=== PATIENT | male | born 1935 | race Caucasian/White ===

== ENCOUNTER 2018-04-24 00:32 | Inpatient (IN) ==
[2018-04-24] MEDS ORDERED: SODIUM CHLORIDE 0.9% 500 ML IV SCH (01:00)
[2018-04-24 01:11] LABS: Basophils # (auto) 0.03 K/uL (0-0.2); Basophils % (auto) 0.3 %; Eosinophils # (auto) 0.08 K/uL (0-0.5); Eosinophils % (auto) 0.7 %; Hematocrit (blood only) 43.6 % (42-52); Hemoglobin 14.7 g/dL (14.0-18.0); Immature Granulocytes # (auto) 0.05 K/uL (0.00-0.02); Immature Granulocytes % (auto) 0.4 %; Lymphocytes % (auto) 7.8 %; Mean Corpuscular Hgb Conc 33.7 g/dL (32-36); Mean Corpuscular Volume 97.3 fL (80-100); Mean Platelet Volume 9.8 fL (7.4-10.4); Monocytes % (auto) 5.2 %; Neutrophils # (auto) 9.85 K/uL (1.4-6.5); Neutrophils % (auto) 85.6 %; Platelet Count 192 K/uL (130-400); RDW Coefficient of Variation 13.6 % (11.5-14.5); Red Blood Count 4.48 M/uL (4.7-6.1); White Blood Count 11.51 K/uL (4.8-10.8)
[2018-04-24 01:27] LABS: Alanine Aminotransferase 16 U/L (12-78); Albumin Level 3.6 gm/dl (3.4-5.0); Aspartate Aminotransferase 17 U/L (15-37); BUN Creatinine Ratio 23.2 (10-20); Blood Urea Nitrogen 41 mg/dl (7-18); Calcium 8.5 mg/dl (8.5-10.1); Carbon Dioxide 29 mmol/L (21-32); Chloride 104 mmol/L (98-107); Est GFR (African American) 40.8; Est GFR (Non-African American) 35.2; Glucose 108 mg/dl (70-99); Potassium 5.4 mmol/L (3.5-5.1); Sodium 136 mmol/L (136-145)
[2018-04-24 01:30] LABS: Albumin Globulin Ratio 0.7 (0.9-2); Alkaline Phosphatase 109 U/L (45-117); Bilirubin,Total 0.5 mg/dl (0.2-1); Globulin 5.1 gm/dl (2.5-4.0); Total Protein 8.7 gm/dl (6.4-8.2)
[2018-04-24] MEDS ORDERED: SODIUM CHLORIDE 0.9% 500 ML IV ONE (02:34)
[2018-04-24] MEDS ORDERED: IOVERSOL 100ml IV PRN (03:34)
[2018-04-24] MEDS ORDERED: ONDANSETRON INJ 2 MG/ML 2 ML VIAL IV STA (04:34)
[2018-04-24] MEDS ORDERED: PANTOprazole 80 MG in DEXTROSE 5% 100 ML IV ONE (04:46)
[2018-04-24] MEDS ORDERED: ALBUT/IPRATROP 3MG/0.5MG NEB 3 ML VIAL NEB STA (05:20)
[2018-04-24] MEDS ORDERED: ERTAPENEM SODIUM 1,000 MG in SODIUM CHLORIDE 0.9% 50 ML IV STA (05:20)
--- NOTE | 2018-04-24 05:21 | History & Physical Report ---
Date of Service April 24, 2018 Assessment & Plan (1) Acute hypoxemic respiratory failure: Secondary to probable aspiration pneumonia from UGIB Possible sepsis Known aspiration risk as per records UGIB (ddx include : Esophagitis, gastritis, Tavia-Vo tear) hx Whalen's esophagus Hemoglobin better than baseline Post laxative bloody diarrhea ro cdif dementia as per records hx COPD, past tobacco abuse hypothyroidism, euthyroid as of today's TSH BPH as per records chronic renal insufficiency, creatinine better than baseline chronic anemia secondary to CKD, hemoglobin better than baseline chronic back pain secondary to chronic lumbar compression fractures. Medical telemetry Supplemental O2 Baseline ABG Cultures, check lactic acid Ertapenem for possible aspiration pneumonia, nebs, Solu-Medrol 1 dose IV PPI Serial H&H, transfuse PRBC if hemoglobin less than 8 if patient family agreeable to blood transfusion, history PVD as per records Stool C. difficile GI consult pending discussion with family members RE GI bleed DVT prophylaxis. SCDs RE GI bleed Full code pending discussion of CODE STATUS with patient family. Attempted to contact patient's daughter/POA, Ms. Yoko Palmer over listed phone #[phone]. No answer. I was able to reach patient's listed secondary contact, Mr. Mumtaz Soni (brother, contact number [phone]). He understandably is uncomfortable making decisions for patient regarding endoscopic procedures, blood transfusion if necessary, and code status. He would like to defer decisions to patient's daughter, Ms. Palmer. Will ask morning provider to attempt to reach patient daughter again in a.m. Total critical time was 45 minutes. History of Present Illness Chief Complaint: Abdominal distention, coffee-ground emesis as per records Primary Care Provider: [facility] History obtained from patient and records. Unable to obtain history from patient secondary to dementia/profound hearing impairment. Medical history significant for Whalen's esophagus, dementia, COPD, past tobacco abuse, hypothyroidism, BPH as per records, chronic renal insufficiency (baseline creatinine 1.7-1.9), chronic anemia (baseline hemoglobin 10-11), chronic back pain secondary to chronic lumbar compression fractures. Patient has had no BM for 3 days, patient belly noted to be firm and distended. Patient had one episode of coffee-ground emesis followed by right lower quadrant pain as per records at the half-way. At the ER, patient noted to be hypoxemic, O2 sats 80s, with junky cough symptoms as per RN. Enema was done subsequently yielding bloody stool output. Medical History as above EGD May 2016 showed esophageal mucosal changes suggestive of long Whalen's esophagus. Large hiatal hernia. Normal examined duodenum. Surgical History : Cleft lip/nasal deformity repair Family History : Could not be obtained Personal/Social history : Past tobacco abuse no EtOH intake, half-way resident Allergies Allergy/AdvReac Type Severity Reaction Status Date / Time amoxicillin Allergy Unknown Unknown Verified 04/24/18 01:54 diazepam Allergy Unknown Unknown Verified 04/24/18 01:54 Home Medications Home Medications Medication Instructions Recorded Confirmed Type acetaminophen 650 mg PO Q6H PRN 04/24/18 04/24/18 History bisacodyl [Dulcolax (bisacodyl)] 10 mg MS DAILY PRN 04/24/18 04/24/18 History cyanocobalamin (vitamin B-12) 1,000 mcg PO DAILY 04/24/18 04/24/18 History diclofenac sodium [Voltaren] 4 g TOPICAL Q6H PRN 04/24/18 04/24/18 History docusate sodium [Colace] 100 mg PO BID 04/24/18 04/24/18 History ferrous sulfate 325 mg PO TID 04/24/18 04/24/18 History levothyroxine 75 mcg PO DAILY 04/24/18 04/24/18 History omeprazole 20 mg PO DAILY 04/24/18 04/24/18 History umeclidinium [Incruse Ellipta] 1 inh INHALATION DAILY 04/24/18 04/24/18 History Past Med/Surg History Medical History COPD (chronic obstructive pulmonary disease) (Chronic) Chronic kidney disease (Chronic) Dementia (Chronic) Hearing loss (Chronic) Hypothyroidism (Chronic) Family History Other No significant family history Social History Preferred Language: [place] Communication Ability: Impaired Senior Living Sales Counselor Required: No Beliefs That Will Affect Care: None Current Living Situation: Senior Care Feels Safe at Home: Yes Safety Concerns: Feels Safe At This Time Smoking Status: Former smoker Hx Alcohol Use: No Hx Substance Use: No Review of Systems Could not be reliably obtained Physical Exam Vital Signs (Past 24 Hours): Last Vital Signs Temp 36.7 C 04/24/18 00:39 Pulse 79 04/24/18 03:25 Resp 18 04/24/18 03:25 BP 127/68 04/24/18 03:25 Pulse Ox 100 04/24/18 03:25 Physical Exam: GENERAL: Comfortable, demented, deaf, no respiratory distress SKIN: Pallor , warm HEENT: Alopecia, pale palpebral conjunctivae, no ptosis, dry buccal mucosa NECK : Supple, no tenderness CHEST : Decreased breath sounds, occasional wheeze , no tenderness HEART : RRR, no obvious murmurs ABDOMEN: Some distention, epigastric tenderness EXTREMITIES : No LE swelling/tenderness, no other conspicuous deformities noted NEUROLOGIC : Demented, hard of hearing, no facial asymmetry, gait and stance not assessed Results & Data Laboratory Results Laboratory Results WBC 11.51 K/uL (4.8-10.8) H 04/24/18 00:20 RBC 4.48 M/uL (4.7-6.1) L 04/24/18 00:20 Hgb 14.7 g/dL (14.0-18.0) 04/24/18 00:20 Hct 43.6 % (42-52) 04/24/18 00:20 MCV 97.3 fL (80-100) 04/24/18 00:20 MCH 32.8 pg (25-34) 04/24/18 00:20 MCHC 33.7 g/dL (32-36) 04/24/18 00:20 RDW Std Deviation 48.0 fL (36.4-46.3) H 04/24/18 00:20 RDW Coeff of [place] 13.6 % (11.5-14.5) 04/24/18 00:20 Plt Count 192 K/uL (130-400) 04/24/18 00:20 MPV 9.8 fL (7.4-10.4) 04/24/18 00:20 Immature Gran % (Auto) 0.4 % 04/24/18 00:20 Neut % (Auto) 85.6 % 04/24/18 00:20 Lymph % (Auto) 7.8 % 04/24/18 00:20 Churchill % (Auto) 5.2 % 04/24/18 00:20 Eos % (Auto) 0.7 % 04/24/18 00:20 Baso % (Auto) 0.3 % 04/24/18 00:20 Immature Gran # (Auto) 0.05 K/uL (0.00-0.02) H 04/24/18 00:20 Neut # (Auto) 9.85 K/uL (1.4-6.5) H 04/24/18 00:20 Lymph # (Auto) 0.90 K/uL (1.2-3.4) L 04/24/18 00:20 Churchill # (Auto) 0.60 K/uL (0.11-0.59) H 04/24/18 00:20 Eos # (Auto) 0.08 K/uL (0-0.5) 04/24/18 00:20 Baso # (Auto) 0.03 K/uL (0-0.2) 04/24/18 00:20 Sodium 136 mmol/L (136-145) 04/24/18 00:20 Potassium 5.4 mmol/L (3.5-5.1) H 04/24/18 00:20 Chloride 104 mmol/L (98-107) 04/24/18 00:20 Carbon Dioxide 29 mmol/L (21-32) 04/24/18 00:20 Anion Gap 3.0 (3-11) 04/24/18 00:20 BUN 41 mg/dl (7-18) H 04/24/18 00:20 Creatinine 1.76 mg/dl (0.6-1.4) H 04/24/18 00:20 Est Cr Clr Drug Dosing Not Reportable 04/24/18 00:20 Est GFR ( Amer) 40.8 04/24/18 00:20 Est GFR (Non-Af Amer) 35.2 04/24/18 00:20 BUN/Creatinine Ratio 23.2 (10-20) H 04/24/18 00:20 Glucose 108 mg/dl (70-99) H 04/24/18 00:20 Calcium 8.5 mg/dl (8.5-10.1) 04/24/18 00:20 Total Bilirubin 0.5 mg/dl (0.2-1) 04/24/18 00:20 AST 17 U/L (15-37) 04/24/18 00:20 ALT 16 U/L (12-78) 04/24/18 00:20 Alkaline Phosphatase 109 U/L (45-117) 04/24/18 00:20 Total Protein 8.7 gm/dl (6.4-8.2) H 04/24/18 00:20 Albumin 3.6 gm/dl (3.4-5.0) 04/24/18 00:20 Globulin 5.1 gm/dl (2.5-4.0) H 04/24/18 00:20 Albumin/Globulin Ratio 0.7 (0.9-2) L 04/24/18 00:20 Diagnostic Findings Chest x-ray showed 1. Subsegmental bibasilar opacities suggest atelectasis with pneumonitis considered less likely. 2. Nonobstructive bowel gas pattern. 2. A few small bowel air-fluid levels are noted, likely physiologic or reflect of a mild enteritis. EKG as per my interpretation : Rate 90, NSR, LAD, LAFB, incomplete right bundle branch block, T wave flattening inferior leads, low voltage CT abdomen pelvis initial read: Normal appendix, no free air/fluid. Right inguinal hernia containing a loop of small bowel without evidence of resulting obstruction. Small sliding hiatal hernia. Distal esophagus of fluid suggesting GERD. Colonic diverticulosis without diverticulitis. Mild to moderate renal atrophy. Severe compression fracture T12-L3 likely chronic.
[2018-04-24 05:31] LABS: Hematocrit (blood only) 39.2 % (42-52); Hemoglobin 13.1 g/dL (14.0-18.0)
[2018-04-24 05:45] LABS: Partial Thromboplastin Time 26.8 Seconds (21.0-31.0)
[2018-04-24 06:00] LABS: Potassium 5.1 mmol/L (3.5-5.1)
[2018-04-24 06:01] LABS: HCO3 ABG 21 mmol/L (19-24); Oxygen Saturation ABG 95.9 % (90-95); PCO2 ABG 40 mmHg (35-46); PO2 ABG 81 mm/Hg (80-95); pH ABG 7.34 (7.35-7.45)
[2018-04-24 06:02] LABS: Allen Test POS (Pos)
[2018-04-24 06:19] LABS: Troponin I < 0.015 ng/ml (0-0.045)
[2018-04-24] MEDS ORDERED: TRAMADOL HCL 50 MG TABLET PO PRN (06:28)
[2018-04-24] MEDS ORDERED: ACETAMINOPHEN 325 MG TAB PO PRN ×2 (06:28)
[2018-04-24] MEDS ORDERED: HALOPERIDOL LACTATE 5 MG/ML 1 ML VIAL IM PRN (06:28)
[2018-04-24] MEDS ORDERED: NITROGLYCERIN SL 0.4 MG/TAB TAB SL PRN (06:28)
[2018-04-24] MEDS ORDERED: HYDROmorphone INJ 0.5 MG/0.5 ML SYR IV PRN (06:28)
[2018-04-24] MEDS ORDERED: PROCHLORPERAZINE 5 MG in SYRINGE 4 ML IV PRN (06:28)
--- NOTE | 2018-04-24 06:38 | XRay Report ---
XR abdomen 2V w PA chest HISTORY: 82 years-old Male eval for sbo acute generalized abdominal pain with concern for small alexandru l obstruction COMPARISON: CT abdomen and pelvis of same day TECHNIQUE: AP view of the chest with erect and supine views of the abdomen FINDINGS: Cardiomediastinal and hilar silhouettes are within normal limits. Calcification of the thoracic aorti c arch. Mild biapical pleural-parenchymal scarring. No pneumothorax, pleural effusion or overt pulmon adam edema. Mild interstitial coarsening with subsegmental bibasilar opacities. Degenerative changes o f the shoulders and spine. Remote fracture deformity about the proximal left humerus. No pneumatosis or pneumoperitoneum. Bowel gas pattern is nonobstructive. There are a few scattered sm all bowel air-fluid levels noted throughout the abdomen and pelvis. No urolith. Degenerative changes of the spine, pelvis and hips. Multiple indeterminate pelvic basin calcifications are suggestive of p hleboliths. IMPRESSION: 1. Subsegmental bibasilar opacities suggest atelectasis with pneumonitis considered less likely. 2. Nonobstructive bowel gas pattern. 2. A few small bowel air-fluid levels are noted, likely physiologic or reflect of a mild enteritis. The above report was generated using voice recognition software. It may contain grammatical, syntax o r spelling errors. Electronically signed by: Allan Borjas M.D. 04/24/2018 6:36 AM
--- NOTE | 2018-04-24 07:03 | Emergency Department Note ---
Entered by Vera Torres acting as a scribe for Rosalind Berg DO History of Present Illness General Chief complaint: Abdominal Pain Time Seen by Provider: 04/24/18 00:36 Source: other (ED nurse) History of Present Illness Onset (ago): day(s) 4 Location: abdomen Pain Consistency: + constant Associated symptoms: + other (abdominal distention, constipation, coffee ground emesis) Treatments prior to arrival: other (morphine and Zofran) The patient is a 82 year old M who presents to the Emergency Room with complaints of constant abdominal pain starting 4 days ago. The majority of the HPI was provided by the ED nurse. She states that the patient currently has abdominal distention, constipation, and coffee ground emesis. She adds that the patient is extremely hard of hearing. She notes that the patient was given morphine and Zofran by EMS prior to arrival. The patient states that he eats food and drinks Mountain Dew. Home Medications Home Medications Medication Instructions Recorded Confirmed Type acetaminophen 650 mg PO Q6H PRN 04/24/18 04/24/18 History bisacodyl [Dulcolax (bisacodyl)] 10 mg VT DAILY PRN 04/24/18 04/24/18 History cyanocobalamin (vitamin B-12) 1,000 mcg PO DAILY 04/24/18 04/24/18 History diclofenac sodium [Voltaren] 4 g TOPICAL Q6H PRN 04/24/18 04/24/18 History docusate sodium [Colace] 100 mg PO BID 04/24/18 04/24/18 History ferrous sulfate 325 mg PO TID 04/24/18 04/24/18 History levothyroxine 75 mcg PO DAILY 04/24/18 04/24/18 History omeprazole 20 mg PO DAILY 04/24/18 04/24/18 History umeclidinium [Incruse Ellipta] 1 inh INHALATION DAILY 04/24/18 04/24/18 History Allergies Allergy/AdvReac Type Severity Reaction Status Date / Time amoxicillin Allergy Unknown Unknown Verified 04/24/18 01:54 diazepam Allergy Unknown Unknown Verified 04/24/18 01:54 Past Med/Surg History Medical History COPD (chronic obstructive pulmonary disease) (Chronic) Chronic kidney disease (Chronic) Dementia (Chronic) Hearing loss (Chronic) Hypothyroidism (Chronic) Family History Other No significant family history Social History Feels Safe at Home: Yes Smoking Status: Unknown if ever smoked Review of Systems See HPI for pertinent positives & negatives. and A total of 10 systems reviewed and were otherwise negative Physical Exam Vital Signs Vital Signs - 24 hr 04/24/18 00:35 04/24/18 00:39 04/24/18 00:41 Temperature 36.7 C Temperature Source Oral Sepsis Recent Fever Within 48 Hours No Sepsis New/Unexplained Change in Mental Status No Sepsis Action Taken by Nursing No Action Required Pulse Rate 88 101 H 89 Pulse Rate [Finger] Pulse Rate from SpO2 Sensor 89 89 Respiratory Rate 25 H 16 24 Respiratory Effort / Characteristics Non-Labored Respiratory Depth Normal Blood Pressure 139/88 139/88 Blood Pressure [Left Arm] Blood Pressure Mean 105 105 Blood Pressure Mean [Left Arm] Blood Pressure Position Lying Pulse Oximetry 95 85 L 97 Oxygen Delivery Method Room Air Oxygen Flow Rate 04/24/18 00:46 04/24/18 01:00 04/24/18 01:11 Temperature Temperature Source Sepsis Recent Fever Within 48 Hours Sepsis New/Unexplained Change in Mental Status Sepsis Action Taken by Nursing Pulse Rate 85 Pulse Rate [Finger] Pulse Rate from SpO2 Sensor 86 Respiratory Rate 14 Respiratory Effort / Characteristics Respiratory Depth Blood Pressure Blood Pressure [Left Arm] Blood Pressure Mean Blood Pressure Mean [Left Arm] Blood Pressure Position Pulse Oximetry 85 L 99 99 Oxygen Delivery Method Oxymask Oxymask Oxygen Flow Rate 0 6 04/24/18 01:30 04/24/18 02:00 04/24/18 02:30 Temperature Temperature Source Sepsis Recent Fever Within 48 Hours Sepsis New/Unexplained Change in Mental Status Sepsis Action Taken by Nursing Pulse Rate 84 79 78 Pulse Rate [Finger] Pulse Rate from SpO2 Sensor 83 79 78 Respiratory Rate 22 15 15 Respiratory Effort / Characteristics Respiratory Depth Blood Pressure Blood Pressure [Left Arm] Blood Pressure Mean Blood Pressure Mean [Left Arm] Blood Pressure Position Pulse Oximetry 98 100 100 Oxygen Delivery Method Oxygen Flow Rate 04/24/18 03:00 04/24/18 03:25 04/24/18 05:34 Temperature Temperature Source Sepsis Recent Fever Within 48 Hours Sepsis New/Unexplained Change in Mental Status Sepsis Action Taken by Nursing Pulse Rate 89 Pulse Rate [Finger] 79 85 Pulse Rate from SpO2 Sensor Respiratory Rate 25 H 18 18 Respiratory Effort / Characteristics Respiratory Depth Blood Pressure Blood Pressure [Left Arm] 127/68 140/66 Blood Pressure Mean Blood Pressure Mean [Left Arm] 87 90 Blood Pressure Position Pulse Oximetry 100 99 Oxygen Delivery Method Oxymask Oxygen Flow Rate 7 HEENT: Head - normocephalic and atraumatic Pupils are equal, round, and reactive to light. Extraocular eye muscles are intact, and sclera are anicteric. Nose - moist nasal mucosa without discharge. Mouth - extremely dr y. Oropharynx is nonerythematous and there is no tonsillar exudate or edema noted. Neck: Supple; no JVD, nuchal rigidity, cervical lymphadenopathy. Heart: Regular rate and rhythm. There is a normal S1 and S2 with no murmurs, clicks, or gallops appreciated. Lungs: Diminished breath sounds at both lung bases Abdomen: Distended and tender to palpation, with hypoactive bowel sounds. There are no palpable pulsatile masses or hepatosplenomegaly. There is no guarding, rigidity, or rebound noted. Extremities: No evidence of cyanosis, clubbing, or edema. There are easily palpable peripheral pulses. Skin: warm and dry with good turgor and no rashes. Course 0052: Past medical records reviewed. The patient was evaluated in room B7, and a complete history and physical examination were performed. Laboratory studies were drawn as above. 0106: Sodium Chloride (Nss) 500 mls @ 999 mls/hr IV. The patient had an obstruction series performed. This showed moderate colonic fecal retention with some atelectasis at the lung bases 0253: The patient had an enema performed which had blood coming out with minimal stool. The patient is going to have a CAT scan because the persistent abdominal pain. 0307: Sodium Chloride (Nss) 500 mls @ 999 mls/hr IV 0441: The patient began to complain of increased nausea. Ondansetron HCl (Zofran) 4 mg IV 0443: I reviewed the patient's case with Dr. Cristino Lee [facility]. He will evaluate the patient for further management. 0445: The patient's oxygen saturation was 83% on room air. I now placed the patient on oxygen. 0524: Pantoprazole Sodium 80 mg/ (Dextrose) 120 mls @ 400 mls/hr IV Consultations Consultation #1: I reviewed the patient's case with Dr. Cristino Lee [facility]. He will evaluate the patient for further management. Time: 04:43 Administered Medications Discontinued Medications Albuterol (Duoneb) 3 ml NEB NOW STA Stop: 04/24/18 05:21 Last Admin: 04/24/18 05:40 Dose: 3 ml Documented by: [id number] Sodium Chloride (Nss) 500 mls @ 999 mls/hr IV .Q31M HENRIK Stop: 04/24/18 01:30 Last Infusion: 04/24/18 01:59 Dose: 0 mls/hr Documented by: [id number] Admin: 04/24/18 01:06 Dose: 999 mls/hr Documented by: [id number] Sodium Chloride (Nss) 500 mls @ 999 mls/hr IV .Q31M ONE Stop: 04/24/18 03:04 Last Infusion: 04/24/18 03:51 Dose: 0 mls/hr Documented by: [id number] Admin: 04/24/18 03:07 Dose: 999 mls/hr Documented by: [id number] Pantoprazole Sodium 80 mg/ (Dextrose) 120 mls @ 400 mls/hr IV NOW ONE Stop: 04/24/18 05:03 Last Infusion: 04/24/18 05:44 Dose: 0 mls/hr Documented by: [id number] Admin: 04/24/18 05:24 Dose: 400 mls/hr Documented by: [id number] Ertapenem 1,000 mg/ Sodium (Chloride) 60 mls @ 100 mls/hr IV NOW STA Stop: 04/24/18 05:55 Last Admin: 04/24/18 05:40 Dose: 100 mls/hr Documented by: [id number] Ioversol (Optiray 320 100ml) 93 ml IV ONCE PRN PRN Reason: Interaction Checking Stop: 04/28/18 03:33 Last Admin: 04/24/18 03:35 Dose: 93 ml Documented by: [id number] Methylprednisolone (Solumedrol) 20 mg IV NOW STA Stop: 04/24/18 05:21 Last Admin: 04/24/18 05:40 Dose: 20 mg Documented by: [id number] Ondansetron HCl (Zofran) 4 mg IV NOW STA Stop: 04/24/18 04:35 Last Admin: 04/24/18 04:41 Dose: 4 mg Documented by: [id number] Medical Decision Making Differential Diagnosis Differential Diagnosis includes: constipation, small bowel obstruction, fecal impaction, and dehydration Medical Records Attestation: I reviewed the patient's medical records. Home Medications Current Medication List: was personally reviewed by me Laboratory Data Attestation: I reviewed the patient's lab results. Result diagrams: 04/24/18 05:19 04/24/18 05:30 Lab Results 04/24/18 04/24/18 04/24/18 Range/Units 00:20 00:20 05:19 WBC 11.51 H (4.8-10.8) K/uL RBC 4.48 L (4.7-6.1) M/uL Hgb 14.7 13.1 L (14.0-18.0) g/dL Hct 43.6 39.2 L (42-52) % MCV 97.3 (80-100) fL MCH 32.8 (25-34) pg MCHC 33.7 (32-36) g/dL RDW Std Deviation 48.0 H (36.4-46.3) fL RDW Coeff of Valdez 13.6 (11.5-14.5) % Plt Count 192 (130-400) K/uL MPV 9.8 (7.4-10.4) fL Immature Gran % (Auto) 0.4 % Neut % (Auto) 85.6 % Lymph % (Auto) 7.8 % [place] % (Auto) 5.2 % Eos % (Auto) 0.7 % Baso % (Auto) 0.3 % Immature Gran # (Auto) 0.05 H (0.00-0.02) K/uL Neut # (Auto) 9.85 H (1.4-6.5) K/uL Lymph # (Auto) 0.90 L (1.2-3.4) K/uL [place] # (Auto) 0.60 H (0.11-0.59) K/uL Eos # (Auto) 0.08 (0-0.5) K/uL Baso # (Auto) 0.03 (0-0.2) K/uL APTT (21.0-31.0) Seconds PTT Ratio ABG pH (7.35-7.45) ABG pCO2 (35-46) mmHg ABG pO2 (80-95) mm/Hg ABG HCO3 (19-24) mmol/L ABG O2 Saturation (90-95) % ABG Base Excess (-9-1.8) mEq/L Brian Test (Pos) Barometric Pressure mm/Hg Oxygen Given Sodium 136 (136-145) mmol/L Potassium 5.4 H (3.5-5.1) mmol/L Chloride 104 (98-107) mmol/L Carbon Dioxide 29 (21-32) mmol/L Anion Gap 3.0 (3-11) BUN 41 H (7-18) mg/dl Creatinine 1.76 H (0.6-1.4) mg/dl Est Cr Clr Drug Dosing Not Reportable Est GFR ( Amer) 40.8 Est GFR (Non-Af Amer) 35.2 BUN/Creatinine Ratio 23.2 H (10-20) Glucose 108 H (70-99) mg/dl Lactate (0.4-2.0) mmol/L Calcium 8.5 (8.5-10.1) mg/dl Magnesium (1.8-2.4) mg/dl Total Bilirubin 0.5 (0.2-1) mg/dl AST 17 (15-37) U/L ALT 16 (12-78) U/L Alkaline Phosphatase 109 (45-117) U/L Troponin I (0-0.045) ng/ml Total Protein 8.7 H (6.4-8.2) gm/dl Albumin 3.6 (3.4-5.0) gm/dl Globulin 5.1 H (2.5-4.0) gm/dl Albumin/Globulin Ratio 0.7 L (0.9-2) Procalcitonin (0-0.5) ng/ml TSH (0.300-4.500) uIu/ml 04/24/18 04/24/18 04/24/18 Range/Units 05:19 05:19 05:19 WBC (4.8-10.8) K/uL RBC (4.7-6.1) M/uL Hgb (14.0-18.0) g/dL Hct (42-52) % MCV (80-100) fL MCH (25-34) pg MCHC (32-36) g/dL RDW Std Deviation (36.4-46.3) fL RDW Coeff of Valdez (11.5-14.5) % Plt Count (130-400) K/uL MPV (7.4-10.4) fL Immature Gran % (Auto) % Neut % (Auto) % Lymph % (Auto) % [place] % (Auto) % Eos % (Auto) % Baso % (Auto) % Immature Gran # (Auto) (0.00-0.02) K/uL Neut # (Auto) (1.4-6.5) K/uL Lymph # (Auto) (1.2-3.4) K/uL [place] # (Auto) (0.11-0.59) K/uL Eos # (Auto) (0-0.5) K/uL Baso # (Auto) (0-0.2) K/uL APTT 26.8 (21.0-31.0) Seconds PTT Ratio 1.0 ABG pH (7.35-7.45) ABG pCO2 (35-46) mmHg ABG pO2 (80-95) mm/Hg ABG HCO3 (19-24) mmol/L ABG O2 Saturation (90-95) % ABG Base Excess (-9-1.8) mEq/L Brian Test (Pos) Barometric Pressure mm/Hg Oxygen Given Sodium (136-145) mmol/L Potassium (3.5-5.1) mmol/L Chloride (98-107) mmol/L Carbon Dioxide (21-32) mmol/L Anion Gap (3-11) BUN (7-18) mg/dl Creatinine (0.6-1.4) mg/dl Est Cr Clr Drug Dosing Est GFR ( Amer) Est GFR (Non-Af Amer) BUN/Creatinine Ratio (10-20) Glucose (70-99) mg/dl Lactate 1.5 (0.4-2.0) mmol/L Calcium (8.5-10.1) mg/dl Magnesium (1.8-2.4) mg/dl Total Bilirubin (0.2-1) mg/dl AST (15-37) U/L ALT (12-78) U/L Alkaline Phosphatase (45-117) U/L Troponin I (0-0.045) ng/ml Total Protein (6.4-8.2) gm/dl Albumin (3.4-5.0) gm/dl Globulin (2.5-4.0) gm/dl Albumin/Globulin Ratio (0.9-2) Procalcitonin 0.07 (0-0.5) ng/ml TSH (0.300-4.500) uIu/ml 04/24/18 04/24/18 Range/Units 05:30 05:30 WBC (4.8-10.8) K/uL RBC (4.7-6.1) M/uL Hgb (14.0-18.0) g/dL Hct (42-52) % MCV (80-100) fL MCH (25-34) pg MCHC (32-36) g/dL RDW Std Deviation (36.4-46.3) fL RDW Coeff of Valdez (11.5-14.5) % Plt Count (130-400) K/uL MPV (7.4-10.4) fL Immature Gran % (Auto) % Neut % (Auto) % Lymph % (Auto) % [place] % (Auto) % Eos % (Auto) % Baso % (Auto) % Immature Gran # (Auto) (0.00-0.02) K/uL Neut # (Auto) (1.4-6.5) K/uL Lymph # (Auto) (1.2-3.4) K/uL [place] # (Auto) (0.11-0.59) K/uL Eos # (Auto) (0-0.5) K/uL Baso # (Auto) (0-0.2) K/uL APTT (21.0-31.0) Seconds PTT Ratio ABG pH 7.34 L (7.35-7.45) ABG pCO2 40 (35-46) mmHg ABG pO2 81 (80-95) mm/Hg ABG HCO3 21 (19-24) mmol/L ABG O2 Saturation 95.9 H (90-95) % ABG Base Excess -4.3 (-9-1.8) mEq/L Brian Test POS (Pos) Barometric Pressure 734.5 mm/Hg Oxygen Given 5 L Sodium (136-145) mmol/L Potassium 5.1 (3.5-5.1) mmol/L Chloride (98-107) mmol/L Carbon Dioxide (21-32) mmol/L Anion Gap (3-11) BUN (7-18) mg/dl Creatinine (0.6-1.4) mg/dl Est Cr Clr Drug Dosing Est GFR ( Amer) Est GFR (Non-Af Amer) BUN/Creatinine Ratio (10-20) Glucose (70-99) mg/dl Lactate (0.4-2.0) mmol/L Calcium (8.5-10.1) mg/dl Magnesium 2.0 (1.8-2.4) mg/dl Total Bilirubin (0.2-1) mg/dl AST (15-37) U/L ALT (12-78) U/L Alkaline Phosphatase (45-117) U/L Troponin I < 0.015 (0-0.045) ng/ml Total Protein (6.4-8.2) gm/dl Albumin (3.4-5.0) gm/dl Globulin (2.5-4.0) gm/dl Albumin/Globulin Ratio (0.9-2) Procalcitonin (0-0.5) ng/ml TSH 3.810 (0.300-4.500) uIu/ml Imaging Data Attestation: I personally reviewed and interpreted this imaging study as follows: My Impression: XR Abdomen 2V w PA chest: No free air, mild colonic fecal retention, no evidence of bowel obstruction Radiologist's Impression: Radiology results as stated below per my review and the radiologist's interpretation: CT Abdomen & Pelvis W/WO Contrast: Normal appendix. No free air or free fluid. Right inguinal hernia contains a loop of small bowel without evidence of resulting obstruction. Small sliding haital hernia. There is fluid in the distal esophagus, suggesting gastroesophageal reflux. Colonic diverticulitis without evidence of acute diverticulitis. Mild to moderate renal atrophy. 1.3 cm renal cyst upper pole right kidney. Elevation right hemidiaphragm. Mild bibasilar atelectasis or scarring. Atherosclerotic calcifications of aorta and its branches. Severe compression fracture of T12 and mild compression fracture of L3 vertebral body, likely chronic. Blood Pressure Blood Pressure Findings: Normal blood pressure Blood Pressure Disposition: did not require urgent referral MDM Narrative The patient is a 82 year old M who presents to the ED with complaints of constant abdominal pain starting 4 days ago. Differential diagnosis includes No free air, significant colonic fecal retention, no evidence of bowel obstruction. The patient resides at [facility]. He began to complain of increasing periumbilical abdominal pain. He has not been able to have a bowel movement over the past couple of days. Tonight the patient had an episode of coffee- ground emesis at [facility]. The patient had no further vomiting here in the emergency department. However, during the enema, the patient was noted to have significant lower GI bleeding. He also had an episode of hypoxia with an O2 saturation of 83%. He is placed on supplemental oxygen. I went back and looked at the patient's chest x-ray from his obstruction series which showed some evidence of atelectasis in the bases but no other acute findings. I discussed the case with the [facility] Hospitalist and they will evaluate for further management. Impression & Plan GI bleeding, Hypoxia Discharge Plan Visit Data *Final* Discharge Date/Time: 04/24/18 05:58 Chief Complaint: Abdominal Pain ED Provider: Rosalind Berg Discharge Problem: GI bleeding, Hypoxia Patient Disposition: Admitted As Inpatient Discharge Instructions Interventions: ED Discharge Assessment Last Done: 04/24/18 05:58 Discharge Problem: GI bleeding Qualifiers: GI bleed type/associated pathology: unspecified gastrointestinal hemorrhage type Qualified Code(s): K92.2 - Gastrointestinal hemorrhage, unspecified The scribe's documentation has been prepared under my direction and personally reviewed by me in its entirety. I confirm that the note above accurately reflects all work, treatment, procedures, and medical decision making performed by me.
[2018-04-24] MEDS ORDERED: PANTOPRAZOLE BOLUS/DRIP 1 EA IV STA (07:40)
[2018-04-24] MEDS: IPRATROPIUM BROMIDE NEB SOLN 0.02% 2.5 ML VIAL INH SCH ×3 (08:11→19:42)
[2018-04-24] MEDS: LEVALBUTEROL 1.25MG/0.5ML NEB INH SCH ×3 (08:12→19:42)
[2018-04-24] MEDS: SODIUM CHLORIDE 0.9% 1000ML 1,000 ML IV SCH (08:19)
[2018-04-24] MEDS: LEVOTHYROXINE SODIUM 75 MCG TABLET PO SCH (08:20)
[2018-04-24] MEDS: PANTOprazole 40 MG in DEXTROSE 5% 100 ML IV SCH ×4 (08:20→23:09)
[2018-04-24] MEDS: LIDOCAINE 5% 1 PATCH TD SCH (08:21)
[2018-04-24] MEDS ORDERED: ERTAPENEM CONSULT ACTIVE PRN (08:30)
[2018-04-24] MEDS ORDERED: CONSULT PHARMACY SCH (09:00)
--- NOTE | 2018-04-24 09:24 | Hospitalist Progress Note ---
Date of Service April 24, 2018 Assessment & Plan (1) GI bleeding: monitor Hg Protonix drip NPO GI consult (2) Hypoxia: from possible Aspiration pneumonia Ertapenem ordered Nebs ordered monitor waen off Oxygen (3) CKD (chronic kidney disease) stage 3, GFR 30-59 ml/min: stable monitor Dementia as per records History COPD, past tobacco abuse not in exacerbation hypothyroidism, euthyroid as of today's TSH BPH as per records chronic back pain secondary to chronic lumbar compression fractures. tried to call patient's daughter: no answer, left voicemail requesting for callback DVT prophylaxis. SCDs RE GI bleed Full code pending discussion of CODE STATUS with patient family. Subjective ff up for hematemesis, hematochezia seen resting in bed, comfortable states he has some epigastric discomfort, and mild nausea no note of hematemesis, melena while admitted denies chest pain, dyspnea, palpitations, dizziness no other symptoms Physical Exam Vital Signs (Past 24 Hours): Last Vital Signs Temp 37.1 C 04/24/18 07:16 Pulse 85 04/24/18 07:16 Resp 18 04/24/18 07:16 BP 148/75 H 04/24/18 07:16 Pulse Ox 99 04/24/18 07:16 Physical Exam: General- oriented x 2, not in distress, speaks in sentences with no effort or accessory muscle use Eyes- anicteric Neck- no JVD Lungs- clear breath sounds bilaterally, no rales/wheezes Heart- normal rate, regular rhythm; no murmurs Abdomen- normal bowel sounds, nondistended, soft, mild epigastric tenderness Extremities- no pretibial edema, no calf tenderness Neuro- alert, oriented x 3; no gross focal neurologic deficits Skin- warm & dry Results & Data Laboratory Results Laboratory Results - last 24 hr 04/24/18 04/24/18 04/24/18 00:20 00:20 05:19 WBC 11.51 H RBC 4.48 L Hgb 14.7 13.1 L Hct 43.6 39.2 L MCV 97.3 MCH 32.8 MCHC 33.7 RDW Std Deviation 48.0 H RDW Coeff of Valdez 13.6 Plt Count 192 MPV 9.8 Immature Gran % (Auto) 0.4 Neut % (Auto) 85.6 Lymph % (Auto) 7.8 [place] % (Auto) 5.2 Eos % (Auto) 0.7 Baso % (Auto) 0.3 Immature Gran # (Auto) 0.05 H Neut # (Auto) 9.85 H Lymph # (Auto) 0.90 L [place] # (Auto) 0.60 H Eos # (Auto) 0.08 Baso # (Auto) 0.03 APTT PTT Ratio ABG pH ABG pCO2 ABG pO2 ABG HCO3 ABG O2 Saturation ABG Base Excess Brian Test Barometric Pressure Oxygen Given Sodium 136 Potassium 5.4 H Chloride 104 Carbon Dioxide 29 Anion Gap 3.0 BUN 41 H Creatinine 1.76 H Est Cr Clr Drug Dosing Not Reportable Est GFR ( Amer) 40.8 Est GFR (Non-Af Amer) 35.2 BUN/Creatinine Ratio 23.2 H Glucose 108 H Lactate Calcium 8.5 Magnesium Total Bilirubin 0.5 AST 17 ALT 16 Alkaline Phosphatase 109 Troponin I Total Protein 8.7 H Albumin 3.6 Globulin 5.1 H Albumin/Globulin Ratio 0.7 L Procalcitonin TSH Blood Type Antibody Screen 04/24/18 04/24/18 04/24/18 05:19 05:19 05:19 WBC RBC Hgb Hct MCV MCH MCHC RDW Std Deviation RDW Coeff of Valdez Plt Count MPV Immature Gran % (Auto) Neut % (Auto) Lymph % (Auto) [place] % (Auto) Eos % (Auto) Baso % (Auto) Immature Gran # (Auto) Neut # (Auto) Lymph # (Auto) [place] # (Auto) Eos # (Auto) Baso # (Auto) APTT 26.8 PTT Ratio 1.0 ABG pH ABG pCO2 ABG pO2 ABG HCO3 ABG O2 Saturation ABG Base Excess Brian Test Barometric Pressure Oxygen Given Sodium Potassium Chloride Carbon Dioxide Anion Gap BUN Creatinine Est Cr Clr Drug Dosing Est GFR ( Amer) Est GFR (Non-Af Amer) BUN/Creatinine Ratio Glucose Lactate 1.5 Calcium Magnesium Total Bilirubin AST ALT Alkaline Phosphatase Troponin I Total Protein Albumin Globulin Albumin/Globulin Ratio Procalcitonin 0.07 TSH Blood Type Antibody Screen 04/24/18 04/24/18 04/24/18 05:30 05:30 05:30 WBC RBC Hgb Hct MCV MCH MCHC RDW Std Deviation RDW Coeff of Valdez Plt Count MPV Immature Gran % (Auto) Neut % (Auto) Lymph % (Auto) [place] % (Auto) Eos % (Auto) Baso % (Auto) Immature Gran # (Auto) Neut # (Auto) Lymph # (Auto) [place] # (Auto) Eos # (Auto) Baso # (Auto) APTT PTT Ratio ABG pH 7.34 L ABG pCO2 40 ABG pO2 81 ABG HCO3 21 ABG O2 Saturation 95.9 H ABG Base Excess -4.3 Brian Test POS Barometric Pressure 734.5 Oxygen Given 5 L Sodium Potassium 5.1 Chloride Carbon Dioxide Anion Gap BUN Creatinine Est Cr Clr Drug Dosing Est GFR ( Amer) Est GFR (Non-Af Amer) BUN/Creatinine Ratio Glucose Lactate Calcium Magnesium 2.0 Total Bilirubin AST ALT Alkaline Phosphatase Troponin I < 0.015 Total Protein Albumin Globulin Albumin/Globulin Ratio Procalcitonin TSH 3.810 Blood Type O Negative Antibody Screen NEGATIVE 04/24/18 04/24/18 12:03 17:56 WBC RBC Hgb 13.0 L 12.5 L Hct 39.4 L 38.9 L MCV MCH MCHC RDW Std Deviation RDW Coeff of Valdez Plt Count MPV Immature Gran % (Auto) Neut % (Auto) Lymph % (Auto) [place] % (Auto) Eos % (Auto) Baso % (Auto) Immature Gran # (Auto) Neut # (Auto) Lymph # (Auto) [place] # (Auto) Eos # (Auto) Baso # (Auto) APTT PTT Ratio ABG pH ABG pCO2 ABG pO2 ABG HCO3 ABG O2 Saturation ABG Base Excess Brian Test Barometric Pressure Oxygen Given Sodium Potassium Chloride Carbon Dioxide Anion Gap BUN Creatinine Est Cr Clr Drug Dosing Est GFR ( Amer) Est GFR (Non-Af Amer) BUN/Creatinine Ratio Glucose Lactate Calcium Magnesium Total Bilirubin AST ALT Alkaline Phosphatase Troponin I Total Protein Albumin Globulin Albumin/Globulin Ratio Procalcitonin TSH Blood Type Antibody Screen (1) GI bleeding GI bleed type/associated pathology: unspecified gastrointestinal hemorrhage type Qualified Code(s): K92.2 - Gastrointestinal hemorrhage, unspecified
--- NOTE | 2018-04-24 09:25 | CT Scan Report ---
ABDOMEN AND PELVIS CT WITH IV CONTRAST CT DOSE: 428.59 mGy.cm HISTORY: Acute generalized abdominal pain with GI bleed eval for GI bleeding TECHNIQUE: Multiaxial CT images of the abdomen and pelvis were performed following the use of intrave nous contrast. A dose lowering technique was utilized adhering to the principles of ALARA. COMPARISON STUDY: Acute abdominal series radiographs of same day. FINDINGS: Study is motion degraded. Right hemidiaphragmatic elevation. Subsegmental bibasilar opacities are not ed with mild bibasilar bronchial wall thickening. No pneumatosis or pneumoperitoneum identified. Imag ed inferior cardiac chambers appear unremarkable. Gallbladder, liver, spleen and adrenal glands appear unremarkable. Moderate generalized pancreatic at rophy. Mild to moderate bilateral renal atrophy with diffuse mild cortical thinning. Intermediate den sity lesion of the superior pole right kidney measures 1.2 cm. Kidneys are otherwise unremarkable. No renal calculi or obstructive uropathy. The ureters and urinary bladder are within normal limits. Mil d prostamegaly. Moderate fat filled left inguinal hernia. A portion of the left urinary bladder lumen extends into the proximal portion of the hernia sac. Large right inguinal hernia contains mesenteric fat and nonobstructed loop of ileum. Extensive mixed plaque formation of the abdominal aorta and bra nch vessels without aneurysm. No adenopathy. Moderate hiatal hernia with fluid distended distal esophagus. No small bowel obstruction. Moderate le ntiform stool about the colon, notably within the sigmoid and rectum. Colonic diverticulosis. CT evid ence of acute diverticulitis. No ascites or mesenteric inflammation. Appendix appears unremarkable. M oderate asymmetric atrophy about the left psoas, Iliacus and iliopsoas musculature. Chronic denervati on injury of the differential consideration. Demineralized appearance of the bones. Degenerative self ges of the spine, pelvis and hips. No acute fracture identified. 30% anterior endplate compression de formity of the T12 vertebral body with 4 mm retropulsion. No associated paravertebral edema identifie d. Additionally, approximately 20% superior endplate compression deformity of L3 without retropulsion . No edema. IMPRESSION: 1. No bowel obstruction or focal bowel wall thickening. 2. Extensive sigmoid diverticulosis without CT evidence of acute diverticulitis. 3. Constipation. 4. Moderate fat filled left inguinal hernia with portion of the left ureter bladder extending into th e proximal hernia ostium. Large right inguinal hernia contains mesenteric fat, portion of the anterio r right urinary bladder and a nonobstructed loop of ileum. 5. Moderate sized hiatal hernia with fluid-filled distal esophagus. 6. Age-indeterminate 30% anterior endplate compression deformity of T12 with 4 mm retropulsion. Age-i ndeterminate superior endplate compression deformity of approximately 20% involves the L3 vertebral b [place]. No associated edema to suggest acute injury. Correlate with patient history and point tenderness . 7. Additional findings as above. Electronically signed by: Allan Borjas M.D. 04/24/2018 9:24 AM
[2018-04-24] MEDS ORDERED: POLYETHYLENE (MIRALAX) 17 GM PACK PO PRN (11:27)
[2018-04-24] MEDS ORDERED: XOPENEX/ATROVENT 1.25mg/0.5MG NEB COMBO NEB SCH (12:00)
[2018-04-24 12:25] LABS: Hematocrit (blood only) 39.4 % (42-52)
--- NOTE | 2018-04-24 12:37 | Consultation Report ---
DATE OF CONSULTATION: 04/24/2018 GASTROENTEROLOGY CONSULT ATTENDING PHYSICIAN: Dr. Lassiter. CONSULTING PHYSICIAN: Dr. Barnett. REASON FOR CONSULTATION: Possible upper GI bleed. 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 The patient was not felt to be a candidate for hiatal hernia repair at that time due to his chronic medical comorbidities. He also has dementia and currently resides at a senior care where he was transferred to the [facility]'s Department of Emergency Medicine early this morning with complaints of abdominal pain, distention, constipation and reported coffee-ground emesis. Upon arrival, he was noted to have an H and H of 14.7 and 43.6. His white blood cell count was 11.51. His BUN and creatinine were [address] scan of the abdomen and pelvis showed no bowel obstruction or focal bowel wall thickening, extensive sigmoid diverticulosis, constipation, a moderate fat-filled left inguinal hernia with a left ureter extending into the proximal hernia ostium and a large right inguinal hernia containing mesenteric fat, a moderate-sized hiatal hernia with fluid-filled distal esophagus and compression deformities of T12 and L3. Chest x-ray showed bibasilar opacities suggesting atelectasis with pneumonitis considered less likely. [facility] respiratory failure and questionable aspiration pneumonia and was started on IV antibiotics as well as a Protonix drip. The history on this patient was obtained by the chart as well as discussion with the patient's nurse and with the patient's daughter, Ms. Yoko Palmer as the patient has difficulty hearing and has dementia. Limited interaction with the patient today revealed that the patient currently does complain of some mild midepigastric abdominal pain, nonradiating and nursing reports no further episodes of overt GI blood loss. A repeat H and H from this morning did show an H and H of 13.1 and 39.2. His BUN and creatinine have not been repeated as of this time. PAST MEDICAL HISTORY: Significant for COPD, dementia, hearing loss, chronic kidney disease, hypothyroidism, hiatal hernia, Whalen's esophagus. PAST SURGICAL HISTORY: Unobtainable. ALLERGIES: HIS ALLERGIES ARE TO AMOXICILLIN AND DIAZEPAM. MEDICATIONS AT PRESENT: Include Tylenol 650 mg p.o. q. 4 p.r.n. pain or fever, Compazine 5 mg IV q. 6, ertapenem 1 gram IV q. 24 hours, Haldol 2 mg IM q. 2 hours p.r.n. agitation, hydromorphone 0.25 mg IV q. 4 hours p.r.n. pain, ipratropium 0.5 mg via nebulizer q. 6 hours p.r.n. shortness of breath, levalbuterol 1.25 mg q. 6 hours via nebulizer p.r.n. shortness of breath, levothyroxine 75 mcg p.o. daily, nitroglycerin 0.4 mg sublingual as directed p.r.n. chest pain, Protonix 8 mg per hour drip, tramadol 25 mg q. 4 hours p.r.n. pain. SOCIAL HISTORY: He resides at a senior care. Power of tax attorney is his daughter, Yoko, who I discussed his case with. No tobacco, alcohol or illicit drug use. FAMILY HISTORY: Negative for GI malignancy or inflammatory bowel disease. REVIEW OF SYSTEMS: Unobtainable secondary to dementia and hearing loss. PHYSICAL EXAMINATION: VITAL SIGNS: Temp 37.1, pulse 85, respirations 18, blood pressure 148/75, pulse ox 99% via nasal cannula at 6 liters per minute. GENERAL: He is awake, demented, pleasant, in no acute distress. CHEST: Decreased breath sounds, bilateral bases. CARDIOVASCULAR SYSTEM: Regular rate and rhythm. ABDOMEN: Soft, tender in the epigastric area. Nondistended. Positive bowel sounds. LABORATORY STUDIES AND RADIOGRAPHIC STUDIES: Reviewed in the HPI. IMPRESSION: An 82-year-old male with reported coffee-ground emesis at senior care who was transferred to [facility] with a history of a large hiatal hernia and long-segment Whalen's esophagus. PLAN: At the present time, I would recommend a conservative care. I did discuss this with the patient's daughter, Yoko who was in agreement. They would not want to have the patient undergo any invasive testing. Conservative measures will therefore be employed and he will be continued on a Protonix drip at 8 mg per hour. I will add Carafate 1 gram p.o. q.i.d. for 10 days. If the patient has difficulty with bowel movements throughout this hospitalization, I would recommend MiraLax therapy and I will write for this on an as-needed basis today. I will follow the patient's clinical course and Minaler will resume the patient's care tomorrow. Once again, thanks for allowing me to participate in the care of this patient. If you have any further questions, please do not hesitate in contacting me.
[2018-04-24] MEDS: SUCRALFATE 1 GM/10 ML UDC PO SCH ×3 (14:46→20:52)
[2018-04-24 18:11] LABS: Hematocrit (blood only) 38.9 % (42-52); Hemoglobin 12.5 g/dL (14.0-18.0)
[2018-04-24] MEDS ORDERED: PANTOprazole 40 MG in SYRINGE 0 ML IV SCH (21:00)
[2018-04-25] MEDS: LEVALBUTEROL 1.25MG/0.5ML NEB INH SCH ×4 (02:05→20:07)
[2018-04-25] MEDS: IPRATROPIUM BROMIDE NEB SOLN 0.02% 2.5 ML VIAL INH SCH ×4 (02:06→20:07)
[2018-04-25] MEDS: SODIUM CHLORIDE 0.9% 1000ML 1,000 ML IV SCH (02:22)
[2018-04-25] MEDS: PANTOprazole 40 MG in DEXTROSE 5% 100 ML IV SCH ×3 (04:06→13:58)
[2018-04-25] MEDS ORDERED: ERTAPENEM SODIUM 1,000 MG in SODIUM CHLORIDE 0.9% 50 ML IV SCH (06:00)
[2018-04-25] MEDS: LEVOTHYROXINE SODIUM 75 MCG TABLET PO SCH (06:09)
[2018-04-25 07:23] LABS: Basophils # (auto) 0.01 K/uL (0-0.2); Basophils % (auto) 0.1 %; Eosinophils # (auto) 0.06 K/uL (0-0.5); Eosinophils % (auto) 0.9 %; Hematocrit (blood only) 36.6 % (42-52); Hemoglobin 11.5 g/dL (14.0-18.0); Immature Granulocytes # (auto) 0.03 K/uL (0.00-0.02); Immature Granulocytes % (auto) 0.4 %; Lymphocytes # (auto) 1.09 K/uL (1.2-3.4); Lymphocytes % (auto) 15.6 %; Mean Corpuscular Hgb Conc 31.4 g/dL (32-36); Mean Corpuscular Volume 101.1 fL (80-100); Mean Platelet Volume 9.9 fL (7.4-10.4); Monocytes # (auto) 0.83 K/uL (0.11-0.59); Monocytes % (auto) 11.9 %; Neutrophils # (auto) 4.96 K/uL (1.4-6.5); Neutrophils % (auto) 71.1 %; Platelet Count 140 K/uL (130-400); RDW Standard Deviation 51.7 fL (36.4-46.3); Red Blood Count 3.62 M/uL (4.7-6.1); White Blood Count 6.98 K/uL (4.8-10.8)
[2018-04-25 08:00] LABS: BUN Creatinine Ratio 18.9 (10-20); Calcium 7.3 mg/dl (8.5-10.1); Creatinine Clr Calc Pharmacy 28.6 ml/min; Est GFR (African American) 40.3; Est GFR (Non-African American) 34.8; Potassium 4.5 mmol/L (3.5-5.1)
[2018-04-25] MEDS: SUCRALFATE 1 GM/10 ML UDC PO SCH ×4 (08:14→20:43)
[2018-04-25] MEDS: LIDOCAINE 5% 1 PATCH TD SCH (08:14)
--- NOTE | 2018-04-25 10:42 | Gastroenterology Progress Note ---
Date of Service April 25, 2018 Assessment & Plan (1) Coffee ground emesis: Advance diet. Can change PPI drip to IV BID. Will follow peripherally. Please call us if gross GI bleeding or dramatic drop in Hb. Supervising Physician Co-Signing Physician Notes On 04/25/18, I performed a history and physical examination of this patient and reviewed the electronic medical record. Specifically, on physical examination abdomen was soft and non tender. There was no sign of continued gastrointestinal bleeding. I have discussed the case with SCOTT Nina. The above note reflects my findings, conclusions, and recommendations. Pavan Stiles MD Subjective Mr. Taj Garcia is an 82 yr old male with a hx of CKD-3, who was admitted on 04/24. His presenting c/o were abdominal pain, distention, constipation and coffee grounds emesis. Dr. Barnett who completed the consult yesterday touched base with the family who indicated that they preferred to avoid procedures if possible. Hb on [id number]->11.5 today; BUN on [id number], ->34 today. No gross bleeding since arrival. The pt is awake, alert, and asks to eat. Physical Exam Vital Signs (Past 24 Hours): Last Vital Signs Temp 36.3 C L 04/25/18 07:08 Pulse 69 04/25/18 07:08 Resp 20 04/25/18 07:08 BP 127/67 04/25/18 07:08 Pulse Ox 96 04/25/18 07:08 Constitutional: well developed, average body habitus and cooperative Eyes: PERRL, conjunctivae normal, anicteric sclerae Respiratory: normal respiratory effort, lungs clear to auscultation normal respiratory effort and able to speak in complete sentences; no respiratory distress, no labored breathing, does not use accessory muscles and no cough Cardiovascular: RRR, no murmur, no edema Gastrointestinal (Abdomen): normal bowel sounds, soft, nontender, no hepatosplenomegaly Inspection/Auscultation: abdomen normal to inspection and normal bowel sounds; abdomen not distended and no abdominal edema Percussion/Palpation: abdomen soft; no guarding and abdomen not rigid Skin: no rashes, warm and dry normal turgor and + pallor Neurologic: PERRL, EOMI, accommodation nl, no face palsy, no dysarthria awake; not confused Psychiatric: A+Ox3, euthymic affect Orientation: alert, oriented x 3 and cooperative Results & Data Laboratory Results WBC 6, Hb 11.5, Hct 36.6, Na 138, K 4.5, BUN 34, Cr 1.78. Diagnostic Findings CT abd/pelvis : 1. No bowel obstruction or focal bowel wall thickening. 2. Extensive sigmoid diverticulosis without CT evidence of acute diverticulitis. 3. Constipation. 4. Moderate fat filled left inguinal hernia with portion of the left ureter bladder extending into the proximal hernia ostium. Large right inguinal hernia contains mesenteric fat, portion of the anterior right urinary bladder and a nonobstructed loop of ileum. 5. Moderate sized hiatal hernia with fluid-filled distal esophagus. 6. Age-indeterminate 30% anterior endplate compression deformity of T12 with 4 mm retropulsion. Age-indeterminate superior endplate compression deformity of approximately 20% involves the L3 vertebral body. No associated edema to suggest acute injury. Correlate with patient history and point tenderness. 7. Additional findings as above.
--- NOTE | 2018-04-25 19:38 | Hospitalist Progress Note ---
Date of Service April 25, 2018 Assessment & Plan (1) GI bleeding: hg 11, trended down but this is his baseline no recurrence of hematemesis, hematochezia GI consulted recommend conservative management at this time Protonix drip changed to IV BID diet advanced continue to monitor (2) Hypoxia: from possible Aspiration pneumonia Ertapenem ordered , change to Augmetin tomorrow repeat CXR tomorrow Nebs ordered monitor wean off Oxygen (3) CKD (chronic kidney disease) stage 3, GFR 30-59 ml/min: stable monitor Dementia as per records History COPD, past tobacco abuse not in exacerbation hypothyroidism, euthyroid as of today's TSH BPH as per records chronic back pain secondary to chronic lumbar compression fractures. DVT prophylaxis. SCDs RE GI bleed Full code pending discussion of CODE STATUS with patient family. Subjective ff up for hematemesis, hematochezia seen resting in bed, comfortable states abdominal pain is better no recurrence of melena/hematochezia tolerating diet well denies dyspnea, has occasional cough, non productive no other symptoms Physical Exam Vital Signs (Past 24 Hours): Last Vital Signs Temp 36.4 C L 04/25/18 19:35 Pulse 75 04/25/18 19:35 Resp 20 04/25/18 19:35 BP 133/55 L 04/25/18 19:35 Pulse Ox 96 04/25/18 19:35 Physical Exam: General- oriented x 2, not in distress, speaks in sentences w ith no effort or accessory muscle use Eyes- anicteric Neck- no JVD Lungs- clear breath sounds bilaterally no wheezing, rhonchi, rales Heart- normal rate, regular rhythm; no murmurs Abdomen- normal bowel sounds, nondistended, soft, nontender Extremities- no pretibial edema, no calf tenderness Neuro- alert, oriented x 2; hard of hearing, occasionally confused, no other gross focal deficits Skin- warm & dry Results & Data Laboratory Results Laboratory Results - last 24 hr 04/25/18 04/25/18 06:51 06:51 WBC 6.98 RBC 3.62 L Hgb 11.5 L Hct 36.6 L MCV 101.1 H MCH 31.8 MCHC 31.4 L RDW Std Deviation 51.7 H RDW Coeff of Valdez 14.0 Plt Count 140 MPV 9.9 Immature Gran % (Auto) 0.4 Neut % (Auto) 71.1 Lymph % (Auto) 15.6 [place] % (Auto) 11.9 Eos % (Auto) 0.9 Baso % (Auto) 0.1 Immature Gran # (Auto) 0.03 H Neut # (Auto) 4.96 Lymph # (Auto) 1.09 L [place] # (Auto) 0.83 H Eos # (Auto) 0.06 Baso # (Auto) 0.01 Sodium 138 Potassium 4.5 Chloride 107 Carbon Dioxide 24 Anion Gap 7.0 BUN 34 H Creatinine 1.78 H Est Cr Clr Drug Dosing 28.6 Est GFR ( Amer) 40.3 Est GFR (Non-Af Amer) 34.8 BUN/Creatinine Ratio 18.9 Glucose 86 Calcium 7.3 L (1) GI bleeding GI bleed type/associated pathology: unspecified gastrointestinal hemorrhage type Qualified Code(s): K92.2 - Gastrointestinal hemorrhage, unspecified
[2018-04-25] MEDS: PANTOprazole 40 MG TAB PO SCH (20:43)
[2018-04-26] MEDS: IPRATROPIUM BROMIDE NEB SOLN 0.02% 2.5 ML VIAL INH SCH ×4 (02:11→19:38)
[2018-04-26] MEDS: LEVALBUTEROL 1.25MG/0.5ML NEB INH SCH ×4 (02:11→19:38)
[2018-04-26] MEDS: LEVOTHYROXINE SODIUM 75 MCG TABLET PO SCH (05:50)
[2018-04-26 07:33] LABS: Creatinine Clr Calc Pharmacy 26.4 ml/min; Est GFR (African American) 36.8; Est GFR (Non-African American) 31.7
[2018-04-26] MEDS: LIDOCAINE 5% 1 PATCH TD SCH (08:13)
[2018-04-26] MEDS: CLINDAMYCIN HCL 150 MG CAP PO SCH ×3 (08:14→20:18)
[2018-04-26] MEDS: SUCRALFATE 1 GM/10 ML UDC PO SCH ×4 (08:14→20:18)
[2018-04-26] MEDS: PANTOprazole 40 MG TAB PO SCH ×2 (08:14→20:18)
[2018-04-26 08:37] LABS: Appearance Urine Clear (Clear); Bilirubin Urine Negative (Negative); Blood Urine Negative (Negative); Color Urine Yellow; Glucose Urine UA Negative (Negative); Ketones Urine Negative (Negative); Leukocyte Esterase Urine Negative (Negative); Nitrite Urine Negative (Negative); Protein Urine Negative (Negative); Specific Gravity Urine 1.019 (1.000-1.030); Urobilinogen Urine Negative (Negative)
[2018-04-26 09:28] LABS: Basophils # (auto) 0.02 K/uL (0-0.2); Basophils % (auto) 0.3 %; Eosinophils # (auto) 0.16 K/uL (0-0.5); Eosinophils % (auto) 2.3 %; Hematocrit (blood only) 35.5 % (42-52); Hemoglobin 11.4 g/dL (14.0-18.0); Immature Granulocytes # (auto) 0.02 K/uL (0.00-0.02); Immature Granulocytes % (auto) 0.3 %; Lymphocytes # (auto) 1.19 K/uL (1.2-3.4); Lymphocytes % (auto) 17.4 %; Mean Corpuscular Hgb Conc 32.1 g/dL (32-36); Mean Corpuscular Volume 99.2 fL (80-100); Mean Platelet Volume 9.8 fL (7.4-10.4); Monocytes # (auto) 0.78 K/uL (0.11-0.59); Monocytes % (auto) 11.4 %; Neutrophils # (auto) 4.67 K/uL (1.4-6.5); Neutrophils % (auto) 68.3 %; Platelet Count 152 K/uL (130-400); RDW Coefficient of Variation 13.9 % (11.5-14.5); RDW Standard Deviation 49.8 fL (36.4-46.3); Red Blood Count 3.58 M/uL (4.7-6.1); White Blood Count 6.84 K/uL (4.8-10.8)
--- NOTE | 2018-04-26 10:53 | XRay Report ---
XR chest 1V portable HISTORY: ff up , possible aspiration pneumonia COMPARISON: Chest 04/24/2018. FINDINGS: Patchy bibasilar densities persist. Stable scarlike density within the right lung apex. No pneumothorax. No pleural effusions. The heart remains mildly enlarged. Old, healed left humeral neck fracture. IMPRESSION: No change in the bibasilar airspace opacities. This may represent atelectasis or pneumonia. Electronically signed by: James Alvarado M.D. 04/26/2018 10:51 AM
[2018-04-27] MEDS: LEVALBUTEROL 1.25MG/0.5ML NEB INH SCH ×3 (02:04→13:28)
[2018-04-27] MEDS: IPRATROPIUM BROMIDE NEB SOLN 0.02% 2.5 ML VIAL INH SCH ×3 (02:04→13:29)
[2018-04-27] MEDS: LEVOTHYROXINE SODIUM 75 MCG TABLET PO SCH (05:58)
[2018-04-27 07:33] LABS: Creatinine Clr Calc Pharmacy 26.6 ml/min; Est GFR (African American) 37.7; Est GFR (Non-African American) 32.5
[2018-04-27 08:21] LABS: Basophils # (auto) 0.02 K/uL (0-0.2); Basophils % (auto) 0.3 %; Eosinophils # (auto) 0.15 K/uL (0-0.5); Eosinophils % (auto) 2.1 %; Hematocrit (blood only) 37.4 % (42-52); Hemoglobin 12.2 g/dL (14.0-18.0); Immature Granulocytes # (auto) 0.03 K/uL (0.00-0.02); Immature Granulocytes % (auto) 0.4 %; Lymphocytes # (auto) 1.32 K/uL (1.2-3.4); Lymphocytes % (auto) 18.7 %; Mean Corpuscular Hgb Conc 32.6 g/dL (32-36); Mean Corpuscular Volume 98.4 fL (80-100); Mean Platelet Volume 9.5 fL (7.4-10.4); Monocytes # (auto) 0.69 K/uL (0.11-0.59); Monocytes % (auto) 9.8 %; Neutrophils # (auto) 4.85 K/uL (1.4-6.5); Neutrophils % (auto) 68.7 %; Platelet Count 159 K/uL (130-400); RDW Coefficient of Variation 13.9 % (11.5-14.5); RDW Standard Deviation 49.5 fL (36.4-46.3); White Blood Count 7.06 K/uL (4.8-10.8)
[2018-04-27] MEDS: SUCRALFATE 1 GM/10 ML UDC PO SCH ×2 (09:57→14:17)
[2018-04-27] MEDS: LIDOCAINE 5% 1 PATCH TD SCH (09:57)
[2018-04-27] MEDS: PANTOprazole 40 MG TAB PO SCH (09:58)
[2018-04-27] MEDS: CLINDAMYCIN HCL 150 MG CAP PO SCH ×2 (09:58→14:17)
--- NOTE | 2018-04-27 14:55 | Hospitalist Progress Note ---
Date of Service April 27, 2018 Assessment & Plan (1) GI bleeding: hg 11, trended down but this is his baseline no recurrence of hematemesis, hematochezia GI consulted recommend conservative management at this time Protonix drip changed to IV BID, Sucralfate added Hg remained stable at around 11-12 diet advanced, tolerated well discharge on Protonix 40mg po BID x 1 month, Sucralfate x 2 weeks--> re-evaluate duration and dosing as an outpatient monitor Hg as outpatient (2) Hypoxia: from possible Aspiration pneumonia initially placed on Ertapenem, Nebs repeat CXR: Impression: No change in the bibasilar airspace opacities. This may represent atelectasis or pneumonia. patient now on 1-2 L of O2 via nasal cannula denies cough or sputum, shortness of breath continue 4 more doses of Clindamcyin to complete 5 day course of antibiotic therapy continue to monitor respiratory status (3) CKD (chronic kidney disease) stage 3, GFR 30-59 ml/min: stable crea 1.7-18 repeat PRP in 3-5 days to ensure stable renal function Dementia as per records History COPD, past tobacco abuse not in exacerbation hypothyroidism TSH 3.8 BPH as per records chronic back pain secondary to chronic lumbar compression fractures. denies urinary symptoms or back pain DVT prophylaxis. SCDs RE GI bleed Disposition discharge to [facility] today ff up with [facility] with Dr. Corrales on 05/02/18 at 10:45am. Subjective ff up for hematemesis seen resting in bed, comfortable states he feels fine today except for leg pain mostly right thigh, left calf no chest pain, dyspnea, cough, palpitations, dizziness denies abdominal pain, no nausea, no recurrence of hematemesis or hematochezia no other symptoms Physical Exam Vital Signs (Past 24 Hours): Last Vital Signs Temp 36.6 C 04/27/18 11:53 Pulse 86 04/27/18 13:30 Resp 16 04/27/18 13:30 BP 123/75 04/27/18 11:53 Pulse Ox 98 04/27/18 13:30 Physical Exam: General- oriented x 2, not in distress, speaks in sentences with no effort or accessory muscle use Eyes- anicteric Neck- no JVD Lungs- clear BS BL no rales/wheezing Heart- normal rate, regular rhythm; no murmurs Abdomen- normal bowel sounds, nondistended, soft, nontender Extremities- trace BL LE edema, no calf tenderness Neuro- alert, oriented x 2; no gross focal neurologic deficits Skin- warm & dry Results & Data Laboratory Results Laboratory Results - last 24 hr 04/27/18 04/27/18 06:38 06:47 WBC 7.06 RBC 3.80 L Hgb 12.2 L Hct 37.4 L MCV 98.4 MCH 32.1 MCHC 32.6 RDW Std Deviation 49.5 H RDW Coeff of Valdez 13.9 Plt Count 159 MPV 9.5 Immature Gran % (Auto) 0.4 Neut % (Auto) 68.7 Lymph % (Auto) 18.7 [place] % (Auto) 9.8 Eos % (Auto) 2.1 Baso % (Auto) 0.3 Immature Gran # (Auto) 0.03 H Neut # (Auto) 4.85 Lymph # (Auto) 1.32 [place] # (Auto) 0.69 H Eos # (Auto) 0.15 Baso # (Auto) 0.02 Creatinine 1.88 H Est Cr Clr Drug Dosing 26.6 Est GFR ( Amer) 37.7 Est GFR (Non-Af Amer) 32.5 (1) GI bleeding GI bleed type/associated pathology: unspecified gastrointestinal hemorrhage type Qualified Code(s): K92.2 - Gastrointestinal hemorrhage, unspecified
--- NOTE | 2018-04-27 15:31 | Discharge Summary ---
Date of Service April 27, 2018 Admission HPI Per Admitting Provider History obtained from patient and records. Unable to obtain history from patient secondary to dementia/profound hearing impairment. Medical history significant for Whalen's esophagus, dementia, COPD, past tobacco abuse, hypothyroidism, BPH as per records, chronic renal insufficiency (baseline creatinine 1.7-1.9), chronic anemia (baseline hemoglobin 10-11), chronic back pain secondary to chronic lumbar compression fractures. Patient has had no BM for 3 days, patient belly noted to be firm and distended. Patient had one episode of coffee-ground emesis followed by right lower quadrant [facility]. At the ER, patient noted to be hypoxemic, O2 sats 80s, with junky cough symptoms as per RN. Enema was done subsequently yielding bloody stool output. Medical History as above EGD May 2016 showed esophageal mucosal changes suggestive of long Whalen's esophagus. Large hiatal hernia. Normal examined duodenum. Surgical History : Cleft lip/nasal deformity repair Family History : Could not be obtained Personal/Social history : Past tobacco abuse no EtOH intake, [facility] resident Admission Exam Per Admitting Provider Vital Signs (Past 24 Hours): Last Vital Signs Temp 36.7 C 04/24/18 00:39 Pulse 79 04/24/18 03:25 Resp 18 04/24/18 03:25 BP 127/68 04/24/18 03:25 Pulse Ox 100 04/24/18 03:25 Physical Exam: GENERAL: Comfortable, demented, deaf, no respiratory distress SKIN: Pallor , warm HEENT: Alopecia, pale palpebral conjunctivae, no ptosis, dry buccal mucosa NECK : Supple, no tenderness CHEST : Decreased breath sounds, occasional wheeze , no tenderness HEART : RRR, no obvious murmurs ABDOMEN: Some distention, epigastric tenderness EXTREMITIES : No LE swelling/tenderness, no other conspicuous deformities noted NEUROLOGIC : Demented, hard of hearing, no facial asymmetry, gait and stance not assessed Principal Diagnosis EPISODE OF HEMATEMESIS, POSSIBLE ASPIRATION PNEUMONIA Discharge Exam Vital Signs (Past 24 Hours): Last Vital Signs Temp 36.6 C 04/27/18 11:53 Pulse 86 04/27/18 13:30 Resp 16 04/27/18 13:30 BP 123/75 04/27/18 11:53 Pulse Ox 98 04/27/18 13:30 Physical Exam: General- oriented x 2, not in distress, speaks in sentences with no effort or accessory muscle use Eyes- anicteric Neck- no JVD Lungs- clear BS BL no rales/wheezing Heart- normal rate, regular rhythm; no murmurs Abdomen- normal bowel sounds, nondistended, soft, nontender Extremities- trace BL LE edema, no calf tenderness Neuro- alert, oriented x 2; no gross focal neurologic deficits Skin- warm & dry Discharge Data Allergies Allergy/AdvReac Type Severity Reaction Status Date / Time amoxicillin Allergy Unknown Unknown Verified 04/24/18 01:54 diazepam Allergy Unknown Unknown Verified 04/24/18 01:54 Consultations 04/24/18 05:29 ED Decision to Admit Stat 04/24/18 09:23 Consult Gastroenterology Routine Ordered Studies 04/24/18 02:55 CT abd pelvis IV con only [facility] [place], [place] [phone] CT Scan Report Patient: BAM FUAdmit Date: 04/24/18 MR#: [id number]: [address] Acct ID:[id number]: [facility] Zip[facility] [place] [address] Age: 82Location: 2W Sex: M Room/Bed: [facility] Att Phy: Lobo Lassiter, MDDiagnosis: RESP FAILURE Regina Phy: Tommie Camargo Date: 04/24/18 Fam Phy: Interpreting Phy: Vaughn Borjas Admit Phy: Ariel Lee M.D. Ordering Phy: Rosalind Berg D.O. cc: ~ ABDOMEN AND PELVIS CT WITH IV CONTRAST CT DOSE: 428.59 mGy.cm HISTORY: Acute generalized abdominal pain with GI bleed eval for GI bleeding TECHNIQUE: Multiaxial CT images of the abdomen and pelvis were performed following the use of intravenous contrast. A dose lowering technique was utilized adhering to the principles of ALARA. COMPARISON STUDY: Acute abdominal series radiographs of same day. FINDINGS: Study is motion degraded. Right hemidiaphragmatic elevation. Subsegmental bibasilar opacities are noted with mild bibasilar bronchial wall thickening. No pneumatosis or pneumoperitoneum identified. Imaged inferior cardiac chambers appear unremarkable. Gallbladder, liver, spleen and adrenal glands appear unremarkable. Moderate generalized pancreatic atrophy. Mild to moderate bilateral renal atrophy with diffuse mild cortical thinning. Intermediate density lesion of the superior pole right kidney measures 1.2 cm. Kidneys are otherwise unremarkable. No renal calculi or obstructive uropathy. The ureters and urinary bladder are within normal limits. Mild prostamegaly. Moderate fat filled left inguinal hernia. A portion of the left urinary bladder lumen extends into the proximal portion of the hernia sac. Large right inguinal hernia contains mesenteric fat and nonobstructed loop of ileum. Extensive mixed plaque formation of the abdominal aorta and branch vessels without aneurysm. No adenopathy. Moderate hiatal hernia with fluid distended distal esophagus. No small bowel obstruction. Moderate lentiform stool about the colon, notably within the sigmoid and rectum. Colonic diverticulosis. CT evidence of acute diverticulitis. No ascites or mesenteric inflammation. Appendix appears unremarkable. Moderate asymmetric atrophy about the left psoas, Iliacus and iliopsoas musculature. Chronic denervation injury of the differential consideration. Demineralized appearance of the bones. Degenerative changes of the spine, pelvis and hips. No acute fracture identified. 30% anterior endplate compression deformity of the T12 vertebral body with 4 mm retropulsion. No associated paravertebral edema identified. Additionally, approximately 20% superior endplate compression defor mity of L3 without retropulsion. No edema. IMPRESSION: 1. No bowel obstruction or focal bowel wall thickening. 2. Extensive sigmoid diverticulosis without CT evidence of acute diverticulitis. 3. Constipation. 4. Moderate fat filled left inguinal hernia with portion of the left ureter bladder extending into the proximal hernia ostium. Large right inguinal hernia contains mesenteric fat, portion of the anterior right urinary bladder and a nonobstructed loop of ileum. 5. Moderate sized hiatal hernia with fluid-filled distal esophagus. 6. Age-indeterminate 30% anterior endplate compression deformity of T12 with 4 mm retropulsion. Age-indeterminate superior endplate compression deformity of approximately 20% involves the L3 vertebral body. No associated edema to suggest acute injury. Correlate with patient history and point tenderness. 7. Additional findings as above. 04/27/18 14:49 US venous doppler LE BI Stat BILATERAL LOWER EXTREMITY VENOUS DOPPLER HISTORY: Acute pain and swelling of the bilateral lower extremities leg pain r/o dvt COMPARISON STUDY: None. FINDINGS: There is normal compressibility, flow, and augmentation within the bilateral lower extremity deep venous systems. IMPRESSION: No sonographic evidence of deep venous thrombosis within the right or left lower extremity. Hospital Course (1) GI bleeding: hg 11, trended down but this is his baseline no recurrence of hematemesis, hematochezia GI consulted recommend conservative management at this time Protonix drip changed to IV BID, Sucralfate added Hg remained stable at around 11-12 diet advanced, tolerated well discharge on Protonix 40mg po BID x 1 month, Sucralfate x 2 weeks--> re-evaluate duration and dosing as an outpatient monitor Hg as outpatient (2) Hypoxia: from possible Aspiration pneumonia initially placed on Ertapenem, Nebs repeat CXR: Impression: No change in the bibasilar airspace opacities. This may represent atelectasis or pneumonia. patient now on 1-2 L of O2 via nasal cannula denies cough or sputum, shortness of breath continue 4 more doses of Clindamcyin to complete 5 day course of antibiotic therapy continue to monitor respiratory status (3) CKD (chronic kidney disease) stage 3, GFR 30-59 ml/min: stable crea 1.7-18 repeat PRP in 3-5 days to ensure stable renal function Abnormal CT abdomen/Pelvis Findings Impression: 1. No bowel obstruction or focal bowel wall thickening. 2. Extensive sigmoid diverticulosis without CT evidence of acute diverticulitis. 3. Constipation. 4. Moderate fat filled left inguinal hernia with portion of the left ureter bladder extending into the proximal hernia ostium. Large right inguinal hernia contains mesenteric fat, portion of the anterior right urinary bladder and a nonobstructed loop of ileum. 5. Moderate sized hiatal hernia with fluid-filled distal esophagus. 6. Age-indeterminate 30% anterior endplate compression deformity of T12 with 4 mm retropulsion. Age-indeterminate superior endplate compression deformity of approximately 20% involves the L3 vertebral body. No associated edema to suggest acute injury. Correlate with patient history and point tenderness. 7. Additional findings as above. -- full report on Procedure Section above -- further management and ff up as outpatient Bilateral Lower Extremity pain -- reports mild-mod pain on the right anterior thigh muscles and left calf worse with movement Doppler US: negative for DVT -- PRN analgesics PT /OT monitor Dementia -- as per records History COPD, past tobacco abuse -- not in exacerbation hypothyroidism TSH 3.8 BPH as per records chronic back pain secondary to chronic lumbar compression fractures. denies urinary symptoms or back pain Disposition discharge to [facility] today ff up with [facility] with Dr. Corrales on 05/02/18 at 10:45am. Total Time Total Time Spent Total Time Spent (In Minutes): 40 minutes Discharge Plan Discharge Items Patient Disposition: Trans Resident Long-Term Care Reason For Visit: RESP FAILURE Discharge Diagnosis: EPISODE OF HEMATEMESIS; POSSIBLE ASPIRATION PNEUMONIA Discharge Goals: Diagnostic testing and Therapeutic intervention Activity: Resume your previous activity Activity Comment: CONTINUE PT/OT DAILY; ALWAYS WITH ROLLING WALKER; FALL PRECAUTIONS PLEASE Non-emergency contact: Primary Care Provider Call non-emergency contact if: you have any medication questions, your symptoms worsen, your pain is not controlled, your pain is worsening, your pain is unusual for you, your pain is concerning for you and you have a fever Follow-up/Referrals: [facility] [Primary Care Provider] - Diet: See below Diet Texture: Mechanical soft (ground) Addtl Provider Instructions: FOLLOW UP WITH PRIMARY CARE PHYSICIAN DR. CORRALES AT [facility] ON 05/02/18 AT 10:45AM. RE-CHECK BASIC METABOLIC PROFILE IN 3-5 DAYS TO CHECK RENAL FUNCTION. NO NSAIDS, ANTIPLATELETS/ANTICOAGULANTS. RETURN TO ER IMMEDIATELY IF WITH RECURRENCE OF HEMATEMESIS/HEMATOCHEZIA. SPEECH THERAPY RECOMMENDATIONS: 1. MINCED AND MOIST DIET (MECHANICAL SOFT), AND THIN LIQUIDS; SLIPPERY. AVOID FOODS THAT ARE DRY, THICK, PASTY, AND DOUGHY. ADD CONDIMENTS TO FOOD TO ASSIST IN KEEPING THEM MOIST. 2. ASPIRATION AND REFLUX PRECAUTIONS NOTED BELOW. ASPIRATION PRECAUTIONS ALTERNATE SOLIDS AND LIQUIDS FULLY ALERT AND UPRIGHT SINGLE BITES/SMALL SIPS/SLOW RATE REFLUX PRECAUTIONS ALTERNATE SOLIDS AND LIQUIDS HEAD OF BED 30 DEGREES ALL THE TIME SLIPPERY DIET UPRIGHT WITH MEALS +30MINS PLEASE REFER TO ACCOMPANYING HOSPITAL DISCHARGE SUMMARY FOR FURTHER DETAILS. Prescriptions: New pantoprazole 40 mg Tablet,Delayed Release (Dr/Ec) 40 mg PO BID 30 Days Qty: 60 RF: 0 sucralfate 100 mg/mL Suspension 10 ml PO QID 14 Days Qty: 560 RF: 0 clindamycin HCl 300 mg capsule 600 mg PO TID Qty: 8 RF: 0 Continued Incruse Ellipta 62.5 mcg/actuation Blister With Device 1 inh INHALATION DAILY RF: 0 levothyroxine 75 mcg Tablet 75 mcg PO DAILY RF: 0 cyanocobalamin (vitamin B-12) 1,000 mcg Tablet 1,000 mcg PO DAILY RF: 0 docusate sodium [Colace] 100 mg Capsule 100 mg PO BID RF: 0 ferrous sulfate 325 mg (65 mg iron) Tablet 325 mg PO TID RF: 0 acetaminophen 325 mg Tablet 650 mg PO Q6H PRN (Reason: pain/fever) RF: 0 bisacodyl [Dulcolax (bisacodyl)] 10 mg Suppository 10 mg [place] DAILY PRN (Reason: Constipation) RF: 0 Discontinued omeprazole 20 mg Tablet,Delayed Release (Dr/Ec) 20 mg PO DAILY RF: 0 diclofenac sodium [Voltaren] 1 % Gel 4 g TOPICAL Q6H PRN (Reason: Pain) RF: 0 Stand-Alone Forms: [facility] Discharge Orders: Discharge Order (Routine); Ordered 04/27/18 Ordered By: Lobo Lassiter Admission Data Admit Date/Time: 04/24/18 05:33 Attending Provider: Lobo Lassiter Admit Provider: Ariel Lee Primary Care Provider: [facility] Other Providers: Ariel Lee ; Roderick Law ; Page Rea ; Adela Giles ; Minh Lyn ; Gerardo Hill ; Baldemar Cameron ; Liz Dumont ; Pavan Stiles ; Willard Henry ; Ofe Moon ; Catrina Wadsworth ; Deisy Cervantes ; Ruth Shields ; Elfego Rodriguez Service: Telemetry Medical
--- NOTE | 2018-04-27 16:05 | Ultrasound Report ---
BILATERAL LOWER EXTREMITY VENOUS DOPPLER HISTORY: Acute pain and swelling of the bilateral lower extremities leg pain r/o dvt COMPARISON STUDY: None. FINDINGS: There is normal compressibility, flow, and augmentation within the bilateral lower extremit y deep venous systems. IMPRESSION: No sonographic evidence of deep venous thrombosis within the right or left lower extremity. Electronically signed by: Allan Borjas M.D. 04/27/2018 4:03 PM
== END 2018-04-27 17:29 | DRG 377 ==
LOC: ED 00:32 → 2W 05:33

== ENCOUNTER 2018-08-13 16:12 | Inpatient (IN) ==
[2018-08-13] MEDS ORDERED: ONDANSETRON INJ 2 MG/ML 2 ML VIAL IV STA (16:17)
[2018-08-13] MEDS ORDERED: SODIUM CHLORIDE 0.9% 500 ML IV SCH (16:30)
--- NOTE | 2018-08-13 16:31 | Emergency Department Note ---
Entered by Tushar Lovelace acting as a scribe for Savage Abdalla MD History of Present Illness General Chief complaint: Abdominal Pain Stated complaint: abd pain Time Seen by Provider: 08/13/18 16:12 Source: patient and RN notes reviewed History of Present Illness Provider complaint: Abdominal pain Onset (ago): month(s) 3 Location: abdomen Radiation: non-radiation Pain Consistency: + intermittent and + other (Worsening) Relieved By: + none Exacerbated By: + none Associated symptoms: + nausea/vomiting The patient is an 82 year old male who presents to the Emergency Room with complaints of intermittent lower abdominal pain that started about 3 months ago, but worsened today. Per the nursing staff, the patient was sent from [facility] after having 3 episodes of emesis however, the living facility did not provide a description of the emesis. His paper work from [facility] mentioned concern about a possible GI bleed. The patient also has a reducible inguinal hernia. The patient's code status is unknown. HPI is limited secondary to patient's mental state. Home Medications Home Medications Medication Instructions Recorded Confirmed Type Incruse Ellipta 1 inh INHALATION DAILY 04/24/18 08/13/18 History acetaminophen 650 mg PO Q6H PRN 04/24/18 08/13/18 History bisacodyl [Dulcolax (bisacodyl)] 10 mg UT UD PRN 04/24/18 08/13/18 History cyanocobalamin (vitamin B-12) 1,000 mcg PO DAILY 04/24/18 08/13/18 History docusate sodium [Colace] 100 mg PO BID 04/24/18 08/13/18 History ferrous sulfate 325 mg PO DAILY 04/24/18 08/13/18 History levothyroxine 75 mcg PO DAILY 04/24/18 08/13/18 History Tap Water Enema 1,000 ml UT UD 08/13/18 08/13/18 History albuterol sulfate 1.25 mg INHALATION Q4 PRN 08/13/18 08/13/18 History calcium carbonate [Tums] 400 mg PO Q6 PRN 08/13/18 08/13/18 History pantoprazole 40 mg PO BID 08/13/18 08/13/18 History polyethylene glycol 3350 17 g PO HS 08/13/18 08/13/18 History Allergies Allergy/AdvReac Type Severity Reaction Status Date / Time amoxicillin Allergy Unknown Unknown Verified 08/13/18 17:13 diazepam Allergy Unknown Unknown Verified 08/13/18 17:13 Past Med/Surg History Medical History COPD (chronic obstructive pulmonary disease) (Chronic) Chronic kidney disease (Chronic) Dementia (Chronic) Hearing loss (Chronic) Hypothyroidism (Chronic) Family History Other No significant family history Social History Preferred Language: Moldovan Communication Ability: Impaired Beliefs That Will Affect Care: None Current Living Situation: Longterm Feels Safe at Home: Yes Smoking Status: Unknown if ever smoked Hx Alcohol Use: No Hx Substance Use: No Review of Systems See HPI for pertinent positives & negatives. Other (Limited secondary to patient's mental state) Physical Exam Vital Signs Vital Signs - 24 hr 08/13/18 16:16 08/13/18 16:19 08/13/18 16:20 Temperature 36.8 C Temperature Source Oral Sepsis Action Taken by Nursing No Action Required Pulse Rate 96 H 96 H 96 H Pulse Rate from SpO2 Sensor 96 H 97 H 96 H Pulse Rhythm Regular Pulse Strength Normal Respiratory Rate 31 H Respiratory Effort / Characteristics Non-Labored Respiratory Depth Normal Respiratory Pattern Regular Blood Pressure 125/62 125/62 Blood Pressure Mean 83 83 Blood Pressure Position Lying Pulse Oximetry 96 95 97 Oxygen Delivery Method Room Air Oxygen Flow Rate 2 2 2 08/13/18 16:30 08/13/18 16:35 08/13/18 16:36 Temperature Temperature Source Sepsis Action Taken by Nursing Pulse Rate 91 H 89 Pulse Rate from SpO2 Sensor 92 H Pulse Rhythm Pulse Strength Respiratory Rate Respiratory Effort / Characteristics Respiratory Depth Respiratory Pattern Blood Pressure Blood Pressure Mean Blood Pressure Position Pulse Oximetry 97 98 89 L Oxygen Delivery Method Nasal Cannula Nasal Cannula Oxygen Flow Rate 2 2 0 08/13/18 16:40 08/13/18 16:50 08/13/18 17:00 Temperature Temperature Source Sepsis Action Taken by Nursing Pulse Rate 87 86 88 Pulse Rate from SpO2 Sensor 89 86 88 Pulse Rhythm Pulse Strength Respiratory Rate 16 18 Respiratory Effort / Characteristics Respiratory Depth Respiratory Pattern Blood Pressure Blood Pressure Mean Blood Pressure Position Pulse Oximetry 97 96 95 Oxygen Delivery Method Oxygen Flow Rate 2 08/13/18 17:17 08/13/18 17:18 08/13/18 17:20 Temperature Temperature Source Sepsis Action Taken by Nursing Pulse Rate 92 H 88 90 Pulse Rate from SpO2 Sensor 89 91 H Pulse Rhythm Pulse Strength Respiratory Rate 27 H 20 19 Respiratory Effort / Characteristics Respiratory Depth Respiratory Pattern Blood Pressure 129/79 Blood Pressure Mean 95 Blood Pressure Position Pulse Oximetry 92 93 Oxygen Delivery Method Oxygen Flow Rate 08/13/18 17:30 08/13/18 17:32 08/13/18 17:40 Temperature Temperature Source Sepsis Action Taken by Nursing Pulse Rate 87 87 86 Pulse Rate from SpO2 Sensor 86 87 87 Pulse Rhythm Pulse Strength Respiratory Rate 16 16 15 Respiratory Effort / Characteristics Respiratory Depth Respiratory Pattern Blood Pressure 123/73 118/77 Blood Pressure Mean 89 90 Blood Pressure Position Pulse Oximetry 93 93 93 Oxygen Delivery Method Oxygen Flow Rate 08/13/18 17:50 08/13/18 17:51 08/13/18 17:52 Temperature Temperature Source Sepsis Action Taken by Nursing Pulse Rate 88 89 89 Pulse Rate from SpO2 Sensor 89 89 88 Pulse Rhythm Pulse Strength Respiratory Rate 17 16 15 Respiratory Effort / Characteristics Respiratory Depth Respiratory Pattern Blood Pressure 121/77 Blood Pressure Mean 91 Blood Pressure Position Pulse Oximetry 91 92 92 Oxygen Delivery Method Oxygen Flow Rate 08/13/18 18:00 08/13/18 18:10 08/13/18 18:11 Temperature Temperature Source Sepsis Action Taken by Nursing Pulse Rate 88 88 95 H Pulse Rate from SpO2 Sensor 89 88 95 H Pulse Rhythm Pulse Strength Respiratory Rate 17 24 Respiratory Effort / Characteristics Respiratory Depth Respiratory Pattern Blood Pressure 124/77 119/64 Blood Pressure Mean 92 82 Blood Pressure Position Pulse Oximetry 93 91 93 Oxygen Delivery Method Oxygen Flow Rate 08/13/18 18:12 08/13/18 18:20 08/13/18 18:21 Temperature Temperature Source Sepsis Action Taken by Nursing Pulse Rate 94 H 89 89 Pulse Rate from SpO2 Sensor 95 H 90 89 Pulse Rhythm Pulse Strength Respiratory Rate 23 18 21 Respiratory Effort / Characteristics Respiratory Depth Respiratory Pattern Blood Pressure 118/80 Blood Pressure Mean 92 Blood Pressure Position Pulse Oximetry 91 92 92 Oxygen Delivery Method Oxygen Flow Rate 08/13/18 18:30 08/13/18 18:31 08/13/18 18:32 Temperature Temperature Source Sepsis Action Taken by Nursing Pulse Rate 90 87 91 H Pulse Rate from SpO2 Sensor 89 87 Pulse Rhythm Pulse Strength Respiratory Rate 20 16 19 Respiratory Effort / Characteristics Respiratory Depth Respiratory Pattern Blood Pressure 120/78 Blood Pressure Mean 92 Blood Pressure Position Pulse Oximetry 92 92 89 L Oxygen Delivery Method Oxygen Flow Rate 08/13/18 18:40 08/13/18 18:41 08/13/18 18:42 Temperature Temperature Source Sepsis Action Taken by Nursing Pulse Rate 89 89 89 Pulse Rate from SpO2 Sensor 89 90 Pulse Rhythm Pulse Strength Respiratory Rate 17 19 16 Respiratory Effort / Characteristics Respiratory Depth Respiratory Pattern Blood Pressure 108/78 Blood Pressure Mean 88 Blood Pressure Position Pulse Oximetry 92 91 91 Oxygen Delivery Method Oxygen Flow Rate 08/13/18 18:50 08/13/18 19:00 08/13/18 19:01 Temperature Temperature Source Sepsis Action Taken by Nursing Pulse Rate 88 107 H 112 H Pulse Rate from SpO2 Sensor Pulse Rhythm Pulse Strength Respiratory Rate 17 24 34 H Respiratory Effort / Characteristics Respiratory Depth Respiratory Pattern Blood Pressure 119/73 112/70 Blood Pressure Mean 88 84 Blood Pressure Position Pulse Oximetry 91 Oxygen Delivery Method Oxygen Flow Rate 08/13/18 19:03 08/13/18 19:10 08/13/18 19:11 Temperature Temperature Source Sepsis Action Taken by Nursing Pulse Rate 102 H 92 H 92 H Pulse Rate from SpO2 Sensor Pulse Rhythm Pulse Strength Respiratory Rate 30 H 21 20 Respiratory Effort / Characteristics Respiratory Depth Respiratory Pattern Blood Pressure 115/76 116/94 Blood Pressure Mean 89 101 Blood Pressure Position Pulse Oximetry Oxygen Delivery Method Oxygen Flow Rate 08/13/18 19:20 08/13/18 19:21 08/13/18 19:30 Temperature Temperature Source Sepsis Action Taken by Nursing Pulse Rate 95 H 94 H 91 H Pulse Rate from SpO2 Sensor 95 H 93 H 92 H Pulse Rhythm Pulse Strength Respiratory Rate 20 19 17 Respiratory Effort / Characteristics Respiratory Depth Respiratory Pattern Blood Pressure 123/80 Blood Pressure Mean 94 Blood Pressure Position Pulse Oximetry 87 L 88 L 92 Oxygen Delivery Method Oxygen Flow Rate 08/13/18 19:31 08/13/18 19:40 08/13/18 19:41 Temperature Temperature Source Sepsis Action Taken by Nursing Pulse Rate 90 91 H 91 H Pulse Rate from SpO2 Sensor 90 90 90 Pulse Rhythm Pulse Strength Respiratory Rate 18 17 19 Respiratory Effort / Characteristics Respiratory Depth Respiratory Pattern Blood Pressure 125/82 132/78 Blood Pressure Mean 96 96 Blood Pressure Position Pulse Oximetry 95 93 92 Oxygen Delivery Method Oxygen Flow Rate 08/13/18 19:50 Temperature Temperature Source Sepsis Action Taken by Nursing Pulse Rate 91 H Pulse Rate from SpO2 Sensor 91 H Pulse Rhythm Pulse Strength Respiratory Rate 18 Respiratory Effort / Characteristics Respiratory Depth Respiratory Pattern Blood Pressure Blood Pressure Mean Blood Pressure Position Pulse Oximetry 93 Oxygen Delivery Method Oxygen Flow Rate GENERAL: Patient is in moderate distress from pain. HEENT: No acute trauma, normocephalic atraumatic, mucous membranes moist, no nasal congestion, no scleral icterus. NECK: No stridor, no adenopathy, no meningismus, trachea is midline. LUNGS: Clear to auscultation bilaterally, no wheeze, no rhonchi, breath sounds equal. HEART: Without murmurs gallops or rubs, regular rate and rhythm. ABDOMEN: Soft, tender primarily to the middle abdomen, bowel sounds positive, right inguinal hernia which is easily reproducible, no peritonitis. EXTREMITIES: No cyanosis or edema, full range of motion of all the joints without pain or difficulty, no signs for acute trauma. NEUROLOGIC: Oriented x 3, no acute motor or sensory deficits, no focal weakness. SKIN: Pale. No rash, no jaundice, no diaphoresis. Course 1614: The patient was evaluated in room C06, and a complete history and physical examination were performed. 1715: I reevaluated the patient and updated him on lab results. He continued to state that he was having abdominal symptoms despite his elevated troponin. 1720: I spoke to Dr. Hugh Willis [facility] Cardiology about the patient's case and he recommended medical management only for now. 1813: I reevaluated the patient and he is feeling and looking better however he still is complaining of some pain. 1820: I spoke to Ene[facility] Patterson, under Dr. Juaquin Bonner, about the patient's case. They will be accepting the patient for further evaluation. Consultations Consultation #1: I spoke to Dr. Hugh Willis [facility] Cardiology about the patient's case and he recommended medical management only for now. Time: 17:20 Consultation #2: I spoke to Eneida Patterson, under Dr. Juaquin Bonner, about the patient's case. They will be accepting the patient for further evaluation. Time: 18:20 Administered Medications Morphine Sulfate (Morphine Sulfate) 2 mg IV Q15M PRN PRN Reason: Pain Stop: 08/27/18 16:16 Last Admin: 08/13/18 17:22 Dose: 2 mg Documented by: [id number] Admin: 08/13/18 16:32 Dose: 2 mg Documented by: [id number] Discontinued Medications Aspirin (Aspirin) 324 mg PO NOW STA Stop: 08/13/18 18:06 Last Admin: 08/13/18 18:10 Dose: 324 mg Documented by: [id number] Sodium Chloride (Nss) 500 mls @ 999 mls/hr IV .Q31M HENRIK Stop: 08/13/18 17:00 Last Infusion: 08/13/18 17:05 Dose: 0 mls/hr Documented by: [id number] Admin: 08/13/18 16:34 Dose: 999 mls/hr Documented by: [id number] Ceftriaxone Sodium (Rocephin) 1,000 mg in 50 mls @ 100 mls/hr IV NOW STA Stop: 08/13/18 18:35 Last Infusion: 08/13/18 18:43 Dose: 0 mls/hr Documented by: [id number] Admin: 08/13/18 18:10 Dose: 100 mls/hr Documented by: [id number] Ondansetron HCl (Zofran) 4 mg IV NOW STA Stop: 08/13/18 16:18 Last Admin: 08/13/18 16:32 Dose: 4 mg Documented by: [id number] Ondansetron HCl (Zofran) Confirm Administered Dose 4 mg .ROUTE .STK-MED ONE Stop: 08/13/18 18:58 Last Admin: 08/13/18 19:00 Dose: 4 mg Documented by: [id number] Medical Decision Making Differential Diagnosis Differential Diagnosis includes: Myocardial infarction, GI bleed, gastritis, pneumonia, bowel obstruction, bowel rupture, pancreatitis, biliary colic, and bowel ischemia, amongst others. Medical Records Attestation: I reviewed the patient's medical records. Home Medications Current Medication List: was personally reviewed by me Laboratory Data Attestation: I reviewed the patient's lab results. Result diagrams: 08/13/18 16:18 08/13/18 16:18 Lab Results 08/13/18 08/13/18 08/13/18 Range/Units 16:18 16:18 16:18 WBC 13.08 H (4.8-10.8) K/uL RBC 3.91 L (4.7-6.1) M/uL Hgb 13.0 L (14.0-18.0) g/dL Hct 39.0 L (42-52) % MCV 99.7 (80-100) fL MCH 33.2 (25-34) pg MCHC 33.3 (32-36) g/dL RDW Std Deviation 51.7 H (36.4-46.3) fL RDW Coeff of [place] 14.3 (11.5-14.5) % Plt Count 184 (130-400) K/uL MPV 9.5 (7.4-10.4) fL Immature Gran % (Auto) 0.4 % Neut % (Auto) 82.6 % Lymph % (Auto) 9.4 % [place] % (Auto) 7.4 % Eos % (Auto) 0.0 % Baso % (Auto) 0.2 % Immature Gran # (Auto) 0.05 H (0.00-0.02) K/uL Neut # (Auto) 10.81 H (1.4-6.5) K/uL Lymph # (Auto) 1.23 (1.2-3.4) K/uL [place] # (Auto) 0.97 H (0.11-0.59) K/uL Eos # (Auto) 0.00 (0-0.5) K/uL Baso # (Auto) 0.02 (0-0.2) K/uL PT 10.3 (9.0-12.0) Seconds INR 1.0 (0.9-1.1) APTT 25.4 (21.0-31.0) Seconds PTT Ratio 0.9 Sodium (136-145) mmol/L Potassium (3.5-5.1) mmol/L Chloride (98-107) mmol/L Carbon Dioxide (21-32) mmol/L Anion Gap (3-11) BUN (7-18) mg/dl Creatinine (0.6-1.4) mg/dl Est Cr Clr Drug Dosing ml/min Est GFR ( Amer) Est GFR (Non-Af Amer) BUN/Creatinine Ratio (10-20) Glucose (70-99) mg/dl Lactate 2.3 H* (0.4-2.0) mmol/L Calcium (8.5-10.1) mg/dl Magnesium (1.8-2.4) mg/dl Total Bilirubin (0.2-1) mg/dl AST (15-37) U/L ALT (12-78) U/L Alkaline Phosphatase (45-117) U/L Troponin I (0-0.045) ng/ml Total Protein (6.4-8.2) gm/dl Albumin (3.4-5.0) gm/dl Globulin (2.5-4.0) gm/dl Albumin/Globulin Ratio (0.9-2) Lipase (73-393) U/L 08/13/18 Range/Units 16:18 WBC (4.8-10.8) K/uL RBC (4.7-6.1) M/uL Hgb (14.0-18.0) g/dL Hct (42-52) % MCV (80-100) fL MCH (25-34) pg MCHC (32-36) g/dL RDW Std Deviation (36.4-46.3) fL RDW Coeff of [place] (11.5-14.5) % Plt Count (130-400) K/uL MPV (7.4-10.4) fL Immature Gran % (Auto) % Neut % (Auto) % Lymph % (Auto) % [place] % (Auto) % Eos % (Auto) % Baso % (Auto) % Immature Gran # (Auto) (0.00-0.02) K/uL Neut # (Auto) (1.4-6.5) K/uL Lymph # (Auto) (1.2-3.4) K/uL [place] # (Auto) (0.11-0.59) K/uL Eos # (Auto) (0-0.5) K/uL Baso # (Auto) (0-0.2) K/uL PT (9.0-12.0) Seconds INR (0.9-1.1) APTT (21.0-31.0) Seconds PTT Ratio Sodium 140 (136-145) mmol/L Potassium 5.7 H (3.5-5.1) mmol/L Chloride 108 H (98-107) mmol/L Carbon Dioxide 26 (21-32) mmol/L Anion Gap 6.0 (3-11) BUN 30 H (7-18) mg/dl Creatinine 2.04 H (0.6-1.4) mg/dl Est Cr Clr Drug Dosing 23.8 ml/min Est GFR ( Amer) 34.2 Est GFR (Non-Af Amer) 29.5 BUN/Creatinine Ratio 14.6 (10-20) Glucose 129 H (70-99) mg/dl Lactate (0.4-2.0) mmol/L Calcium 9.5 (8.5-10.1) mg/dl Magnesium 2.2 (1.8-2.4) mg/dl Total Bilirubin 0.3 (0.2-1) mg/dl AST 437 H (15-37) U/L ALT 72 (12-78) U/L Alkaline Phosphatase 108 (45-117) U/L Troponin I 84.800 H* (0-0.045) ng/ml Total Protein 8.4 H (6.4-8.2) gm/dl Albumin 3.5 (3.4-5.0) gm/dl Globulin 4.9 H (2.5-4.0) gm/dl Albumin/Globulin Ratio 0.7 L (0.9-2) Lipase 78 (73-393) U/L Imaging Data Radiologist's Impression: Radiology results as stated below per my review and the radiologist's interpretation: XR chest 1V portable CLINICAL HISTORY: Shortness of breath. Epigastric pain. COMPARISON STUDY: Chest radiograph April 26, 2018. FINDINGS: There is pulmonary vascular congestion with possible mild pulmonary edema. Lung volumes are diminished. A hiatal hernia is noted. Bibasilar opacities favor atelectasis. There is suspected right apical scarring. There is an old healed fracture of the proximal left humeral shaft. IMPRESSION: 1. Pulmonary vascular congestion with possible mild pulmonary edema. 2. Bibasilar opacities which favor atelectasis. 3. Hiatal hernia. Electronically signed by: Austen Lake M.D. 08/13/2018 5:[address] OF THE ABDOMEN AND PELVIS WITHOUT CONTRAST CLINICAL HISTORY: Abdominal pain, nausea and vomiting. COMPARISON STUDY: CT of the abdomen and pelvis May 17, 2018. TECHNIQUE: Axial images of the abdomen and pelvis were obtained without IV contrast. Images were reviewed in the axial, sagittal, and coronal planes. Automated exposure control was utilized for the study. A dose lowering technique was utilized adhering to the principles of ALARA. FINDINGS: A small to moderate-sized hiatal hernia is noted. Lower lungs are suboptimally assessed given respiratory motion. There is suspected interlobular septal thickening. Atelectasis is noted. Unenhanced images of the liver, spleen, adrenal glands and pancreas are unremarkable. There is no biliary or pancreatic ductal dilatation. There is no peripancreatic or pericholecystic infiltration. There is marked bilateral renal atrophy without hydronephrosis. A moderate amount of stool within the colon and rectum is noted. A right inguinal hernia contains a loop of small bowel without bowel obstruction. There is a fat- containing left internal hernia. There is extensive sigmoid diverticulosis. There is minimal infiltration adjacent to the mid sigmoid colon. There is no free air or abscess. Old lower thoracic and lumbar spine compression fractures are noted. There is no lymphadenopathy. IMPRESSION: 1. Sigmoid diverticulosis. Minimal pericolonic infiltration. Mild acute diver ticulitis cannot be excluded. 2. Moderate amount of stool within the colon and rectum. No bowel obstruction. 3. Small bowel containing right inguinal hernia without bowel obstruction. Fat-containing left inguinal hernia. Electronically signed by: Austen Lake M.D. 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 No worrisome anemia. No coagulopathy. Renal panel testing shows some dehydration/acute kidney injury with a creatinine of 2.04. Lactic acid level was slightly elevated at 2.3. AST was elevated at 437, the bilirubin was normal. Lipase was normal. Chest x-ray showed some generalized congestion, no pneumonia. Some atelectasis was seen. EKG showed a new right bundle branch block with a new Q waves in the anterior and lateral leads. There was some elevation to the ST segments in the same leads. Troponin returned elevated at 84. With the EKG and troponin findings, I did consult interventional cardiology. As Q waves are present, medical management was advised. Abdominal and pelvis CT suggests some possible mild acute diverticulitis, no bowel obstruction. The patient received 500 cc of IV saline, he was given IV Zofran, IV morphine, he received oral aspirin and IV ceftriaxone. The patient has some dementia and is a poor historian. I am not certain when his symptoms truly began. His EKG suggests that the [place] is subacute. Patient continues to complain of abdominal pain although, I am concerned that some of his discomfort may actually be from his chest. The patient is not a candidate for nitroglycerin as his blood pressure is likely too low to tolerate the medication. I spoke to case management, I talked to the patient. He has no family member currently at the bedside. The on-call hospitalist has been consulted. Impression & Plan Acute myocardial infarction, Diverticulitis, Vomiting, Elevated troponin Critical Care Time Critical Care Time: Yes Total Critical Care Time: 35 I have personally spent greater than 35 minutes of critical care time in the direct management of this patient. This includes bedside care, interpretation of diagnostic studies, and testing, discussion with consultants, patient, and family members, and other required patient management activities. This 35 min utes is in excess of all separately billable procedures. Discharge Plan Visit Data Chief Complaint: Abdominal Pain Stated Complaint: abd pain ED Provider: Savage Abdalla Discharge Problem: Acute myocardial infarction, Diverticulitis, Vomiting, Elevated troponin Patient Disposition: Being Evaluated by Hospitalist Forms Stand Alone Forms: My [facility] [employer] Prescriptions Prescriptions: No Action Incruse Ellipta 62.5 mcg/actuation Blister With Device 1 inh INHALATION DAILY RF: 0 levothyroxine 75 mcg Tablet 75 mcg PO DAILY RF: 0 cyanocobalamin (vitamin B-12) 1,000 mcg Tablet 1,000 mcg PO DAILY RF: 0 docusate sodium [Colace] 100 mg Capsule 100 mg PO BID RF: 0 ferrous sulfate 325 mg (65 mg iron) Tablet 325 mg PO DAILY RF: 0 acetaminophen 325 mg Tablet 650 mg PO Q6H PRN (Reason: pain/fever) RF: 0 bisacodyl [Dulcolax (bisacodyl)] 10 mg Suppository 10 mg UT UD PRN (Reason: Constipation) RF: 0 polyethylene glycol 3350 17 gram Powder In Packet 17 g PO HS RF: 0 pantoprazole 40 mg Tablet,Delayed Release (Dr/Ec) 40 mg PO BID RF: 0 albuterol sulfate 2.5 mg /3 mL (0.083 %) Solution For Nebulization 1.25 mg INHALATION Q4 PRN (Reason: Wheezing) RF: 0 calcium carbonate [Tums] 200 mg calcium (500 mg) Tablet,Chewable 400 mg PO Q6 PRN (Reason: Indigestion) RF: 0 Tap Water Enema 1,000 ml UT UD RF: 0 Referrals Referrals: [facility] [Primary Care Provider] - Discharge Problem: Acute myocardial infarction Qualifiers: Myocardial infarction type: non-ST elevation myocardial infarction Qualified Code(s): I21.4 - Non-ST elevation (NSTEMI) myocardial infarction Vomiting Qualifiers: Vomiting type: unspecified Vomiting Intractability: non-intractable Nausea presence: with nausea Qualified Code(s): R11.2 - Nausea with vomiting, unspecified The scribe's documentation has been prepared under my direction and personally reviewed by me in its entirety. I confirm that the note above accurately reflects all work, treatment, procedures, and medical decision making performed by me.
[2018-08-13] MEDS: MoRPHine SULFATE 4 MG/ML 1 ML CARP\\VIAL IV PRN ×2 (16:32→17:22)
[2018-08-13 16:37] LABS: Basophils # (auto) 0.02 K/uL (0-0.2); Basophils % (auto) 0.2 %; Immature Granulocytes # (auto) 0.05 K/uL (0.00-0.02); Immature Granulocytes % (auto) 0.4 %; Lymphocytes # (auto) 1.23 K/uL (1.2-3.4); Lymphocytes % (auto) 9.4 %; Mean Corpuscular Hgb Conc 33.3 g/dL (32-36); Mean Corpuscular Volume 99.7 fL (80-100); Mean Platelet Volume 9.5 fL (7.4-10.4); Monocytes # (auto) 0.97 K/uL (0.11-0.59); Monocytes % (auto) 7.4 %; Neutrophils # (auto) 10.81 K/uL (1.4-6.5); Neutrophils % (auto) 82.6 %; Platelet Count 184 K/uL (130-400); RDW Coefficient of Variation 14.3 % (11.5-14.5); RDW Standard Deviation 51.7 fL (36.4-46.3); Red Blood Count 3.91 M/uL (4.7-6.1); White Blood Count 13.08 K/uL (4.8-10.8)
[2018-08-13 16:47] LABS: Partial Thromboplastin Ratio 0.9; Partial Thromboplastin Time 25.4 Seconds (21.0-31.0); Prothrombin Time 10.3 Seconds (9.0-12.0)
[2018-08-13 16:53] LABS: Albumin Level 3.5 gm/dl (3.4-5.0); BUN Creatinine Ratio 14.6 (10-20); Calcium 9.5 mg/dl (8.5-10.1); Creatinine Clr Calc Pharmacy 23.8 ml/min; Est GFR (African American) 34.2; Est GFR (Non-African American) 29.5; Magnesium 2.2 mg/dl (1.8-2.4); Potassium 5.7 mmol/L (3.5-5.1)
[2018-08-13 17:15] LABS: Albumin Globulin Ratio 0.7 (0.9-2); Bilirubin,Total 0.3 mg/dl (0.2-1); Globulin 4.9 gm/dl (2.5-4.0); Total Protein 8.4 gm/dl (6.4-8.2); Troponin I 84.8 ng/ml (0-0.045)
--- NOTE | 2018-08-13 17:33 | XRay Report ---
XR chest 1V portable CLINICAL HISTORY: Shortness of breath. Epigastric pain. COMPARISON STUDY: Chest radiograph April 26, 2018. FINDINGS: There is pulmonary vascular congestion with possible mild pulmonary edema. Lung volumes are diminished. A hiatal hernia is noted. Bibasilar opacities favor atelectasis. There is suspected righ t apical scarring. There is an old healed fracture of the proximal left humeral shaft. IMPRESSION: 1. Pulmonary vascular congestion with possible mild pulmonary edema. 2. Bibasilar opacities which favor atelectasis. 3. Hiatal hernia. Electronically signed by: Austen Lake M.D. 08/13/2018 5:32 PM
--- NOTE | 2018-08-13 18:00 | CT Scan Report ---
CT OF THE ABDOMEN AND PELVIS WITHOUT CONTRAST CLINICAL HISTORY: Abdominal pain, nausea and vomiting. COMPARISON STUDY: CT of the abdomen and pelvis May 17, 2018. TECHNIQUE: Axial images of the abdomen and pelvis were obtained without IV contrast. Images were revi ewed in the axial, sagittal, and coronal planes. Automated exposure control was utilized for the ewa dy. A dose lowering technique was utilized adhering to the principles of ALARA. FINDINGS: A small to moderate-sized hiatal hernia is noted. Lower lungs are suboptimally assessed giv en respiratory motion. There is suspected interlobular septal thickening. Atelectasis is noted. Unenh anced images of the liver, spleen, adrenal glands and pancreas are unremarkable. There is no biliary or pancreatic ductal dilatation. There is no peripancreatic or pericholecystic infiltration. There is marked bilateral renal atrophy without hydronephrosis. A moderate amount of stool within the colon a nd rectum is noted. A right inguinal hernia contains a loop of small bowel without bowel obstruction. There is a fat-containing left internal hernia. There is extensive sigmoid diverticulosis. There is minimal infiltration adjacent to the mid sigmoid colon. There is no free air or abscess. Old lower th oracic and lumbar spine compression fractures are noted. There is no lymphadenopathy. IMPRESSION: 1. Sigmoid diverticulosis. Minimal pericolonic infiltration. Mild acute diverticulitis cannot be excl uded. 2. Moderate amount of stool within the colon and rectum. No bowel obstruction. 3. Small bowel containing right inguinal hernia without bowel obstruction. Fat-containing left inguin al hernia. Electronically signed by: Austen Lake M.D. 08/13/2018 5:58 PM
[2018-08-13] MEDS ORDERED: ASPIRIN CHEW 324 MG PO STA (18:05)
[2018-08-13] MEDS ORDERED: cefTRIAXone SODIUM 1,000 MG/50 ML BAG IV STA (18:06)
[2018-08-13] MEDS ORDERED: ONDANSETRON INJ 2 MG/ML 2 ML VIAL ONE (18:57)
[2018-08-13] MEDS ORDERED: PANTOprazole 80 MG in DEXTROSE 5% 100 ML IV ONE (19:45)
--- NOTE | 2018-08-13 20:09 | History & Physical Report ---
Date of Service August 13, 2018 Assessment & Plan (1) STEMI (ST elevation myocardial infarction): This is an 82-year-old male with a PMH of Whalen's esophagus, dementia CKD 3, COPD, hypothyroidism and other medical problems listed below who presents from [facility] with abdominal pain and vomiting starting earlier today and was found to have an STEMI. -Initial EKG changes of RBBB and anteroseptal infarct with Q waves (new since previous EKG in 05/10) -Troponin of 84. Continue trending -Dr. Reese recommends medical management -Due to episode of coffee ground emesis in the ED, IV heparin is contraindicated -Monitor on telemetry. Discussed with Dr. Soni -Will add IV Lopressor 2.5 mg every 6 hours to control heart rate -Morphine, Zofran PRN (2) Coffee ground emesis: Had one witnessed episode this morning and then again in the ED -Keep n.p.o. for now. Discussed with GI. 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, hiatal hernia -Had similar coffee-ground emesis in April 2018 but hemoglobin remained stable, conservatively managed -Will repeat H&H later this evening and in the morning (3) Diverticulitis: Presenting with abdominal pain, evidence of sigmoid diverticulosis and possible mild diverticulitis and CT abdomen pelvis -Keeping n.p.o. for now due to hematemesis -Continue empiric coverage with IV Rocephin (4) COPD (chronic obstructive pulmonary disease): Home inhalers and nebs PRN (5) Hypothyroidism: Levothyroxine (6) Dementia: DVT Ppx: SCDs Code status: FULL per discussion with patient's daughter/POA Ms. Yoko Palmer ([phone]) PCP: [facility] Dispo: Admitted to telemetry. Discharge planning ordered. Patient seen in collaboration with Dr. Reza. Please see addendum. History of Present Illness Chief Complaint: Nausea, abdominal pain Primary Care Provider: [facility] This is an 82-year-old male with a PMH of Whalen's esophagus, dementia CKD 3, COPD, hypothyroidism and other medical problems listed below who presents from [facility] with abdominal pain and vomiting starting earlier today. History is difficult to obtain due to patient's dementia and is hard of hearing but states that it is abdominal pain has been going on intermittently for 3 months but became worse today. Per staff at [facility], patient was witnessed to vomit once and it was dark in color. Was sent to ED for further evaluation. Patient has history of coffee-ground emesis during April 2018 admission as well but hemoglobin remained stable and GI recommended conservative management. Upon arrival today, patient was noted to have significant EKG changes with a new anterolateral infarct and RBBB (as compared to April 2018 EKG) with a troponin of 84. ED physician discussed with Dr. Reese, who recommends medical management at this time due to evidence of Q waves on EKG. Hemoglobin is stable at 13. Creatinine is 2.04, which is slightly elevated from baseline of 1.71.9. Lactate is 2.3. Chest x-ray with evidence of mild pulmonary edema. CT abdomen pelvis with sigmoid diverticulosis and possible mild acute diverticulitis. Was given full dose aspirin, morphine and normal saline in the ED as well as a dose of Rocephin for possible diverticulitis. Patient describes having mid abdominal pain as well as nausea. Denies chest pain. Unable to obtain remainder of ROS due to cognitive state and difficulty hearing. During exam, patient had another episode of coffee-ground emesis. Discussed with cardiology service, who confirmed that IV heparin is contraindicated at this time. Also discussed with GI service, who recommend Protonix bolus and drip. Called patient's daughter/POA Ms. Yoko Palmer ([phone]) who confirmed patient as a full code. Allergies Allergy/AdvReac Type Severity Reaction Status Date / Time amoxicillin Allergy Unknown Unknown Verified 08/13/18 17:13 diazepam Allergy Unknown Unknown Verified 08/13/18 17:13 Home Medications Home Medications Medication Instructions Recorded Confirmed Type Incruse Ellipta 1 inh INHALATION DAILY 04/24/18 08/13/18 History acetaminophen 650 mg PO Q6H PRN 04/24/18 08/13/18 History bisacodyl [Dulcolax (bisacodyl)] 10 mg UT UD PRN 04/24/18 08/13/18 History cyanocobalamin (vitamin B-12) 1,000 mcg PO DAILY 04/24/18 08/13/18 History docusate sodium [Colace] 100 mg PO BID 04/24/18 08/13/18 History ferrous sulfate 325 mg PO DAILY 04/24/18 08/13/18 History levothyroxine 75 mcg PO DAILY 04/24/18 08/13/18 History Tap Water Enema 1,000 ml UT UD 08/13/18 08/13/18 History albuterol sulfate 1.25 mg INHALATION Q4 PRN 08/13/18 08/13/18 History calcium carbonate [Tums] 400 mg PO Q6 PRN 08/13/18 08/13/18 History pantoprazole 40 mg PO BID 08/13/18 08/13/18 History polyethylene glycol 3350 17 g PO HS 08/13/18 08/13/18 History Past Med/Surg History Medical History COPD (chronic obstructive pulmonary disease) (Chronic) Chronic kidney disease (Chronic) Dementia (Chronic) Hearing loss (Chronic) Hypothyroidism (Chronic) Surgical History Surgical history unknown (Chronic) Family History Other Family history unknown Social History Preferred Language: Korean Communication Ability: Impaired Communication Ability Comment: [facility] Patternmaker Bench Required: No Beliefs That Will Affect Care: None Current Living Situation: [facility] Other Information That Helps Us Care for You: No Feels Safe at Home: Yes Safety Concerns: Feels Safe At This Time Smoking Status: Former smoker Tobacco Type: cigarettes Do You Dip or Chew Tobacco: No Second Hand Exposure: No Tobacco Cessation Education Requested by Patient: No Hx Alcohol Use: No Hx Substance Use: No Review of Systems Review of Systems: Unobtainable due to cognitive status Physical Exam Physical Exam: General Appearance: WD/WN, elderly male in acute distress from pain Head: normocephalic, atraumatic Eyes: normal inspection, PERRL, EOMI ENT: Hard of hearing, pharynx normal (dry mucous membrane) Neck: supple, no JVD, no adenopathy Respiratory/Chest: lungs clear to auscultation. No wheezes, rales or rhonci. No respiratory distress or accessory muscle use Cardiovascular: regular rate, rhythm, no murmur, normal peripheral pulses Abdomen/GI: normal bowel sounds, soft, non-tender to palpation Extremities/Musculoskelatal: normal inspection, no calf tenderness, normal capillary refill, no pedal edema Neurologic/Psych: alert, normal mood/affect, oriented x person Skin: normal color, warm/dry Results & Data Vital Signs (Past 12 Hours) Vital Signs Temp Pulse Resp BP Pulse Ox 08/13/18 19:50 91 H 18 93 08/13/18 19:41 91 H 19 132/78 92 08/13/18 19:40 91 H 17 93 08/13/18 19:31 90 18 125/82 95 08/13/18 19:30 91 H 17 92 08/13/18 19:21 94 H 19 123/80 88 L 08/13/18 19:20 95 H 20 87 L 08/13/18 19:11 92 H 20 116/94 08/13/18 19:10 92 H 21 08/13/18 19:03 102 H 30 H 115/76 08/13/18 19:01 112 H 34 H 112/70 08/13/18 19:00 107 H 24 08/13/18 18:50 88 17 119/73 91 08/13/18 18:42 89 16 91 08/13/18 18:41 89 19 108/78 91 08/13/18 18:40 89 17 92 08/13/18 18:32 91 H 19 89 L 08/13/18 18:31 87 16 120/78 92 08/13/18 18:30 90 20 92 08/13/18 18:21 89 21 118/80 92 08/13/18 18:20 89 18 92 08/13/18 18:12 94 H 23 91 08/13/18 18:11 95 H 24 119/64 93 08/13/18 18:10 88 91 08/13/18 18:00 88 17 124/77 93 08/13/18 17:52 89 15 92 08/13/18 17:51 89 16 121/77 92 08/13/18 17:50 88 17 91 08/13/18 17:40 86 15 118/77 93 08/13/18 17:32 87 16 93 08/13/18 17:30 87 16 123/73 93 08/13/18 17:20 90 19 93 08/13/18 17:18 88 20 129/79 92 08/13/18 17:17 92 H 27 H 08/13/18 17:00 88 18 95 08/13/18 16:50 86 16 96 08/13/18 16:40 87 97 08/13/18 16:36 89 L 08/13/18 16:35 89 98 08/13/18 16:30 91 H 97 08/13/18 16:20 36.8 C 96 H 31 H 125/62 97 08/13/18 16:19 96 H 95 08/13/18 16:16 96 H 125/62 96 Laboratory Results Short CBC 08/13/18 08/13/18 08/13/18 Range/Units 16:18 16:18 16:18 WBC 13.08 H (4.8-10.8) K/uL RBC 3.91 L (4.7-6.1) M/uL Hgb 13.0 L (14.0-18.0) g/dL Hct 39.0 L (42-52) % MCV 99.7 (80-100) fL MCH 33.2 (25-34) pg MCHC 33.3 (32-36) g/dL RDW Std Deviation 51.7 H (36.4-46.3) fL RDW Coeff of Valdez 14.3 (11.5-14.5) % Plt Count 184 (130-400) K/uL MPV 9.5 (7.4-10.4) fL Immature Gran % (Auto) 0.4 % Neut % (Auto) 82.6 % Lymph % (Auto) 9.4 % Izard % (Auto) 7.4 % Eos % (Auto) 0.0 % Baso % (Auto) 0.2 % Immature Gran # (Auto) 0.05 H (0.00-0.02) K/uL Neut # (Auto) 10.81 H (1.4-6.5) K/uL Lymph # (Auto) 1.23 (1.2-3.4) K/uL Izard # (Auto) 0.97 H (0.11-0.59) K/uL Eos # (Auto) 0.00 (0-0.5) K/uL Baso # (Auto) 0.02 (0-0.2) K/uL PT 10.3 (9.0-12.0) Seconds INR 1.0 (0.9-1.1) APTT 25.4 (21.0-31.0) Seconds PTT Ratio 0.9 Sodium (136-145) mmol/L Potassium (3.5-5.1) mmol/L Chloride (98-107) mmol/L Carbon Dioxide (21-32) mmol/L Anion Gap (3-11) BUN (7-18) mg/dl Creatinine (0.6-1.4) mg/dl Est Cr Clr Drug Dosing ml/min Est GFR ( Amer) Est GFR (Non-Af Amer) BUN/Creatinine Ratio (10-20) Glucose (70-99) mg/dl Lactate 2.3 H* (0.4-2.0) mmol/L Calcium (8.5-10.1) mg/dl Magnesium (1.8-2.4) mg/dl Total Bilirubin (0.2-1) mg/dl AST (15-37) U/L ALT (12-78) U/L Alkaline Phosphatase (45-117) U/L Troponin I (0-0.045) ng/ml Total Protein (6.4-8.2) gm/dl Albumin (3.4-5.0) gm/dl Globulin (2.5-4.0) gm/dl Albumin/Globulin Ratio (0.9-2) Lipase (73-393) U/L 08/13/18 Range/Units 16:18 WBC (4.8-10.8) K/uL RBC (4.7-6.1) M/uL Hgb (14.0-18.0) g/dL Hct (42-52) % MCV (80-100) fL MCH (25-34) pg MCHC (32-36) g/dL RDW Std Deviation (36.4-46.3) fL RDW Coeff of Valdez (11.5-14.5) % Plt Count (130-400) K/uL MPV (7.4-10.4) fL Immature Gran % (Auto) % Neut % (Auto) % Lymph % (Auto) % Izard % (Auto) % Eos % (Auto) % Baso % (Auto) % Immature Gran # (Auto) (0.00-0.02) K/uL Neut # (Auto) (1.4-6.5) K/uL Lymph # (Auto) (1.2-3.4) K/uL Izard # (Auto) (0.11-0.59) K/uL Eos # (Auto) (0-0.5) K/uL Baso # (Auto) (0-0.2) K/uL PT (9.0-12.0) Seconds INR (0.9-1.1) APTT (21.0-31.0) Seconds PTT Ratio Sodium 140 (136-145) mmol/L Potassium 5.7 H (3.5-5.1) mmol/L Chloride 108 H (98-107) mmol/L Carbon Dioxide 26 (21-32) mmol/L Anion Gap 6.0 (3-11) BUN 30 H (7-18) mg/dl Creatinine 2.04 H (0.6-1.4) mg/dl Est Cr Clr Drug Dosing 23.8 ml/min Est GFR ( Amer) 34.2 Est GFR (Non-Af Amer) 29.5 BUN/Creatinine Ratio 14.6 (10-20) Glucose 129 H (70-99) mg/dl Lactate (0.4-2.0) mmol/L Calcium 9.5 (8.5-10.1) mg/dl Magnesium 2.2 (1.8-2.4) mg/dl Total Bilirubin 0.3 (0.2-1) mg/dl AST 437 H (15-37) U/L ALT 72 (12-78) U/L Alkaline Phosphatase 108 (45-117) U/L Troponin I 84.800 H* (0-0.045) ng/ml Total Protein 8.4 H (6.4-8.2) gm/dl Albumin 3.5 (3.4-5.0) gm/dl Globulin 4.9 H (2.5-4.0) gm/dl Albumin/Globulin Ratio 0.7 L (0.9-2) Lipase 78 (73-393) U/L Diagnostic Findings CXR: IMPRESSION: 1. Pulmonary vascular congestion with possible mild pulmonary edema. 2. Bibasilar opacities which favor atelectasis. 3. Hiatal hernia. CT abd/pelvis: IMPRESSION: 1. Sigmoid diverticulosis. Minimal pericolonic infiltration. Mild acute diverticulitis cannot be excluded. 2. Moderate amount of stool within the colon and rectum. No bowel obstruction. 3. Small bowel containing right inguinal hernia without bowel obstruction. Fat-containing left inguinal hernia. ECG Additional Comments: New RBBB and anterolateral infarct Supervising Physician Co-Signing Physician Notes Pt was seen and examined. Agreed with Eneida PEARCE exam, assessment and plan. 82-year-old male with a PMH of Whalen's esophagus, dementia CKD 3, COPD, hypothyroidism presents from [facility] with dark vomiting associated with abdominal pain. Pt said that he is having pain in his mid epigastric abdominal pain. Pt had one episodes of coffee ground emesis in the ER. CT abd on admission showed sigmoid diverticulosis. Minimal pericolonic infiltration. Mild acute diverticulitis cannot be excluded. Moderate amount of stool within the colon and rectum. No bowel obstruction. Troponin on admission was [address] changes with q wave. Elevated lactic acid 2.3. Case discussed with cardiology recommended conservative management. Will start on lopressor to control the HR. If BP increased, will start on topical nitrate. Unable to start on heparin drip and aspirin due to active active GI bleed (coffee ground emesis). Case discussed with GI recommended to start on PPI drip. If pt decompensates, will transfer to the ICU (chain hooker notified). Daughter was informed over the phone about pt condition. Code status discussed with daughter who wants pt to be full code for now. Will monitor closely. Please refer to Eneida PEARCE documentation for other problems. MD Juaquin
[2018-08-13] MEDS: PANTOprazole 40 MG in DEXTROSE 5% 100 ML IV SCH ×2 (20:10→23:56)
[2018-08-13] MEDS ORDERED: MoRPHine SULFATE 2 MG/ML CARP IV PRN (20:53)
[2018-08-13] MEDS ORDERED: ALBUTEROL 0.083% NEBU SOLN 3 ML VIAL INH PRN (20:53)
[2018-08-13] MEDS ORDERED: ONDANSETRON INJ 2 MG/ML 2 ML VIAL IV PRN (20:53)
[2018-08-13] MEDS ORDERED: NITROGLYCERIN SL 0.4 MG/TAB TAB SL PRN (20:53)
[2018-08-13] MEDS ORDERED: SODIUM CHLORIDE 0.9% 1000ML 1,000 ML IV SCH (21:00)
[2018-08-13] MEDS ORDERED: METOPROLOL TARTRATE 1 MG/ML VIAL IV STA ×2 (21:50→21:51)
[2018-08-13 22:09] LABS: Hematocrit (blood only) 38.5 % (42-52); Hemoglobin 12.9 g/dL (14.0-18.0)
[2018-08-13] MEDS ORDERED: XOPENEX/ATROVENT 1.25mg/0.5MG NEB COMBO NEB STA (22:16)
--- NOTE | 2018-08-13 22:24 | Hospitalist Progress Note ---
Date of Service August 13, 2018 Subjective Patient noted to have increasing O2 requirement. Dry cough symptoms as per RN unable to expectorate. AP Hypoxemic respiratory failure secondary to CHF Possible aspiration pneumonitis, hx emesis episode Supplemental O2 Stop NSS Lasix-albumin Nebs, Solu-Medrol 1 dose for possible bronchospasm causing hypoxemia Change Ceftriaxone for possible diverticulitis to Ertapenem (will cover both aspiration pneumonitis, diverticulitis) Results & Data Vital Signs (Past 12 Hours) Vital Signs Temp Pulse Pulse Resp BP BP Pulse Ox 08/13/18 22:09 96 08/13/18 22:05 95 H 125/77 08/13/18 21:26 36.7 C 104 H 24 154/87 H 85 L 08/13/18 21:18 102 H 08/13/18 20:33 92 H 21 128/78 92 08/13/18 20:21 90 17 124/76 92 08/13/18 20:20 88 19 91 08/13/18 20:11 91 H 19 125/80 91 08/13/18 20:10 92 H 18 91 08/13/18 20:01 93 H 17 127/82 92 08/13/18 20:00 91 H 17 93 08/13/18 19:51 90 17 128/82 92 08/13/18 19:50 91 H 18 93 08/13/18 19:41 91 H 19 132/78 92 08/13/18 19:40 91 H 17 93 08/13/18 19:31 90 18 125/82 95 08/13/18 19:30 91 H 17 92 08/13/18 19:21 94 H 19 123/80 88 L 08/13/18 19:20 95 H 20 87 L 08/13/18 19:11 92 H 20 116/94 08/13/18 19:10 92 H 21 08/13/18 19:03 102 H 30 H 115/76 08/13/18 19:01 112 H 34 H 112/70 08/13/18 19:00 107 H 24 08/13/18 18:50 88 17 119/73 91 08/13/18 18:42 89 16 91 08/13/18 18:41 89 19 108/78 91 08/13/18 18:40 89 17 92 08/13/18 18:32 91 H 19 89 L 08/13/18 18:31 87 16 120/78 92 08/13/18 18:30 90 20 92 08/13/18 18:21 89 21 118/80 92 08/13/18 18:20 89 18 92 08/13/18 18:12 94 H 23 91 08/13/18 18:11 95 H 24 119/64 93 08/13/18 18:10 88 91 08/13/18 18:00 88 17 124/77 93 08/13/18 17:52 89 15 92 08/13/18 17:51 89 16 121/77 92 08/13/18 17:50 88 17 91 08/13/18 17:40 86 15 118/77 93 08/13/18 17:32 87 16 93 08/13/18 17:30 87 16 123/73 93 08/13/18 17:20 90 19 93 08/13/18 17:18 88 20 129/79 92 08/13/18 17:17 92 H 27 H 08/13/18 17:00 88 18 95 08/13/18 16:50 86 16 96 08/13/18 16:40 87 97 08/13/18 16:36 89 L 08/13/18 16:35 89 98 08/13/18 16:30 91 H 97 08/13/18 16:20 36.8 C 96 H 31 H 125/62 97 08/13/18 16:19 96 H 95 08/13/18 16:16 96 H 125/62 96
[2018-08-13] MEDS ORDERED: metroNIDAZOLE 500 MG/100 ML BAG IV SCH (22:30)
[2018-08-13] MEDS ORDERED: IPRATROPIUM BROMIDE NEB SOLN 0.02% 2.5 ML VIAL INH STA (22:32)
[2018-08-13] MEDS ORDERED: LEVALBUTEROL 1.25MG/0.5ML NEB INH STA (22:32)
[2018-08-13] MEDS ORDERED: ERTAPENEM SODIUM 1,000 MG in SODIUM CHLORIDE 0.9% 50 ML IV STA (22:46)
[2018-08-13] MEDS ORDERED: ERTAPENEM CONSULT ACTIVE PRN (22:48)
[2018-08-13] MEDS: NITROGLYCERIN 2% OINTMENT 30GM TUBE EXT SCH (22:51)
[2018-08-13] MEDS ORDERED: ALBUMIN 25% 50 ML with FUROSEMIDE 40 MG IV ONE (23:00)
[2018-08-13 23:05] LABS: Base Excess ABG -3.2 mEq/L (-9-1.8); HCO3 ABG 21 mmol/L (19-24); Oxygen Saturation ABG 93.8 % (90-95); PCO2 ABG 33 mmHg (35-46); PO2 ABG 68 mm/Hg (80-95); pH ABG 7.41 (7.35-7.45)
[2018-08-13 23:07] LABS: Allen Test Pos (Pos)
[2018-08-13] MEDS: METOPROLOL TARTRATE 1 MG/ML VIAL IV SCH (23:30)
[2018-08-14] MEDS: IPRATROPIUM BROMIDE NEB SOLN 0.02% 2.5 ML VIAL INH SCH ×4 (01:50→19:13)
[2018-08-14] MEDS: LEVALBUTEROL 1.25MG/0.5ML NEB INH SCH ×4 (01:51→19:13)
[2018-08-14] MEDS ORDERED: XOPENEX/ATROVENT 1.25mg/0.5MG NEB COMBO NEB SCH (02:00)
[2018-08-14 02:30] LABS: Appearance Urine Clear (Clear); Bacteria Urine Automated Negative (Negative); Bilirubin Urine Negative (Negative); Blood Urine Trace (Negative); Color Urine Yellow; Glucose Urine UA Negative (Negative); Ketones Urine Negative (Negative); Leukocyte Esterase Urine Negative (Negative); Nitrite Urine Negative (Negative); Protein Urine 1+ (Negative); RBC Urine Automated 0-4 /hpf (0-4); Specific Gravity Urine 1.016 (1.000-1.030); Urobilinogen Urine Negative (Negative); WBC Urine Automated 0 /hpf (0-5); pH Urine 5.5 (4.5-7.5)
[2018-08-14] MEDS: NITROGLYCERIN 2% OINTMENT 30GM TUBE EXT SCH ×4 (03:43→21:51)
[2018-08-14] MEDS: PANTOprazole 40 MG in DEXTROSE 5% 100 ML IV SCH ×4 (04:11→20:31)
[2018-08-14 04:27] LABS: Basophils # (auto) 0.01 K/uL (0-0.2); Basophils % (auto) 0.1 %; Hematocrit (blood only) 37.9 % (42-52); Hemoglobin 12.5 g/dL (14.0-18.0); Immature Granulocytes # (auto) 0.05 K/uL (0.00-0.02); Immature Granulocytes % (auto) 0.3 %; Lymphocytes # (auto) 0.81 K/uL (1.2-3.4); Lymphocytes % (auto) 5.1 %; Mean Corpuscular Volume 101.3 fL (80-100); Mean Platelet Volume 9.3 fL (7.4-10.4); Monocytes # (auto) 0.93 K/uL (0.11-0.59); Monocytes % (auto) 5.9 %; Neutrophils # (auto) 14.05 K/uL (1.4-6.5); Neutrophils % (auto) 88.6 %; Platelet Count 171 K/uL (130-400); RDW Coefficient of Variation 14.5 % (11.5-14.5); RDW Standard Deviation 53.3 fL (36.4-46.3); Red Blood Count 3.74 M/uL (4.7-6.1); White Blood Count 15.85 K/uL (4.8-10.8)
[2018-08-14 04:45] LABS: Albumin Level 3.6 gm/dl (3.4-5.0); BUN Creatinine Ratio 14.4 (10-20); Calcium 8.3 mg/dl (8.5-10.1); Creatinine Clr Calc Pharmacy 21.9 ml/min; Est GFR (African American) 27.8
[2018-08-14 05:20] LABS: Albumin Globulin Ratio 0.8 (0.9-2); Bilirubin,Total 0.4 mg/dl (0.2-1); Globulin 4.3 gm/dl (2.5-4.0); Total Protein 7.9 gm/dl (6.4-8.2)
[2018-08-14] MEDS: METOPROLOL TARTRATE 1 MG/ML VIAL IV SCH ×2 (05:35→12:07)
[2018-08-14] MEDS: LEVOTHYROXINE SODIUM 75 MCG TABLET PO SCH (05:37)
[2018-08-14 08:40] LABS: BUN Creatinine Ratio 14.2 (10-20); Calcium 8.9 mg/dl (8.5-10.1); Creatinine Clr Calc Pharmacy 20.7 ml/min; Est GFR (African American) 26.2; Est GFR (Non-African American) 22.6; Potassium 5.6 mmol/L (3.5-5.1)
[2018-08-14] MEDS ORDERED: cefTRIAXone SODIUM 1,000 MG in DEXTROSE 5% 50 ML IV SCH (09:00)
--- NOTE | 2018-08-14 09:27 | History & Physical Report ---
Date of Service August 14, 2018 History of Present Illness Chief Complaint: Hematemesis Primary Care Provider: [facility] 82 yo male with a history of copd, hypothyroidism, lives in a medical SNF, ckdz - baseline cr 1.8-2.0, admitted with chest pain and abdominal pain yesterday. He was found to have an STEMI- reportedly seen by cardiology, no heparin administered given reports of hematemesis. As an outpatient was not known to be on blood thinner, unclear if he was taking recent NSAID's as he is a limited historian. He was admitted through the ER, further workup for above showed that he had an stemi. He has remained hemodynamically stable with no further hematemesis that I am aware of since being started on an IV PPI (bolus and drip). He did have an EGD thru [facility] in [place] with findings of baltazar's and a large hiatal hernia. He is currently getting an echo done at this time. Allergies Allergy/AdvReac Type Severity Reaction Status Date / Time amoxicillin Allergy Unknown Unknown Verified 08/13/18 17:13 diazepam Allergy Unknown Unknown Verified 08/13/18 17:13 Home Medications Home Medications Medication Instructions Recorded Confirmed Type Incruse Ellipta 1 inh INHALATION DAILY 04/24/18 08/13/18 History acetaminophen 650 mg PO Q6H PRN 04/24/18 08/13/18 History bisacodyl [Dulcolax (bisacodyl)] 10 mg MA UD PRN 04/24/18 08/13/18 History cyanocobalamin (vitamin B-12) 1,000 mcg PO DAILY 04/24/18 08/13/18 History docusate sodium [Colace] 100 mg PO BID 04/24/18 08/13/18 History ferrous sulfate 325 mg PO DAILY 04/24/18 08/13/18 History levothyroxine 75 mcg PO DAILY 04/24/18 08/13/18 History Tap Water Enema 1,000 ml MA UD 08/13/18 08/13/18 History albuterol sulfate 1.25 mg INHALATION Q4 PRN 08/13/18 08/13/18 History calcium carbonate [Tums] 400 mg PO Q6 PRN 08/13/18 08/13/18 History pantoprazole 40 mg PO BID 08/13/18 08/13/18 History polyethylene glycol 3350 17 g PO HS 08/13/18 08/13/18 History Past Med/Surg History Medical History COPD (chronic obstructive pulmonary disease) (Chronic) Chronic kidney disease (Chronic) Dementia (Chronic) Hearing loss (Chronic) Hypothyroidism (Chronic) Surgical History Surgical history unknown (Chronic) Family History Other Family history unknown Social History Preferred Language: Omani Communication Ability: Impaired Communication Ability Comment: [facility] Client Support Professional Required: No Beliefs That Will Affect Care: None Current Living Situation: [facility] Other Information That Helps Us Care for You: No Feels Safe at Home: Yes Safety Concerns: Feels Safe At This Time Smoking Status: Former smoker Tobacco Type: cigarettes Do You Dip or Chew Tobacco: No Second Hand Exposure: No Tobacco Cessation Education Requested by Patient: No Hx Alcohol Use: No Hx Substance Use: No Review of Systems All systems reviewed & are unremarkable except as noted in HPI & below Physical Exam Physical Exam: Lying in bed with supplemental oxygen on in no acute distress Constitutional: + ill appearing Respiratory: Diminished breath sounds Cardiovascular: RRR, no murmur, no edema Gastrointestinal (Abdomen): normal bowel sounds, soft, nontender, no hepatosplenomegaly Results & Data Vital Signs (Past 12 Hours) Vital Signs Temp Pulse Pulse Resp BP BP Pulse Ox 08/14/18 07:51 36.7 C 63 22 105/65 95 08/14/18 07:02 79 18 95 08/14/18 05:35 90 112/73 08/14/18 03:20 36.5 C 90 21 117/72 94 08/14/18 02:15 98 08/14/18 01:51 78 20 98 08/14/18 00:02 98 08/13/18 23:30 79 102/70 08/13/18 23:28 36.2 C L 79 17 102/70 93 08/13/18 23:01 19 109/69 97 08/13/18 22:49 75 16 94 08/13/18 22:40 75 08/13/18 22:09 96 08/13/18 22:05 95 H 125/77 08/13/18 21:26 36.7 C 104 H 24 154/87 H 83 L Pulse Ox 08/14/18 07:51 08/14/18 07:02 08/14/18 05:35 08/14/18 03:20 08/14/18 02:15 08/14/18 01:51 08/14/18 00:02 96 08/13/18 23:30 08/13/18 23:28 08/13/18 23:01 08/13/18 22:49 08/13/18 22:40 08/13/18 22:09 08/13/18 22:05 08/13/18 21:26 Labs reviewed- hgb stable, bun mildly elevated but not significantly changed from his baseline Troponin is rising AST/ALT slightly higher than yesterday Supervising Physician Co-Signing Physician Notes 82 yo male with a history of copd, hypothyroidism, admitted yesterday for nausea/vomiting, found to have an stemi and also reporting hematemesis. 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 Unclear if he has been on nsaid's recently. At the current time, given his cardiac status, I think he is high risk for sedation and for a diagnostic egd for hematemesis. The hematemesis appears to have resolved with IV PPI bolus and drip and his hemoglobin has remained relatively stable, and over 10. I think a conservative mgmt of his hematemesis with IV fluids, IV PPI is the right approach given his current situation. Prn blood transfusions for now.
--- NOTE | 2018-08-14 10:22 | Hospitalist Progress Note ---
Date of Service August 14, 2018 Assessment & Plan (1) NSTEMI (non-ST elevated myocardial infarction): This is an 82-year-old male with a PMH of Whalen's esophagus, dementia CKD 3, COPD, hypothyroidism and other medical problems listed below who presents from [facility] with abdominal pain and vomiting starting earlier today and was found to have an STEMI. -Troponin of 84 --> 146 -Initial EKG changes of RBBB and anteroseptal infarct with Q waves (new since previous EKG in 05/10)-> q wave inferior leads, t wave depression anterolateral leads -Echo: EF of 20 to 25% -Due to episode of coffee ground emesis in the ED, IV heparin is contraindicated also received ASA 324 mg in the ER -Started on metoprolol tartrate 12.5 mg p.o. twice daily Also on Nitropaste Plan to start aspirin 81 mg p.o. daily when hemoglobin is stable [facility] [employer] consulted (2) Acute respiratory failure with hypoxia: Secondary to acute systolic CHF Repeat chest x-ray: IMPRESSION: 1. Persistent congestive failure/fluid overload 2. Suspected small left pleural effusion 3. Increasing basilar airspace opacities Additional Lasix IV ordered, monitor creatinine Monitor I's and O's (3) Acute renal failure: On CKD stage III Likely secondary to systolic congestive heart failure Renal hypoperfusion Monitor closely while on Lasix Hyperkalemia 5.6, Kayexalate ordered Monitor (4) Coffee ground emesis: Possible upper GI bleed per admitting notes: Had one witnessed episode this morning and then again in the ED -Keep n.p.o. for now. Discussed with GI. 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, hiatal hernia -Had similar coffee-ground emesis in April 2018 but hemoglobin remained stable, conservatively managed - Hg 13 to 12.5 No signs of recurrence of vomiting Discussed with Dr. Shields, EGD not recommended at this time Continue with IV Protonix Continue to monitor hemoglobin (5) Diverticulitis: Presenting with abdominal pain, evidence of sigmoid diverticulosis and possible mild diverticulitis and CT abdomen pelvis -Keeping n.p.o. for now due to hematemesis -Continue empiric coverage with IV ertapenem (6) COPD (chronic obstructive pulmonary disease): Mild exacerbation secondary to acute systolic CHF Home inhalers and nebs PRN (7) Hypothyroidism: Levothyroxine (8) Dementia: DVT Ppx: SCDs only in light of possible upper GI bleed Code status: FULL per discussion with patient's daughter/POA Ms. Yoko Palmer ([phone]) PCP: Mary Jo Dispo: Admitted to telemetry. Discharge planning ordered. Subjective ff up for NSTEMI, possible Upper GI bleed seen resting in bed, sleeping but easily rousable appears weak but able to carry conversation with no distress denies chest pain, dyspnea, cough, abdominal pain, nausea no report of vomiting overnight did have respiratory distress, given Lasix, Solumedrol, Nebs, Ertapenem started no other symptoms Patient noted to have increasing O2 requirement. Dry cough symptoms as per RN unable to expectorate. AP Hypoxemic respiratory failure secondary to CHF Possible aspiration pneumonitis, hx emesis episode Supplemental O2 Stop NSS Lasix-albumin Nebs, Solu-Medrol 1 dose for possible bronchospasm causing hypoxemia Change Ceftriaxone for possible diverticulitis to Ertapenem (will cover both aspiration pneumonitis, diverticulitis) Review of Systems Review of Systems: All systems reviewed & are unremarkable except as noted in HPI & below Physical Exam Physical Exam: General- oriented x 1, not in distress, speaks in sentences with no effort or accessory muscle use Head- atraumatic Eyes- PERRL, EOMI, anicteric ENT- oropharynx clear dry oral mucosa Neck- supple, no JVD, no adenopathy, no thyromegaly; carotids +2/2, no bruits appreciated Lungs- clear to auscultation bilaterally, no rales/wheezes Heart- normal rate, regular rhythm; no murmur, no gallop, no rub appreciated Abdomen- normal bowel sounds, nondistended, soft, nontender, no masses or hepatosplenomegaly Extremities- no pretibial edema, no calf tenderness; peripheral pulses intact Neuro- alert, oriented x 1; CN 2-12 grossly intact except being hearing impaired; motor 5/5 bilaterally;sensation 100% on all extremities; no other gross focal neurologic deficits Skin- warm & dry Results & Data Vital Signs (Past 12 Hours) Vital Signs Temp Pulse Pulse Resp BP BP Pulse Ox 08/14/18 07:51 36.7 C 63 22 105/65 95 08/14/18 07:02 79 18 95 08/14/18 05:35 90 112/73 08/14/18 03:20 36.5 C 90 21 117/72 94 08/14/18 02:15 98 08/14/18 01:51 78 20 98 08/14/18 00:02 98 08/13/18 23:30 79 102/70 08/13/18 23:28 36.2 C L 79 17 102/70 93 08/13/18 23:01 19 109/69 97 08/13/18 22:49 75 16 94 08/13/18 22:40 75 Pulse Ox 08/14/18 07:51 08/14/18 07:02 08/14/18 05:35 08/14/18 03:20 08/14/18 02:15 08/14/18 01:51 08/14/18 00:02 96 08/13/18 23:30 08/13/18 23:28 08/13/18 23:01 08/13/18 22:49 08/13/18 22:40
[2018-08-14] MEDS ORDERED: SODIUM POLYSTYRENE SULFONATE 15G/60ML SUSP PO ONE (10:45)
--- NOTE | 2018-08-14 11:45 | XRay Report ---
XR chest 1V portable CLINICAL HISTORY: Abnormal chest x-ray FOLLOW-UP STUDY COMPARISON STUDY: No previous studies for comparison. FINDINGS: The heart is enlarged. There is radiographic evidence of ingested failure/fluid overload. T here is stable mild hilar prominence. There is a small left pleural effusion. There are increasing ba silar airspace opacities.[ IMPRESSION: 1. Persistent congestive failure/fluid overload 2. Suspected small left pleural effusion 3. Increasing basilar airspace opacities Electronically signed by: Camilo Palafox M.D. 08/14/2018 11:44 AM
--- NOTE | 2018-08-14 12:31 | Cardiology Consultation ---
Date of Consultation August 14, 2018 Assessment & Plan (1) STEMI (ST elevation myocardial infarction): Late presentation with significantly elevated troponin and septal infarcts present. Underlying medical conditions and recent hematemesis preclude anticoagulation and acute coronary intervention Echocardiogram demonstrates substantial LV dysfunction EF 20 to 25% with large anterior apical infarct with thinning We will treat conservatively though prognosis limited substantial infarct is pr esent with severe LV dysfunction Would not consider acute coronary intervention or defibrillator implantation remains at risk for further heart failure, renal decline and arrhythmias Patient begun on IV metoprolol will switch to oral 12.5 mg p.o. twice daily Add low-dose nitrates to regimen with possible consideration of adding hydralazine if blood pressure allows given substantial LV dysfunction We will add aspirin 81 mg/day cautiously given history of hematemesis (2) Coffee ground emesis: Hemoglobins without change no abdominal pain today we will begin oral meds (3) CKD (chronic kidney disease) stage 3, GFR 30-59 ml/min: With decline will need to follow closely as patient will warrant diuretic dosing (4) Dementia: Patient unable to add additional information to presentation. Nausea and emesis may reflect myocardial ischemia in the setting although abdominal pain was predominant complaint and presentation (5) COPD (chronic obstructive pulmonary disease): History of Present Illness Reason for Consultation: Acute myocardial infarction, late presentation Hematemesis Requesting Physician: Dr Lassiter Attending Physician: Lobo Lassiter MD History of Present Illness Patient is a complex 82-year-old male a history of Whalen's esophagus with upper GI bleed in April 2018, dementia CKD 3, COPD, hypothyroidism Patient presents now having transferred from extended care facility after 2 episodes of hematemesis. Patient unable to offer additional information given underlying dementia. Complaints on presentation with abdominal discomfort. Initial troponin however substantially elevated with new EKG findings of anteroseptal infarct. Is been managed conservatively as appropriate given likely very late presentation. And atypical symptoms not consistent with acute ischemia. Hematemesis precludes use of anticoagulation Patient this morning unable to offer any additional information though currently appears comfortable denies specific chest pain or abdominal pain. Allergies Allergy/AdvReac Type Severity Reaction Status Date / Time amoxicillin Allergy Unknown Unknown Verified 08/13/18 17:13 diazepam Allergy Unknown Unknown Verified 08/13/18 17:13 Home Medications Home Medications Medication Instructions Recorded Confirmed Type Incruse Ellipta 1 inh INHALATION DAILY 04/24/18 08/13/18 History acetaminophen 650 mg PO Q6H PRN 04/24/18 08/13/18 History bisacodyl [Dulcolax (bisacodyl)] 10 mg ND UD PRN 04/24/18 08/13/18 History cyanocobalamin (vitamin B-12) 1,000 mcg PO DAILY 04/24/18 08/13/18 History docusate sodium [Colace] 100 mg PO BID 04/24/18 08/13/18 History ferrous sulfate 325 mg PO DAILY 04/24/18 08/13/18 History levothyroxine 75 mcg PO DAILY 04/24/18 08/13/18 History Tap Water Enema 1,000 ml ND UD 08/13/18 08/13/18 History albuterol sulfate 1.25 mg INHALATION Q4 PRN 08/13/18 08/13/18 History calcium carbonate [Tums] 400 mg PO Q6 PRN 08/13/18 08/13/18 History pantoprazole 40 mg PO BID 08/13/18 08/13/18 History polyethylene glycol 3350 17 g PO HS 08/13/18 08/13/18 History Patient History Medical History COPD (chronic obstructive pulmonary disease) (Chronic) Chronic kidney disease (Chronic) Dementia (Chronic) Hearing loss (Chronic) Hypothyroidism (Chronic) Surgical History Surgical history unknown (Chronic) Family History Other Family history unknown Social History Preferred Language: [place]i Communication Ability: Impaired Communication Ability Comment: [facility] Track Leader Required: No Beliefs That Will Affect Care: None Current Living Situation: Alf Other Information That Helps Us Care for You: No Feels Safe at Home: Yes Safety Concerns: Feels Safe At This Time Smoking Status: Former smoker Tobacco Type: cigarettes Do You Dip or Chew Tobacco: No Second Hand Exposure: No Tobacco Cessation Education Requested by Patient: No Hx Alcohol Use: No Hx Substance Use: No Review of Systems Review of Systems: Unobtainable due to mental health condition Physical Exam Constitutional: WD/WN, vitals as above Eyes: PERRL, conjunctivae normal, anicteric sclerae ENMT: external ear and nose normal, oropharynx normal Neck: trachea midline, no thyromegaly Respiratory: Auscultation: + diminished lung sounds and + rales (Mild bibasilar) Cardiovascular: Rate/Rhythm: regular rate and regular rhythm Heart Sounds: normal S1, normal S2 and + murmur (Grade 1/6 systolic no diastolic); no gallop Vessels: no JVD Extremities: + edema (Trace) Gastrointestinal (Abdomen): Inspection/Auscultation: + abdomen distended (Mild) Percussion/Palpation: abdomen soft; abdomen nontender and no guarding Skin: no rashes, warm and dry Results & Data Vital Signs (Past 12 Hours) Vital Signs Temp Pulse Pulse Resp BP BP Pulse Ox 08/14/18 12:07 85 129/77 08/14/18 12:01 36.6 C 84 24 109/72 98 08/14/18 07:51 36.7 C 63 22 105/65 95 08/14/18 07:02 79 18 95 08/14/18 05:35 90 112/73 08/14/18 03:20 36.5 C 90 21 117/72 94 08/14/18 02:15 98 08/14/18 01:51 78 20 98 Laboratory Results Laboratory Results - last 24 hr 08/13/18 08/13/18 08/13/18 16:18 16:18 16:18 WBC 13.08 H RBC 3.91 L Hgb 13.0 L Hct 39.0 L MCV 99.7 MCH 33.2 MCHC 33.3 RDW Std Deviation 51.7 H RDW Coeff of Valdez 14.3 Plt Count 184 MPV 9.5 Immature Gran % (Auto) 0.4 Neut % (Auto) 82.6 Lymph % (Auto) 9.4 Wake % (Auto) 7.4 Eos % (Auto) 0.0 Baso % (Auto) 0.2 Immature Gran # (Auto) 0.05 H Neut # (Auto) 10.81 H Lymph # (Auto) 1.23 Wake # (Auto) 0.97 H Eos # (Auto) 0.00 Baso # (Auto) 0.02 PT 10.3 INR 1.0 APTT 25.4 PTT Ratio 0.9 ABG pH ABG pCO2 ABG pO2 ABG HCO3 ABG O2 Saturation ABG Base Excess Brian Test Barometric Pressure Oxygen Given Sodium Potassium Chloride Carbon Dioxide Anion Gap BUN Creatinine Est Cr Clr Drug Dosing Est GFR ( Amer) Est GFR (Non-Af Amer) BUN/Creatinine Ratio Glucose Lactate 2.3 H* Calcium Magnesium Total Bilirubin AST ALT Alkaline Phosphatase Troponin I Total Protein Albumin Globulin Albumin/Globulin Ratio Lipase Urine Color Urine Appearance Urine pH Ur Specific Snowflake Urine Protein Urine Glucose (UA) Urine Ketones Urine Blood Urine Nitrite Urine Bilirubin Urine Urobilinogen Ur Leukocyte Esterase Urine WBC (Auto) Urine RBC (Auto) U Hyaline Cast (Auto) U Epithel Cells (Auto) Urine Bacteria (Auto) Nasal Screen MRSA (PCR) 08/13/18 08/13/18 08/13/18 16:18 21:20 21:59 WBC RBC Hgb Hct MCV MCH MCHC RDW Std Deviation RDW Coeff of [place] Plt Count MPV Immature Gran % (Auto) Neut % (Auto) Lymph % (Auto) Wake % (Auto) Eos % (Auto) Baso % (Auto) Immature Gran # (Auto) Neut # (Auto) Lymph # (Auto) Wake # (Auto) Eos # (Auto) Baso # (Auto) PT INR APTT PTT Ratio ABG pH ABG pCO2 ABG pO2 ABG HCO3 ABG O2 Saturation ABG Base Excess Brian Test Barometric Pressure Oxygen Given Sodium 140 Potassium 5.7 H Chloride 108 H Carbon Dioxide 26 Anion Gap 6.0 BUN 30 H Creatinine 2.04 H Est Cr Clr Drug Dosing 23.8 Est GFR ( Amer) 34.2 Est GFR (Non-Af Amer) 29.5 BUN/Creatinine Ratio 14.6 Glucose 129 H Lactate Calcium 9.5 Magnesium 2.2 Total Bilirubin 0.3 AST 437 H ALT 72 Alkaline Phosphatase 108 Troponin I 84.800 H* 117.000 H* Total Protein 8.4 H Albumin 3.5 Globulin 4.9 H Albumin/Globulin Ratio 0.7 L Lipase 78 Urine Color Urine Appearance Urine pH Ur Specific Snowflake Urine Protein Urine Glucose (UA) Urine Ketones Urine Blood Urine Nitrite Urine Bilirubin Urine Urobilinogen Ur Leukocyte Esterase Urine WBC (Auto) Urine RBC (Auto) U Hyaline Cast (Auto) U Epithel Cells (Auto) Urine Bacteria (Auto) Nasal Screen MRSA (PCR) Negative 08/13/18 08/13/18 08/13/18 21:59 21:59 22:43 WBC RBC Hgb 12.9 L Hct 38.5 L MCV MCH MCHC RDW Std Deviation RDW Coeff of Valdez Plt Count MPV Immature Gran % (Auto) Neut % (Auto) Lymph % (Auto) Wake % (Auto) Eos % (Auto) Baso % (Auto) Immature Gran # (Auto) Neut # (Auto) Lymph # (Auto) Wake # (Auto) Eos # (Auto) Baso # (Auto) PT INR APTT PTT Ratio ABG pH 7.41 ABG pCO2 33 L ABG pO2 68 L ABG HCO3 21 ABG O2 Saturation 93.8 ABG Base Excess -3.2 Brian Test Pos Barometric Pressure 733.7 Oxygen Given 8L 02 Sodium Potassium Chloride Carbon Dioxide Anion Gap BUN Creatinine Est Cr Clr Drug Dosing Est GFR ( Amer) Est GFR (Non-Af Amer) BUN/Creatinine Ratio Glucose Lactate 2.2 H* Calcium Magnesium Total Bilirubin AST ALT Alkaline Phosphatase Troponin I Total Protein Albumin Globulin Albumin/Globulin Ratio Lipase Urine Color Urine Appearance Urine pH Ur Specific [place]flake Urine Protein Urine Glucose (UA) Urine Ketones Urine Blood Urine Nitrite Urine Bilirubin Urine Urobilinogen Ur Leukocyte Esterase Urine WBC (Auto) Urine RBC (Auto) U Hyaline Cast (Auto) U Epithel Cells (Auto) Urine Bacteria (Auto) Nasal Screen MRSA (PCR) 08/14/18 08/14/18 08/14/18 02:05 04:15 04:15 WBC 15.85 H RBC 3.74 L Hgb 12.5 L Hct 37.9 L MCV 101.3 H MCH 33.4 MCHC 33.0 RDW Std Deviation 53.3 H RDW Coeff of Valdez 14.5 Plt Count 171 MPV 9.3 Immature Gran % (Auto) 0.3 Neut % (Auto) 88.6 Lymph % (Auto) 5.1 Wake % (Auto) 5.9 Eos % (Auto) 0.0 Baso % (Auto) 0.1 Immature Gran # (Auto) 0.05 H Neut # (Auto) 14.05 H Lymph # (Auto) 0.81 L Wake # (Auto) 0.93 H Eos # (Auto) 0.00 Baso # (Auto) 0.01 PT INR APTT PTT Ratio ABG pH ABG pCO2 ABG pO2 ABG HCO3 ABG O2 Saturation ABG Base Excess Brian Test Barometric Pressure Oxygen Given Sodium 135 L Potassium 6.0 H Chloride 105 Carbon Dioxide 26 Anion Gap 4.0 BUN 35 H Creatinine 2.42 H D Est Cr Clr Drug Dosing 21.9 Est GFR ( Amer) 27.8 Est GFR (Non-Af Amer) 24.0 BUN/Creatinine Ratio 14.4 Glucose 161 H Lactate Calcium 8.3 L Magnesium Total Bilirubin 0.4 AST 506 H ALT 92 H Alkaline Phosphatase 92 Troponin I 146.000 H* Total Protein 7.9 Albumin 3.6 Globulin 4.3 H Albumin/Globulin Ratio 0.8 L Lipase Urine Color Yellow Urine Appearance Clear Urine pH 5.5 Ur Specific Snowflake 1.016 Urine Protein 1+ H Urine Glucose (UA) Negative Urine Ketones Negative Urine Blood Trace H Urine Nitrite Negative Urine Bilirubin Negative Urine Urobilinogen Negative Ur Leukocyte Esterase Negative Urine WBC (Auto) 0 Urine RBC (Auto) 0-4 U Hyaline Cast (Auto) 1-5 U Epithel Cells (Auto) 5-10 H Urine Bacteria (Auto) Negative Nasal Screen MRSA (PCR) 08/14/18 08/14/18 04:15 07:45 WBC RBC Hgb Hct MCV MCH MCHC RDW Std Deviation RDW Coeff of Valdez Plt Count MPV Immature Gran % (Auto) Neut % (Auto) Lymph % (Auto) Wake % (Auto) Eos % (Auto) Baso % (Auto) Immature Gran # (Auto) Neut # (Auto) Lymph # (Auto) Wake # (Auto) Eos # (Auto) Baso # (Auto) PT INR APTT PTT Ratio ABG pH ABG pCO2 ABG pO2 ABG HCO3 ABG O2 Saturation ABG Base Excess Brian Test Barometric Pressure Oxygen Given Sodium 137 Potassium 5.6 H Chloride 104 Carbon Dioxide 26 Anion Gap 8.0 BUN 36 H Creatinine 2.54 H Est Cr Clr Drug Dosing 20.7 Est GFR ( Amer) 26.2 Est GFR (Non-Af Amer) 22.6 BUN/Creatinine Ratio 14.2 Glucose 150 H Lactate 3.0 H* Calcium 8.9 Magnesium Total Bilirubin AST ALT Alkaline Phosphatase Troponin I Total Protein Albumin Globulin Albumin/Globulin Ratio Lipase Urine Color Urine Appearance Urine pH Ur Specific [place] Urine Protein Urine Glucose (UA) Urine Ketones Urine Blood Urine Nitrite Urine Bilirubin Urine Urobilinogen Ur Leukocyte Esterase Urine WBC (Auto) Urine RBC (Auto) U Hyaline Cast (Auto) U Epithel Cells (Auto) Urine Bacteria (Auto) Nasal Screen MRSA (PCR) ECG Additional Comments: Sinus rhythm Left axis deviation Low voltage QRS Anterior infarct (cited on or before 13-AUG-2018) ST & T wave abnormality, consider lateral ischemia Abnormal ECG When compared with ECG of 13-AUG-2018 16:17, (unconfirmed) Questionable change in initial forces of Septal leads Confirmed by Pavan Horner ([id number]) on 08/14/2018 11:21:37 AM
[2018-08-14] MEDS ORDERED: FUROSEMIDE 20 MG in SYRINGE 0 ML IV ONE (13:00)
[2018-08-14] MEDS: METOPROLOL TARTRATE 25 MG TAB PO SCH ×2 (14:27→19:26)
[2018-08-14 16:26] LABS: BUN Creatinine Ratio 14.4 (10-20); Calcium 8.8 mg/dl (8.5-10.1); Creatinine Clr Calc Pharmacy 19.4 ml/min; Est GFR (African American) 24.1; Est GFR (Non-African American) 20.8; Potassium 5.4 mmol/L (3.5-5.1)
[2018-08-14] MEDS: ERTAPENEM SODIUM 500 MG in SODIUM CHLORIDE 0.9% 50 ML IV SCH (20:31)
[2018-08-15] MEDS: IPRATROPIUM BROMIDE NEB SOLN 0.02% 2.5 ML VIAL INH SCH ×4 (01:40→19:41)
[2018-08-15] MEDS: LEVALBUTEROL 1.25MG/0.5ML NEB INH SCH ×4 (01:40→19:41)
[2018-08-15] MEDS: PANTOprazole 40 MG in DEXTROSE 5% 100 ML IV SCH ×5 (02:52→23:37)
[2018-08-15] MEDS: NITROGLYCERIN 2% OINTMENT 30GM TUBE EXT SCH ×4 (04:54→22:06)
[2018-08-15] MEDS: LEVOTHYROXINE SODIUM 75 MCG TABLET PO SCH (05:39)
[2018-08-15 06:27] LABS: Creatinine Clr Calc Pharmacy 19.6 ml/min; Est GFR (African American) 24.4; Est GFR (Non-African American) 21.1
[2018-08-15] MEDS: METOPROLOL TARTRATE 25 MG TAB PO SCH ×2 (08:48→20:30)
--- NOTE | 2018-08-15 09:27 | Gastroenterology Progress Note ---
Date of Service August 15, 2018 Assessment & Plan (1) NSTEMI (non-ST elevated myocardial infarction): (2) Diverticulitis: (3) Hematemesis: Pt is a 82 y/o male currently admitted for NSTEMI, followed for reported hematesis. Hx of Whalen's esophagus and hiatal hernia seen in EGD 2 yrs ago. No more signs of GI bleeding including hematemesis or melena. H/H stable. - Monitor H/H and transfuse prn - Continue to defer EGD - May continue PPI gtt x 72hrs total then convert to IV BID form - Cardiology following for NSTEMI - Will watch peripherally Supervising Physician Co-Signing Physician Notes I have performed a history and physical examination of this patient and reviewed the electronic medical record. Specifically, on physical examination there is mild epigastric tenderness. I have discussed the case with SCOTT Leiva. The above note reflects my findings, conclusions, and recommendations. Pavan Stiles MD Subjective Pt c/o some pain on upper abd area. He has baseline dementia, limited historian. RN reports no more hematemesis or melena. H/H stable. Review of Systems Review of Systems: See above, otherwise limited given his baseline dementia Physical Exam Constitutional: WD/WN, vitals as above well groomed, cooperative and comfortable Eyes: PERRL, conjunctivae normal, anicteric sclerae ENMT: external ear and nose normal, oropharynx normal Respiratory: no respiratory distress and does not use accessory muscles Auscultation: + diminished lung sounds Cardiovascular: Rate/Rhythm: regular rate and regular rhythm Heart Sounds: + murmur Gastrointestinal (Abdomen): normal bowel sounds, soft, nontender, no hepatosplenomegaly Skin: no rashes, warm and dry no jaundice Psychiatric: Stuporous but awoke with sternal rub. Hard of hearing Lymphatic: no lymphedema Results & Data Vital Signs (Past 12 Hours) Vital Signs Temp Pulse Pulse Resp BP Pulse Ox Pulse Ox 08/15/18 08:51 86 124/62 08/15/18 08:00 87 95 08/15/18 07:45 37 C 89 18 99/64 L 92 08/15/18 07:08 20 95 08/15/18 03:25 36.4 C L 84 17 94/59 L 93 06/24/19 02:52 96 08/15/18 01:43 86 14 96 08/14/18 23:52 94 08/14/18 23:23 36.8 C 86 19 103/63 100 08/14/18 22:20 85
[2018-08-15 10:43] LABS: Basophils # (auto) 0.02 K/uL (0-0.2); Basophils % (auto) 0.1 %; Hematocrit (blood only) 35.6 % (42-52); Hemoglobin 11.6 g/dL (14.0-18.0); Immature Granulocytes # (auto) 0.06 K/uL (0.00-0.02); Immature Granulocytes % (auto) 0.4 %; Lymphocytes # (auto) 1.32 K/uL (1.2-3.4); Lymphocytes % (auto) 7.8 %; Mean Corpuscular Hgb Conc 32.6 g/dL (32-36); Mean Corpuscular Volume 101.7 fL (80-100); Mean Platelet Volume 10.4 fL (7.4-10.4); Monocytes # (auto) 1.74 K/uL (0.11-0.59); Monocytes % (auto) 10.3 %; Neutrophils # (auto) 13.74 K/uL (1.4-6.5); Neutrophils % (auto) 81.4 %; Platelet Count 160 K/uL (130-400); RDW Coefficient of Variation 14.5 % (11.5-14.5); RDW Standard Deviation 53.6 fL (36.4-46.3); White Blood Count 16.88 K/uL (4.8-10.8)
[2018-08-15 10:49] LABS: BUN Creatinine Ratio 16.7 (10-20); Calcium 8.3 mg/dl (8.5-10.1); Creatinine Clr Calc Pharmacy 19.3 ml/min; Est GFR (Non-African American) 20.7; Potassium 4.4 mmol/L (3.5-5.1)
--- NOTE | 2018-08-15 11:41 | Cardiology Progress Note ---
Date of Service August 15, 2018 Assessment & Plan (1) STEMI (ST elevation myocardial infarction): Late presentation with significantly elevated troponin and septal infarcts present. Underlying medical conditions and recent hematemesis preclude anticoagulation and acute coronary intervention Echocardiogram demonstrates substantial LV dysfunction EF 20 to 25% with large anterior apical infarct with thinning We will treat conservatively though prognosis limited substantial infarct is present with severe LV dysfunction Would not consider acute coronary intervention or defibrillator implantation remains at risk for further heart failure, renal decline and arrhythmias Patient begun on IV metoprolol will switch to oral 12.5 mg p.o. twice daily Add low-dose nitrates to regimen with possible consideration of adding hydralazine if blood pressure allows given substantial LV dysfunction We will add aspirin 81 mg/day cautiously given history of hematemesis (2) Coffee ground emesis: Hemoglobins without change no abdominal pain today we will begin oral meds If tolerates oral intake would initiate aspirin therapy (3) CKD (chronic kidney disease) stage 3, GFR 30-59 ml/min: With decline will need to follow closely as patient will warrant diuretic dosing (4) Dementia: Patient unable to add additional information to presentation. Nausea and emesis may reflect myocardial ischemia in the setting although abdominal pain was predominant complaint and presentation (5) COPD (chronic obstructive pulmonary disease): Subjective Examined, chart medications telemetry reviewed. Patient voices no current complaints. Other than "hungry" No further vomiting or emesis no signs of bleeding with hemoglobin stable. EKG is consistent with evolving anterior apical infarct Physical Exam Constitutional: WD/WN, vitals as above Eyes: PERRL, conjunctivae normal, anicteric sclerae ENMT: external ear and nose normal, oropharynx normal Neck: trachea midline, no thyromegaly Respiratory: Auscultation: + diminished lung sounds and + rales (Mild bibasilar) Cardiovascular: Rate/Rhythm: regular rate and regular rhythm Heart Sounds: normal S1, normal S2 and + murmur (Grade 1/6 systolic no diastolic); no gallop Vessels: no JVD Extremities: + edema (Trace) Gastrointestinal (Abdomen): Inspection/Auscultation: + abdomen distended (Mild) Percussion/Palpation: abdomen soft; abdomen nontender and no guarding Skin: no rashes, warm and dry Results & Data Vital Signs (Past 12 Hours) Vital Signs Temp Pulse Pulse Resp BP Pulse Ox Pulse Ox 08/15/18 10:52 103/64 08/15/18 08:51 86 124/62 08/15/18 08:00 87 95 08/15/18 07:45 37 C 89 18 99/64 L 92 08/15/18 07:08 20 95 08/15/18 03:25 36.4 C L 84 17 94/59 L 93 08/15/18 02:52 96 08/15/18 01:43 86 14 96 08/14/18 23:52 94 Laboratory Results Laboratory Results WBC 16.88 K/uL (4.8-10.8) H 08/15/18 06:45 RBC 3.50 M/uL (4.7-6.1) L 08/15/18 06:45 Hgb 11.6 g/dL (14.0-18.0) L 08/15/18 06:45 Hct 35.6 % (42-52) L 08/15/18 06:45 MCV 101.7 fL (80-100) H 08/15/18 06:45 MCH 33.1 pg (25-34) 08/15/18 06:45 MCHC 32.6 g/dL (32-36) 08/15/18 06:45 RDW Std Deviation 53.6 fL (36.4-46.3) H 08/15/18 06:45 RDW Coeff of [place] 14.5 % (11.5-14.5) 08/15/18 06:45 Plt Count 160 K/uL (130-400) 08/15/18 06:45 MPV 10.4 fL (7.4-10.4) 08/15/18 06:45 Immature Gran % (Auto) 0.4 % 08/15/18 06:45 Neut % (Auto) 81.4 % 08/15/18 06:45 Lymph % (Auto) 7.8 % 08/15/18 06:45 [place] % (Auto) 10.3 % 08/15/18 06:45 Eos % (Auto) 0.0 % 08/15/18 06:45 Baso % (Auto) 0.1 % 08/15/18 06:45 Immature Gran # (Auto) 0.06 K/uL (0.00-0.02) H 08/15/18 06:45 Neut # (Auto) 13.74 K/uL (1.4-6.5) H 08/15/18 06:45 Lymph # (Auto) 1.32 K/uL (1.2-3.4) 08/15/18 06:45 [place] # (Auto) 1.74 K/uL (0.11-0.59) H 08/15/18 06:45 Eos # (Auto) 0.00 K/uL (0-0.5) 08/15/18 06:45 Baso # (Auto) 0.02 K/uL (0-0.2) 08/15/18 06:45 PT 10.3 Seconds (9.0-12.0) 08/13/18 16:18 INR 1.0 (0.9-1.1) 08/13/18 16:18 APTT 25.4 Seconds (21.0-31.0) 08/13/18 16:18 PTT Ratio 0.9 08/13/18 16:18 ABG pH 7.41 (7.35-7.45) 08/13/18 22:43 ABG pCO2 33 mmHg (35-46) L 08/13/18 22:43 ABG pO2 68 mm/Hg (80-95) L 08/13/18 22:43 ABG HCO3 21 mmol/L (19-24) 08/13/18 22:43 ABG O2 Saturation 93.8 % (90-95) 08/13/18 22:43 ABG Base Excess -3.2 mEq/L (-9-1.8) 08/13/18 22:43 Brian Test Pos (Pos) 08/13/18 22:43 Barometric Pressure 733.7 mm/Hg 08/13/18 22:43 Oxygen Given 8L 02 08/13/18 22:43 Sodium 138 mmol/L (136-145) 08/15/18 06:45 Potassium 4.4 mmol/L (3.5-5.1) D 08/15/18 06:45 Chloride 104 mmol/L (98-107) 08/15/18 06:45 Carbon Dioxide 27 mmol/L (21-32) 08/15/18 06:45 Anion Gap 7.0 (3-11) 08/15/18 06:45 BUN 46 mg/dl (7-18) H 08/15/18 06:45 Creatinine 2.73 mg/dl (0.6-1.4) H 08/15/18 06:45 Est Cr Clr Drug Dosing 19.3 ml/min 08/15/18 06:45 Est GFR ( Amer) 24.0 08/15/18 06:45 Est GFR (Non-Af Amer) 20.7 08/15/18 06:45 BUN/Creatinine Ratio 16.7 (10-20) 08/15/18 06:45 Glucose 114 mg/dl (70-99) H 08/15/18 06:45 Lactate 3.0 mmol/L (0.4-2.0) H* 08/14/18 04:15 Calcium 8.3 mg/dl (8.5-10.1) L 08/15/18 06:45 Magnesium 2.2 mg/dl (1.8-2.4) 08/13/18 16:18 Total Bilirubin 0.4 mg/dl (0.2-1) 08/14/18 04:15 AST 506 U/L (15-37) H 08/14/18 04:15 ALT 92 U/L (12-78) H 08/14/18 04:15 Alkaline Phosphatase 92 U/L (45-117) 08/14/18 04:15 Troponin I 146.000 ng/ml (0-0.045) H* 08/14/18 04:15 Total Protein 7.9 gm/dl (6.4-8.2) 08/14/18 04:15 Albumin 3.6 gm/dl (3.4-5.0) 08/14/18 04:15 Globulin 4.3 gm/dl (2.5-4.0) H 08/14/18 04:15 Albumin/Globulin Ratio 0.8 (0.9-2) L 08/14/18 04:15 Lipase 78 U/L (73-393) 08/13/18 16:18 Urine Color Yellow 08/14/18 02:05 Urine Appearance Clear (Clear) 08/14/18 02:05 Urine pH 5.5 (4.5-7.5) 08/14/18 02:05 Ur Specific [place] 1.016 (1.000-1.030) 08/14/18 02:05 Urine Protein 1+ (Negative) H 08/14/18 02:05 Urine Glucose (UA) Negative (Negative) 08/14/18 02:05 Urine Ketones Negative (Negative) 08/14/18 02:05 Urine Blood Trace (Negative) H 08/14/18 02:05 Urine Nitrite Negative (Negative) 08/14/18 02:05 Urine Bilirubin Negative (Negative) 08/14/18 02:05 Urine Urobilinogen Negative (Negative) 08/14/18 02:05 Ur Leukocyte Esterase Negative (Negative) 08/14/18 02:05 Urine WBC (Auto) 0 /hpf (0-5) 08/14/18 02:05 Urine RBC (Auto) 0-4 /hpf (0-4) 08/14/18 02:05 U Hyaline Cast (Auto) 1-5 /lpf (0-5) 08/14/18 02:05 U Epithel Cells (Auto) 5-10 /lpf (0-5) H 08/14/18 02:05 Urine Bacteria (Auto) Negative (Negative) 08/14/18 02:05 Nasal Screen MRSA (PCR) Negative (Negative) 08/13/18 21:20 Laboratory Results - last 24 hr 08/14/18 08/15/18 08/15/18 15:56 05:41 06:45 WBC 16.88 H RBC 3.50 L Hgb 11.6 L Hct 35.6 L MCV 101.7 H MCH 33.1 MCHC 32.6 RDW Std Deviation 53.6 H RDW Coeff of [place] 14.5 Plt Count 160 MPV 10.4 Immature Gran % (Auto) 0.4 Neut % (Auto) 81.4 Lymph % (Auto) 7.8 [place] % (Auto) 10.3 Eos % (Auto) 0.0 Baso % (Auto) 0.1 Immature Gran # (Auto) 0.06 H Neut # (Auto) 13.74 H Lymph # (Auto) 1.32 [place] # (Auto) 1.74 H Eos # (Auto) 0.00 Baso # (Auto) 0.02 Sodium 137 Potassium 5.4 H Chloride 105 Carbon Dioxide 26 Anion Gap 7.0 BUN 39 H Creatinine 2.72 H 2.69 H Est Cr Clr Drug Dosing 19.4 19.6 Est GFR ( Amer) 24.1 24.4 Est GFR (Non-Af Amer) 20.8 21.1 BUN/Creatinine Ratio 14.4 Glucose 134 H Calcium 8.8 08/15/18 06:45 WBC RBC Hgb Hct MCV MCH MCHC RDW Std Deviation RDW Coeff of [place] Plt Count MPV Immature Gran % (Auto) Neut % (Auto) Lymph % (Auto) [place] % (Auto) Eos % (Auto) Baso % (Auto) Immature Gran # (Auto) Neut # (Auto) Lymph # (Auto) [facility] # (Auto) Eos # (Auto) Baso # (Auto) Sodium 138 Potassium 4.4 D Chloride 104 Carbon Dioxide 27 Anion Gap 7.0 BUN 46 H Creatinine 2.73 H Est Cr Clr Drug Dosing 19.3 Est GFR ( Amer) 24.0 Est GFR (Non-Af Amer) 20.7 BUN/Creatinine Ratio 16.7 Glucose 114 H Calcium 8.3 L ECG Additional Comments: 15-AUG-2018 06:39:55 [facility]-PCU ROUTINE RETRIEVAL Normal sinus rhythm Left anterior fascicular block Anterolateral infarct (cited on or before 13-AUG-2018) ACUTE [place] / STEMI Abnormal ECG When compared with ECG of 14-AUG-2018 06:52, Criteria for Inferior infarct are no longer Present Questionable change in initial forces of Lateral leads Confirmed by Pavan Horner [id number]) on 08/15/2018 10:48:31 AM
--- NOTE | 2018-08-15 13:29 | Hospitalist Progress Note ---
Date of Service August 15, 2018 Assessment & Plan (1) NSTEMI (non-ST elevated myocardial infarction): This is an 82-year-old male with a PMH of Whalen's esophagus, dementia CKD 3, COPD, hypothyroidism and other medical problems listed below who presents from [facility] with abdominal pain and vomiting starting earlier today and was found to have an STEMI. -Troponin of 84 --> 146 -Initial EKG changes of RBBB and anteroseptal infarct with Q waves (new since previous EKG in 05/10)-> q wave inferior leads, t wave depression anterolateral leads -Echo: EF of 20 to 25% -Due to episode of coffee ground emesis in the ED, IV heparin contraindicated also received ASA 324 mg in the ER -Started on metoprolol tartrate 12.5 mg p.o. twice daily Also on Nitropaste BP on the low side, monitor Plan to start aspirin 81 mg p.o. daily if without recurrence of GI bleed, hemoglobin remains stable appreciate Cardiology and GI service recommendations (2) Acute respiratory failure with hypoxia: Secondary to acute systolic CHF Repeat chest x-ray: IMPRESSION: 1. Persistent congestive failure/fluid overload 2. Suspected small left pleural effusion 3. Increasing basilar airspace opacities Lasix IV ordered now down to 2 L via oxymask Monitor I's and O's Possible component of aspiration pneumonia? continue Ertapenem (3) Acute renal failure: On CKD stage III Likely secondary to systolic congestive heart failure Renal hypoperfusion crea increasing, now at 2.7 Monitor closely while on Lasix Hyperkalemia 5.6, Kayexalate ordered Monitor (4) Coffee ground emesis: Possible upper GI bleed per admitting notes: Had one witnessed episode this morning and then again in the ED -Keep n.p.o. for now. Discussed with GI. 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 - clear liquids today - Continue coverage with IV ertapenem (6) COPD (chronic obstructive pulmonary disease): Mild exacerbation secondary to acute systolic CHF Home inhalers and nebs PRN (7) Hypothyroidism: Levothyroxine (8) Dementia: DVT Ppx: SCDs only in light of possible upper GI bleed Code status: FULL per discussion with patient's daughter/POA Ms. Yoko Palmer ([phone]) PCP: [facility] Dispo: Admitted to telemetry. Discharge planning ordered. Subjective ff up for ST elevation [place] seen resting in bed, comfortable appears less weak states he fees fine overall denies chest pain, dyspnea, palpitations, dizziness denies abdominal pain, nausea, (+) flatus denies other symptoms requesting for a diet Review of Systems Review of Systems: All systems reviewed & are unremarkable except as noted in HPI & below Physical Exam Physical Exam: General- oriented x 2, not in distress, speaks in sentences with no effort or accessory muscle use Eyes- anicteric Neck- no JVD Lungs- clear breath sounds bilaterally no crackles no wheezing Heart- normal rate, regular rhythm; no murmurs Abdomen- normal bowel sounds, nondistended, soft, nontender Extremities- no pretibial edema, no calf tenderness Neuro- alert, oriented x 2; no gross focal neurologic deficits Skin- warm & dry Results & Data Vital Signs (Past 12 Hours) Vital Signs Temp Pulse Pulse Resp BP Pulse Ox 08/15/18 11:54 37.2 C 75 20 101/60 99 08/15/18 10:52 103/64 08/15/18 08:51 86 124/62 08/15/18 08:00 87 95 08/15/18 07:45 37 C 89 18 99/64 L 92 08/15/18 07:08 20 95 08/15/18 03:25 36.4 C L 84 17 94/59 L 93 08/15/18 02:52 96 08/15/18 01:43 86 14 96 Laboratory Results Laboratory Results - last 24 hr 08/14/18 08/15/18 08/15/18 15:56 05:41 06:45 WBC 16.88 H RBC 3.50 L Hgb 11.6 L Hct 35.6 L MCV 101.7 H MCH 33.1 MCHC 32.6 RDW Std Deviation 53.6 H RDW Coeff of [place] 14.5 Plt Count 160 MPV 10.4 Immature Gran % (Auto) 0.4 Neut % (Auto) 81.4 Lymph % (Auto) 7.8 [place] % (Auto) 10.3 Eos % (Auto) 0.0 Baso % (Auto) 0.1 Immature Gran # (Auto) 0.06 H Neut # (Auto) 13.74 H Lymph # (Auto) 1.32 [place] # (Auto) 1.74 H Eos # (Auto) 0.00 Baso # (Auto) 0.02 Sodium 137 Potassium 5.4 H Chloride 105 Carbon Dioxide 26 Anion Gap 7.0 BUN 39 H Creatinine 2.72 H 2.69 H Est Cr Clr Drug Dosing 19.4 19.6 Est GFR ( Amer) 24.1 24.4 Est GFR (Non-Af Amer) 20.8 21.1 BUN/Creatinine Ratio 14.4 Glucose 134 H Calcium 8.8 08/15/18 06:45 WBC RBC Hgb Hct MCV MCH MCHC RDW Std Deviation RDW Coeff of [place] Plt Count MPV Immature Gran % (Auto) Neut % (Auto) Lymph % (Auto) [place] % (Auto) Eos % (Auto) Baso % (Auto) Immature Gran # (Auto) Neut # (Auto) Lymph # (Auto) [place] # (Auto) Eos # (Auto) Baso # (Auto) Sodium 138 Potassium 4.4 D Chloride 104 Carbon Dioxide 27 Anion Gap 7.0 BUN 46 H Creatinine 2.73 H Est Cr Clr Drug Dosing 19.3 Est GFR ( Amer) 24.0 Est GFR (Non-Af Amer) 20.7 BUN/Creatinine Ratio 16.7 Glucose 114 H Calcium 8.3 L
[2018-08-15] MEDS: ERTAPENEM SODIUM 500 MG in SODIUM CHLORIDE 0.9% 50 ML IV SCH (20:26)
[2018-08-16] MEDS: IPRATROPIUM BROMIDE NEB SOLN 0.02% 2.5 ML VIAL INH SCH ×4 (01:52→19:29)
[2018-08-16] MEDS: LEVALBUTEROL 1.25MG/0.5ML NEB INH SCH ×4 (01:53→19:30)
[2018-08-16] MEDS: NITROGLYCERIN 2% OINTMENT 30GM TUBE EXT SCH ×2 (04:42→11:00)
[2018-08-16] MEDS: PANTOprazole 40 MG in DEXTROSE 5% 100 ML IV SCH ×4 (04:54→20:11)
[2018-08-16] MEDS: LEVOTHYROXINE SODIUM 75 MCG TABLET PO SCH (05:33)
[2018-08-16 06:10] LABS: Creatinine Clr Calc Pharmacy 21.2 ml/min; Est GFR (Non-African American) 23.3
[2018-08-16] MEDS: METOPROLOL TARTRATE 25 MG TAB PO SCH (08:54)
[2018-08-16 10:04] LABS: Basophils # (auto) 0.01 K/uL (0-0.2); Basophils % (auto) 0.1 %; Eosinophils # (auto) 0.02 K/uL (0-0.5); Eosinophils % (auto) 0.2 %; Hematocrit (blood only) 33.5 % (42-52); Hemoglobin 10.9 g/dL (14.0-18.0); Immature Granulocytes # (auto) 0.03 K/uL (0.00-0.02); Immature Granulocytes % (auto) 0.3 %; Lymphocytes # (auto) 1.27 K/uL (1.2-3.4); Lymphocytes % (auto) 11.3 %; Mean Corpuscular Hgb Conc 32.5 g/dL (32-36); Mean Corpuscular Volume 100.3 fL (80-100); Mean Platelet Volume 10.6 fL (7.4-10.4); Monocytes # (auto) 1.24 K/uL (0.11-0.59); Monocytes % (auto) 11.1 %; Neutrophils # (auto) 8.62 K/uL (1.4-6.5); Platelet Count 145 K/uL (130-400); RDW Coefficient of Variation 14.4 % (11.5-14.5); RDW Standard Deviation 52.6 fL (36.4-46.3); Red Blood Count 3.34 M/uL (4.7-6.1); White Blood Count 11.19 K/uL (4.8-10.8)
--- NOTE | 2018-08-16 11:17 | Hospitalist Progress Note ---
Date of Service August 16, 2018 Assessment & Plan (1) NSTEMI (non-ST elevated myocardial infarction): This is an 82-year-old male with a PMH of Whalen's esophagus, dementia CKD 3, COPD, hypothyroidism and other medical problems listed below who presents from [facility] with abdominal pain and vomiting starting earlier today and was found to have an STEMI. -Troponin of 84 --> 146 -Initial EKG changes of RBBB and anteroseptal infarct with Q waves (new since previous EKG in 05/10)-> q wave inferior leads, t wave depression anterolateral leads -Echo: EF of 20 to 25% -Due to episode of coffee ground emesis in the ED, IV heparin contraindicated also received ASA 324 mg in the ER -Started on metoprolol tartrate 12.5 mg p.o. twice daily Also on Nitropaste BP still on the low side, monitor Plan to start aspirin 81 mg p.o. daily if without recurrence of GI bleed, hemoglobin remains stable appreciate Cardiology and GI service recommendations (2) Acute respiratory failure with hypoxia: Secondary to acute systolic CHF Repeat chest x-ray: IMPRESSION: 1. Persistent congestive failure/fluid overload 2. Suspected small left pleural effusion 3. Increasing basilar airspace opacities Lasix IV ordered now down to 2-3 L via oxymask Monitor I's and O's Possible component of aspiration pneumonia? continue Ertapenem (3) Acute renal failure: On CKD stage III Likely secondary to systolic congestive heart failure Renal hypoperfusion crea increasing, not slightly improved from 2.72.4 Monitor closely Hyperkalemia 5.6, Kayexalate ordered, resolved Monitor (4) Coffee ground emesis: Possible upper GI bleed per admitting notes: Had one witnessed episode this morning and then again in the ED -Keep n.p.o. for now. Discussed with GI. 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, hiatal hernia -Had similar coffee-ground emesis in April 2018 but hemoglobin remained stable, conservatively managed -No recurrence of hematemesis since admission - Hg 13 to 12.5 to 11.6, today 10.9 Continue with IV Protonix drip Day04/24, then transition to Protonix 40mg IV BID Continue to monitor hemoglobin (5) Diverticulitis: Presenting with abdominal pain, evidence of sigmoid diverticulosis and possible mild diverticulitis and CT abdomen pelvis - abdominal pain resolved afebrile WBC increased, from steroids?, Improved today down to 11.19 -Start from clear liquids to full liquids today - Continue coverage with IV ertapenem (6) COPD (chronic obstructive pulmonary disease): Mild exacerbation secondary to acute systolic CHF Home inhalers and nebs PRN (7) Hypothyroidism: Levothyroxine (8) Dementia: DVT Ppx: SCDs only in light of possible upper GI bleed Code status: FULL per discussion with patient's daughter/POA Ms. Yoko Palmer ([phone]) PCP: [facility] Dispo: Admitted to telemetry. Discharge planning ordered. Subjective Follow-up for ST elevation [place] Seen resting in bed, comfortable Somewhat weak, but alert, answers questions appropriately Denies chest pain, shortness of breath, palpitations, dizziness, abdominal pain Tolerating full liquids well No other symptoms Review of Systems Review of Systems: All systems reviewed & are unremarkable except as noted in HPI & below Physical Exam Physical Exam: General- oriented x 2, not in distress, speaks in sentences with no effort or accessory muscle use Eyes- anicteric Neck- no JVD Lungs-mildly decreased presence bilaterally, no crackles or wheezing Heart- normal rate, regular rhythm; no murmurs Abdomen- normal bowel sounds, nondistended, soft, nontender Extremities- no pretibial edema, no calf tenderness Neuro- alert, oriented x 2; severe hearing impairment otherwise no gross focal neurologic deficits Skin- warm & dry Results & Data Vital Signs (Past 12 Hours) Vital Signs Temp Pulse Pulse Resp BP BP Pulse Ox 08/16/18 08:53 96/62 L 08/16/18 08:48 94 H 85/53 L 08/16/18 07:12 36.8 C 86 16 104/66 96 08/16/18 07:00 77 18 96 08/16/18 03:48 36.6 C 86 19 93/58 L 96 08/16/18 01:53 80 18 95 08/16/18 00:00 36.4 C L 81 20 99/63 L 97 Laboratory Results Laboratory Results - last 24 hr 08/16/18 08/16/18 05:21 05:21 WBC 11.19 H RBC 3.34 L Hgb 10.9 L Hct 33.5 L MCV 100.3 H MCH 32.6 MCHC 32.5 RDW Std Deviation 52.6 H RDW Coeff of [place] 14.4 Plt Count 145 MPV 10.6 H Immature Gran % (Auto) 0.3 Neut % (Auto) 77.0 Lymph % (Auto) 11.3 [place] % (Auto) 11.1 Eos % (Auto) 0.2 Baso % (Auto) 0.1 Immature Gran # (Auto) 0.03 H Neut # (Auto) 8.62 H Lymph # (Auto) 1.27 [place] # (Auto) 1.24 H Eos # (Auto) 0.02 Baso # (Auto) 0.01 Creatinine 2.48 H Est Cr Clr Drug Dosing 21.2 Est GFR ( Amer) 27.0 Est GFR (Non-Af Amer) 23.3
--- NOTE | 2018-08-16 15:35 | Cardiology Progress Note ---
Date of Service August 16, 2018 Assessment & Plan (1) STEMI (ST elevation myocardial infarction): Late presentation with significantly elevated troponin and septal infarcts present. Underlying medical conditions and recent hematemesis preclude anticoagulation and acute coronary intervention Echocardiogram demonstrates substantial LV dysfunction EF 20 to 25% with large anterior apical infarct with thinning We will treat conservatively though prognosis limited substantial infarct is present with severe LV dysfunction Would not consider acute coronary intervention or defibrillator implantation remains at risk for further heart failure, renal decline and arrhythmias Today will discontinue metoprolol tartrate begin metoprolol succinate 12.5 mill grams twice daily plans of upward titration as tolerated Topical nitrates will be switched to oral (2) Coffee ground emesis: Hemoglobins without change no abdominal pain (3) CKD (chronic kidney disease) stage 3, GFR 30-59 ml/min: Stable (4) Dementia: Patient unable to add additional information to presentation. Nausea and emesis may reflect myocardial ischemia in the setting although abdominal pain was predominant complaint and presentation (5) COPD (chronic obstructive pulmonary disease): Possible component of aspiration this admission. Subjective Examined, chart medications telemetry reviewed. Patient voices no current complaints. Does have rhonchorous cough. No further documented episodes of emesis. No chest pain admitted Physical Exam Constitutional: WD/WN, vitals as above Eyes: PERRL, conjunctivae normal, anicteric sclerae ENMT: external ear and nose normal, oropharynx normal Neck: trachea midline, no thyromegaly Respiratory: Auscultation: + diminished lung sounds and + rales (Mild bibasilar) Cardiovascular: Rate/Rhythm: regular rate and regular rhythm Heart Sounds: normal S1, normal S2 and + murmur (Grade 1/6 systolic no diastolic); no gallop Vessels: no JVD Extremities: + edema (Trace) Gastrointestinal (Abdomen): Inspection/Auscultation: + abdomen distended (Mild) Percussion/Palpation: abdomen soft; abdomen nontender and no guarding Skin: no rashes, warm and dry Results & Data Vital Signs (Past 12 Hours) Vital Signs Temp Pulse Pulse Resp BP BP Pulse Ox 08/16/18 15:01 36.5 C 98 H 19 103/63 92 08/16/18 13:29 91 H 18 96 08/16/18 11:17 36.7 C 88 18 109/68 95 08/16/18 08:53 96/62 L 08/16/18 08:48 94 H 85/53 L 08/16/18 07:12 36.8 C 86 16 104/66 96 08/16/18 07:00 77 18 96 08/16/18 03:48 36.6 C 86 19 93/58 L 96 Laboratory Results Laboratory Results - last 24 hr 08/16/18 08/16/18 05:21 05:21 WBC 11.19 H RBC 3.34 L Hgb 10.9 L Hct 33.5 L MCV 100.3 H MCH 32.6 MCHC 32.5 RDW Std Deviation 52.6 H RDW Coeff of [place] 14.4 Plt Count 145 MPV 10.6 H Immature Gran % (Auto) 0.3 Neut % (Auto) 77.0 Lymph % (Auto) 11.3 [place] % (Auto) 11.1 Eos % (Auto) 0.2 Baso % (Auto) 0.1 Immature Gran # (Auto) 0.03 H Neut # (Auto) 8.62 H Lymph # (Auto) 1.27 [place] # (Auto) 1.24 H Eos # (Auto) 0.02 Baso # (Auto) 0.01 Creatinine 2.48 H Est Cr Clr Drug Dosing 21.2 Est GFR ( Amer) 27.0 Est GFR (Non-Af Amer) 23.3
[2018-08-16] MEDS: ERTAPENEM SODIUM 500 MG in SODIUM CHLORIDE 0.9% 50 ML IV SCH (20:12)
[2018-08-16] MEDS: METOPROLOL SUCC 25MG EXT REL TAB PO SCH (20:13)
[2018-08-17] MEDS: LEVALBUTEROL 1.25MG/0.5ML NEB INH SCH ×3 (01:55→13:54)
[2018-08-17] MEDS: IPRATROPIUM BROMIDE NEB SOLN 0.02% 2.5 ML VIAL INH SCH ×3 (01:55→13:54)
[2018-08-17] MEDS: PANTOprazole 40 MG in DEXTROSE 5% 100 ML IV SCH ×2 (01:59→06:42)
[2018-08-17] MEDS: LEVOTHYROXINE SODIUM 75 MCG TABLET PO SCH (05:32)
[2018-08-17] MEDS: ISOSORBIDE DINITRATE 10 MG TAB PO SCH ×2 (08:02→12:17)
[2018-08-17] MEDS: METOPROLOL SUCC 25MG EXT REL TAB PO SCH ×2 (08:03→21:29)
[2018-08-17 10:45] LABS: Basophils # (auto) 0.02 K/uL (0-0.2); Basophils % (auto) 0.3 %; Eosinophils # (auto) 0.08 K/uL (0-0.5); Hematocrit (blood only) 30.8 % (42-52); Hemoglobin 10.1 g/dL (14.0-18.0); Immature Granulocytes # (auto) 0.02 K/uL (0.00-0.02); Immature Granulocytes % (auto) 0.3 %; Lymphocytes # (auto) 0.94 K/uL (1.2-3.4); Lymphocytes % (auto) 11.8 %; Mean Platelet Volume 9.7 fL (7.4-10.4); Monocytes # (auto) 0.87 K/uL (0.11-0.59); Monocytes % (auto) 10.9 %; Neutrophils # (auto) 6.04 K/uL (1.4-6.5); Neutrophils % (auto) 75.7 %; Platelet Count 141 K/uL (130-400); RDW Coefficient of Variation 14.3 % (11.5-14.5); RDW Standard Deviation 51.6 fL (36.4-46.3); Red Blood Count 3.11 M/uL (4.7-6.1); White Blood Count 7.97 K/uL (4.8-10.8)
[2018-08-17 11:05] LABS: Mean Corpuscular Hgb Conc 32.8 g/dL (32-36)
[2018-08-17 11:10] LABS: Alanine Aminotransferase 49 U/L (12-78); Albumin Globulin Ratio 0.6 (0.9-2); Albumin Level 2.5 gm/dl (3.4-5.0); Alkaline Phosphatase 82 U/L (45-117); Aspartate Aminotransferase 76 U/L (15-37); BUN Creatinine Ratio 20.6 (10-20); Bilirubin,Total 0.6 mg/dl (0.2-1); Blood Urea Nitrogen 50 mg/dl (7-18); Calcium 8.3 mg/dl (8.5-10.1); Carbon Dioxide 27 mmol/L (21-32); Chloride 102 mmol/L (98-107); Creatinine Clr Calc Pharmacy 21.8 ml/min; Est GFR (African American) 27.5; Est GFR (Non-African American) 23.7; Globulin 4.1 gm/dl (2.5-4.0); Glucose 116 mg/dl (70-99); Magnesium 2.3 mg/dl (1.8-2.4); NT Pro B Type Natriuretic Pept > 35000 pg/ml (0-1800); Potassium 3.5 mmol/L (3.5-5.1); Sodium 138 mmol/L (136-145); Total Protein 6.6 gm/dl (6.4-8.2)
[2018-08-17] MEDS ORDERED: POTASSIUM CHLORIDE 20 MEQ TABCR PO STA (11:20)
[2018-08-17] MEDS ORDERED: FUROSEMIDE 40 MG/4 ML VIAL IV STA (11:20)
[2018-08-17] MEDS ORDERED: FUROSEMIDE 40 MG in SYRINGE 0 ML IV ONE (11:30)
--- NOTE | 2018-08-17 11:39 | XRay Report ---
XR chest 2V routine CLINICAL HISTORY: follow up lung infiltrates pneumonia COMPARISON STUDY: 08/14/2018 FINDINGS: Mildly improved components of congestive failure. Unchanged atelectatic and/or effusion-typ e changes left lung base. Right lung base is clear. IMPRESSION: 1. Mildly improved components congestive failure. 2. Unchanging left pleural effusion. The above report was generated using voice recognition software. It may contain grammatical, syntax or spelling errors. Electronically signed by: Cruz Calhoun M.D. 08/17/2018 11:38 AM
[2018-08-17] MEDS: PANTOprazole 40 MG TAB PO SCH (11:45)
--- NOTE | 2018-08-17 14:04 | Cardiology Progress Note ---
Date of Service August 17, 2018 Assessment & Plan (1) STEMI (ST elevation myocardial infarction): Late presentation with significantly elevated troponin and septal infarcts present. Underlying medical conditions and recent hematemesis preclude anticoagulation and acute coronary intervention Echocardiogram demonstrates substantial LV dysfunction EF 20 to 25% with large anterior apical infarct with thinning We will treat conservatively though prognosis limited substantial infarct is present with severe LV dysfunction Would not consider acute coronary intervention or defibrillator implantation remains at risk for further heart failure, renal decline and arrhythmias Plan continue current cardiac medications Toprol-XL with room to increase if necessary and low-dose isosorbide. Patient will likely warrant low-dose diuretic, 1 to 2 days/week depending on volume status. Chest x-ray from today improved BNP not helpful in current setting Overall patient has a very significant ischemic cardiomyopathy and remains at risk for further deterioration (2) Coffee ground emesis: Hemoglobins without change no abdominal pain (3) CKD (chronic kidney disease) stage 3, GFR 30-59 ml/min: Stable (4) Dementia: Patient unable to add additional information to presentation. Nausea and emesis may reflect myocardial ischemia in the setting although abdominal pain was predominant complaint and presentation (5) COPD (chronic obstructive pulmonary disease): Possible component of aspiration this admission. Subjective Seen and examined chart reviewed. Patient is unable to verbalize any acute cardiac complaints. Poor historian Physical Exam Constitutional: WD/WN, vitals as above Eyes: PERRL, conjunctivae normal, anicteric sclerae ENMT: external ear and nose normal, oropharynx normal Neck: trachea midline, no thyromegaly Respiratory: Auscultation: + diminished lung sounds and + rales (Mild bibasilar) Cardiovascular: Rate/Rhythm: regular rate and regular rhythm Heart Sounds: normal S1, normal S2 and + murmur (Grade 1/6 systolic no diastolic); no gallop Vessels: no JVD Extremities: + edema (Trace) Gastrointestinal (Abdomen): Inspection/Auscultation: + abdomen distended (Mild) Percussion/Palpation: abdomen soft; abdomen nontender and no guarding Skin: no rashes, warm and dry Results & Data Vital Signs (Past 12 Hours) Vital Signs Temp Pulse Resp BP BP Pulse Ox 08/17/18 13:54 99 H 22 91 08/17/18 11:43 36.4 C L 92 H 20 100/64 94 08/17/18 07:05 36.6 C 81 18 96/59 L 94 08/17/18 07:00 84 18 94 08/17/18 03:26 36.5 C 96 H 19 97/61 L 92 Laboratory Results Laboratory Results - last 24 hr 08/17/18 08/17/18 08/17/18 10:33 10:33 10:33 WBC 7.97 RBC 3.11 L Hgb 10.1 L Hct 30.8 L MCV 99.0 MCH 32.5 MCHC 32.8 RDW Std Deviation 51.6 H RDW Coeff of [place]dez 14.3 Plt Count 141 MPV 9.7 Immature Gran % (Auto) 0.3 Neut % (Auto) 75.7 Lymph % (Auto) 11.8 [place] % (Auto) 10.9 Eos % (Auto) 1.0 Baso % (Auto) 0.3 Immature Gran # (Auto) 0.02 Neut # (Auto) 6.04 Lymph # (Auto) 0.94 L [place] # (Auto) 0.87 H Eos # (Auto) 0.08 Baso # (Auto) 0.02 Sodium 138 Potassium 3.5 Chloride 102 Carbon Dioxide 27 Anion Gap 9.0 BUN 50 H Creatinine 2.44 H Est Cr Clr Drug Dosing 21.8 Est GFR ( Amer) 27.5 Est GFR (Non-Af Amer) 23.7 BUN/Creatinine Ratio 20.6 H Glucose 116 H Lactate 2.6 H* Calcium 8.3 L Magnesium 2.3 Total Bilirubin 0.6 AST 76 H ALT 49 Alkaline Phosphatase 82 Troponin I 27.900 H* NT-Pro-B Natriuret Pep > 74183 H Total Protein 6.6 Albumin 2.5 L Globulin 4.1 H Albumin/Globulin Ratio 0.6 L
[2018-08-17] MEDS ORDERED: FUROSEMIDE 20 MG in SYRINGE 0 ML IV ONE (18:10)
--- NOTE | 2018-08-17 18:13 | Hospitalist Progress Note ---
Date of Service August 17, 2018 Assessment & Plan (1) NSTEMI (non-ST elevated myocardial infarction): This is an 82-year-old male with a PMH of Whalen's esophagus, dementia CKD 3, COPD, hypothyroidism and other medical problems listed below who presents from [facility] with abdominal pain and vomiting and found to have found to have STEMI. as per cardiology service Late presentation with significantly elevated troponin and septal infarcts present. Underlying medical conditions and recent hematemesis preclude anticoagulation and acute coronary intervention Echocardiogram demonstrates substantial LV dysfunction EF 20 to 25% with large anterior apical infarct with thinning treat conservatively though prognosis limited substantial infarct is present with severe LV dysfunction Would not consider acute coronary intervention or defibrillator implantation remains at risk for further heart failure, renal decline and arrhythmias Elevated lactic acid -likely from STEMI -monitor lactic acid off scheduled nebulizer treatments (2) Acute respiratory failure with hypoxia: Secondary to acute systolic CHF -patient has been getting intermittent Lasix XR chest 2V routine CLINICAL HISTORY: follow up lung infiltrates pneumonia COMPARISON STUDY: 08/14/2018 FINDINGS: Mildly improved components of congestive failure. Unchanged atelectatic and/or effusion-type changes left lung base. Right lung base is clear. IMPRESSION: 1. Mildly improved components congestive failure. 2. Unchanging left pleural effusion. -Lasix 40 mg IV given on 08/17/18, will give additional Lasix 20 mg IV on 08/17/18 and monitor supplemental oxygen requirements - current on 3 liters/min (3) Acute renal failure: On CKD stage III -renal function function stabilizing to 2.4, continue to monitor (4) Coffee ground emesis: Possible upper GI bleed per admitting notes: Had one witnessed episode this morning and then again in the ED -No recurrence of hematemesis since admission -IV pantoprazole stopped on 08/17/18 and transition to oral pantoprazole and monitor Hgb (5) Diverticulitis: -Presented with abdominal pain -evidence of sigmoid diverticulosis and possible mild diverticulitis and CT abdomen pelvis (1. Sigmoid diverticulosis. Minimal pericolonic infiltration. Mild acute diverticulitis cannot be excluded. 2. Moderate amount of stool within the colon and rectum. No bowel obstruction. 3. Small bowel containing right inguinal hernia without bowel obstruction. Fat- containing left inguinal hernia.) -abdominal pain resolved -Ertapenem which was started on 08/13/18 to be stopped on 08/17/18 as white blood cell counts have normalized (6) COPD (chronic obstructive pulmonary disease): Mild exacerbation secondary to acute systolic CHF Home inhalers as prn and nebulizer treatments as prn no acute on lung exam currently (7) Hypothyroidism: Levothyroxine (8) Dementia: DVT Ppx: SCDs Code status: FULL per discussion with patient's daughter/POA Ms. Yoko Palmer ([phone]) by previous hospitalist Subjective Patient not in distress. He is hard of hearing. He reports he does not have hear ing aids. despite diuretics 40 mg IV x 1, patient remains on nasal cannula oxygen. no vomiting. no gross bleeding Physical Exam Constitutional: comfortable Eyes: PERRL, conjunctivae normal, anicteric sclerae EOM intact bilaterally ENMT: external ear and nose normal, oropharynx normal Ears: + hearing impairment Respiratory: normal respiratory effort Cardiovascular: Rate/Rhythm: regular rate and regular rhythm Gastrointestinal (Abdomen): normal bowel sounds, soft, nontender, no hepatosplenomegaly Musculoskeletal: Head/Neck/Chest: normocephalic and head atraumatic Neurologic: PERRL, EOMI, accommodation nl, no face palsy, no dysarthria CN's II-XI intact bilaterally Psychiatric: Orientation: alert Results & Data Vital Signs (Past 12 Hours) Vital Signs Temp Pulse Resp BP BP Pulse Ox 08/17/18 16:13 37.1 C 91 H 18 93/51 L 92 08/17/18 13:54 99 H 22 91 08/17/18 11:43 36.4 C L 92 H 20 100/64 94 08/17/18 07:05 36.6 C 81 18 96/59 L 94 08/17/18 07:00 84 18 94
[2018-08-17] MEDS ORDERED: ADENOSINE IV SOLN 3 MG/ML 2 ML VIAL IV ONE (21:46)
[2018-08-17] MEDS ORDERED: AMIODARONE / D5W 150 MG/100 ML BAG IV STA (21:55)
[2018-08-17] MEDS ORDERED: AMIODARONE IV BOLUS / DRIP IV STA (21:55)
[2018-08-17] MEDS ORDERED: AMIODARONE 150MG / 100ML D5W IV ONE (21:57)
[2018-08-17] MEDS ORDERED: AMIODARONE 360MG / 200ML D5W IV ONE (21:58)
[2018-08-17] MEDS ORDERED: AMIODARONE / D5W 360 MG/200 ML BAG IV SCH (22:00)
[2018-08-17] MEDS ORDERED: SODIUM CHLORIDE 0.9% 500 ML IV SCH (22:00)
[2018-08-17] MEDS ORDERED: SODIUM CHLORIDE 0.9% 500 ML IV STA (22:08)
[2018-08-17] MEDS ORDERED: POTASSIUM CHLORIDE 10 MEQ TABCR PO STA (22:08)
[2018-08-17] MEDS ORDERED: POTASSIUM CHLORIDE / WTR 10 MEQ/100 ML PLCT IV SCH (22:28)
[2018-08-17 22:52] LABS: Calcium 8.7 mg/dl (8.5-10.1); Creatinine Clr Calc Pharmacy 21.2 ml/min; Est GFR (African American) 26.7; Magnesium 2.4 mg/dl (1.8-2.4); Potassium 4.1 mmol/L (3.5-5.1)
[2018-08-18] MEDS ORDERED: AMIODARONE / D5W 360 MG/200 ML BAG IV SCH (03:55)
[2018-08-18] MEDS: LEVOTHYROXINE SODIUM 75 MCG TABLET PO SCH (04:35)
[2018-08-18] MEDS: ISOSORBIDE DINITRATE 10 MG TAB PO SCH ×2 (05:42→12:51)
[2018-08-18] MEDS: PANTOprazole 40 MG TAB PO SCH (07:20)
[2018-08-18] MEDS: METOPROLOL SUCC 25MG EXT REL TAB PO SCH ×2 (07:20→20:35)
--- NOTE | 2018-08-18 08:16 | Hospitalist Progress Note ---
Date of Service August 18, 2018 Assessment & Plan (1) NSTEMI (non-ST elevated myocardial infarction): This is an 82-year-old male with a PMH of Whalen's esophagus, dementia CKD 3, COPD, hypothyroidism and other medical problems listed below who presents from [facility] with abdominal pain and vomiting and found to have found to have STEMI. as per cardiology service note 08/17/18 "Late presentation with significantly elevated troponin and septal infarcts present. Underlying medical conditions and recent hematemesis preclude anticoagulation and acute coronary intervention Echocardiogram demonstrates substantial LV dysfunction EF 20 to 25% with large anterior apical infarct with thinning treat conservatively though prognosis limited substantial infarct is present with severe LV dysfunction Would not consider acute coronary intervention or defibrillator implantation remains at risk for further heart failure, renal decline and arrhythmias" -08/17/18 night time: patient was managed by nocturnalist for concerns of arrythmia as bursts of atrial fibrillation for which patient was started on amiodarone IV. -08/18/18 Patient appears to be in sinus rhythm on re-assessment by day time hospitalist. Will defer to cardiology service on length and duration of amiodarone. continue metoprolol BID Elevated lactic acid -likely from STEMI -monitor lactic acid off scheduled nebulizer treatments, lactic acid downtrended as of 08/18/18 (2) Acute respiratory failure with hypoxia: Secondary to acute systolic CHF -patient has been getting intermittent Lasix XR chest 2V routine CLINICAL HISTORY: follow up lung infiltrates pneumonia COMPARISON STUDY: 08/14/2018 FINDINGS: Mildly improved components of congestive failure. Unchanged atelectatic and/or effusion-type changes left lung base. Right lung base is clear. IMPRESSION: 1. Mildly improved components congestive failure. 2. Unchanging left pleural effusion. -Lasix 40 mg IV given on 08/17/18, will give additional Lasix 20 mg IV on 08/17/18 and monitor supplemental oxygen requirements -08/18/18: will hold off additional Lasix until re-assessment by cardiology service today (3) Acute renal failure: On CKD stage III -renal function function stabilizing to 2.4 to 2.5, continue to monitor (4) Coffee ground emesis: Possible upper GI bleed per admitting notes: Had one witnessed episode this morning and then again in the ED -No recurrence of hematemesis since admission -IV pantoprazole stopped on 08/17/18 and transition to oral pantoprazole and monitor Hgb (5) Diverticulitis: -Presented with abdominal pain -evidence of sigmoid diverticulosis and possible mild diverticulitis and CT abdomen pelvis (1. Sigmoid diverticulosis. Minimal pericolonic infiltration. Mild acute diverticulitis cannot be excluded. 2. Moderate amount of stool within the colon and rectum. No bowel obstruction. 3. Small bowel containing right inguinal hernia without bowel obstruction. Fat- containing left inguinal hernia.) -abdominal pain resolved -Ertapenem which was started on 08/13/18 to be stopped on 08/17/18 as white blood cell counts have normalized (6) COPD (chronic obstructive pulmonary disease): Mild exacerbation secondary to acute systolic CHF Home inhalers as prn and nebulizer treatments as prn (7) Hypothyroidism: Levothyroxine check TSH (8) Dementia: DVT Ppx: SCDs Code status: FULL per discussion with patient's daughter/POA Ms. Yoko Palmer ([phone]) by previous hospitalist Subjective Over the night time, patient was managed by nocturnalist for concerns of arrythmia as bursts of atrial fibrillation for which patient was started on amiodarone IV. Patient appears to be in sinus rhythm. Patient denies of any acute symptoms over night. He does not report of chest pain or palpitations. remains on nasal cannula oxygen. No vomiting. Physical Exam Constitutional: comfortable Eyes: PERRL, conjunctivae normal, anicteric sclerae EOM intact bilaterally ENMT: external ear and nose normal, oropharynx normal Ears: + hearing impairment Respiratory: normal respiratory effort Cardiovascular: Rate/Rhythm: regular rate and regular rhythm Gastrointestinal (Abdomen): normal bowel sounds, soft, nontender, no hepatosplenomegaly Musculoskeletal: Head/Neck/Chest: normocephalic and head atraumatic Neurologic: PERRL, EOMI, accommodation nl, no face palsy, no dysarthria CN's II-XI intact bilaterally Psychiatric: Orientation: alert Results & Data Vital Signs (Past 12 Hours) Vital Signs Temp Pulse Pulse Resp BP BP Pulse Ox 08/18/18 06:54 36.4 C L 77 18 98/60 L 95 08/18/18 04:06 36.7 C 81 18 89/56 L 96 08/18/18 00:00 99 H 08/17/18 23:24 36.8 C 86 25 H 86/46 L 96
[2018-08-18 08:49] LABS: Basophils # (auto) 0.01 K/uL (0-0.2); Basophils % (auto) 0.1 %; Eosinophils # (auto) 0.14 K/uL (0-0.5); Eosinophils % (auto) 1.7 %; Hematocrit (blood only) 31.7 % (42-52); Hemoglobin 10.4 g/dL (14.0-18.0); Immature Granulocytes # (auto) 0.03 K/uL (0.00-0.02); Immature Granulocytes % (auto) 0.4 %; Lymphocytes % (auto) 14.3 %; Mean Corpuscular Volume 98.8 fL (80-100); Mean Platelet Volume 10.7 fL (7.4-10.4); Monocytes % (auto) 11.9 %; Neutrophils # (auto) 6.02 K/uL (1.4-6.5); Neutrophils % (auto) 71.6 %; Platelet Count 166 K/uL (130-400); RDW Coefficient of Variation 14.2 % (11.5-14.5); Red Blood Count 3.21 M/uL (4.7-6.1)
[2018-08-18 08:51] LABS: BUN Creatinine Ratio 20.5 (10-20); Calcium 8.5 mg/dl (8.5-10.1); Creatinine Clr Calc Pharmacy 21.1 ml/min; Est GFR (African American) 26.8; Est GFR (Non-African American) 23.2; Magnesium 2.4 mg/dl (1.8-2.4)
[2018-08-18 08:55] LABS: Mean Corpuscular Hgb Conc 32.8 g/dL (32-36)
--- NOTE | 2018-08-18 13:48 | Cardiology Progress Note ---
Date of Service August 18, 2018 Assessment & Plan (1) STEMI (ST elevation myocardial infarction): Late presentation with significantly elevated troponin and septal infarcts present. Underlying medical conditions and recent hematemesis preclude anticoagulation and acute coronary intervention Echocardiogram demonstrates substantial LV dysfunction EF 20 to 25% with large anterior apical infarct with thinning We will treat conservatively though prognosis limited substantial infarct is present with severe LV dysfunction Would not consider acute coronary intervention or defibrillator implantation remains at risk for further heart failure, renal decline and arrhythmias Plan continue current cardiac medications Toprol-XL with room to increase if necessary and low-dose isosorbide. Patient will likely warrant low-dose diuretic, 1 to 2 days/week depending on volume status. Chest x-ray from today improved BNP not helpful in current setting Overall patient has a very significant ischemic cardiomyopathy and remains at risk for further deterioration As noted patient lapsed into wide-complex tachyarrhythmia last evening. No further on IV amiodarone. We will plan on discontinuing IV amiodarone beginning oral amiodarone continuing other medications. In review patient had not received his metoprolol yesterday due to med being held for hypotension parameters (2) Coffee ground emesis: Hemoglobins without change no abdominal pain (3) CKD (chronic kidney disease) stage 3, GFR 30-59 ml/min: Stable (4) Dementia: Patient unable to add additional information to presentation. Nausea and emesis may reflect myocardial ischemia in the setting although abdominal pain was predominant complaint and presentation (5) COPD (chronic obstructive pulmonary disease): Possible component of aspiration this admission. Subjective Seen and examined chart reviewed. Patient is unable to verbalize any acute cardiac complaints. Poor historian Last night had extended episode of wide-complex tachycardia. Rhythm appears to be atrial fibrillation with aberrancy Given cardiac substrate however ventricular arrhythmias not excluded. No hemodynamic compromise. Patient was begun on IV amiodarone Physical Exam Constitutional: WD/WN, vitals as above Eyes: PERRL, conjunctivae normal, anicteric sclerae ENMT: external ear and nose normal, oropharynx normal Neck: trachea midline, no thyromegaly Respiratory: Auscultation: + diminished lung sounds and + rales (Mild bibasilar) Cardiovascular: Rate/Rhythm: regular rate and regular rhythm Heart Sounds: normal S1, normal S2 and + murmur (Grade 1/6 systolic no diastolic); no gallop Vessels: no JVD Extremities: + edema (Trace) Gastrointestinal (Abdomen): Inspection/Auscultation: + abdomen distended (Mild) Percussion/Palpation: abdomen soft; abdomen nontender and no guarding Skin: no rashes, warm and dry Results & Data Vital Signs (Past 12 Hours) Vital Signs Temp Pulse Resp BP Pulse Ox 08/18/18 12:00 36.4 C L 85 16 100/64 90 08/18/18 06:54 36.4 C L 77 18 98/60 L 95 08/18/18 04:06 36.7 C 81 18 89/56 L 96 Laboratory Results Laboratory Results - last 24 hr 08/17/18 08/18/18 08/18/18 22:06 06:44 06:44 WBC RBC Hgb Hct MCV MCH MCHC RDW Std Deviation RDW Coeff of [place] Plt Count MPV Immature Gran % (Auto) Neut % (Auto) Lymph % (Auto) [place] % (Auto) Eos % (Auto) Baso % (Auto) Immature Gran # (Auto) Neut # (Auto) Lymph # (Auto) [place] # (Auto) Eos # (Auto) Baso # (Auto) Sodium 138 139 Potassium 4.1 D 4.0 Chloride 103 102 Carbon Dioxide 28 28 Anion Gap 7.0 9.0 BUN 53 H 51 H Creatinine 2.50 H 2.49 H Est Cr Clr Drug Dosing 21.2 21.1 Est GFR ( Amer) 26.7 26.8 Est GFR (Non-Af Amer) 23.0 23.2 BUN/Creatinine Ratio 21.0 H 20.5 H Glucose 112 H 109 H Lactate 1.8 Calcium 8.7 8.5 Magnesium 2.4 2.4 TSH 4.280 08/18/18 06:44 WBC 8.40 RBC 3.21 L Hgb 10.4 L Hct 31.7 L MCV 98.8 MCH 32.4 MCHC 32.8 RDW Std Deviation 51.0 H RDW Coeff of [place] 14.2 Plt Count 166 MPV 10.7 H Immature Gran % (Auto) 0.4 Neut % (Auto) 71.6 Lymph % (Auto) 14.3 [place] % (Auto) 11.9 Eos % (Auto) 1.7 Baso % (Auto) 0.1 Immature Gran # (Auto) 0.03 H Neut # (Auto) 6.02 Lymph # (Auto) 1.20 [place] # (Auto) 1.00 H Eos # (Auto) 0.14 Baso # (Auto) 0.01 Sodium Potassium Chloride Carbon Dioxide Anion Gap BUN Creatinine Est Cr Clr Drug Dosing Est GFR ( Amer) Est GFR (Non-Af Amer) BUN/Creatinine Ratio Glucose Lactate Calcium Magnesium TSH
[2018-08-18] MEDS: AMIODARONE 200 MG TAB PO SCH ×2 (15:23→20:35)
[2018-08-19] MEDS: LEVOTHYROXINE SODIUM 75 MCG TABLET PO SCH (05:49)
[2018-08-19 06:20] LABS: Basophils # (auto) 0.01 K/uL (0-0.2); Basophils % (auto) 0.1 %; Eosinophils # (auto) 0.17 K/uL (0-0.5); Eosinophils % (auto) 1.9 %; Hematocrit (blood only) 32.4 % (42-52); Hemoglobin 10.8 g/dL (14.0-18.0); Immature Granulocytes # (auto) 0.02 K/uL (0.00-0.02); Immature Granulocytes % (auto) 0.2 %; Lymphocytes # (auto) 1.71 K/uL (1.2-3.4); Lymphocytes % (auto) 19.3 %; Mean Corpuscular Hgb Conc 33.3 g/dL (32-36); Mean Corpuscular Volume 98.2 fL (80-100); Mean Platelet Volume 10.2 fL (7.4-10.4); Monocytes # (auto) 0.97 K/uL (0.11-0.59); Monocytes % (auto) 10.9 %; Neutrophils # (auto) 5.99 K/uL (1.4-6.5); Neutrophils % (auto) 67.6 %; Platelet Count 143 K/uL (130-400); RDW Coefficient of Variation 14.2 % (11.5-14.5); RDW Standard Deviation 50.6 fL (36.4-46.3); White Blood Count 8.87 K/uL (4.8-10.8)
[2018-08-19 06:56] LABS: Albumin Globulin Ratio 0.6 (0.9-2); Albumin Level 2.5 gm/dl (3.4-5.0); BUN Creatinine Ratio 23.7 (10-20); Bilirubin,Total 0.6 mg/dl (0.2-1); Calcium 8.2 mg/dl (8.5-10.1); Creatinine Clr Calc Pharmacy 21.9 ml/min; Est GFR (African American) 28.6; Est GFR (Non-African American) 24.7; Globulin 4.2 gm/dl (2.5-4.0); Magnesium 2.6 mg/dl (1.8-2.4); Potassium 4.4 mmol/L (3.5-5.1); Total Protein 6.7 gm/dl (6.4-8.2)
[2018-08-19] MEDS ORDERED: TAMSULOSIN HCL 0.4 MG CAP PO ONE (07:30)
[2018-08-19] MEDS: METOPROLOL SUCC 25MG EXT REL TAB PO SCH ×2 (09:23→20:42)
[2018-08-19] MEDS: PANTOprazole 40 MG TAB PO SCH (09:24)
[2018-08-19] MEDS: AMIODARONE 200 MG TAB PO SCH ×3 (09:24→20:42)
[2018-08-19] MEDS: ISOSORBIDE DINITRATE 10 MG TAB PO SCH ×2 (09:24→12:31)
--- NOTE | 2018-08-19 14:16 | Cardiology Progress Note ---
Date of Service August 19, 2018 Assessment & Plan (1) STEMI (ST elevation myocardial infarction): Late presentation with significantly elevated troponin and septal infarcts present. Underlying medical conditions and recent hematemesis preclude anticoagulation and acute coronary intervention Echocardiogram demonstrates substantial LV dysfunction EF 20 to 25% with large anterior apical infarct with thinning We will treat conservatively though prognosis limited substantial infarct is present with severe LV dysfunction Would not consider acute coronary intervention or defibrillator implantation remains at risk for further heart failure, renal decline and arrhythmias Plan continue current cardiac medications Toprol-XL with room to increase if necessary and low-dose isosorbide. Patient will likely warrant low-dose diuretic, 1 to 2 days/week depending on volume status. Chest x-ray from today improved BNP not helpful in current setting Overall patient has a very significant ischemic cardiomyopathy and remains at risk for further deterioration Now on appropriate medical therapies would anticipate amiodarone 200 mg twice per day on discharge, metoprolol succinate 12.5 g twice per day Will likely require twice weekly diuretic low-dose furosemide and as needed dosing as necessary Overall prognosis remains however limited with low high likelihood of recurrence of symptoms or deterioration (2) Coffee ground emesis: Hemoglobins without change no abdominal pain (3) CKD (chronic kidney disease) stage 3, GFR 30-59 ml/min: Stable (4) Dementia: Patient unable to add additional information to presentation. Nausea and emesis may reflect myocardial ischemia in the setting although abdominal pain was predominant complaint and presentation (5) COPD (chronic obstructive pulmonary disease): Possible component of aspiration this admission. Subjective Seen and examined chart reviewed. Patient is unable to verbalize any acute cardiac complaints. Poor historian but denies any complaints this morning. Ate well without difficulty no dyspnea No arrhythmias overnight L Physical Exam Constitutional: WD/WN, vitals as above Eyes: PERRL, conjunctivae normal, anicteric sclerae ENMT: external ear and nose normal, oropharynx normal Neck: trachea midline, no thyromegaly Respiratory: no respiratory distress Auscultation: lungs clear to auscultation bilaterally and + diminished lung sounds Cardiovascular: Rate/Rhythm: regular rate and regular rhythm Heart Sounds: normal S1, normal S2 and + murmur (Grade 1/6 systolic no diastolic); no gallop Vessels: no JVD Extremities: + edema (Trace) Gastrointestinal (Abdomen): Inspection/Auscultation: + abdomen distended (Mild) Percussion/Palpation: abdomen soft; abdomen nontender and no guarding Skin: no rashes, warm and dry Results & Data Vital Signs (Past 12 Hours) Vital Signs Temp Pulse Pulse Resp BP BP Pulse Ox 08/19/18 11:50 36.7 C 76 18 99/62 L 94 08/19/18 09:48 83 18 98 08/19/18 08:00 68 08/19/18 07:06 36.7 C 76 19 99/63 L 97 08/19/18 03:35 36.9 C 74 18 91/59 L 96 Laboratory Results Laboratory Results - last 24 hr 08/19/18 08/19/18 05:57 05:57 WBC 8.87 RBC 3.30 L Hgb 10.8 L Hct 32.4 L MCV 98.2 MCH 32.7 MCHC 33.3 RDW Std Deviation 50.6 H RDW Coeff of [place] 14.2 Plt Count 143 MPV 10.2 Immature Gran % (Auto) 0.2 Neut % (Auto) 67.6 Lymph % (Auto) 19.3 [place] % (Auto) 10.9 Eos % (Auto) 1.9 Baso % (Auto) 0.1 Immature Gran # (Auto) 0.02 Neut # (Auto) 5.99 Lymph # (Auto) 1.71 [place] # (Auto) 0.97 H Eos # (Auto) 0.17 Baso # (Auto) 0.01 Sodium 135 L Potassium 4.4 Chloride 104 Carbon Dioxide 28 Anion Gap 3.0 BUN 56 H Creatinine 2.36 H Est Cr Clr Drug Dosing 21.9 Est GFR ( Amer) 28.6 Est GFR (Non-Af Amer) 24.7 BUN/Creatinine Ratio 23.7 H Glucose 109 H Calcium 8.2 L Magnesium 2.6 H Total Bilirubin 0.6 AST 55 H ALT 36 Alkaline Phosphatase 88 Total Protein 6.7 Albumin 2.5 L Globulin 4.2 H Albumin/Globulin Ratio 0.6 L
--- NOTE | 2018-08-19 17:24 | Hospitalist Progress Note ---
Date of Service August 19, 2018 Assessment & Plan (1) NSTEMI (non-ST elevated myocardial infarction): This is an 82-year-old male with a PMH of Whalen's esophagus, dementia CKD 3, COPD, hypothyroidism and other medical problems listed below who presents from [facility] with abdominal pain and vomiting and found to have found to have STEMI. -Troponins on admission was 84 on 08/13/18 and peaked as 146 on 08/14/18 -as per cardiology service note 08/14/18 decisions were made to treat conservat ively "Late presentation with significantly elevated troponin and septal infarcts present. Underlying medical conditions and recent hematemesis preclude anticoagulation and acute coronary intervention Echocardiogram demonstrates substantial LV dysfunction EF 20 to 25% with large anterior apical infarct with thinning treat conservatively though prognosis limited substantial infarct is present wit h severe LV dysfunction Would not consider acute coronary intervention or defibrillator implantation remains at risk for further heart failure, renal decline and arrhythmias" -patient was placed on Beta cheyenne and nitrites -08/17/18 night time: patient was managed by nocturnalist for concerns of arrythmia as bursts of atrial fibrillation for which patient was started on amiodarone IV. -08/18/18 transitioned to oral amiodarone as patient's heart rate in sinus. continue metoprolol 12.5 mg BIDBID. continue isosorbide 10 mg BID Elevated lactic acid -likely from STEMI -monitor lactic acid off scheduled nebulizer treatments, lactic acid downtrended as of 08/18/18 (2) Acute respiratory failure with hypoxia: Secondary to acute systolic CHF and STEMI -patient has been getting intermittent Lasix XR chest 2V routine CLINICAL HISTORY: follow up lung infiltrates pneumonia COMPARISON STUDY: 08/14/2018 FINDINGS: Mildly improved components of congestive failure. Unchanged atelectatic and/or effusion-type changes left lung base. Right lung base is clear. IMPRESSION: 1. Mildly improved components congestive failure. 2. Unchanging left pleural effusion. -Lasix 40 mg IV given on 08/17/18 and additional Lasix 20 mg IV on 08/17/18 -place on low dose oral Lasix 20 mg daily and monitor oxygen status possible urinary retention -patient did not pass trial of void on 08/17/18 -tamsulosin started -another trial of void on 08/19/18 (3) Acute renal failure: On CKD stage III -renal function function stabilizing to 2.4 to 2.5, continue to monitor (4) Coffee ground emesis: Possible upper GI bleed per admitting notes: Had one witnessed episode this morning and then again in the ED -No recurrence of hematemesis since admission -IV pantoprazole stopped on 08/17/18 and transition to oral pantoprazole and Hgb stabilize in the 10 range (5) Diverticulitis: -Presented with abdominal pain -evidence of sigmoid diverticulosis and possible mild diverticulitis and CT abdomen pelvis (1. Sigmoid diverticulosis. Minimal pericolonic infiltration. Mild acute diverticulitis cannot be excluded. 2. Moderate amount of stool within the colon and rectum. No bowel obstruction. 3. Small bowel containing right inguinal hernia without bowel obstruction. Fat- containing left inguinal hernia.) -abdominal pain resolved -Ertapenem which was started on 08/13/18 and stopped on 08/17/18 as white blood cell counts have normalized (6) COPD (chronic obstructive pulmonary disease): Mild exacerbation secondary to acute systolic CHF Home inhalers as prn and nebulizer treatments as prn (7) Hypothyroidism: Levothyroxine TSH 4.28 (8) Dementia: DVT Ppx: SCDs Code status: FULL CODE patient's daughter Yoko [phone] As per case management: the patient is under protective services at [facility] and he is not allowed to leave with daughter at this time. communication and outreach manager will follow up with [facility] and protective services Subjective Patient breathing on nasal cannula oxygen. is comfortable. no distress. no acute pain. being monitored closely for trial of void with monroy removed this AM. Has not voided yet. Nurse to recheck at 8 PM. Discussed goals of care with patient's daughter Yoko [phone]. She affirms patient is full code. Physical Exam Constitutional: comfortable Eyes: PERRL, conjunctivae normal, anicteric sclerae EOM intact bilaterally ENMT: external ear and nose normal, oropharynx normal Ears: + hearing impairment Respiratory: normal respiratory effort Cardiovascular: Rate/Rhythm: regular rate and regular rhythm Gastrointestinal (Abdomen): normal bowel sounds, soft, nontender, no hepatosplenomegaly Musculoskeletal: Head/Neck/Chest: normocephalic and head atraumatic Neurologic: PERRL, EOMI, accommodation nl, no face palsy, no dysarthria CN's II-XI intact bilaterally Psychiatric: Orientation: alert Results & Data Vital Signs (Past 12 Hours) Vital Signs Temp Pulse Pulse Resp BP BP Pulse Ox 08/19/18 16:00 76 08/19/18 15:11 36.9 C 80 20 93/55 L 95 08/19/18 11:50 36.7 C 76 18 99/62 L 94 08/19/18 09:48 83 18 98 08/19/18 08:00 68 08/19/18 07:06 36.7 C 76 19 99/63 L 97
[2018-08-19] MEDS: FUROSEMIDE 20 MG TAB PO SCH (19:26)
[2018-08-20] MEDS: LEVOTHYROXINE SODIUM 75 MCG TABLET PO SCH (05:45)
[2018-08-20] MEDS: METOPROLOL SUCC 25MG EXT REL TAB PO SCH ×3 (08:06→21:28)
[2018-08-20] MEDS: AMIODARONE 200 MG TAB PO SCH ×3 (08:06→21:27)
[2018-08-20] MEDS: ISOSORBIDE DINITRATE 10 MG TAB PO SCH ×2 (08:07→14:42)
[2018-08-20] MEDS: FUROSEMIDE 20 MG TAB PO SCH (08:07)
[2018-08-20] MEDS: TAMSULOSIN HCL 0.4 MG CAP PO SCH (08:07)
[2018-08-20] MEDS: PANTOprazole 40 MG TAB PO SCH (08:07)
--- NOTE | 2018-08-20 09:39 | Hospitalist Progress Note ---
Date of Service August 20, 2018 Assessment & Plan (1) NSTEMI (non-ST elevated myocardial infarction): This is an 82-year-old male with a PMH of Whalen's esophagus, dementia CKD 3, COPD, hypothyroidism and other medical problems listed below who presents from [facility] with abdominal pain and vomiting and found to have found to have late presentation of STEMI (ST elevated myocardial infraction) -Troponins on admission was 84 on 08/13/18 and peaked as 146 on 08/14/18 -as per cardiology service note 08/14/18 decisions were made to treat conservatively "Late presentation with significantly elevated troponin and septal infarcts present. Underlying medical conditions and recent hematemesis preclude anticoagulation and acute coronary intervention Echocardiogram demonstrates substantial LV dysfunction EF 20 to 25% with large anterior apical infarct with thinning treat conservatively though prognosis limited substantial infarct is present with severe LV dysfunction Would not consider acute coronary intervention or defibrillator implantation remains at risk for further heart failure, renal decline and arrhythmias" -patient was placed on Beta cheyenne and nitrites -08/17/18 night time: patient was managed by nocturnalist for concerns of arrythmia as bursts of atrial fibrillation for which patient was started on amiodarone IV. -08/18/18 transitioned to oral amiodarone as patient's heart rate in sinus. continue metoprolol 12.5 mg BID. continue isosorbide 10 mg BID -08/20/18; patient had 12 beat run of Ventricular tachycardia at 1:49 AM, currently in normal sinus rhythm Elevated lactic acid -likely from STEMI -monitored lactic acid off scheduled nebulizer treatments, lactic acid downtrended as of 08/18/18 (2) Acute respiratory failure with hypoxia: Secondary to acute systolic CHF and STEMI -patient has been getting intermittent Lasix XR chest 2V routine CLINICAL HISTORY: follow up lung infiltrates pneumonia COMPARISON STUDY: 08/14/2018 FINDINGS: Mildly improved components of congestive failure. Unchanged atelectatic and/or effusion-type changes left lung base. Right lung base is clear. IMPRESSION: 1. Mildly improved components congestive failure. 2. Unchanging left pleural effusion. -Lasix 40 mg IV given on 08/17/18 and additional Lasix 20 mg IV on 08/17/18 -place on low dose oral Lasix 20 mg daily and monitor oxygen status possible urinary retention -patient did not pass trial of void on 08/17/18 -tamsulosin started -another trial of void on 08/19/18; currently urinating without monroy (3) Acute renal failure: On CKD stage III -renal function function stabilizing to 2.4 to 2.5, continue to monitor (4) Coffee ground emesis: Possible upper GI bleed per admitting notes: Had one witnessed episode this morning and then again in the ED -No recurrence of hematemesis since admission -IV pantoprazole stopped on 08/17/18 and transition to oral pantoprazole and Hgb stabilize in the 10 range (5) Diverticulitis: -Presented with abdominal pain -evidence of sigmoid diverticulosis and possible mild diverticulitis and CT abdomen pelvis (1. Sigmoid diverticulosis. Minimal pericolonic infiltration. Mild acute diverticulitis cannot be excluded. 2. Moderate amount of stool within the colon and rectum. No bowel obstruction. 3. Small bowel containing right inguinal hernia without bowel obstruction. Fat- containing left inguinal hernia.) -abdominal pain resolved -Ertapenem which was started on 08/13/18 and stopped on 08/17/18 as white blood cell counts have normalized (6) COPD (chronic obstructive pulmonary disease): Mild exacerbation secondary to acute systolic CHF Home inhalers as prn and nebulizer treatments as prn (7) Hypothyroidism: Levothyroxine TSH 4.28 (8) Dementia: DVT Ppx: SCDs Code status: FULL CODE patient's daughter Yoko [phone] As per case management: the patient is under protective services at [facility] and he is not allowed to leave with daughter at this time. manager lighting will follow up with [facility] and protective services. Further social work and legal assessments likely involving adult protective services planned for Wednesday08/22/18 Subjective patient had 12 beat run of Ventricular tachycardia at 1:49 AM, currently in normal sinus rhythm. patient currently urinating without monroy. on nasal cannula oxygen between 0.5 to 1 liter/min. patient denies pain. appears comfortable. baseline auditory impairments Physical Exam Constitutional: comfortable Eyes: PERRL, conjunctivae normal, anicteric sclerae EOM intact bilaterally ENMT: external ear and nose normal, oropharynx normal Ears: + hearing impairment Respiratory: normal respiratory effort Cardiovascular: Rate/Rhythm: regular rate and regular rhythm Gastrointestinal (Abdomen): normal bowel sounds, soft, nontender, no hepatosplenomegaly Musculoskeletal: Head/Neck/Chest: normocephalic and head atraumatic Neurologic: PERRL, EOMI, accommodation nl, no face palsy, no dysarthria CN's II-XI intact bilaterally Psychiatric: Orientation: alert Results & Data Vital Signs (Past 12 Hours) Vital Signs Temp Pulse Pulse Resp BP Pulse Ox 08/20/18 07:45 36.6 C 73 22 94/58 L 95 08/20/18 03:26 37 C 82 24 92/53 L 90 08/20/18 00:17 82 08/19/18 23:21 36.7 C 75 22 96/59 L 96
[2018-08-21] MEDS: LEVOTHYROXINE SODIUM 75 MCG TABLET PO SCH (06:44)
[2018-08-21] MEDS: TAMSULOSIN HCL 0.4 MG CAP PO SCH (08:16)
[2018-08-21] MEDS: AMIODARONE 200 MG TAB PO SCH ×3 (08:16→20:49)
[2018-08-21] MEDS: ISOSORBIDE DINITRATE 10 MG TAB PO SCH ×2 (08:16→13:47)
[2018-08-21] MEDS: METOPROLOL SUCC 25MG EXT REL TAB PO SCH ×2 (08:17→20:49)
[2018-08-21] MEDS: FUROSEMIDE 20 MG TAB PO SCH (08:17)
[2018-08-21] MEDS: PANTOprazole 40 MG TAB PO SCH (08:17)
--- NOTE | 2018-08-21 08:38 | Hospitalist Progress Note ---
Date of Service August 21, 2018 Assessment & Plan (1) NSTEMI (non-ST elevated myocardial infarction): This is an 82-year-old male with a PMH of Whalen's esophagus, dementia CKD 3, COPD, hypothyroidism and other medical problems listed below who presents from [facility] with abdominal pain and vomiting and found to have found to have late presentation of STEMI (ST elevated myocardial infraction) -Troponins on admission was 84 on 08/13/18 and peaked as 146 on 08/14/18 -as per cardiology service note 08/14/18 decisions were made to treat conservatively "Late presentation with significantly elevated troponin and septal infarcts present. Underlying medical conditions and recent hematemesis preclude anticoagulation and acute coronary intervention Echocardiogram demonstrates substantial LV dysfunction EF 20 to 25% with large anterior apical infarct with thinning treat conservatively though prognosis limited substantial infarct is present with severe LV dysfunction Would not consider acute coronary intervention or defibrillator implantation remains at risk for further heart failure, renal decline and arrhythmias" -patient was placed on Beta cheyenne and nitrites -08/17/18 night time: patient was managed by nocturnalist for concerns of arrythmia as bursts of atrial fibrillation for which patient was started on amiodarone IV. -08/18/18 transitioned to oral amiodarone as patient's heart rate in sinus. continue metoprolol 12.5 mg BID. continue isosorbide 10 mg BID -08/20/18; patient had 12 beat run of Ventricular tachycardia at 1:49 AM, currently in normal sinus rhythm -08/21/18: normal sinus Elevated lactic acid -likely from STEMI -lactic acid downtrended as of 08/18/18 (2) Acute respiratory failure with hypoxia: Secondary to acute systolic CHF and STEMI -patient has been getting intermittent Lasix XR chest 2V routine CLINICAL HISTORY: follow up lung infiltrates pneumonia COMPARISON STUDY: 08/14/2018 FINDINGS: Mildly improved components of congestive failure. Unchanged atelectatic and/or effusion-type changes left lung base. Right lung base is clear. IMPRESSION: 1. Mildly improved components congestive failure. 2. Unchanging left pleural effusion. -Lasix 40 mg IV given on 08/17/18 and additional Lasix 20 mg IV on 08/17/18 -place on low dose oral Lasix 20 mg daily and monitor oxygen status, continue low dose Lasix possible urinary retention -patient did not pass trial of void on 08/17/18 -tamsulosin started -another trial of void on 08/19/18; currently urinating without monroy (3) Acute renal failure: On CKD stage III -renal function function stabilizing to 2.4 to 2.5, continue to monitor (4) Coffee ground emesis: Possible upper GI bleed per admitting notes: Had one witnessed episode this morning and then again in the ED -No recurrence of hematemesis since admission -IV pantoprazole stopped on 08/17/18 and transition to oral pantoprazole and Hgb stabilize in the 10 range (5) Diverticulitis: -Presented with abdominal pain -evidence of sigmoid diverticulosis and possible mild diverticulitis and CT abdomen pelvis (1. Sigmoid diverticulosis. Minimal pericolonic infiltration. Mild acute diverticulitis cannot be excluded. 2. Moderate amount of stool within the colon and rectum. No bowel obstruction. 3. Small bowel containing right inguinal hernia without bowel obstruction. Fat- containing left inguinal hernia.) -abdominal pain resolved -Ertapenem which was started on 08/13/18 and stopped on 08/17/18 as white blood cell counts have normalized (6) COPD (chronic obstructive pulmonary disease): Mild exacerbation secondary to acute systolic CHF Home inhalers as prn and nebulizer treatments as prn (7) Hypothyroidism: Levothyroxine TSH 4.28 (8) Dementia: DVT Ppx: SCDs Code status: FULL CODE patient's daughter Yoko [phone] As per case management: the patient is under protective services at [facility] and he is not allowed to leave with daughter at this time. manager route will follow up with [facility] and protective services. Further social work and legal assessments likely involving adult protective services planned for Wednesday08/22/18 Subjective No acute events overnight on telemetry. Patient on nasal cannula oxygen. patient reports he feels well. denies pain. has baseline auditory impairment Physical Exam Constitutional: comfortable Eyes: PERRL, conjunctivae normal, anicteric sclerae EOM intact bilaterally ENMT: external ear and nose normal, oropharynx normal Ears: + hearing impairment Respiratory: normal respiratory effort Cardiovascular: Rate/Rhythm: regular rate and regular rhythm Gastrointestinal (Abdomen): normal bowel sounds, soft, nontender, no hepatosplenomegaly Musculoskeletal: Head/Neck/Chest: normocephalic and head atraumatic Neurologic: PERRL, EOMI, accommodation nl, no face palsy, no dysarthria CN's II-XI intact bilaterally Psychiatric: Orientation: alert Results & Data Vital Signs (Past 12 Hours) Vital Signs Temp Pulse Pulse Resp BP BP Pulse Ox 08/21/18 07:20 36.5 C 73 22 98/58 L 95 08/21/18 04:02 36.5 C 76 22 94/55 L 93 08/21/18 00:51 73 08/20/18 23:50 36.9 C 74 18 94/57 L 94
[2018-08-22 02:53] VITALS: O2SAT 95
[2018-08-22] MEDS: LEVOTHYROXINE SODIUM 75 MCG TABLET PO SCH (05:15)
[2018-08-22 06:35] LABS: Basophils # (auto) 0.02 K/uL (0-0.2); Basophils % (auto) 0.2 %; Eosinophils # (auto) 0.13 K/uL (0-0.5); Eosinophils % (auto) 1.4 %; Hematocrit (blood only) 31.6 % (42-52); Hemoglobin 10.4 g/dL (14.0-18.0); Immature Granulocytes # (auto) 0.04 K/uL (0.00-0.02); Immature Granulocytes % (auto) 0.4 %; Lymphocytes # (auto) 1.54 K/uL (1.2-3.4); Lymphocytes % (auto) 16.8 %; Mean Corpuscular Hgb Conc 32.9 g/dL (32-36); Mean Corpuscular Volume 98.8 fL (80-100); Mean Platelet Volume 10.8 fL (7.4-10.4); Monocytes # (auto) 0.66 K/uL (0.11-0.59); Monocytes % (auto) 7.2 %; Neutrophils # (auto) 6.75 K/uL (1.4-6.5); Platelet Count 163 K/uL (130-400); RDW Coefficient of Variation 13.9 % (11.5-14.5); RDW Standard Deviation 50.4 fL (36.4-46.3); White Blood Count 9.14 K/uL (4.8-10.8)
[2018-08-22 07:10] LABS: Albumin Level 2.6 gm/dl (3.4-5.0); BUN Creatinine Ratio 19.6 (10-20); Calcium 8.1 mg/dl (8.5-10.1); Creatinine Clr Calc Pharmacy 18.3 ml/min; Est GFR (African American) 22.3; Est GFR (Non-African American) 19.3; Potassium 4.7 mmol/L (3.5-5.1)
[2018-08-22 07:13] LABS: Albumin Globulin Ratio 0.6 (0.9-2); Bilirubin,Total 0.7 mg/dl (0.2-1); Globulin 4.2 gm/dl (2.5-4.0); Total Protein 6.8 gm/dl (6.4-8.2)
[2018-08-22] MEDS: AMIODARONE 200 MG TAB PO SCH ×2 (07:29→14:44)
[2018-08-22] MEDS: ISOSORBIDE DINITRATE 10 MG TAB PO SCH (07:29)
[2018-08-22] MEDS: TAMSULOSIN HCL 0.4 MG CAP PO SCH (07:29)
[2018-08-22] MEDS: PANTOprazole 40 MG TAB PO SCH (07:30)
[2018-08-22] MEDS: METOPROLOL SUCC 25MG EXT REL TAB PO SCH (07:30)
[2018-08-22] MEDS: FUROSEMIDE 20 MG TAB PO SCH (07:30)
[2018-08-22] MEDS ORDERED: SODIUM CHLORIDE 0.9% 1000ML 250 ML IV ONE (10:34)
[2018-08-22 12:02] VITALS: TEMP 97.9
--- NOTE | 2018-08-22 13:30 | XRay Report ---
XR chest 1V portable HISTORY: 82 years-old Male follow up lung infiltrates follow-up study in a patient with shortness of breath and lung opacities COMPARISON: Chest radiograph 08/17/2018, 08/14/2018 and 08/13/2018 TECHNIQUE: Portable AP view of the chest FINDINGS: Cardiac silhouette is enlarged, unchanged. Pulmonary vascular congestion with persistent interstitial coarsening. Calcification of the thoracic cortical arch. No pneumothorax. Trace pleural effusions wi th bibasilar opacities. Degenerative changes of the shoulders and spine. Healed remote fracture forming about the proximal left humerus. IMPRESSION: 1. Cardiomegaly with persistent pulmonary vascular congestion and interstitial coarsening suggestive of mild pulmonary edema. 2. Trace pleural effusions with slightly progressed bibasilar opacities suggestive of atelectasis or pneumonitis. The above report was generated using voice recognition software. It may contain grammatical, syntax o r spelling errors. Electronically signed by: Allan Borjas M.D. 08/22/2018 1:29 PM
--- NOTE | 2018-08-22 13:49 | Hospitalist Progress Note ---
Date of Service August 22, 2018 Assessment & Plan (1) NSTEMI (non-ST elevated myocardial infarction): This is an 82-year-old male with a PMH of Whalen's esophagus, dementia CKD 3, COPD, hypothyroidism and other medical problems listed below who presents from [facility] with abdominal pain and vomiting and found to have found to have late presentation of STEMI (ST elevated myocardial infraction) -Troponins on admission was 84 on 08/13/18 and peaked as 146 on 08/14/18 -as per cardiology service note 08/14/18 decisions were made to treat conservatively "Late presentation with significantly elevated troponin and septal infarcts present. Underlying medical conditions and recent hematemesis preclude anticoagulation and acute coronary intervention Echocardiogram demonstrates substantial LV dysfunction EF 20 to 25% with large anterior apical infarct with thinning treat conservatively though prognosis limited substantial infarct is present with severe LV dysfunction Would not consider acute coronary intervention or defibrillator implantation remains at risk for further heart failure, renal decline and arrhythmias" -patient was placed on Beta cheyenne and nitrites -08/17/18 night time: patient was managed by nocturnalist for concerns of arrythmia as bursts of atrial fibrillation for which patient was started on amiodarone IV. -08/18/18 transitioned to oral amiodarone as patient's heart rate in sinus. continue metoprolol 12.5 mg BID. continue isosorbide 10 mg BID -08/20/18; patient had 12 beat run of Ventricular tachycardia at 1:49 AM, currently in normal sinus rhythm -08/21/18 and 08/22/18: normal sinus Elevated lactic acid -likely from STEMI -lactic acid downtrended as of 08/18/18 Discharge to [facility] 08/22/18 (Patient will need to be on nasal cannula 3 liters/minute -Patient had Lasix which was started in the hospital to be held because of renal function and because oxygen requirements has not significantly improved while on Lasix. Chest X ray on 08/22/18 with Cardiomegaly with persistent pulmonary vascular congestion and interstitial coarsening suggestive of mild pulmonary edema and Trace pleural effusions which is not too different from previous Chest X ray 08/17/18 Patient will need follow up Chest X Ray as outpatient and renal function checked in 1 week -Patient is not hypervolemic. Patient's hypoxia is less likely from fluid retention and more likely as a consequence of late presentation ST elevated myocardial infarction for which patient is being medically managed with discharge medication of amiodarone 200 mg three times a day, Metoprolol succinate 12.5 mg twice a day and isosorbide dinitrate twice a day. These medications and combination of heart attack has patient's blood pressure around 90/50 which is the new normal and patient is asymptomatic (no lightheadedness and no loss of consciousness). Would not institute a fluid or salt restriction to avoid excessive hypotension -If blood pressure remains stable as above 90/50 and renal function creatinine is less than 2.9 then patient may resume Lasix 20 mg oral dosing as per a primary care doctor in 1 week and titrate as needed because cardiac ejection fraction is 20 to 25% -Patient will continue discharge medication of tamsulosin to prevent urinary tract retention -[facility] appointment line [phone] has been called to arrange outpatient follow up for patient to see Dr. Brandt Soni or his colleagues at cardiology clinic) (2) Acute respiratory failure with hypoxia: Secondary to acute systolic CHF and STEMI -patient has been getting intermittent Lasix XR chest 2V routine CLINICAL HISTORY: follow up lung infiltrates pneumonia COMPARISON STUDY: 08/14/2018 FINDINGS: Mildly improved components of congestive failure. Unchanged atelectatic and/or effusion-type changes left lung base. Right lung base is clear. IMPRESSION: 1. Mildly improved components congestive failure. 2. Unchanging left pleural effusion. -Lasix 40 mg IV given on 08/17/18 and additional Lasix 20 mg IV on 08/17/18 -on 08/19/18 was placed on low dose oral Lasix 20 mg daily and stopped on 08/22/18 due to renal function possible urinary retention -patient did not pass trial of void on 08/17/18 -tamsulosin started -another trial of void on 08/19/18; currently urinating without monroy -Patient will continue discharge medication of tamsulosin to prevent urinary tract retention (3) Acute renal failure: On CKD stage III -renal function function recently stabilizing to 2.4 to 2.5 and then while on lasix 20 mg PO daily since 08/19/18, the creatinine is 2.9. Patient received IV fluids 250 cc on 08/22/18 -If blood pressure remains stable as above 90/50 and renal function creatinine is less than 2.9 then patient may resume Lasix 20 mg oral dosing as per a primary care doctor in 1 week and titrate as needed because cardiac ejection fraction is 20 to 25% (4) Coffee ground emesis: Possible upper GI bleed per admitting notes: Had one witnessed episode this morning and then again in the ED -No recurrence of hematemesis since admission -IV pantoprazole stopped on 08/17/18 and transition to oral pantoprazole and Hgb stabilize in the 10 range -continue oral pantoprazole (5) Diverticulitis: -Presented with abdominal pain -evidence of sigmoid diverticulosis and possible mild diverticulitis and CT abdomen pelvis (1. Sigmoid diverticulosis. Minimal pericolonic infiltration. Mild acute diverticulitis cannot be excluded. 2. Moderate amount of stool within the colon and rectum. No bowel obstruction. 3. Small bowel containing right inguinal hernia without bowel obstruction. Fat- containing left inguinal hernia.) -abdominal pain resolved -Ertapenem which was started on 08/13/18 and stopped on 08/17/18 as white blood cell counts have normalized (6) COPD (chronic obstructive pulmonary disease): Mild exacerbation secondary to acute systolic CHF Home inhalers as prn and nebulizer treatments as prn (7) Hypothyroidism: Levothyroxine TSH 4.28 (8) Dementia: DVT Ppx: SCDs while inpatient Code status: FULL CODE patient's daughter Yoko [phone] As per case management: the patient is under adult protective services at [facility] and on discharge to return to [facility] Discharge to [facility] Discharge Diagnosis -ST elevated myocardial infarction; Acute respiratory failure with hypoxia Secondary to acute systolic congestive heart failure and STEMI (Ejection Fraction 20 to 25%);Coffee ground emesis (resolved); Diverticulitis (treated), acute kidney injury on chronic kidney disease Subjective Patient has low to low normotensive blood pressures as he has been having in recently days. Is asymptomatic. no dizziness or lightheadedness or loss of consciousness. Patient reports he feels good and denies chest pain. He has been asking if he can go home. patient continues to be on nasal cannula 3 liters/min. Lasix stopped and IV fluids given for renal function. Chest X ray without acute changes. Physical Exam Constitutional: comfortable Eyes: PERRL, conjunctivae normal, anicteric sclerae EOM intact bilaterally ENMT: external ear and nose normal, oropharynx normal Ears: + hearing impai rment Respiratory: normal respiratory effort Cardiovascular: Rate/Rhythm: regular rate and regular rhythm Gastrointestinal (Abdomen): normal bowel sounds, soft, nontender, no hepatosplenomegaly Musculoskeletal: Head/Neck/Chest: normocephalic and head atraumatic Neurologic: PERRL, EOMI, accommodation nl, no face palsy, no dysarthria CN's II-XI intact bilaterally Psychiatric: Orientation: alert Results & Data Vital Signs (Past 12 Hours) Vital Signs Temp Pulse Resp BP Pulse Ox 08/22/18 13:18 92/54 L 08/22/18 12:01 36.6 C 68 20 87/50 L 95 08/22/18 07:38 36.7 C 73 22 90/50 L 95 08/22/18 02:51 36.5 C 68 16 103/65 95
--- NOTE | 2018-08-22 14:00 | Discharge Summary ---
Date of Service August 22, 2018 Admission HPI Per Admitting Provider 82 yo male with a history of copd, hypothyroidism, lives in a medical SNF, ckdz - baseline cr 1.8-2.0, admitted with chest pain and abdominal pain yesterday. He was found to have an STEMI- reportedly seen by cardiology, no heparin administered given reports of hematemesis. As an outpatient was not known to be on blood thinner, unclear if he was taking recent NSAID's as he is a limited historian. He was admitted through the ER, further workup for above showed that he had an stemi. He has remained hemodynamically stable with no further hematemesis that I am aware of since being started on an IV PPI (bolus and drip). He did have an EGD thru [facility] in [place] with findings of baltazar's and a large hiatal hernia. He is currently getting an echo done at this time. Admission Exam Per Admitting Provider General Appearance: WD/WN, elderly male in acute distress from pain Head: normocephalic, atraumatic Eyes: normal inspection, PERRL, EOMI ENT: Hard of hearing, pharynx normal (dry mucous membrane) Neck: supple, no JVD, no adenopathy Respiratory/Chest: lungs clear to auscultation. No wheezes, rales or rhonci. No respiratory distress or accessory muscle use Cardiovascular: regular rate, rhythm, no murmur, normal peripheral pulses Abdomen/GI: normal bowel sounds, soft, non-tender to palpation Extremities/Musculoskelatal: normal inspection, no calf tenderness, normal capillary refill, no pedal edema Neurologic/Psych: alert, normal mood/affect, oriented x person Skin: normal color, warm/dry Principal Diagnosis -ST elevated myocardial infarction; Acute respiratory failure with hypoxia Secondary to acute systolic congestive heart failure and STEMI (Ejection Fraction 20 to 25%);Coffee ground emesis (resolved); Diverticulitis (treated), acute kidney injury on chronic kidney disease Discharge Exam Constitutional comfortable Eyes PERRL, conjunctivae normal, anicteric sclerae EOM intact bilaterally ENMT external ear and nose normal, oropharynx normal Ears: + hearing impairment Respiratory normal respiratory effort Cardiovascular Rate/Rhythm: regular rate and regular rhythm Gastrointestinal (Abdomen) normal bowel sounds, soft, nontender, no hepatosplenomegaly Musculoskeletal Head/Neck/Chest: normocephalic and head atraumatic Neurologic PERRL, EOMI, accommodation nl, no face palsy, no dysarthria CN's II-XI intact bilaterally Psychiatric Orientation: alert Discharge Data Allergies Allergy/AdvReac Type Severity Reaction Status Date / Time amoxicillin Allergy Unknown Unknown Verified 08/13/18 17:13 diazepam Allergy Unknown Unknown Verified 08/13/18 17:13 Consultations 08/13/18 18:19 ED Decision to Admit Stat 08/13/18 20:53 Consult Cardiology Routine Consult Case Management - Discharge Planning Routine Consult Gastroenterology Routine Ordered Studies 08/13/18 16:57 CT abd pelvis wo con Stat Hospital Course (1) NSTEMI (non-ST elevated myocardial infarction): This is an 82-year-old male with a PMH of Baltazar's esophagus, dementia CKD 3, COPD, hypothyroidism and other medical problems listed below who presents from [facility] with abdominal pain and vomiting and found to have found to have late presentation of STEMI (ST elevated myocardial infraction) -Troponins on admission was 84 on 08/13/18 and peaked as 146 on 08/14/18 -as per cardiology service note 08/14/18 decisions were made to treat conservatively "Late presentation with significantly elevated troponin and septal infarcts present. Underlying medical conditions and recent hematemesis preclude anticoagulation and acute coronary intervention Echocardiogram demonstrates substantial LV dysfunction EF 20 to 25% with large anterior apical infarct with thinning treat conservatively though prognosis limited substantial infarct is present with severe LV dysfunction Would not consider acute coronary intervention or defibrillator implantation remains at risk for further heart failure, renal decline and arrhythmias" -patient was placed on Beta cheyenne and nitrites -08/17/18 night time: patient was managed by nocturnalist for concerns of arrythmia as bursts of atrial fibrillation for which patient was started on amiodarone IV. -08/18/18 transitioned to oral amiodarone as patient's heart rate in sinus. continue metoprolol 12.5 mg BID. continue isosorbide 10 mg BID -08/20/18; patient had 12 beat run of Ventricular tachycardia at 1:49 AM, currently in normal sinus rhythm -08/21/18 and 08/22/18: normal sinus Elevated lactic acid -likely from STEMI -lactic acid downtrended as of 08/18/18 Discharge to [facility] 08/22/18 (Patient will need to be on nasal cannula 3 liters/minute -Patient had Lasix which was started in the hospital to be held because of renal function and because oxygen requirements has not significantly improved while on Lasix. Chest X ray on 08/22/18 with Cardiomegaly with persistent pulmonary vascular congestion and interstitial coarsening suggestive of mild pulmonary edema and Trace pleural effusions which is not too different from previous Chest X ray 08/17/18 Patient will need follow up Chest X Ray as outpatient and renal function checked in 1 week -Patient is not hypervolemic. Patient's hypoxia is less likely from fluid retention and more likely as a consequence of late presentation ST elevated myocardial infarction for which patient is being medically managed with discharge medication of amiodarone 200 mg three times a day, Metoprolol succinate 12.5 mg twice a day and isosorbide dinitrate twice a day. These medications and combination of heart attack has patient's blood pressure around 90/50 which is the new normal and patient is asymptomatic (no lightheadedness and no loss of consciousness). Would not institute a fluid or salt restriction to avoid excessive hypotension -If blood pressure remains stable as above 90/50 and renal function creatinine is less than 2.9 then patient may resume Lasix 20 mg oral dosing as per a primary care doctor in 1 week and titrate as needed because cardiac ejection fraction is 20 to 25% -Patient will continue discharge medication of tamsulosin to prevent urinary tract retention -[facility] appointment line [phone] has been called to arrange outpatient follow up for patient to see Dr. Brandt Soni or his colleagues at cardiology clinic) (2) Acute respiratory failure with hypoxia: Secondary to acute systolic CHF and STEMI -patient has been getting intermittent Lasix XR chest 2V routine CLINICAL HISTORY: follow up lung infiltrates pneumonia COMPARISON STUDY: 08/14/2018 FINDINGS: Mildly improved components of congestive failure. Unchanged atelectatic and/or effusion-type changes left lung base. Right lung base is clear. IMPRESSION: 1. Mildly improved components congestive failure. 2. Unchanging left pleural effusion. -Lasix 40 mg IV given on 08/17/18 and additional Lasix 20 mg IV on 08/17/18 -on 08/19/18 was placed on low dose oral Lasix 20 mg daily and stopped on 08/22/18 due to renal function possible urinary retention -patient did not pass trial of void on 08/17/18 -tamsulosin started -another trial of void on 08/19/18; currently urinating without monroy -Patient will continue discharge medication of tamsulosin to prevent urinary tract retention (3) Acute renal failure: On CKD stage III -renal function function recently stabilizing to 2.4 to 2.5 and then while on lasix 20 mg PO daily since 08/19/18, the creatinine is 2.9. Patient received IV fluids 250 cc on 08/22/18 -If blood pressure remains stable as above 90/50 and renal function creatinine is less than 2.9 then patient may resume Lasix 20 mg oral dosing as per a primary care doctor in 1 week and titrate as needed because cardiac ejection fraction is 20 to 25% (4) Coffee ground emesis: Possible upper GI bleed per admitting notes: Had one witnessed episode this morning and then again in the ED -No recurrence of hematemesis since admission -IV pantoprazole stopped on 08/17/18 and transition to oral pantoprazole and Hgb stabilize in the 10 range -continue oral pantoprazole (5) Diverticulitis: -Presented with abdominal pain -evidence of sigmoid diverticulosis and possible mild diverticulitis and CT abdomen pelvis (1. Sigmoid diverticulosis. Minimal pericolonic infiltration. Mild acute diverticulitis cannot be excluded. 2. Moderate amount of stool within the colon and rectum. No bowel obstruction. 3. Small bowel containing right inguinal hernia without bowel obstruction. Fat- containing left inguinal hernia.) -abdominal pain resolved -Ertapenem which was started on 08/13/18 and stopped on 08/17/18 as white blood cell counts have normalized (6) COPD (chronic obstructive pulmonary disease): Mild exacerbation secondary to acute systolic CHF Home inhalers as prn and nebulizer treatments as prn (7) Hypothyroidism: Levothyroxine TSH 4.28 (8) Dementia: DVT Ppx: SCDs while inpatient Code status: FULL CODE patient's daughter Yoko [phone] As per case management: the patient is under adult protective services at [facility] and on discharge to return to [facility] Discharge to [facility] Discharge Diagnosis -ST elevated myocardial infarction; Acute respiratory failure with hypoxia Secondary to acute systolic congestive heart failure and STEMI (Ejection Fraction 20 to 25%);Coffee ground emesis (resolved); Diverticulitis (treated), acute kidney injury on chronic kidney disease Total Time Total Time Spent Total Time Spent (In Minutes): 40 minutes Total Time Includes: Examination of the Patient, Discharge Planning, Medication Reconciliation and Communication With Other Providers Discharge Plan Discharge Items Patient Disposition: Transfer [facility] Reason For Visit: STEMI,NAUSEA,HEMETEMESIS Discharge Diagnosis: ST elevated myocardial infarction; Acute respiratory failure with hypoxia Secondary to acute systolic congestive heart failure and STEMI (Ejection Fraction 20 to 25%);Coffee ground emesis (resolved); Di verticulitis (treated), acute kidney injury on chronic kidney disease Condition: Fair Discharge Goals: Improve disease control Activity: Per 'Additional Instructions' section Non-emergency contact: Primary Care Provider and Rig Welder Call non-emergency contact if: you have any medication questions Follow-up/Referrals: [facility] [Primary Care Provider] - Diet: Heart Healthy Diet Comment: minced, moist heart healthy diet Addtl Provider Instructions: Discharge to [facility] Patient will need to be on nasal cannula 3 liters/minute Patient had Lasix which was started in the hospital to be held because of renal function and because oxygen requirements has not significantly improved while on Lasix. Chest X ray on 08/22/18 with Cardiomegaly with persistent pulmonary vascular congestion and interstitial coarsening suggestive of mild pulmonary edema and Trace pleural effusions which is not too different from previous Chest X ray 08/17/18 Patient will need follow up Chest X Ray as outpatient and renal function checked in 1 week Patient is not hypervolemic. Patient's hypoxia is less likely from fluid retention and more likely as a consequence of late presentation ST elevated my ocardial infarction for which patient is being medically managed with discharge medication of amiodarone 200 mg three times a day, Metoprolol succinate 12.5 mg twice a day and isosorbide dinitrate twice a day. These medications and combination of heart attack has patient's blood pressure around 90/50 which is the new normal and patient is asymptomatic (no lightheadedness and no loss of consciousness). Would not institute a fluid or salt restriction to avoid excessive hypotension If blood pressure remains stable as above 90/50 and renal function creatinine is less than 2.9 then patient may resume Lasix 20 mg oral dosing as per a primary care doctor in 1 week and titrate as needed because cardiac ejection fraction is 20 to 25% Patient will continue discharge medication of tamsulosin to prevent urinary tract retention [facility] appointment line [phone] has been called to arrange outpatient follow up for patient to see Dr. Brandt Soni or his colleagues at cardiology clinic Prescriptions: New isosorbide dinitrate 10 mg Tablet 10 mg PO BID@0700,1200 30 Days Qty: 30 RF: 0 amiodarone 200 mg Tablet 200 mg PO TID 30 Days Qty: 90 RF: 0 tamsulosin 0.4 mg Capsule 0.4 mg PO QAM 30 Days Qty: 30 RF: 0 metoprolol succinate 25 mg Tablet Extended Release 24 Hr 12.5 mg PO BID 30 Days Qty: 30 RF: 0 Continued Incruse Ellipta 62.5 mcg/actuation Blister With Device 1 inh INHALATION DAILY RF: 0 levothyroxine 75 mcg Tablet 75 mcg PO DAILY RF: 0 cyanocobalamin (vitamin B-12) 1,000 mcg Tablet 1,000 mcg PO DAILY RF: 0 docusate sodium [Colace] 100 mg Capsule 100 mg PO BID RF: 0 ferrous sulfate 325 mg (65 mg iron) Tablet 325 mg PO DAILY RF: 0 acetaminophen 325 mg Tablet 650 mg PO Q6H PRN (Reason: pain/fever) RF: 0 bisacodyl [Dulcolax (bisacodyl)] 10 mg Suppository 10 mg WI UD PRN (Reason: Constipation) RF: 0 polyethylene glycol 3350 17 gram Powder In Packet 17 g PO HS RF: 0 pantoprazole 40 mg Tablet,Delayed Release (Dr/Ec) 40 mg PO BID RF: 0 albuterol sulfate 2.5 mg /3 mL (0.083 %) Solution For Nebulization 1.25 mg INHALATION Q4 PRN (Reason: Wheezing) RF: 0 calcium carbonate [Tums] 200 mg calcium (500 mg) Tablet,Chewable 400 mg PO Q6 PRN (Reason: Indigestion) RF: 0 Tap Water Enema 1,000 ml WI UD RF: 0 Stand-Alone Forms: [facility] Discharge Orders: Discharge Order (Routine); Ordered 08/22/18 Ordered By: Oswaldo Mcintosh Skilled Items Patient informed of condition?: Yes DNR: No Discharge Level of Care: Skilled Communicable Disease: No Discharge Prognosis: Stable Admission Data Admit Date/Time: 08/13/18 20:04 Attending Provider: Oswaldo Mcintosh Admit Provider: Violet Rzea Primary Care Provider: [facility] Other Providers: Violet Reza ; Brandt Soni ; Ruth Shields Service: Telemetry
[2018-08-22 15:22] VITALS: BP 94/55; PULSE 68
== END 2018-08-22 15:40 | DRG 280 ==
LOC: ED 16:12 → SUATTDRO 20:04 → 2S 20:04

== ENCOUNTER 2018-08-24 11:04 | Inpatient (IN) ==
[2018-08-24] MEDS ORDERED: fentaNYL citrate 100 MCG/2 ML VIAL IV STA (11:25)
[2018-08-24] MEDS ORDERED: ONDANSETRON INJ 2 MG/ML 2 ML VIAL IV STA (11:25)
[2018-08-24] MEDS ORDERED: ASPIRIN CHEW 324 MG PO STA (11:25)
[2018-08-24] MEDS ORDERED: ALBUT/IPRATROP 3MG/0.5MG NEB 3 ML VIAL NEB STA (11:27)
[2018-08-24 11:33] LABS: Basophils # (auto) 0.02 K/uL (0-0.2); Basophils % (auto) 0.2 %; Eosinophils # (auto) 0.03 K/uL (0-0.5); Eosinophils % (auto) 0.2 %; Hematocrit (blood only) 30.4 % (42-52); Immature Granulocytes # (auto) 0.04 K/uL (0.00-0.02); Immature Granulocytes % (auto) 0.3 %; Lymphocytes # (auto) 0.94 K/uL (1.2-3.4); Lymphocytes % (auto) 7.6 %; Mean Corpuscular Hgb Conc 32.9 g/dL (32-36); Mean Corpuscular Volume 99.7 fL (80-100); Mean Platelet Volume 10.5 fL (7.4-10.4); Monocytes # (auto) 0.84 K/uL (0.11-0.59); Monocytes % (auto) 6.8 %; Neutrophils # (auto) 10.47 K/uL (1.4-6.5); Neutrophils % (auto) 84.9 %; Platelet Count 153 K/uL (130-400); RDW Coefficient of Variation 14.1 % (11.5-14.5); RDW Standard Deviation 50.2 fL (36.4-46.3); Red Blood Count 3.05 M/uL (4.7-6.1); White Blood Count 12.34 K/uL (4.8-10.8)
--- NOTE | 2018-08-24 11:47 | XRay Report ---
XR chest 1V portable HISTORY: 82 years-old Male Chest Pain acute atypical chest pain COMPARISON: Chest radiograph 08/22/2018 TECHNIQUE: Portable AP view of the chest FINDINGS: Cardiac megaly with pulmonary vascular congestion and slightly progressed interstitial opacities, not ably within the left lung. Small bilateral pleural effusions with persistent bibasilar opacities, lef t greater than right. Calcification of the thoracic aorta. No pneumothorax. Healed remote fracture th e proximal left humerus. Degenerative changes of the shoulders and spine. IMPRESSION: 1. Cardiomegaly with slightly progressed pulmonary edema. 2. Small left greater than right pleural effusions with persistent bibasilar opacities suggestive of atelectasis or pneumonitis. The above report was generated using voice recognition software. It may contain grammatical, syntax o r spelling errors. Electronically signed by: Allan Borjas M.D. 08/24/2018 11:45 AM
[2018-08-24 11:50] LABS: Albumin Level 2.6 gm/dl (3.4-5.0); BUN Creatinine Ratio 19.7 (10-20); Calcium 8.4 mg/dl (8.5-10.1); Est GFR (African American) 20.4; Est GFR (Non-African American) 17.6; Potassium 4.9 mmol/L (3.5-5.1)
[2018-08-24 11:57] LABS: Albumin Globulin Ratio 0.6 (0.9-2); Bilirubin,Total 0.5 mg/dl (0.2-1); Globulin 4.3 gm/dl (2.5-4.0); Total Protein 6.9 gm/dl (6.4-8.2); Troponin I 2.19 ng/ml (0-0.045)
[2018-08-24] MEDS ORDERED: ASPIRIN 300 MG SUPP PR ONE (12:01)
--- NOTE | 2018-08-24 12:04 | XRay Report ---
[facility] CLINICAL HISTORY: abd pain, cardiac ischemia COMPARISON STUDY: Abdominal series April 24, 2018. CT of the abdomen and pelvis August 13, 2018. FINDINGS: Pelvic calcifications reflect phleboliths. Bowel gas pattern is normal. IMPRESSION: No evidence for a bowel obstruction. Electronically signed by: Austen Lake M.D. 08/24/2018 12:03 PM
[2018-08-24] MEDS ORDERED: FUROSEMIDE 40 MG/4 ML VIAL IV STA (12:26)
[2018-08-24 12:45] LABS: INR 1.1 (0.9-1.1); Partial Thromboplastin Time 25.9 Seconds (21.0-31.0); Prothrombin Time 11.5 Seconds (9.0-12.0)
--- NOTE | 2018-08-24 13:13 | History & Physical Report ---
Date of Service August 24, 2018 Assessment & Plan (1) Acute respiratory failure with hypoxia: Acute Respiratory Failure Likely multifactorial:Worsening Ischemic CHF (Systolic) , Possible Pneumonia, In setting of COPD at baseline CXR:Cardiomegaly with slightly progressed pulmonary edema. Small left greater than right pleural effusions with persistent bibasilar opacities suggestive of atelectasis or pneumonitis. Continue BiPAP for respiratory support Empirically Start on broad spectrum Antibiotics Continue Nebs No h/o aspiration Appreciate Lead Pastor Help Received IV lasix 40mg in ED repeat CXR in AM and diuretics as needed Monitor volume status STEMI: Evolving Anterolateral Infarct Not a candidate for intervention/anticoagulation due to GI bleed Received Aspirin in ED No aspirin for now due to GI bleed Metoprolol held due to relative Hypotension Not on statins prior Continue Imdur Cardiology Consulted Trend Cardiac Enzymes Palliative care consulted to address goals of Care Atrial Fibrillation: Started on amiodarone during prior admission Metoprolol was held due to relative hypotension Currently in sinus Not a candidate for canticoagulation Ongoing GI Bleed: Likely diverticular bleed H/O Whalen's esophagus, Large Hiatal hernia H/O 3-4 bright bloody BMs --CT ABD on 08/13/18: Sigmoid diverticulosis. Minimal pericolonic infiltration. Mild acute diverticulitis cannot be excluded. Moderate amount of stool within the colon and rectum. No bowel obstruction. Small bowel containing right inguinal hernia without bowel obstruction. Fat-containing left inguinal hernia. KUB: No evidence for a bowel obstruction. --Avoid Aspirin, Anticoagulation, NSAIDs Type and Cross, monitor H&H Started on IV protonix BID Transfuse PRBCs PRN Not a candidate for GI procedures currently due to respiratory status Consider GI eval NPO for now Mild Leukocytosis: Possible Pneumonitis on CXR Blood Cx obtained Continue IV Abx as above Diarrhea: Likely due to GI bleed Hold stool softner Consider to check for C.diff if recours Acute Kidney Injury on CKD III: Likely prerenal due to poor oral intake Baseline Cr ~ 2 Cr: 3.13 Avoid nephrotoxic agents as able Hypothyroidism: Continue Levothyroxine Dementia: At baseline DVT Px: SCDs Re: GI bleed Code Status Full Code as per my discussion with Patient's daughter Disposition: Admit in ICU History of Present Illness Chief Complaint: Abdominal Pain Primary Care Provider: [facility] Patient is an 82 yr male with H/O CAD, COPD, hypothyroidism, dementia, Whalen's esophagus, peripheral vascular disease and other problems who was recently discharged from [facility] after being managed for NSTEMI, hematemesis, CHF presents from [facility] with worsening generalized weakness, shortness of breath, unwitnessed fall, poor appetite and abdominal pain. Patient's history is limited secondary to dementia, hard of hearing. As per the staff at [facility], patient has poor appetite since hospital discharge, has refused breakfast this morning secondary to abdominal pain. Was noted to be hypoxic with Sats in 80s this morning which prompted patient to be sent to ED for further evaluation. No history of aspiration. Chest x-ray suggestive slightly progressed to pulmonary edema, bilateral pleural effusions and bibasilar opacities, possible pneumonitis. Patient was noted to have fell this morning from his wheelchair while going to the bathroom which was unwitnessed. No known history of head trauma, loss of consciousness as per the staff. Patient also has been having 3-4 loose bowel movements with bright red blood since last hospital discharge. Is currently not on aspirin, NSAIDs at [facility]. Patient received neb treatments en route to the hospital and also in ED and was placed on BiPAP for respiratory support. Patient complains of epigastric pain which started this morning. Last CT scan done On 08/13/18 showed findings suggestive of sigmoid diverticulosis with possible mild acute diverticulitis and small right inguinal hernia without obstruction. KUB done today showed no signs of bowel obstruction. EKG suggestive of evaluating anterior infarct pattern, left anterior fascicular block. ED physician discussed with neuroradiologist on-call who suggested that patient not a candidate for intervention. Patient was not a candidate for anticoagulation given history of ongoing GI bleed. Patient received aspirin, IV Lasix while in ED. Discussed about the patient's condition in detail who prefers to continue medical management with Full Code Status. Allergies Allergy/AdvReac Type Severity Reaction Status Date / Time amoxicillin Allergy Unknown Unknown Verified 08/24/18 11:44 diazepam Allergy Unknown Unknown Verified 08/24/18 11:44 Home Medications Home Medications Medication Instructions Recorded Confirmed Type Incruse Ellipta 1 inh INHALATION QAM 04/24/18 08/24/18 History acetaminophen 650 mg PO Q6H PRN 04/24/18 08/24/18 History bisacodyl [Dulcolax (bisacodyl)] 10 mg VA UD PRN 04/24/18 08/24/18 History cyanocobalamin (vitamin B-12) 1,000 mcg PO QAM 04/24/18 08/24/18 History docusate sodium [Colace] 100 mg PO BID 04/24/18 08/24/18 History ferrous sulfate 325 mg PO QAM 04/24/18 08/24/18 History levothyroxine 75 mcg PO QAM 04/24/18 08/24/18 History albuterol sulfate 2.5 mg INHALATION Q4 PRN 08/13/18 08/24/18 History calcium carbonate [Tums] 1,000 mg PO Q6 PRN 08/13/18 08/24/18 History pantoprazole 40 mg PO BID 08/13/18 08/24/18 History polyethylene glycol 3350 17 g PO HS 08/13/18 08/24/18 History amiodarone 200 mg PO TID 30 Days #90 tab 08/22/18 08/24/18 Rx isosorbide dinitrate 10 mg PO BID@0700,1200 30 Days #30 08/22/18 08/24/18 Rx tab metoprolol succinate 12.5 mg PO BID 30 Days #30 tab 08/22/18 08/24/18 Rx tamsulosin 0.4 mg PO QAM 30 Days #30 cap 08/22/18 08/24/18 Rx sodium phosphates [Fleet Enema] 118 ml VA DAILY PRN 08/24/18 08/24/18 History Past Med/Surg History Medical History COPD (chronic obstructive pulmonary disease) (Chronic) Chronic kidney disease (Chronic) Dementia (Chronic) Hearing loss (Chronic) Hypothyroidism (Chronic) Surgical History Surgical history unknown (Chronic) Family History Other Family history unknown Social History Preferred Language: Mongolian Communication Ability: Impaired Beliefs That Will Affect Care: None Current Living Situation: [facility] Other Information That Helps Us Care for You: No Feels Safe at Home: Yes Safety Concerns: Feels Safe At This Time Smoking Status: Unknown if ever smoked Hx Alcohol Use: No Hx Substance Use: No Review of Systems Review of Systems: Unobtainable due to cognitive status Physical Exam Physical Exam: Physical Exam: Vitals signs as noted above General Appearance:Moderately built, Mild respiratory distress, on BiPAP Head: normocephalic, Atraumatic Eyes: normal inspection, EOMI Neck: supple, Trachea midline Respiratory/Chest: Decreased breath sounds, Scattered wheezes Cardiovascular: S1, S2, No murmur Abdomen/GI:Soft, epigastric tender, Bowel sounds present Extremities/Musculoskelatal:normal inspection, Trace B/L pedal edema Neurologic/Psych:grossly no focal neurological deficits Skin: normal color, warm,+Multiple Tattoos Results & Data Vital Signs (Past 12 Hours) Vital Signs Temp Pulse Resp BP Pulse Ox 08/24/18 12:37 72 19 98 08/24/18 11:35 20 84 L 08/24/18 11:22 36.2 C L 81 31 H 111/68 94 08/24/18 11:05 94 Laboratory Results Short CBC 08/24/18 Range/Units 11:23 WBC 12.34 H (4.8-10.8) K/uL Hgb 10.0 L (14.0-18.0) g/dL Hct 30.4 L (42-52) % Plt Count 153 (130-400) K/uL BMP 08/24/18 11:23 Sodium 135 L Potassium 4.9 Chloride 101 Carbon Dioxide 26 BUN 62 H Creatinine 3.13 H Glucose 121 H Calcium 8.4 L Cardiac Enzymes 08/24/18 Range/Units 11:23 Troponin I 2.190 H* (0-0.045) ng/ml Liver Function 08/24/18 Range/Units 11:23 Total Bilirubin 0.5 (0.2-1) mg/dl AST 15 (15-37) U/L ALT 21 (12-78) U/L Alkaline Phosphatase 89 (45-117) U/L Albumin 2.6 L (3.4-5.0) gm/dl Diagnostic Findings CXR: 1. Cardiomegaly with slightly progressed pulmonary edema. 2. Small left greater than right pleural effusions with persistent bibasilar opacities suggestive of atelectasis or pneumonitis. KUB: No evidence for a bowel obstruction. ECG Additional Comments: EKG: Sinus, PACs, LAFB, Anterolateral ST elevation
--- NOTE | 2018-08-24 14:41 | Emergency Department Note ---
Entered by Shobha Giles acting as a scribe for History of Present Illness General Chief complaint: Hypotension Time Seen by Provider: 08/24/18 11:23 Source: patient and EMS Mode of arrival: EMS Limitations: no limitations History of Present Illness Onset (ago): hour(s) 2 Radiation: non-radiation Pain Consistency: + constant Relieved By: + none Exacerbated By: + none Associated symptoms: + nausea/vomiting and + other (+abdominal pain) Treatments prior to arrival: none The patient is an 82 year old male who presents to the ED with complaints of hypotension. He was brought to the ED via EMS from the [facility], [place] where he resides. He currently complains of nausea and abdominal pain. Nursing is unsure if he has vomited. Upon review of his previous visits, the patient was seen here in the ED at the end of July with a STEMI and could not be anticoagulated due to hematemesis. He had a CT scan on August 13 that showed a bowel containing right inguinal hernia without obstruction moderate stool and diverticulosis. Home Medications Home Medications Medication Instructions Recorded Confirmed Type Incruse Ellipta 1 inh INHALATION QAM 04/24/18 08/24/18 History acetaminophen 650 mg PO Q6H PRN 04/24/18 08/24/18 History bisacodyl [Dulcolax (bisacodyl)] 10 mg MS UD PRN 04/24/18 08/24/18 History cyanocobalamin (vitamin B-12) 1,000 mcg PO QAM 04/24/18 08/24/18 History docusate sodium [Colace] 100 mg PO BID 04/24/18 08/24/18 History ferrous sulfate 325 mg PO QAM 04/24/18 08/24/18 History levothyroxine 75 mcg PO QAM 04/24/18 08/24/18 History albuterol sulfate 2.5 mg INHALATION Q4 PRN 08/13/18 08/24/18 History calcium carbonate [Tums] 1,000 mg PO Q6 PRN 08/13/18 08/24/18 History pantoprazole 40 mg PO BID 08/13/18 08/24/18 History polyethylene glycol 3350 17 g PO HS 08/13/18 08/24/18 History amiodarone 200 mg PO TID 30 Days #90 tab 08/22/18 08/24/18 Rx isosorbide dinitrate 10 mg PO BID@0700,1200 30 Days #30 08/22/18 08/24/18 Rx tab metoprolol succinate 12.5 mg PO BID 30 Days #30 tab 08/22/18 08/24/18 Rx tamsulosin 0.4 mg PO QAM 30 Days #30 cap 08/22/18 08/24/18 Rx sodium phosphates [Fleet Enema] 118 ml MS DAILY PRN 08/24/18 08/24/18 History Allergies Allergy/AdvReac Type Severity Reaction Status Date / Time amoxicillin Allergy Unknown Unknown Verified 08/24/18 11:44 diazepam Allergy Unknown Unknown Verified 08/24/18 11:44 Past Med/Surg History Medical History COPD (chronic obstructive pulmonary disease) (Chronic) Chronic kidney disease (Chronic) Dementia (Chronic) Hearing loss (Chronic) Hypothyroidism (Chronic) Surgical History Surgical history unknown (Chronic) Family History Other Family history unknown Social History Preferred Language: Austrian Communication Ability: Effective Beliefs That Will Affect Care: None Current Living Situation: [facility] Other Information That Helps Us Care for You: No Feels Safe at Home: Yes Safety Concerns: Feels Safe At This Time Smoking Status: Unknown if ever smoked Hx Alcohol Use: No Hx Substance Use: No Review of Systems See HPI for pertinent positives & negatives. Other (Limited due to pt clinical condition) Physical Exam Vital Signs Vital Signs - 24 hr 08/24/18 11:05 08/24/18 11:10 08/24/18 11:16 Temperature Temperature Source Sepsis Recent Fever Within 48 Hours Sepsis New/Unexplained Change in Mental Status Sepsis Action Taken by Nursing Pulse Rate 81 79 Pulse Rate [Right Finger] Pulse Rate from SpO2 Sensor 76 76 Pulse Rhythm Respiratory Rate 25 H 25 H Respiratory Effort / Characteristics Respiratory Depth Respiratory Pattern Blood Pressure 111/68 Blood Pressure [Right Arm] Blood Pressure Mean 82 Blood Pressure Mean [Right Arm] Blood Pressure Position Pulse Oximetry 94 94 98 Oxygen Delivery Method Non-rebreather Non-rebreather Non-rebreather Oxygen Flow Rate 15 15 15 Fraction of Inspired Oxygen 08/24/18 11:17 08/24/18 11:22 08/24/18 11:30 Temperature 36.2 C L Temperature Source Oral Sepsis Recent Fever Within 48 Hours No Sepsis New/Unexplained Change in Mental Status No Sepsis Action Taken by Nursing No Action Required Pulse Rate 81 81 88 Pulse Rate [Right Finger] Pulse Rate from SpO2 Sensor 81 Pulse Rhythm Irregular Respiratory Rate 31 H 31 H 23 Respiratory Effort / Characteristics Non-Labored Spontaneous Respiratory Depth Shallow Respiratory Pattern Regular Blood Pressure 103/63 111/68 103/63 Blood Pressure [Right Arm] Blood Pressure Mean 76 82 76 Blood Pressure Mean [Right Arm] Blood Pressure Position Lying Pulse Oximetry 95 94 Oxygen Delivery Method Non-rebreather Non-rebreather Oxygen Flow Rate 15 15 Fraction of Inspired Oxygen 08/24/18 11:31 08/24/18 11:35 08/24/18 12:00 Temperature Temperature Source Sepsis Recent Fever Within 48 Hours Sepsis New/Unexplained Change in Mental Status Sepsis Action Taken by Nursing Pulse Rate 82 75 Pulse Rate [Right Finger] Pulse Rate from SpO2 Sensor 80 75 Pulse Rhythm Respiratory Rate 32 H 20 19 Respiratory Effort / Characteristics Non-Labored Spontaneous Respiratory Depth Respiratory Pattern Blood Pressure Blood Pressure [Right Arm] Blood Pressure Mean Blood Pressure Mean [Right Arm] Blood Pressure Position Pulse Oximetry 85 L 84 L 89 L Oxygen Delivery Method Nebulizer Non-rebreather Oxymask Oxygen Flow Rate 15 10 Fraction of Inspired Oxygen 08/24/18 12:30 08/24/18 12:37 08/24/18 12:45 Temperature Temperature Source Sepsis Recent Fever Within 48 Hours Sepsis New/Unexplained Change in Mental Status Sepsis Action Taken by Nursing Pulse Rate 81 72 77 Pulse Rate [Right Finger] Pulse Rate from SpO2 Sensor 83 71 Pulse Rhythm Respiratory Rate 16 19 17 Respiratory Effort / Characteristics Spontaneous Respiratory Depth Normal Respiratory Pattern Regular Blood Pressure 108/52 L 104/61 Blood Pressure [Right Arm] Blood Pressure Mean 70 75 Blood Pressure Mean [Right Arm] Blood Pressure Position Pulse Oximetry 89 L 98 94 Oxygen Delivery Method Oxymask BiPAP Oxygen Flow Rate Fraction of Inspired Oxygen 70 08/24/18 13:00 08/24/18 13:15 08/24/18 14:05 Temperature Temperature Source Sepsis Recent Fever Within 48 Hours Sepsis New/Unexplained Change in Mental Status Sepsis Action Taken by Nursing Pulse Rate 77 74 Pulse Rate [Right Finger] 73 Pulse Rate from SpO2 Sensor 71 70 Pulse Rhythm Respiratory Rate 17 17 12 Respiratory Effort / Characteristics Non-Labored Spontaneous Respiratory Depth Normal Respiratory Pattern Blood Pressure 109/62 106/66 Blood Pressure [Right Arm] 103/58 L Blood Pressure Mean 77 79 Blood Pressure Mean [Right Arm] 73 Blood Pressure Position Pulse Oximetry 96 98 94 Oxygen Delivery Method BiPAP BiPAP BiPAP Oxygen Flow Rate Fraction of Inspired Oxygen Vital signs reviewed. General: Chronically ill-appearing 82 year old male, in some respiratory disco mfort. HEENT: No scleral icterus, PERRLA, neck supple. Atraumatic. Cardiovascular: Regular rate and rhythm, no extra sounds. Pulmonary: Course breath sounds bilaterally, increased work of breathing. Abdomen: Soft, nontender, nondistended, positive bowel sounds. Rectal: Trace heme positive stool. normal mucosa. Musculoskeletal: Atraumatic, positive LE edema. Neurologic: Patient awake but slow to respond. on NRB. Skin: Warm, dry, no rash Course 1124: The patient was evaluated in room C6 and a complete history and physical were performed. 1120: I discussed the patients case with Erika Martinez [facility]iology. He states the patient is not an intervention candidate. 1244: [facility] The patient will be further evaluated. 1250: I reevaluated the patient. He is resting comfortably. I discussed his results and my recommendation he remain in the hospital for further evaluation and management. He is agreeable with the plan. I placed him on Bipap and gave him 80 mg Lasix IV. Consultations Consultation #1: I discussed the patients case with Erika Martinez Cardiology. He states the patient is not an interventional candidate. Time: 11:20 Consultation #2: I discussed the patients case with Erika [facility]. The patient will be further evaluated. Time: 12:44 Administered Medications Amiodarone HCl (Cordarone) 200 mg PO BID [facility] Stop: 09/26/18 08:59 Last Admin: 08/27/18 08:45 Dose: 200 mg Documented by: [id number] Cefepime HCl 2,000 mg/ Syringe 20 mls @ 5.5 mls/min IV DAILY@1600 HENRIK; Protocol Stop: 08/31/18 15:59 Last Admin: 08/26/18 15:52 Dose: 5.5 mls/min Documented by: [id number] Admin: 08/25/18 16:15 Dose: 5.5 mls/min Documented by: [id number] Admin: 08/24/18 16:41 Dose: 5.5 mls/min Documented by: [id number] Levalbuterol HCl (Xopenex 0.63 Mg/3 Ml Neb) 0.63 mg NEB Q6R HENRIK Stop: 09/25/18 01:59 Last Admin: 08/27/18 07:10 Dose: 0.63 mg Documented by: [id number] Admin: 08/27/18 01:50 Dose: 0.63 mg Documented by: [id number] Admin: 08/26/18 19:50 Dose: 0.63 mg Documented by: [id number] Admin: 08/26/18 14:27 Dose: 0.63 mg Documented by: [id number] Admin: 08/26/18 07:11 Dose: 0.63 mg Documented by: [id number] Admin: 08/26/18 02:00 Dose: 0.63 mg Documented by: [id number] Levothyroxine Sodium (Synthroid) 75 mcg PO DAILYBB [facility] Stop: 09/26/18 06:29 Last Admin: 08/27/18 08:43 Dose: Not Given Documented by: [id number] Miscellaneous (Order Awaiting Action) 1 ea N/A QS [facility] Stop: 09/24/18 00:00 Last Admin: 08/27/18 08:43 Dose: Not Given Documented by: [id number] Admin: 08/27/18 01:24 Dose: Not Given Documented by: [id number] Admin: 08/26/18 15:52 Dose: Not Given Documented by: [id number] Admin: 08/26/18 07:30 Dose: Not Given Documented by: [id number] Admin: 08/25/18 19:37 Dose: Not Given Documented by: [id number] Admin: 08/25/18 16:52 Dose: Not Given Documented by: [id number] Admin: 08/25/18 07:47 Dose: Not Given Documented by: [id number] Admin: 08/25/18 00:49 Dose: Not Given Documented by: [id number] Nitroglycerin (Nitro-Bid 2%) 0.25 inch EXT Q6H HENRIK Stop: 09/26/18 08:29 Last Admin: 08/27/18 08:45 Dose: Not Given Documented by: [id number] Pantoprazole Sodium (Protonix) 40 mg PO BID [facility] Stop: 09/25/18 20:59 Last Admin: 08/27/18 08:45 Dose: 40 mg Documented by: [id number] Admin: 08/26/18 21:27 Dose: 40 mg Documented by: [id number] Polyethylene Glycol (Miralax Powder Packet) 17 gm PO DAILY [facility] Stop: 09/25/18 13:14 Last Admin: 08/27/18 08:46 Dose: 17 gm Documented by: [id number] Admin: 08/26/18 14:20 Dose: 17 gm Documented by: [id number] Discontinued Medications Albuterol (Duoneb) 3 ml NEB QIDR [facility] Stop: 09/23/18 15:59 Last Admin: 08/25/18 19:24 Dose: 3 ml Documented by: [id number] Admin: 08/25/18 15:57 Dose: 3 ml Documented by: [id number] Admin: 08/25/18 11:13 Dose: 3 ml Documented by: [id number] Admin: 08/25/18 07:04 Dose: 3 ml Documented by: [id number] Admin: 08/24/18 18:58 Dose: 3 ml Documented by: [id number] Admin: 08/24/18 16:39 Dose: 3 ml Documented by: [id number] Albuterol (Duoneb) 3 ml NEB NOW STA Stop: 08/24/18 11:28 Last Admin: 08/24/18 11:33 Dose: 3 ml Documented by: [id number] Amiodarone HCl (Cordarone) 200 mg PO TID [facility] Stop: 09/23/18 20:59 Last Admin: 08/26/18 21:27 Dose: 200 mg Documented by: [id number] Admin: 08/26/18 14:19 Dose: 200 mg Documented by: [id number] Admin: 08/26/18 08:51 Dose: 200 mg Documented by: [id number] Admin: 08/25/18 19:33 Dose: 200 mg Documented by: [id number] Admin: 08/25/18 13:10 Dose: 200 mg Documented by: [id number] Admin: 08/25/18 08:59 Dose: Not Given Documented by: [id number] Admin: 08/25/18 00:49 Dose: Not Given Documented by: [id number] Aspirin (Aspirin) 324 mg PO NOW STA Stop: 08/24/18 11:26 Last Admin: 08/24/18 12:04 Dose: Not Given Documented by: [id number] Aspirin (Aspirin) 300 mg MS ONE ONE Stop: 08/24/18 12:02 Last Admin: 08/24/18 12:49 Dose: 300 mg Documented by: [id number] Fentanyl Citrate (Fentanyl Citrate) 50 mcg IV NOW STA Stop: 08/24/18 11:26 Last Admin: 08/24/18 12:12 Dose: 50 mcg Documented by: [id number] Furosemide (Lasix) 40 mg IV NOW STA Stop: 08/24/18 12:27 Last Admin: 08/24/18 12:56 Dose: 40 mg Documented by: [id number] Vancomycin HCl 1,750 mg/ (Sodium Chloride) 535 mls @ 200 mls/hr IV 1630 ONE; Protocol Stop: 08/24/18 19:10 Last Infusion: 08/24/18 19:25 Dose: 0 mls/hr Documented by: [id number] Admin: 08/24/18 16:41 Dose: 200 mls/hr Documented by: [id number] Cefepime HCl 2,000 mg/ Syringe 20 mls @ 5.5 mls/min IV 1545 HENRIK; Protocol Stop: 08/24/18 15:49 Last Admin: 08/24/18 16:42 Dose: 5.5 mls/min Documented by: [id number] Levothyroxine Sodium 37.5 mcg/ (Syringe) 1.875 mls @ 2 mls/min IV DAILY@0900 HENRIK Stop: 09/24/18 08:59 Last Admin: 08/26/18 08:50 Dose: 2 mls/min Documented by: [id number] Admin: 08/25/18 09:00 Dose: 2 mls/min Documented by: [id number] Vancomycin HCl 1,000 mg/ (Sodium Chloride) 270 mls @ 125 mls/hr IV 1000 HENRIK Stop: 08/25/18 12:10 Last Infusion: 08/25/18 12:14 Dose: 0 mls/hr Documented by: [id number] Admin: 08/25/18 09:54 Dose: 125 mls/hr Documented by: [id number] Furosemide 80 mg/ Syringe 8 mls @ 4 mls/min IV TODAY@1145 ONE Stop: 08/25/18 11:46 Last Admin: 08/25/18 11:45 Dose: 4 mls/min Documented by: [id number] Furosemide 80 mg/ Syringe 8 mls @ 4 mls/min IV 0900 ONE Stop: 08/27/18 09:01 Last Admin: 08/27/18 08:45 Dose: 4 mls/min Documented by: [id number] Pantoprazole Sodium 40 mg/ (Syringe) 10 mls @ 5 mls/min IV 1500 ONE Stop: 08/24/18 15:01 Last Admin: 08/24/18 15:13 Dose: 5 mls/min Documented by: [id number] Pantoprazole Sodium 40 mg/ (Syringe) 10 mls @ 5 mls/min IV BID@0900,2100 HENRIK Stop: 09/23/18 20:59 Last Admin: 08/26/18 08:51 Dose: 5 mls/min Documented by: [id number] Admin: 08/25/18 19:34 Dose: 5 mls/min Documented by: [id number] Admin: 08/25/18 09:09 Dose: 5 mls/min Documented by: [id number] Admin: 08/24/18 21:34 Dose: 5 mls/min Documented by: [id number] Isosorbide Dinitrate (Isordil) 10 mg PO BID@0700,1200 HENRIK Stop: 09/24/18 06:59 Last Admin: 08/27/18 09:02 Dose: Not Given Documented by: [id number] Admin: 08/26/18 12:15 Dose: Not Given Documented by: [id number] Admin: 08/26/18 07:30 Dose: Not Given Documented by: [id number] Admin: 08/25/18 11:45 Dose: Not Given Documented by: [id number] Admin: 08/25/18 07:47 Dose: Not Given Documented by: [id number] Metoprolol Tartrate (Lopressor) 2.5 mg IV NOW STA Stop: 08/25/18 13:03 Last Admin: 08/25/18 13:00 Dose: 2.5 mg Documented by: [id number] Ondansetron HCl (Zofran) 4 mg IV NOW STA Stop: 08/24/18 11:26 Last Admin: 08/24/18 12:12 Dose: 4 mg Documented by: [id number] Medical Decision Making Differential Diagnosis Differential diagnoses includes but is not limited to pneumonia, bronchitis, COPD/Asthma exacerbation, pneumothorax, pulmonary embolism, congestive heart failure, acute coronary syndrome Medical Records Attestation: I reviewed the patient's medical records. Home Medications Current Medication List: was personally reviewed by me Laboratory Data Attestation: I reviewed the patient's lab results. Result diagrams: 08/27/18 04:22 08/27/18 04:22 Lab Results 08/24/18 08/24/18 08/24/18 Range/Units 11:23 11:23 11:23 WBC 12.34 H (4.8-10.8) K/uL RBC 3.05 L (4.7-6.1) M/uL Hgb 10.0 L (14.0-18.0) g/dL Hct 30.4 L (42-52) % MCV 99.7 (80-100) fL MCH 32.8 (25-34) pg MCHC 32.9 (32-36) g/dL RDW Std Deviation 50.2 H (36.4-46.3) fL RDW Coeff of [place] 14.1 (11.5-14.5) % Plt Count 153 (130-400) K/uL MPV 10.5 H (7.4-10.4) fL Immature Gran % (Auto) 0.3 % Neut % (Auto) 84.9 % Lymph % (Auto) 7.6 % [place] % (Auto) 6.8 % Eos % (Auto) 0.2 % Baso % (Auto) 0.2 % Immature Gran # (Auto) 0.04 H (0.00-0.02) K/uL Neut # (Auto) 10.47 H (1.4-6.5) K/uL Lymph # (Auto) 0.94 L (1.2-3.4) K/uL [place] # (Auto) 0.84 H (0.11-0.59) K/uL Eos # (Auto) 0.03 (0-0.5) K/uL Baso # (Auto) 0.02 (0-0.2) K/uL PT 11.5 (9.0-12.0) Seconds INR 1.1 (0.9-1.1) APTT 25.9 (21.0-31.0) Seconds PTT Ratio 1.0 Sodium 135 L (136-145) mmol/L Potassium 4.9 (3.5-5.1) mmol/L Chloride 101 (98-107) mmol/L Carbon Dioxide 26 (21-32) mmol/L Anion Gap 8.0 (3-11) BUN 62 H (7-18) mg/dl Creatinine 3.13 H (0.6-1.4) mg/dl Est Cr Clr Drug Dosing 17.0 ml/min Est GFR ( Amer) 20.4 Est GFR (Non-Af Amer) 17.6 BUN/Creatinine Ratio 19.7 (10-20) Glucose 121 H (70-99) mg/dl Calcium 8.4 L (8.5-10.1) mg/dl Total Bilirubin 0.5 (0.2-1) mg/dl AST 15 (15-37) U/L ALT 21 (12-78) U/L Alkaline Phosphatase 89 (45-117) U/L Troponin I 2.190 H* (0-0.045) ng/ml Total Protein 6.9 (6.4-8.2) gm/dl Albumin 2.6 L (3.4-5.0) gm/dl Globulin 4.3 H (2.5-4.0) gm/dl Albumin/Globulin Ratio 0.6 L (0.9-2) Lipase 107 (73-393) U/L Imaging Data Radiologist's Impression: Radiology results as stated below per my review and the radiologist's interpretation: [facility] CLINICAL HISTORY: abd pain, cardiac ischemia COMPARISON STUDY: Abdominal series April 24, 2018. CT of the abdomen and pelvis August 13, 2018. FINDINGS: Pelvic calcifications reflect phleboliths. Bowel gas pattern is normal. IMPRESSION: No evidence for a bowel obstruction. Electronically signed by: Austen Lake M.D. 08/24/2018 12:03 PM XR chest 1V portable HISTORY: 82 years-old Male Chest Pain acute atypical chest pain COMPARISON: Chest radiograph 08/22/2018 TECHNIQUE: Portable AP view of the chest FINDINGS: Cardiac megaly with pulmonary vascular congestion and slightly progressed interstitial opacities, notably within the left lung. Small bilateral pleural effusions with persistent bibasilar opacities, left greater than right. Calcification of the thoracic aorta. No pneumothorax. Healed remote fracture the proximal left humerus. Degenerative changes of the shoulders and spine. IMPRESSION: 1. Cardiomegaly with slightly progressed pulmonary edema. 2. Small left greater than right pleural effusions with persistent bibasilar opacities suggestive of atelectasis or pneumonitis. The above report was generated using voice recognition software. It may contain grammatical, syntax or spelling errors. Electronically signed by: Allan Borjas M.D. 08/24/2018 11:45 AM ECG Data Attestation: I personally reviewed and interpreted this ECG as follows: Indication: other (Hypotension) Rate (beats per minute): 80 Rhythm: sinus rhythm Findings: + other (Evolving anterior infarct pattern), + LAFB, + PAC and + Q waves (Inferior, anterior and lateral leads) Comparison ECG Date: from (Earlier tracing on 08/24/2018) Change: no significant change Blood Pressure Blood Pressure Findings: Normal blood pressure Blood Pressure Disposition: did not require urgent referral MDM Narrative This pt was evaluated and appeared to be chronically ill. O2 sats were borderline. EKG reveals anterior infarct pattern, improved from recent admission, although acuity is difficult to assess. Pt was d/w cardiology, Dr. Franco, who knows the pt. States pt was not a candidate for intervention or anticoagulation. Pt has very low EF and recent hematemesis. Pt is currently stool guaiac positive, no gross blood. CXR reveals congestion, IV lasix was given and aduoneb tx. Pt was placed on bipap with better saturations. He was given ASA MS. Pt was d/w the hospitalist service for further management. Impression & Plan ACS (acute coronary syndrome), CHF (congestive heart failure) Critical Care Time Critical Care Time: Yes Total Critical Care Time: 45 I have personally spent 45 minutes of critical care time in the direct management of this patient. This includes bedside care, interpretation of diagnostic studies, and testing, discussion with consultants, patient, and family members, and other required patient management activities. This 45 minutes is in excess of all separately billable procedures. Discharge Plan Visit Data *Final* Discharge Date/Time: 08/24/18 15:47 Chief Complaint: Hypotension ED Provider: Maile Catalan Discharge Problem: ACS (acute coronary syndrome), CHF (congestive heart failure) Patient Disposition: Admitted As Inpatient Discharge Instructions Interventions: ED Discharge Assessment Last Done: 08/24/18 15:47 The scribe's documentation has been prepared under my direction and personally reviewed by me in its entirety. I confirm that the note above accurately reflects all work, treatment, procedures, and medical decision making performed by me.
--- NOTE | 2018-08-24 14:57 | Critical Care Consultation ---
Date of Consultation August 24, 2018 Assessment & Plan (1) Acute respiratory failure with hypoxia: Neuro- altered mental status. unclear baseline. but based on prior notes may be slightly worse. hard of hearing CV- hypotension intially now BP stable. recent STEMI treated medically due to GI bleed and renal failure. troponin remains 2.19 but was 27.9 on 08/17. ECG with ST elevations similar to prior ECG. aspirin, statin hold off on b [place] with borderline BP. would avoid further diuresis. afib on amiodarone Pulmonary- acute hypoxic respiratory failure. I suspect pneumonia. may also be pulmonary edema. doubt PE. continue bipap. titrate fio2 for sat >90%. history of COPD - no clear exacerbation. albuterol, ipratropium. ID- concerned for pneumonia. CXR does not appear different though she has crackles in L base and new WBC, hypothermia and hypoxia. vancomycin and cefepime Renal- CKD. cr slightly higher than previous GI- NPO for now. hgb stable. no clear evidence of significant bleeding. abdominal pain. T/C repeat CT abd/pelvis Heme- leukocytosis, anemia. heparin proph Endocrine- keep blood sugars <180. levothyroxine for hypothyroidism Dispo- admit to ICU for ventilatory support I have personally spent 45 minutes of critical care time in the direct management of this patient. This is a life/limb threatening event. This includes time spent evaluating patient, direct bedside care, chart review, placing orders, interpretation of diagnostic studies, discussion with consultants, patient, and/or family members regarding treatment decisions, as well as other required patient management activities. This time is exclusive of all separately billable procedures, and teaching time and separate from and in addition to any other critical care service time. History of Present Illness History of Present Illness 82 y/o male with a history of CAD, CHF, COPD, hypothyroidism, dementia, CKD who presents with nausea, abdominal pain, hypotension and hypoxia. He was recently discharged 2 days ago after being admitted for STEMI and GI bleed which were treated medically. At the time EF 20-25%. Today he was sent from [place] because he o2 sats was in 80s. He was placed on bipap in the ED and his oxygenation is improved. He is unable to provide further history and grunts when I ask questions. per report pt has been having loose bowel movements with blood Allergies Allergy/AdvReac Type Severity Reaction Status Date / Time amoxicillin Allergy Unknown Unknown Verified 08/24/18 11:44 diazepam Allergy Unknown Unknown Verified 08/24/18 11:44 Home Medications Home Medications Medication Instructions Recorded Confirmed Type Incruse Ellipta 1 inh INHALATION QAM 04/24/18 08/24/18 History acetaminophen 650 mg PO Q6H PRN 04/24/18 08/24/18 History bisacodyl [Dulcolax (bisacodyl)] 10 mg MS UD PRN 04/24/18 08/24/18 History cyanocobalamin (vitamin B-12) 1,000 mcg PO QAM 04/24/18 08/24/18 History docusate sodium [Colace] 100 mg PO BID 04/24/18 08/24/18 History ferrous sulfate 325 mg PO QAM 04/24/18 08/24/18 History levothyroxine 75 mcg PO QAM 04/24/18 08/24/18 History albuterol sulfate 2.5 mg INHALATION Q4 PRN 08/13/18 08/24/18 History calcium carbonate [Tums] 1,000 mg PO Q6 PRN 08/13/18 08/24/18 History pantoprazole 40 mg PO BID 08/13/18 08/24/18 History polyethylene glycol 3350 17 g PO HS 08/13/18 08/24/18 History amiodarone 200 mg PO TID 30 Days #90 tab 08/22/18 08/24/18 Rx isosorbide dinitrate 10 mg PO BID@0700,1200 30 Days #30 08/22/18 08/24/18 Rx tab metoprolol succinate 12.5 mg PO BID 30 Days #30 tab 08/22/18 08/24/18 Rx tamsulosin 0.4 mg PO QAM 30 Days #30 cap 08/22/18 08/24/18 Rx sodium phosphates [Fleet Enema] 118 ml MS DAILY PRN 08/24/18 08/24/18 History Patient History Medical History COPD (chronic obstructive pulmonary disease) (Chronic) Chronic kidney disease (Chronic) Dementia (Chronic) Hearing loss (Chronic) Hypothyroidism (Chronic) Surgical History Surgical history unknown (Chronic) Family History Other Family history unknown Social History Preferred Language: Cuban Communication Ability: Impaired Beliefs That Will Affect Care: None Current Living Situation: [facility] Other Information That Helps Us Care for You: No Feels Safe at Home: Yes Safety Concerns: Feels Safe At This Time Smoking Status: Unknown if ever smoked Hx Alcohol Use: No Hx Substance Use: No Review of Systems Review of Systems: Unobtainable due to cognitive status Physical Exam Physical Exam: Constitutional: Comfortable NAD on bipap 60% HEENT: normocephalic atraumatic. MMM. no cervical lymphadenopathy CV: RRR nl s1,s2 no murmurs rubs or gallops Lungs: clear on R crackles on L base. no accessory muscle use Abd: soft seemed to be tender on initial eval but unable to reproduce tenderness nondistended. normal bowel sounds Ext: no edema. no cyanosis, no clubbing Skin: warm dry Neuro: awake but not answering questions. moving all extremities Psych: grunting to all questions Results & Data Vital Signs (Past 12 Hours) Vital Signs Temp Pulse Pulse Resp BP BP Pulse Ox 08/24/18 14:05 73 12 103/58 L 94 08/24/18 13:15 74 17 106/66 98 08/24/18 13:00 77 17 109/62 96 08/24/18 12:45 77 17 104/61 94 08/24/18 12:37 72 19 98 08/24/18 12:30 81 16 108/52 L 89 L 08/24/18 12:00 75 19 89 L 08/24/18 11:35 20 84 L 08/24/18 11:31 82 32 H 85 L 08/24/18 11:30 88 23 103/63 08/24/18 11:22 36.2 C L 81 31 H 111/68 94 08/24/18 11:17 81 31 H 103/63 95 08/24/18 11:16 79 25 H 98 08/24/18 11:10 81 25 H 111/68 94 08/24/18 11:05 94 Laboratory Results Laboratory Results - last 24 hr 0708/24/18 08/24/18 11:23 11:23 11:23 WBC 12.34 H RBC 3.05 L Hgb 10.0 L Hct 30.4 L MCV 99.7 MCH 32.8 MCHC 32.9 RDW Std Deviation 50.2 H RDW Coeff of [place] 14.1 Plt Count 153 MPV 10.5 H Immature Gran % (Auto) 0.3 Neut % (Auto) 84.9 Lymph % (Auto) 7.6 [place] % (Auto) 6.8 Eos % (Auto) 0.2 Baso % (Auto) 0.2 Immature Gran # (Auto) 0.04 H Neut # (Auto) 10.47 H Lymph # (Auto) 0.94 L [place] # (Auto) 0.84 H Eos # (Auto) 0.03 Baso # (Auto) 0.02 PT 11.5 INR 1.1 APTT 25.9 PTT Ratio 1.0 Sodium 135 L Potassium 4.9 Chloride 101 Carbon Dioxide 26 Anion Gap 8.0 BUN 62 H Creatinine 3.13 H Est Cr Clr Drug Dosing 17.0 Est GFR ( Amer) 20.4 Est GFR (Non-Af Amer) 17.6 BUN/Creatinine Ratio 19.7 Glucose 121 H Calcium 8.4 L Total Bilirubin 0.5 AST 15 ALT 21 Alkaline Phosphatase 89 Troponin I 2.190 H* Total Protein 6.9 Albumin 2.6 L Globulin 4.3 H Albumin/Globulin Ratio 0.6 L Lipase 107 Diagnostic Findings XR chest 1V portable HISTORY: 82 years-old Male Chest Pain acute atypical chest pain COMPARISON: Chest radiograph 08/22/2018 TECHNIQUE: Portable AP view of the chest FINDINGS: Cardiac megaly with pulmonary vascular congestion and slightly progressed interstitial opacities, notably within the left lung. Small bilateral pleural effusions with persistent bibasilar opacities, left greater than right. Calcification of the thoracic aorta. No pneumothorax. Healed remote fracture the proximal left humerus. Degenerative changes of the shoulders and spine. IMPRESSION: 1. Cardiomegaly with slightly progressed pulmonary edema. 2. Small left greater than right pleural effusions with persistent bibasilar opacities suggestive of atelectasis or pneumonitis. The above report was generated using voice recognition software. It may contain grammatical, syntax or spelling errors. Electronically signed by: Allan Borjas M.D. 08/24/2018 11:45 AM PG Care Time/CCT Critical Care Time: Yes Total Critical Care Time: 45
[2018-08-24] MEDS ORDERED: PANTOprazole 40 MG in SYRINGE 0 ML IV ONE (15:00)
[2018-08-24] MEDS ORDERED: VANCOMYCIN CONSULT ACTIVE PRN (15:16)
[2018-08-24] MEDS ORDERED: CEFEPIME 2,000 MG in SYRINGE 7.5 ML IV SCH (15:45)
[2018-08-24] MEDS ORDERED: ICU PROTOCOL FOR HYPERGLYCEMIA PRN (15:54)
[2018-08-24] MEDS ORDERED: ACETAMINOPHEN 1,000 MG/100 ML VIAL IV PRN (15:54)
[2018-08-24] MEDS ORDERED: ALBUTEROL 0.083% NEBU SOLN 3 ML VIAL INH PRN (15:54)
[2018-08-24] MEDS ORDERED: SODIUM CHLORIDE 0.9% 250 ML IV PRN (15:54)
[2018-08-24] MEDS ORDERED: VANCOMYCIN HCL 1,750 MG in SODIUM CHLORIDE 0.9% 500 ML IV ONE (16:30)
[2018-08-24] MEDS: ALBUT/IPRATROP 3MG/0.5MG NEB 3 ML VIAL NEB SCH ×2 (16:39→18:58)
[2018-08-24] MEDS: CEFEPIME 2,000 MG in SYRINGE 7.5 ML IV SCH (16:41)
[2018-08-24 16:52] LABS: Hematocrit (blood only) 30.7 % (42-52)
--- NOTE | 2018-08-24 19:51 | Pharmacy Report ---
Pharmacy Abx Dose Short Note - Date of Service August 24, 2018 - Assessment & Plan Assessment 82 year old M receiving broad spectrum coverage with IV Vancomycin/Cefepime for treatment of possible pneumonia. Patient ARF and recent hospitalization. Blood cultures X2 drawn today and are pending. Due to renal dysfunction, will initiate IV Vancomycin with single 25 mg/kg loading dose (1750mg) and will check random level tomorrow morning to assess clearance. Day # 1 Vancomycin/Cefepime antimicrobial therapy. Plan Vancomycin * Vancomycin 1750mg (25 mg/kg) given at 1642 hours today * Goal trough level for pneumonia: 15 to 20 mcg/mL * Random level ordered for: 08/25/18 with morning labs Pharmacy will continue to follow and will adjust dose/frequency as necessary. Thank you.
[2018-08-24] MEDS: PANTOprazole 40 MG in SYRINGE 0 ML IV SCH (21:34)
[2018-08-24 23:25] LABS: Hematocrit (blood only) 28.4 % (42-52); Hemoglobin 9.3 g/dL (14.0-18.0)
[2018-08-25] MEDS: AMIODARONE 200 MG TAB PO SCH ×4 (00:49→19:33)
[2018-08-25 04:59] LABS: Basophils # (auto) 0.02 K/uL (0-0.2); Basophils % (auto) 0.2 %; Eosinophils # (auto) 0.14 K/uL (0-0.5); Eosinophils % (auto) 1.3 %; Hematocrit (blood only) 29.8 % (42-52); Hemoglobin 9.8 g/dL (14.0-18.0); Immature Granulocytes # (auto) 0.04 K/uL (0.00-0.02); Immature Granulocytes % (auto) 0.4 %; Lymphocytes # (auto) 1.05 K/uL (1.2-3.4); Lymphocytes % (auto) 9.5 %; Mean Corpuscular Hgb Conc 32.9 g/dL (32-36); Mean Platelet Volume 10.6 fL (7.4-10.4); Monocytes # (auto) 0.87 K/uL (0.11-0.59); Monocytes % (auto) 7.8 %; Neutrophils # (auto) 8.98 K/uL (1.4-6.5); Neutrophils % (auto) 80.8 %; Platelet Count 149 K/uL (130-400); RDW Coefficient of Variation 14.4 % (11.5-14.5); RDW Standard Deviation 52.1 fL (36.4-46.3); Red Blood Count 2.95 M/uL (4.7-6.1)
[2018-08-25 05:17] LABS: BUN Creatinine Ratio 19.4 (10-20); Calcium 7.9 mg/dl (8.5-10.1); Creatinine Clr Calc Pharmacy 17.6 ml/min; Est GFR (African American) 21.2; Est GFR (Non-African American) 18.3; Magnesium 2.5 mg/dl (1.8-2.4); Potassium 4.8 mmol/L (3.5-5.1)
[2018-08-25 05:31] LABS: Troponin I 1.96 ng/ml (0-0.045)
[2018-08-25] MEDS: ALBUT/IPRATROP 3MG/0.5MG NEB 3 ML VIAL NEB SCH ×4 (07:04→19:24)
--- NOTE | 2018-08-25 07:18 | XRay Report ---
XR chest 1V portable HISTORY: 82 years-old Male pulmonary edema follow-up study in a patient with pulmonary edema and acu te shortness of breath COMPARISON: Chest radiograph 08/24/2018 TECHNIQUE: Portable AP view of the chest FINDINGS: Cardiomegaly with pulmonary vascular congestion. Calcification of the thoracic aortic arch. Bilateral interstitial opacities with perihilar and bibasilar alveolar consolidation and small pleural effusio ns redemonstrated, not significantly changed from comparison. Degenerative changes of the shoulders a nd spine. Healed remote fracture deformity of the proximal left humerus. IMPRESSION: 1. Cardiomegaly with unchanged pulmonary edema. 2. Persistent bibasilar consolidative opacities with small pleural effusions. The above report was generated using voice recognition software. It may contain grammatical, syntax o r spelling errors. Electronically signed by: Allan Borjas M.D. 08/25/2018 7:17 AM
--- NOTE | 2018-08-25 07:46 | Critical Care Progress Note ---
Date of Service August 25, 2018 Assessment & Plan (1) Acute respiratory failure with hypoxia: Neuro- altered mental status. hard of hearing. more awake this morning CV- hypotension initially now BP stable. recent STEMI treated medically due to GI bleed and renal failure. troponin remains elevated but coming down. was 27.9 on 08/17. ECG with ST elevations similar to prior ECG. aspirin, statin hold off on b [place] with borderline BP. EF worse on echo. careful with further diuresis. afib on amiodarone Pulmonary- acute hypoxic respiratory failure. I suspect pneumonia. may also be pulmonary edema. doubt PE. continue bipap. may try high flow NC. titrate fio2 for sat >90%. history of COPD - no clear exacerbation. albuterol, ipratropium. ID- concerned for pneumonia. CXR does not appear different though he has crackles in L base and new WBC, hypothermia and hypoxia. vancomycin and cefepime Renal- CKD. cr about the same GI- NPO for now until can tolerate off bipap. hgb stable. no clear evidence of significant bleeding. abdominal pain. T/C repeat CT abd/pelvis Heme- leukocytosis, anemia. heparin proph Endocrine- blood sugars controlled. levothyroxine for hypothyroidism Dispo- contine ICU care for ventilatory support I have personally spent 40 minutes of critical care time in the direct management of this patient. This is a life/limb threatening event. This includes time spent evaluating patient, direct bedside care, chart review, placing orders, interpretation of diagnostic studies, discussion with consultants, patient, and/or family members regarding treatment decisions, as well as other required patient management activities. This time is exclusive of all separately billable procedures, and teaching time and separate from and in addition to any other critical care service time. Subjective remains hypoxic requiring bipap 60% this morning says he is hungry Physical Exam Physical Exam: Constitutional: Comfortable NAD on bipap 60% HEENT: normocephalic atraumatic. MMM. no cervical lymphadenopathy CV: RRR nl s1,s2 no murmurs rubs or gallops Lungs: clear on R crackles on L base. no accessory muscle use Abd: soft seemed to be tender on initial eval but unable to reproduce tenderness nondistended. normal bowel sounds Ext: no edema. no cyanosis, no clubbing Skin: warm dry Neuro: awake but not answering questions. moving all extremities Psych: grunting to all questions Results & Data Vital Signs (Past 12 Hours) Vital Signs Pulse Resp BP Pulse Ox 08/25/18 06:00 70 15 93/51 L 95 08/25/18 05:04 67 17 97 08/25/18 05:00 78 13 91/50 L 95 08/25/18 04:00 82 20 105/53 L 98 08/25/18 03:00 64 17 90/51 L 92 08/25/18 02:00 76 13 95/48 L 98 08/25/18 01:00 81 22 95/50 L 95 08/25/18 00:00 68 19 91/46 L 99 08/24/18 23:29 76 18 96 08/24/18 23:00 62 21 90/51 L 94 08/24/18 22:30 74 17 97/45 L 97 08/24/18 22:00 71 13 90/46 L 99 08/24/18 21:30 78 22 90/48 L 100 08/24/18 21:00 76 19 87/51 L 98 08/24/18 20:30 70 13 90/54 L 98 08/24/18 20:00 76 20 97/54 L 96 Laboratory Results Laboratory Results - last 24 hr 08/24/18 08/24/18 08/24/18 11:23 11:23 11:23 WBC 12.34 H RBC 3.05 L Hgb 10.0 L Hct 30.4 L MCV 99.7 MCH 32.8 MCHC 32.9 RDW Std Deviation 50.2 H RDW Coeff of [place] 14.1 Plt Count 153 MPV 10.5 H Immature Gran % (Auto) 0.3 Neut % (Auto) 84.9 Lymph % (Auto) 7.6 [place] % (Auto) 6.8 Eos % (Auto) 0.2 Baso % (Auto) 0.2 Immature Gran # (Auto) 0.04 H Neut # (Auto) 10.47 H Lymph # (Auto) 0.94 L [place] # (Auto) 0.84 H Eos # (Auto) 0.03 Baso # (Auto) 0.02 PT 11.5 INR 1.1 APTT 25.9 PTT Ratio 1.0 Sodium 135 L Potassium 4.9 Chloride 101 Carbon Dioxide 26 Anion Gap 8.0 BUN 62 H Creatinine 3.13 H Est Cr Clr Drug Dosing 17.0 Est GFR ( Amer) 20.4 Est GFR (Non-Af Amer) 17.6 BUN/Creatinine Ratio 19.7 Glucose 121 H POC Glucose Calcium 8.4 L Magnesium Total Bilirubin 0.5 AST 15 ALT 21 Alkaline Phosphatase 89 Troponin I 2.190 H* Total Protein 6.9 Albumin 2.6 L Globulin 4.3 H Albumin/Globulin Ratio 0.6 L Lipase 107 Blood Type Antibody Screen Crossmatch 08/24/18 08/24/18 08/24/18 16:39 16:39 17:36 WBC RBC Hgb 10.0 L Hct 30.7 L MCV MCH MCHC RDW Std Deviation RDW Coeff of [place] Plt Count MPV Immature Gran % (Auto) Neut % (Auto) Lymph % (Auto) [place] % (Auto) Eos % (Auto) Baso % (Auto) Immature Gran # (Auto) Neut # (Auto) Lymph # (Auto) [place] # (Auto) Eos # (Auto) Baso # (Auto) PT INR APTT PTT Ratio Sodium Potassium Chloride Carbon Dioxide Anion Gap BUN Creatinine Est Cr Clr Drug Dosing Est GFR ( Amer) Est GFR (Non-Af Amer) BUN/Creatinine Ratio Glucose POC Glucose 117 H Calcium Magnesium Total Bilirubin AST ALT Alkaline Phosphatase Troponin I Total Protein Albumin Globulin Albumin/Globulin Ratio Lipase Blood Type O Negative Antibody Screen NEGATIVE Crossmatch See Detail 08/24/18 08/24/18 08/25/18 22:56 22:56 00:04 WBC RBC Hgb 9.3 L Hct 28.4 L MCV MCH MCHC RDW Std Deviation RDW Coeff of [place] Plt Count MPV Immature Gran % (Auto) Neut % (Auto) Lymph % (Auto) [place] % (Auto) Eos % (Auto) Baso % (Auto) Immature Gran # (Auto) Neut # (Auto) Lymph # (Auto) [place] # (Auto) Eos # (Auto) Baso # (Auto) PT INR APTT PTT Ratio Sodium Potassium Chloride Carbon Dioxide Anion Gap BUN Creatinine Est Cr Clr Drug Dosing Est GFR ( Amer) Est GFR (Non-Af Amer) BUN/Creatinine Ratio Glucose POC Glucose 112 H Calcium Magnesium Total Bilirubin AST ALT Alkaline Phosphatase Troponin I 2.040 H* Total Protein Albumin Globulin Albumin/Globulin Ratio Lipase Blood Type Antibody Screen Crossmatch 08/25/18 08/25/18 04:19 04:19 WBC 11.10 H RBC 2.95 L Hgb 9.8 L Hct 29.8 L MCV 101.0 H MCH 33.2 MCHC 32.9 RDW Std Deviation 52.1 H RDW Coeff of [place] 14.4 Plt Count 149 MPV 10.6 H Immature Gran % (Auto) 0.4 Neut % (Auto) 80.8 Lymph % (Auto) 9.5 [place] % (Auto) 7.8 Eos % (Auto) 1.3 Baso % (Auto) 0.2 Immature Gran # (Auto) 0.04 H Neut # (Auto) 8.98 H Lymph # (Auto) 1.05 L [place] # (Auto) 0.87 H Eos # (Auto) 0.14 Baso # (Auto) 0.02 PT INR APTT PTT Ratio Sodium 138 Potassium 4.8 Chloride 105 Carbon Dioxide 25 Anion Gap 8.0 BUN 59 H Creatinine 3.03 H Est Cr Clr Drug Dosing 17.6 Est GFR ( Amer) 21.2 Est GFR (Non-Af Amer) 18.3 BUN/Creatinine Ratio 19.4 Glucose 105 H POC Glucose Calcium 7.9 L Magnesium 2.5 H Total Bilirubin AST ALT Alkaline Phosphatase Troponin I 1.960 H* Total Protein Albumin Globulin Albumin/Globulin Ratio Lipase Blood Type Antibody Screen Crossmatch PG Care Time/CCT Critical Care Time: Yes Total Critical Care Time: 40
[2018-08-25] MEDS: ISOSORBIDE DINITRATE 10 MG TAB PO SCH ×2 (07:47→11:45)
[2018-08-25 08:22] LABS: Hematocrit (blood only) 29.2 % (42-52); Hemoglobin 9.4 g/dL (14.0-18.0)
[2018-08-25] MEDS: LEVOTHYROXINE SODIUM 37.5 MCG in SYRINGE 0 ML IV SCH (09:00)
[2018-08-25] MEDS ORDERED: NON-FORMULARY MEDICATION (Umeclidinium [Incruse Ellipta] 1 PUFFS) INH SCH (09:00)
[2018-08-25] MEDS: PANTOprazole 40 MG in SYRINGE 0 ML IV SCH ×2 (09:09→19:34)
[2018-08-25] MEDS ORDERED: VANCOMYCIN HCL 1,000 MG in SODIUM CHLORIDE 0.9% 250 ML IV SCH (10:00)
--- NOTE | 2018-08-25 10:30 | Consultation Report ---
DATE OF CONSULTATION: 08/25/2018 INPATIENT CARDIOLOGY CONSULTATION CONSULTATION REQUESTED BY: Dr. Monsivais. REASON FOR CONSULTATION: Ischemic cardiomyopathy with recent ST segment elevation OK. HISTORY OF PRESENT ILLNESS: Mr. Gacria is a severely demented 82-year-old gentleman who presented back to [facility] after recent discharge from [facility] with reports of generalized weakness, shortness of breath, decreasing appetite and unwitnessed fall. The patient was recently admitted to [facility] in July for an ST segment elevation OK. At that time, the patient was demented and not voicing any complaints. He had an active GI bleed with hematemesis and it was decided that his OK will be treated medically. His EF was measured at 20-25% at that time. After a lengthy hospital stay, the patient was discharged to [facility] on August 22, but again now [facility]. Currently, the patient is nonverbal on BiPAP without meaningful communication. History obtained through review of medical records. PAST SURGICAL HISTORY: ____ repair. MEDICAL ILLNESSES: 1. Recent LAD territory, ST segment elevation OK, treated medically. 2. Severe dementia. 3. COPD. 4. Chronic kidney disease. 5. Paroxysmal atrial fibrillation. 6. Hypothyroidism. 7. Ongoing gastrointestinal bleed. 8. Stage III-IV chronic kidney disease. FAMILY HISTORY: Noncontributory. SOCIAL HISTORY: No alcohol, tobacco or recreational drug use. Again, the patient is currently residing at [facility]. REVIEW OF SYSTEMS: Unobtainable given the patient's current mental status. ALLERGIES: 1. AMOXICILLIN. 2. DIAZEPAM. MEDICATIONS AN OUTPATIENT: 1. Amiodarone 200 mg t.i.d. 2. Metoprolol succinate 12.5 mg daily. 3. Isosorbide dinitrate 10 mg b.i.d. 4. Tamsulosin. 5. Protonix. 6. Albuterol. 7. Levothyroxine. 8. Incruse Ellipta inhaler. PHYSICAL EXAMINATION: VITALS: Temperature 36.8, pulse 79, respiratory rate 12, blood pressure 106/53, currently saturating 97% on 60% FiO2 on BiPAP. GENERAL: The patient is not awake, not alert, not responsive. HEENT: Normocephalic, atraumatic. Pupils equal, round, and reactive to light and accommodation. Extraocular muscles intact. Anicteric sclerae. Moist mucous membranes. NECK: No JVD, no bruit. CARDIOVASCULAR: Regular, but distant. I do not appreciate any murmurs, rubs or gallops. PULMONARY: Scattered rhonchi diffusely. No rales or wheezing. ABDOMEN: Bowel sounds x4, soft. No rebound, guarding, tenderness. No organomegaly. EXTREMITIES: No clubbing, cyanosis or edema. +2 pedal pulses bilaterally. SKIN: Warm and dry. TEST RESULTS: A 2D echocardiogram was read as compared to previous study of 08/14/2018, further decline of LV systolic function, severely reduced LV systolic function, EF less than 15%. A 12-lead EKG performed in the Emergency Room independently reviewed at this time shows an evolving anterior ST segment elevation OK with underlying bifascicular block. LABORATORY STUDIES OF SIGNIFICANCE: Troponin 2 down from a high of 146. IMPRESSION: 1. Acute respiratory failure with possible pneumonia. 2. Severely reduced left ventricular systolic function, further declining. 3. Evolving, now completed anterior ST segment elevation myocardial infarction, treated medically. 4. Ongoing gastrointestinal bleed, unable to provide antiplatelets. 5. Chronic obstructive pulmonary disease. 6. Severe dementia, currently nonverbal. RECOMMENDATIONS: From a cardiac standpoint, I do not believe there is much else that I can add at this point. The patient is showing further clinical decline and believe this is a natural progression given his multiple comorbidities and I would recommend hospice care. He is not taking orals at this point, so his metoprolol, amiodarone and isosorbide will be held anemia. His metoprolol can be restarted IV if necessary. [id number]
[2018-08-25] MEDS ORDERED: FUROSEMIDE 80 MG in SYRINGE 0 ML IV ONE (11:45)
[2018-08-25] MEDS ORDERED: METOPROLOL TARTRATE 1 MG/ML VIAL IV STA (13:02)
[2018-08-25] MEDS ORDERED: METOPROLOL TARTRATE 1 MG/ML VIAL IV PRN (13:03)
--- NOTE | 2018-08-25 13:29 | Pharmacy Report ---
Pharmacy Abx Dose Short Note - Date of Service August 25, 2018 - Assessment & Plan Assessment 82 year old M receiving Vancomycin for treatment of possible pneumonia. Patient received one dose Vancomycin 1750 mg IV (25 mg/kg load) yesterday at 1641 hrs. A random Vanco level was ordered this AM for ALECIA. MRSA nasal screen negative. Day # 2 of antimicrobial therapy. Plan Vancomycin * Random Vanco level = 19.4 at 08:11 today. * Re-dosed with Vancomycin 1 gm x 1 today at 1000 since level is between goal trough of 15-20 for Pneumonia. * Another random level ordered with AM labs tomorrow. * Patient will be dosed with single doses of Vanco based on random level until renal function is stable (baseline Scr ~ 2). * Recommend discontinuing Vancomycin for negative MRSA nasal screen today. * Patient is also receiving Zosyn. Pharmacy will continue to follow and will adjust dose/frequency as necessary. Thank you.
[2018-08-25 16:04] LABS: Hematocrit (blood only) 31.3 % (42-52); Hemoglobin 10.2 g/dL (14.0-18.0)
[2018-08-25] MEDS: CEFEPIME 2,000 MG in SYRINGE 7.5 ML IV SCH (16:15)
--- NOTE | 2018-08-25 20:27 | Hospitalist Progress Note ---
Date of Service August 25, 2018 Assessment & Plan (1) Acute respiratory failure with hypoxia: Presented with acute hypoxic respiratory failure requiring BiPAP for support. Chest x-ray demonstrated pulmonary edema and possible infiltrates. Suspect that respiratory failure primary secondary secondary to CHF as discussed below. Patient placed on empiric antibiotic therapy with vancomycin and cefepime for possible pneumonia. Nasal MRSA screen negative, so MRSA pneumonia very unlikely. Vancomycin discontinued. Continue supplemental oxygen and BiPAP as necessary. (2) CHF (congestive heart failure): Underlying ischemic heart disease with recent STEMI. Cardiology consulted. Echocardiogram today showed expanded septal, anterior, apical infarct with severely reduced LV systolic function with an EF of less than 15%. Acute on chronic left ventricular systolic heart failure. Diurese as tolerated. No MARYLIN or ARB due to renal disease. (3) Coronary artery disease: Presented with STEMI 08/13/18. Not candidate for intervention due to presentation and comorbidities. Troponin still elevated, but continues to trend downward. Not receiving antiplatelet therapy due to recent upper GI bleed. Metoprolol held due to hypotension and acute CHF. Continue nitrates. Further management per Cardiology. (4) Atrial fibrillation: AF during last hospital stay. Now in NSR with PVC's. Continue amiodarone. No anticoagulation because of recent UGI bleed. (5) COPD (chronic obstructive pulmonary disease): Bronchodilators as needed. (6) Hematemesis: Upper GI bleed last week in setting of acute STEMI. Endoscopy was not pursued. Continue PPI. May be able to start antiplatelet therapy. Check stool for occult blood and monitor H&H. (7) Acute kidney injury: History of CKD 3 with baseline creatinine of 1.71.9 in April 2018. Worsening renal function in setting of large STEMI with CHF. Creatinine today = 3.03. Optimize volume status. Avoid nephrotoxic medications when able. (8) CKD (chronic kidney disease) stage 3, GFR 30-59 ml/min: As noted above. (9) Hypothyroidism: Continue levothyroxine. (10) Dementia: Monitor for delirium. (11) DVT prophylaxis: No anticoagulants due to recent upper GI bleed. SCDs ordered. (12) Discharge planning issues: Critically ill with poor prognosis. Discharge disposition to be determined, but anticipated return to [facility] if condition improves. Subjective Recheck for respiratory failure and other problems. Patient seen in their room around 10:40. Remains on BiPAP for ventilatory support. Confused. No fever or cough. Denies chest pain. Review of Systems Review of Systems: Unobtainable due to cognitive status Physical Exam Constitutional: + ill appearing ENMT: wearing BiPAP Respiratory: + labored breathing Auscultation: + rales and + wheezes (diffsue) Cardiovascular: Rate/Rhythm: regular rate and regular rhythm Vessels: + JVD Extremities: + edema (trace pretibial); no calf tenderness no murmur, gallop, or rub appreciated, but exam limited Gastrointestinal (Abdomen): normal bowel sounds, soft, nontender, no hepatosplenomegaly Skin: no rashes, warm and dry Psychiatric: Orientation: alert; + not oriented x 3 Genitourinary: + bladder abnormality (Massey cath) Results & Data Vital Signs (Past 12 Hours) Vital Signs Pulse Pulse Resp BP Pulse Ox 08/25/18 19:24 70 16 93 08/25/18 16:03 20 96 08/25/18 16:01 79 20 96 08/25/18 16:00 81 08/25/18 15:00 80 19 108/58 L 94 08/25/18 14:05 66 24 100 08/25/18 14:00 108 H 24 106/61 88 L 08/25/18 13:00 167 H 21 91/74 L 95 08/25/18 12:00 86 22 114/57 L 08/25/18 11:15 73 18 95 08/25/18 11:14 79 18 95 08/25/18 11:00 78 16 99/51 L 97 08/25/18 10:00 78 18 99/51 L 97 08/25/18 09:00 75 24 100/53 L 98 08/25/18 08:31 79 16 97 Laboratory Results Laboratory Results - last 24 hr 08/24/18 08/24/18 08/25/18 22:56 22:56 00:04 WBC RBC Hgb 9.3 L Hct 28.4 L MCV MCH MCHC RDW Std Deviation RDW Coeff of Valdez Plt Count MPV Immature Gran % (Auto) Neut % (Auto) Lymph % (Auto) Lewis % (Auto) Eos % (Auto) Baso % (Auto) Immature Gran # (Auto) Neut # (Auto) Lymph # (Auto) Lewis # (Auto) Eos # (Auto) Baso # (Auto) Sodium Potassium Chloride Carbon Dioxide Anion Gap BUN Creatinine Est Cr Clr Drug Dosing Est GFR ( Amer) Est GFR (Non-Af Amer) BUN/Creatinine Ratio Glucose POC Glucose 112 H Calcium Magnesium Troponin I 2.040 H* Nasal Screen MRSA (PCR) Random Vancomycin 08/25/18 08/25/18 08/25/18 04:19 04:19 08:11 WBC 11.10 H RBC 2.95 L Hgb 9.8 L 9.4 L Hct 29.8 L 29.2 L MCV 101.0 H MCH 33.2 MCHC 32.9 RDW Std Deviation 52.1 H RDW Coeff of Valdez 14.4 Plt Count 149 MPV 10.6 H Immature Gran % (Auto) 0.4 Neut % (Auto) 80.8 Lymph % (Auto) 9.5 Lewis % (Auto) 7.8 Eos % (Auto) 1.3 Baso % (Auto) 0.2 Immature Gran # (Auto) 0.04 H Neut # (Auto) 8.98 H Lymph # (Auto) 1.05 L Lewis # (Auto) 0.87 H Eos # (Auto) 0.14 Baso # (Auto) 0.02 Sodium 138 Potassium 4.8 Chloride 105 Carbon Dioxide 25 Anion Gap 8.0 BUN 59 H Creatinine 3.03 H Est Cr Clr Drug Dosing 17.6 Est GFR ( Amer) 21.2 Est GFR (Non-Af Amer) 18.3 BUN/Creatinine Ratio 19.4 Glucose 105 H POC Glucose Calcium 7.9 L Magnesium 2.5 H Troponin I 1.960 H* Nasal Screen MRSA (PCR) Random Vancomycin 08/25/18 08/25/18 08/25/18 08:11 10:00 12:19 WBC RBC Hgb Hct MCV MCH MCHC RDW Std Deviation RDW Coeff of [place]dez Plt Count MPV Immature Gran % (Auto) Neut % (Auto) Lymph % (Auto) Lewis % (Auto) Eos % (Auto) Baso % (Auto) Immature Gran # (Auto) Neut # (Auto) Lymph # (Auto) Lewis # (Auto) Eos # (Auto) Baso # (Auto) Sodium Potassium Chloride Carbon Dioxide Anion Gap BUN Creatinine Est Cr Clr Drug Dosing Est GFR ( Amer) Est GFR (Non-Af Amer) BUN/Creatinine Ratio Glucose POC Glucose 104 H Calcium Magnesium Troponin I Nasal Screen MRSA (PCR) Negative Random Vancomycin 19.4 08/25/18 15:55 WBC RBC Hgb 10.2 L Hct 31.3 L MCV MCH MCHC RDW Std Deviation RDW Coeff of Valdez Plt Count MPV Immature Gran % (Auto) Neut % (Auto) Lymph % (Auto) Lewis % (Auto) Eos % (Auto) Baso % (Auto) Immature Gran # (Auto) Neut # (Auto) Lymph # (Auto) Lewis # (Auto) Eos # (Auto) Baso # (Auto) Sodium Potassium Chloride Carbon Dioxide Anion Gap BUN Creatinine Est Cr Clr Drug Dosing Est GFR ( Amer) Est GFR (Non-Af Amer) BUN/Creatinine Ratio Glucose POC Glucose Calcium Magnesium Troponin I Nasal Screen MRSA (PCR) Random Vancomycin Diagnostic Findings PORTABLE CHEST X-RAY IMPRESSION: 1. Cardiomegaly with unchanged pulmonary edema. 2. Persistent bibasilar consolidative opacities with small pleural effusions. The above report was generated using voice recognition software. It may contain grammatical, syntax or spelling errors. Electronically signed by: Allan Borjas M.D. 08/25/2018 7:17 AM ECG Additional Comments: EKG performed at 0710 reviewed and demonstrated sinus rhythm at 80/minute with PVCs, poor R wave progression, ST elevation V1 through V5.
[2018-08-26] MEDS: LEVALBUTEROL HCL 0.63 MG/3 ML NEB NEB SCH ×4 (02:00→19:50)
[2018-08-26 04:52] LABS: Hematocrit (blood only) 28.6 % (42-52); Hemoglobin 9.4 g/dL (14.0-18.0); Mean Corpuscular Hgb Conc 32.9 g/dL (32-36); Mean Corpuscular Volume 99.3 fL (80-100); Mean Platelet Volume 10.7 fL (7.4-10.4); Platelet Count 183 K/uL (130-400); RDW Coefficient of Variation 14.3 % (11.5-14.5); RDW Standard Deviation 51.6 fL (36.4-46.3); Red Blood Count 2.88 M/uL (4.7-6.1); White Blood Count 9.76 K/uL (4.8-10.8)
[2018-08-26 05:15] LABS: BUN Creatinine Ratio 17.1 (10-20); Calcium 7.9 mg/dl (8.5-10.1); Creatinine Clr Calc Pharmacy 16.3 ml/min; Est GFR (African American) 19.4; Est GFR (Non-African American) 16.7; Potassium 4.3 mmol/L (3.5-5.1)
--- NOTE | 2018-08-26 06:26 | XRay Report ---
XR chest 1V portable CLINICAL HISTORY: CHF dyspnea COMPARISON STUDY: 08/25/2018 FINDINGS: Mild cardiomegaly. Unchanged findings of congestive heart failure. Small bilateral pleural effusions unchanged to slightly increased in prominence. IMPRESSION: Congestive heart failure/pulmonary edema stable to slightly progressive from the prior e xam. The above report was generated using voice recognition software. It may contain grammatical, syntax or spelling errors. Electronically signed by: Cruz Calhoun M.D. 08/26/2018 6:25 AM
[2018-08-26] MEDS: ISOSORBIDE DINITRATE 10 MG TAB PO SCH ×2 (07:30→12:15)
[2018-08-26] MEDS: LEVOTHYROXINE SODIUM 37.5 MCG in SYRINGE 0 ML IV SCH (08:50)
[2018-08-26] MEDS: AMIODARONE 200 MG TAB PO SCH ×3 (08:51→21:27)
[2018-08-26] MEDS: PANTOprazole 40 MG in SYRINGE 0 ML IV SCH (08:51)
--- NOTE | 2018-08-26 09:37 | Palliative Care Consultation ---
Date of Consultation August 26, 2018 Assessment & Plan (1) Goals of care, counseling/discussion: -82 year old male patient with PMH COPD, reported dementia, hearing loss, CKD, and hypothyroidism, presented to the hospital two days ago from [facility] with respiratory failure. Patient had just been discharged on 08/22, two days prior, after a hospital stay related to NSTEMI, hematemesis, and CHF. He was discharged to SNF, and reportedly had continued to have some blood in his bowel movements. In the ED, patient had EKG changes indicating infarction and elevated troponin at 2.190. Troponin was 27.9 on 08/17 prior to discharge from last stay, however. Patient was deemed not a candidate for intervention due to his kidney disease and other comorbidities. Troponin continues to trend downward. Echocardiogram on this admission shows EF <15%. Patient also found to have possible pneumonia, and was admitted to ICU for respiratory failure. He is now on high-flow nasal cannula at 70% FiO2 and 40LPM. Patient desaturates very quickly with decreased oxygen or when trying to eat. Speech therapy did see patient back in April 2018 and stated he is at risk for aspiration, but he did not have overt aspiration during their evaluation. At baseline, it's reported that patient does need significant physical assistance. He was previously living with his daughter, Yoko, but apparently he was removed from the home and placed into SNF for unsafe conditions. Yoko is still patient's medical decision making in the case patient is unable, per OOA. Palliative care is now consulted to discuss goals of care. -Met with patient in room 108 this morning. He is essentially deaf and unable to hear anything I was saying. He could read lips somewhat, and did tell me it was okay to call his daughter Yoko. -Spoke with Yoko on the phone. She is aware of the medical problems going on with her father. We talked about patient's EF of <15%, heart failure, respiratory failure, kidney disease, and pneumonia. Yoko stated, "I'm prepared for this." We discussed patient's code status. She states that patient always wanted to remain a full code, but she is unsure now that we know how "bad his heart is." She requested that I go back in the room and discuss it with the patient via writing, as he can understanding much better when things are written down. -I returned to patient's room and communicated to him by writing. Patient is actually quite oriented when he is able to read and understand what is being said/asked. He was able to tell me where he is, that the month was August, the time was "[id number]." Patient stated that he is not ready to and his one and only goal is to get back home with his daughter. He stated, "Once I'm home though, I'm not going anywhere else." We talked about code status. Patient stated he does not want to end up on a ventilator or in a lot of pain, so he would like to be a DNR. Patient stated he would like to continue with full treatment otherwise. -I called Yoko back and relayed patient's wishes. She agrees with the DNR status. She did convey her discontent with patient being in a senior living, but she is hoping he can at least transfer to [facility] which is closer to her in [place]. -For now, will make patient DNR/DNI, but continue with full treatment. -Palliative care will continue to follow throughout hospitalization. (2) Acute respiratory failure with hypoxia: (3) CHF (congestive heart failure): (4) Acute kidney injury: Supervising Physician Co-Signing Physician Notes Chart reviewed, patient seen and examined-no family at bedside Collaborated with SCOTT Mcclelland PE: Patient appears comfortable, respiratory rate 22-on high flow nasal cannula HEENT, EOMI, deaf Respiratory: On high flow nasal cannula diminished breath sounds CV: Regular rate, no edema Abdomen: Soft, nontender Agree with above note, assessment and plan as per SCOTT Mcclelland. Will continue to follow and assist patient and daughter with medical decision making. Patient's CODE STATUS is now DNR History of Present Illness Reason for Consultation: Goals of care Requesting Physician: Dr. Monsivais Attending Physician: Taj Piedra MD History of Present Illness This 82 year old male patient with PMH COPD, reported dementia, hearing loss, CKD, and hypothyroidism, presented to the hospital two days ago from [facility] with respiratory failure. Patient had just been discharged on 08/22, two days prior, after a hospital stay related to NSTEMI, hematemesis, and CHF. He was discharged to SNF, and reportedly had continued to have some blood in his bowel movements. In the ED, patient had EKG changes indicating infarction and elevated troponin at 2.190. Troponin was 27.9 on 08/17 prior to discharge from last stay, however. Patient was deemed not a candidate for intervention due to his kidney disease and other comorbidities. Troponin continues to trend downward. Echocardiogram on this admission shows EF <15%. Patient also found to have possible pneumonia, and was admitted to ICU for respiratory failure. He is now on high-flow nasal cannula at 70% FiO2 and 40LPM. Patient desaturates very quickly with decreased oxygen or when trying to eat. Speech therapy did see patient back in April 2018 and stated he is at risk for aspiration, but he did not have overt aspiration during their evaluation. At baseline, it's reported that patient does need significant physical assistance. He was previously living with his daughter, Yoko, but apparently he was removed from the home and placed into SNF for unsafe conditions. Yoko is still patient's medical decision making in the case patient is unable, per OOA. Palliative care is now consulted to discuss goals of care. Thank you kindly for this consult. I will follow as needed. Allergies Allergy/AdvReac Type Severity Reaction Status Date / Time amoxicillin Allergy Unknown Unknown Verified 08/24/18 11:44 diazepam Allergy Unknown Unknown Verified 08/24/18 11:44 Home Medications Home Medications Medication Instructions Recorded Confirmed Type Incruse Ellipta 1 inh INHALATION QAM 04/24/18 08/24/18 History acetaminophen 650 mg PO Q6H PRN 04/24/18 08/24/18 History bisacodyl [Dulcolax (bisacodyl)] 10 mg AK UD PRN 04/24/18 08/24/18 History cyanocobalamin (vitamin B-12) 1,000 mcg PO QAM 04/24/18 08/24/18 History docusate sodium [Colace] 100 mg PO BID 04/24/18 08/24/18 History ferrous sulfate 325 mg PO QAM 04/24/18 08/24/18 History levothyroxine 75 mcg PO QAM 04/24/18 08/24/18 History albuterol sulfate 2.5 mg INHALATION Q4 PRN 08/13/18 08/24/18 History calcium carbonate [Tums] 1,000 mg PO Q6 PRN 08/13/18 08/24/18 History pantoprazole 40 mg PO BID 08/13/18 08/24/18 History polyethylene glycol 3350 17 g PO HS 08/13/18 08/24/18 History amiodarone 200 mg PO TID 30 Days #90 tab 08/22/18 08/24/18 Rx isosorbide dinitrate 10 mg PO BID@0700,1200 30 Days #30 08/22/18 08/24/18 Rx tab metoprolol succinate 12.5 mg PO BID 30 Days #30 tab 08/22/18 08/24/18 Rx tamsulosin 0.4 mg PO QAM 30 Days #30 cap 08/22/18 08/24/18 Rx sodium phosphates [Fleet Enema] 118 ml AK DAILY PRN 08/24/18 08/24/18 History Patient History Medical History COPD (chronic obstructive pulmonary disease) (Chronic) Chronic kidney disease (Chronic) Dementia (Chronic) Hearing loss (Chronic) Hypothyroidism (Chronic) Surgical History Surgical history unknown (Chronic) Family History Other Family history unknown Social History Preferred Language: Swedish Communication Ability: Effective Beliefs That Will Affect Care: None Current Living Situation: [facility] Other Information That Helps Us Care for You: No Feels Safe at Home: Yes Safety Concerns: Feels Safe At This Time Smoking Status: Unknown if ever smoked Hx Alcohol Use: No Hx Substance Use: No Review of Systems Constitutional: + weakness Ear, Nose, Mouth, Throat: no dysphagia Respiratory: + cough, + dyspnea and + dyspnea on exertion Cardiovascular: no chest pain and no edema Gastrointestinal: no abdominal pain, no nausea and no vomiting Physical Exam Constitutional: + ill appearing (chronically) and + frail appearing; no acute distress ENMT: Ears: + hearing impairment (extremely [place]) Neck: normal visual inspection Respiratory: + labored breathing and + tachypneic Auscultation: + diminished lung sounds Cardiovascular: RRR, no murmur, no edema Gastrointestinal (Abdomen): Inspection/Auscultation: abdomen normal to inspection and normal bowel sounds; abdomen not distended Percussion/Palpation: abdomen soft; abdomen nontender Neurologic: moves all extremities and awake Psychiatric: Orientation: alert, oriented to person, oriented to place and oriented to time Insight: + limited insight (forgetful) Results & Data Vital Signs (Past 12 Hours) Vital Signs Pulse Pulse Resp BP Pulse Ox 08/26/18 07:43 87 20 100 08/26/18 07:17 73 18 96 08/26/18 06:01 76 15 84/39 L 96 08/26/18 05:00 78 21 96/49 L 95 08/26/18 04:01 69 18 82/41 L 95 08/26/18 03:01 80 25 H 94/47 L 97 08/26/18 02:00 76 75 16 89/45 L 94 08/26/18 01:00 74 13 86/48 L 92 08/26/18 00:01 73 16 87/43 L 91 08/25/18 23:01 75 13 86/43 L 97 08/25/18 22:00 78 18 88/44 L 100 PG Care Time/CCT Prolonged Care Time Prolonged Care Time: Yes Total Prolonged Care Time: 30 100 Time Spent Midlevel 100 minutes with >50% of time spent at bedside with patient and family discussing condition and GOC.
--- NOTE | 2018-08-26 09:41 | Critical Care Progress Note ---
Date of Service August 26, 2018 Assessment & Plan (1) Acute respiratory failure with hypoxia: Neuro- altered mental status. hard of hearing. awake asking for food today CV- HD stable. recent STEMI treated medically due to GI bleed and renal failure. aspirin, statin hold off on b [place] with borderline BP. EF worse on echo. careful diuresis. afib on amiodarone Pulmonary- acute hypoxic respiratory failure. suspect pneumonia. may also be pulmonary edema. negative 1650 yesterday. continue high flow NC. titrate fio2 for sat >90%. history of COPD - no clear exacerbation. albuterol, ipratropium. ID- concerned for pneumonia. continue cefepime. can stop vancomycin Renal- CKD. cr about the same GI- diet if tolerated. hgb stable. no evidence of significant bleeding. Heme- leukocytosis, anemia. heparin proph Endocrine- blood sugars controlled. levothyroxine for hypothyroidism Dispo- continue ICU care for ventilatory support I have personally spent 35 minutes of critical care time in the direct management of this patient. This is a life/limb threatening event. This includes time spent evaluating patient, direct bedside care, chart review, placing orders, interpretation of diagnostic studies, discussion with consultants, patient, and/or family members regarding treatment decisions, as well as other required patient management activities. This time is exclusive of all separately billable procedures, and teaching time and separate from and in addition to any other critical care service time. Subjective asking for breakfast decreased o2 requirements Physical Exam Physical Exam: Constitutional: Comfortable NAD on high flow NC 70% HEENT: normocephalic atraumatic. MMM. no cervical lymphadenopathy CV: RRR nl s1,s2 no murmurs rubs or gallops Lungs: decreased bilat. no accessory muscle use Abd: soft nontender normal bowel sounds Ext: no edema. no cyanosis, no clubbing Skin: warm dry Neuro: awake but confused. moving all extremities Psych: Results & Data Vital Signs (Past 12 Hours) Vital Signs Pulse Pulse Resp BP Pulse Ox 08/26/18 07:43 87 20 100 08/26/18 07:17 73 18 96 08/26/18 06:01 76 15 84/39 L 96 08/26/18 05:00 78 21 96/49 L 95 08/26/18 04:01 69 18 82/41 L 95 08/26/18 03:01 80 25 H 94/47 L 97 07/05/19 02:00 76 75 16 89/45 L 94 08/26/18 01:00 74 13 86/48 L 92 08/26/18 00:01 73 16 87/43 L 91 08/25/18 23:01 75 13 86/43 L 97 08/25/18 22:00 78 18 88/44 L 100 Laboratory Results Laboratory Results - last 24 hr 08/25/18 08/25/18 08/25/18 10:00 12:19 15:55 WBC RBC Hgb 10.2 L Hct 31.3 L MCV MCH MCHC RDW Std Deviation RDW Coeff of Valdez Plt Count MPV Sodium Potassium Chloride Carbon Dioxide Anion Gap BUN Creatinine Est Cr Clr Drug Dosing Est GFR ( Amer) Est GFR (Non-Af Amer) BUN/Creatinine Ratio Glucose POC Glucose 104 H Calcium Nasal Screen MRSA (PCR) Negative Random Vancomycin 08/26/18 08/26/18 08/26/18 04:10 04:10 04:10 WBC 9.76 RBC 2.88 L Hgb 9.4 L Hct 28.6 L MCV 99.3 MCH 32.6 MCHC 32.9 RDW Std Deviation 51.6 H RDW Coeff of Valdez 14.3 Plt Count 183 MPV 10.7 H Sodium 138 Potassium 4.3 Chloride 104 Carbon Dioxide 27 Anion Gap 7.0 BUN 56 H Creatinine 3.26 H Est Cr Clr Drug Dosing 16.3 Est GFR ( Amer) 19.4 Est GFR (Non-Af Amer) 16.7 BUN/Creatinine Ratio 17.1 Glucose 89 POC Glucose Calcium 7.9 L Nasal Screen MRSA (PCR) Random Vancomycin 22.2 PG Care Time/CCT Critical Care Time: Yes Total Critical Care Time: 35
--- NOTE | 2018-08-26 13:55 | Cardiology Progress Note ---
Date of Service August 26, 2018 Assessment & Plan (1) Ischemic cardiomyopathy: LV systolic function continues to decline unable to intervene unable to provide meds: pt having difficulty with the concept of swallowing and hypotensive unfortunately, no further options available from cardiac standpoint diurese if BP allows for comfort agree with Palliative care eval believe, ultimately, most prudent/humane course of action would be hospice care appreciate Palliative care team's great efforts put forward for this patient (2) Coronary artery disease: treated medically, however, unable to provide meds no further options (3) Coffee ground emesis: unable to provide antiplatelet therapy (4) COPD (chronic obstructive pulmonary disease): Subjective Pt seen and examined, very hard of hearing, ?confusion, no meaningful reply. Nursing reports decreasing BP and inability to take po meds. tele reviewed: afib rate controlled Review of Systems Review of Systems: All systems reviewed & are unremarkable except as noted in HPI & below Physical Exam Physical Exam: General: Awake, alert and oriented x 3. No acute distress. HEENT: Normocephalic, atraumatic. Pupils equal, round and reactive to light and accommodation. Extraocular muscles are intact. Anicteric sclera. Moist mucous membranes. Neck: No JVD. No bruit. Cardiovascular: Regular. Positive S-4. Normal S-1 and S-2. No S-3. 3/6 mid to late systolic ejection murmur, greatest at the right sternal border, second intercostal space with radiation to the bilateral carotids. No rubs. Pulmonary: Coarse breath sounds diffusely. Abdomen: Bowel sounds x 4, soft. No rebound, guarding or tenderness. No organomegaly. Extremities: No clubbing, cyanosis or edema. +2 pedal pulses bilaterally. Skin: Warm and dry. Results & Data Vital Signs (Past 12 Hours) Vital Signs Pulse Pulse Resp BP Pulse Ox 08/26/18 11:20 84 18 100 08/26/18 11:00 76 15 87/40 L 99 08/26/18 10:00 79 25 H 83/41 L 95 08/26/18 09:00 84 29 H 94/51 L 95 08/26/18 08:01 68 23 81/39 L 87 L 08/26/18 08:00 82 08/26/18 07:43 87 20 100 08/26/18 07:17 73 18 96 08/26/18 07:01 75 21 91/42 L 99 08/26/18 06:01 76 15 84/39 L 96 08/26/18 05:00 78 21 96/49 L 95 08/26/18 04:01 69 18 82/41 L 95 08/26/18 03:01 80 25 H 94/47 L 97 08/26/18 02:00 76 75 16 89/45 L 94
[2018-08-26] MEDS: POLYETHYLENE (MIRALAX) 17 GM PACK PO SCH (14:20)
[2018-08-26] MEDS: CEFEPIME 2,000 MG in SYRINGE 7.5 ML IV SCH (15:52)
--- NOTE | 2018-08-26 20:15 | Hospitalist Progress Note ---
Date of Service August 26, 2018 Assessment & Plan (1) Acute respiratory failure with hypoxia: Presented with acute hypoxic respiratory failure requiring BiPAP for support. Chest x-ray demonstrated pulmonary edema and possible infiltrates. Respiratory failure may be secondary secondary to CHF or pneumonia as discussed below. Continue supplemental oxygen and BiPAP as necessary. (2) CHF (congestive heart failure): Underlying ischemic heart disease with recent STEMI. Cardiology consulted. Echocardiogram today showed expanded septal, anterior, apical infarct with severely reduced LV systolic function with an EF of less than 15%. Acute on chronic left ventricular systolic heart failure. Diurese as tolerated. No MARYLIN or ARB due to renal disease. (3) Coronary artery disease: Presented with STEMI 08/13/18. Not candidate for intervention due to presentation and comorbidities. Troponin still elevated, but continues to trend downward. Not receiving antiplatelet therapy due to recent upper GI bleed. Metoprolol held due to hypotension and acute CHF. Continue nitrates. Further management per Cardiology. (4) Atrial fibrillation: AF during last hospital stay. Brief run of AF last night. Now in NSR with PVC's. Continue amiodarone. No anticoagulation because of recent UGI bleed. (5) Pneumonia: White count 12,340 at time of admission. Chest x-ray demonstrated pulmonary infiltrates, possible pneumonia. Blood cultures were obtained. Patient placed on empiric antibiotic therapy with vancomycin and cefepime for possible pneumonia. Nasal MRSA screen negative, so MRSA pneumonia very unlikely. Vancomycin discontinued. Afebrile. Continue cefepime. (6) COPD (chronic obstructive pulmonary disease): Bronchodilators as needed. (7) Hematemesis: Upper GI bleed last week in setting of acute STEMI. Endoscopy was not pursued. Continue PPI. May be able to start antiplatelet therapy. Check stool for occult blood and monitor H&H. (8) Acute kidney injury: History of CKD 3 with baseline creatinine of 1.71.9 in April 2018. Worsening renal function in setting of large STEMI with CHF. Creatinine today = 3.26. Optimize volume status. Avoid nephrotoxic medications when able. (9) CKD (chronic kidney disease) stage 3, GFR 30-59 ml/min: As noted above. (10) Hypothyroidism: Continue levothyroxine. (11) Dementia: Monitor for delirium. (12) DVT prophylaxis: No anticoagulants due to recent upper GI bleed. SCDs ordered. (13) Discharge planning issues: Critically ill with poor prognosis. Discharge disposition to be determined, but anticipated return to [facility] if condition improves. Subjective Recheck for respiratory failure and other problems. Patient seen in their room around 19:20. Less SOB. Still requiring high flow nasal O2 and desats very quickly without it. No fever or cough. Denies chest pain. Review of Systems: Constitutional- no fever. Cardiac- as noted above. Pulmonary- as noted above. GI- no nausea, vomiting, diarrhea, melena, hematochezia. - Massey cath. Otherwise, as noted above. Physical Exam Constitutional: + ill appearing ENMT: Ears: + hearing impairment Respiratory: + tachypneic Auscultation: + rales, + rhonchi (few, scattered) and + wheezes (diffuse) Cardiovascular: Rate/Rhythm: regular rate and regular rhythm Vessels: + JVD Extremities: + edema (trace pretibial); no calf tenderness Gastrointestinal (Abdomen): normal bowel sounds, soft, nontender, no hepatosplenomegaly Musculoskeletal: SCD's applied Skin: no rashes, warm and dry Psychiatric: Orientation: alert Genitourinary: + bladder abnormality (Massey cath) Results & Data Vital Signs (Past 12 Hours) Vital Signs Pulse Pulse Resp BP Pulse Ox 08/26/18 18:09 78 20 87/48 L 93 08/26/18 17:35 74 23 94 08/26/18 17:00 76 23 83/43 L 87 L 08/26/18 16:04 75 25 H 90/47 L 92 08/26/18 15:00 71 15 85/49 L 93 08/26/18 14:59 75 08/26/18 14:33 79 18 93 08/26/18 14:32 79 18 93 08/26/18 14:00 77 21 96/50 L 91 08/26/18 13:00 80 14 85/40 L 98 08/26/18 12:00 75 18 85/38 L 93 08/26/18 11:20 84 18 100 08/26/18 11:00 76 15 87/40 L 99 08/26/18 10:00 79 25 H 83/41 L 95 08/26/18 09:00 84 29 H 94/51 L 95 Laboratory Results Laboratory Results - last 24 hr 08/26/18 08/26/18 08/26/18 04:10 04:10 04:10 WBC 9.76 RBC 2.88 L Hgb 9.4 L Hct 28.6 L MCV 99.3 MCH 32.6 MCHC 32.9 RDW Std Deviation 51.6 H RDW Coeff of Valdez 14.3 Plt Count 183 MPV 10.7 H Sodium 138 Potassium 4.3 Chloride 104 Carbon Dioxide 27 Anion Gap 7.0 BUN 56 H Creatinine 3.26 H Est Cr Clr Drug Dosing 16.3 Est GFR ( Amer) 19.4 Est GFR (Non-Af Amer) 16.7 BUN/Creatinine Ratio 17.1 Glucose 89 Calcium 7.9 L Random Vancomycin 22.2 Microbiology 08/24/18 16:26 Blood Aerobic Blood Culture - Preliminary No growth in Aerobic bottle after 48 hours. 08/24/18 16:26 Blood Anaerobic Blood Culture - Final 08/24/18 16:39 Blood Aerobic Blood Culture - Preliminary No growth in Aerobic bottle after 48 hours. 08/24/18 16:39 Blood Anaerobic Blood Culture - Preliminary No growth in Anaerobic bottle after 48 hours.
[2018-08-26] MEDS: PANTOprazole 40 MG TAB PO SCH (21:27)
[2018-08-27] MEDS: LEVALBUTEROL HCL 0.63 MG/3 ML NEB NEB SCH ×4 (01:50→19:20)
[2018-08-27 04:35] LABS: Hematocrit (blood only) 30.7 % (42-52); Hemoglobin 9.9 g/dL (14.0-18.0); Mean Corpuscular Hgb Conc 32.2 g/dL (32-36); Platelet Count 198 K/uL (130-400); RDW Coefficient of Variation 14.4 % (11.5-14.5); RDW Standard Deviation 51.9 fL (36.4-46.3); Red Blood Count 3.04 M/uL (4.7-6.1)
[2018-08-27 04:58] LABS: BUN Creatinine Ratio 17.3 (10-20); Calcium 8.1 mg/dl (8.5-10.1); Creatinine Clr Calc Pharmacy 14.8 ml/min; Est GFR (African American) 18.2; Est GFR (Non-African American) 15.7; Potassium 4.9 mmol/L (3.5-5.1)
--- NOTE | 2018-08-27 08:25 | XRay Report ---
XR chest 1V portable HISTORY: Shortness of breath. COMPARISON: Chest 08/26/2018. FINDINGS: No change in the pulmonary edema and bilateral pleural effusions. No pneumothorax. The hear t remains mildly enlarged. Bibasilar densities persist. Old left humeral fracture is again noted. IMPRESSION: No significant change in the pulmonary edema and bilateral pleural effusions. Electronically signed by: James Alvarado M.D. 08/27/2018 8:24 AM
--- NOTE | 2018-08-27 08:31 | Hospitalist Progress Note ---
Date of Service August 27, 2018 Assessment & Plan (1) Acute respiratory failure with hypoxia: Presented with acute hypoxic respiratory failure requiring BiPAP for support. Chest x-ray demonstrated pulmonary edema and possible infiltrates. Respiratory failure may be secondary secondary to CHF and / or pneumonia as discussed below. Continue supplemental oxygen and BiPAP as necessary. (2) CHF (congestive heart failure): Underlying ischemic heart disease with recent STEMI. Cardiology consulted. Echocardiogram 08/25 showed expanded septal, anterior, apical infarct with severely reduced LV systolic function with an EF of less than 15%. Acute on chronic left ventricular systolic heart failure. No MARYLIN or ARB due to renal disease. Chest x-ray today shows persistent pulmonary edema and pleural effusions. Furosemide 80 mg IV this a.m. Continue to diurese as tolerated. (3) Coronary artery disease: Presented with STEMI 08/13/18. Not candidate for intervention due to presentation and comorbidities. Troponin still elevated, but continues to trend downward. Not receiving antiplatelet therapy due to recent upper GI bleed. Metoprolol held due to hypotension and acute CHF. Continue nitrates as hemodynamics allow. Further management per Cardiology. (4) Atrial fibrillation: AF during last hospital stay. Now in NSR with PVC's with short runs of PAF. Continue amiodarone. No anticoagulation because of recent UGI bleed. (5) Pneumonia: White count 12,340 at time of admission. Chest x-ray demonstrated pulmonary infiltrates, possible pneumonia. Blood cultures were obtained. Patient placed on empiric antibiotic therapy with vancomycin and cefepime for possible pneumonia. Nasal MRSA screen negative, so MRSA pneumonia very unlikely. Vancomycin discontinued. Afebrile. Continue cefepime. (6) COPD (chronic obstructive pulmonary disease): Bronchodilators as needed. (7) Hematemesis: Upper GI bleed last week in setting of acute STEMI. Endoscopy was not pursued. Continue PPI. May be able to start antiplatelet therapy. Check stool for occult blood and monitor H&H. (8) Acute kidney injury: History of CKD 3 with baseline creatinine of 1.71.9 in April 2018. Worsening renal function in setting of large STEMI with CHF. Creatinine today = 3.43. Optimize volume status. Avoid nephrotoxic medications when able. (9) CKD (chronic kidney disease) stage 3, GFR 30-59 ml/min: As noted above. (10) Hypothyroidism: Continue levothyroxine. (11) Dementia: Monitor for delirium. (12) Do not resuscitate status: Per discussion by Palliative Care with patient and daughter. (13) DVT prophylaxis: No anticoagulants due to recent upper GI bleed. SCDs ordered. (14) Discharge planning issues: Critically ill with poor prognosis. Discharge disposition to be determined. Subjective Recheck for respiratory failure and other problems. Patient seen in their room around 08:10. Still requiring high flow nasal O2 and desats very quickly without it. No fever. Nursing notes intermittent coughing. Denies chest pain. Review of Systems: Constitutional- no fever. Cardiac- as noted above. Pulmonary- as noted above. GI- no nausea, vomiting, diarrhea, melena, hematochezia. - Massey cath. Otherwise, as noted above. Physical Exam Constitutional: + ill appearing ENMT: Ears: + hearing impairment Respiratory: + tachypneic Auscultation: + rales, + rhonchi (few, scattered) and + wheezes (diffuse) Cardiovascular: Rate/Rhythm: regular rate and regular rhythm Heart Sounds: + gallop (apical S3) Vessels: + JVD Extremities: + edema (trace pretibia l); no calf tenderness Gastrointestinal (Abdomen): normal bowel sounds, soft, nontender, no hepatosplenomegaly Skin: no rashes, warm and dry Psychiatric: Orientation: alert Genitourinary: + bladder abnormality (Massey cath) Results & Data Vital Signs (Past 12 Hours) Vital Signs Pulse Pulse Resp BP Pulse Ox 08/27/18 07:10 65 16 91 08/27/18 07:08 65 16 91 08/27/18 01:50 68 14 94 08/27/18 00:00 70 08/26/18 23:16 95 H 28 H 50 L 08/26/18 23:00 77 22 88/46 L 96 08/26/18 22:00 72 19 88/48 L 93 08/26/18 21:00 68 14 92/47 L 95
--- NOTE | 2018-08-27 08:33 | Critical Care Progress Note ---
Date of Service August 27, 2018 Assessment & Plan (1) Acute respiratory failure with hypoxia: Neuro- altered mental status. hard of hearing. awake alert CV- HD stable. recent STEMI treated medically due to GI bleed and renal failure. aspirin, statin hold off on b [place] with borderline BP. EF worse on echo. careful with diuresis appears euvolemic to me and cr ok. afib on amiodarone Pulmonary- acute hypoxic respiratory failure. suspect pneumonia. may also be pulmonary edema. improving oxygenation titrate fio2 for sat >90%. history of COPD - no clear exacerbation. albuterol, ipratropium. ID- concerned for pneumonia. continue cefepime. Renal- CKD. cr increasing GI- diet as tolerated. hgb stable. no evidence of significant bleeding. Heme- leukocytosis, anemia. heparin proph Endocrine- blood sugars controlled. levothyroxine for hypothyroidism Dispo- ok to transfer out of ICU Subjective denies sob ths am decreased fio2 requirements Physical Exam Physical Exam: Constitutional: Comfortable NAD on high flow NC 50% HEENT: normocephalic atraumatic. MMM. CV: RRR nl s1,s2 no murmurs rubs or gallops Lungs: decreased bilat with some crackles at bases on L>R. no accessory muscle use Abd: soft nontender normal bowel sounds Ext: no edema. no cyanosis, no clubbing Skin: warm dry Neuro: awake but confused. moving all extremities Psych: calm cooperative Results & Data Vital Signs (Past 12 Hours) Vital Signs Pulse Pulse Resp BP Pulse Ox 08/27/18 07:10 65 16 91 08/27/18 07:08 65 16 91 08/27/18 01:50 68 14 94 08/27/18 00:00 70 08/26/18 23:16 95 H 28 H 50 L 08/26/18 23:00 77 22 88/46 L 96 08/26/18 22:00 72 19 88/48 L 93 08/26/18 21:00 68 14 92/47 L 95 Laboratory Results Laboratory Results - last 24 hr 08/27/18 08/27/18 04:22 04:22 WBC 9.90 RBC 3.04 L Hgb 9.9 L Hct 30.7 L MCV 101.0 H MCH 32.6 MCHC 32.2 RDW Std Deviation 51.9 H RDW Coeff of Valdez 14.4 Plt Count 198 MPV 10.0 Sodium 139 Potassium 4.9 Chloride 106 Carbon Dioxide 29 Anion Gap 4.0 BUN 59 H Creatinine 3.43 H Est Cr Clr Drug Dosing 14.8 Est GFR ( Amer) 18.2 Est GFR (Non-Af Amer) 15.7 BUN/Creatinine Ratio 17.3 Glucose 100 H Calcium 8.1 L
[2018-08-27] MEDS: LEVOTHYROXINE SODIUM 75 MCG TABLET PO SCH (08:43)
[2018-08-27] MEDS: AMIODARONE 200 MG TAB PO SCH ×2 (08:45→21:10)
[2018-08-27] MEDS: PANTOprazole 40 MG TAB PO SCH ×2 (08:45→21:11)
[2018-08-27] MEDS: NITROGLYCERIN 2% OINTMENT 30GM TUBE EXT SCH ×3 (08:45→21:28)
[2018-08-27] MEDS: POLYETHYLENE (MIRALAX) 17 GM PACK PO SCH (08:46)
[2018-08-27] MEDS ORDERED: FUROSEMIDE 80 MG in SYRINGE 0 ML IV ONE (09:00)
[2018-08-27] MEDS: ISOSORBIDE DINITRATE 10 MG TAB PO SCH (09:02)
--- NOTE | 2018-08-27 10:20 | Cardiology Progress Note ---
Date of Service August 27, 2018 Assessment & Plan (1) Ischemic cardiomyopathy: Medications use limited by low BP, difficulty swallowing. Agree with topical nitrates, furosemide as tolerated. (2) Coronary artery disease: (3) Coffee ground emesis: Subjective Chief complaint: follow up respiratory distress Subjective: Pt shakes head that he has no complaints, moves toes on command. Telemetry reveals sinus rhythm. Review of Systems Review of Systems: Unobtainable due to cognitive status Physical Exam Respiratory: Auscultation: + diminished lung sounds (decreased BS at the bases) Cardiovascular: RRR, no murmur, no edema Extremities: no edema Results & Data Vital Signs (Past 12 Hours) Vital Signs Pulse Pulse Resp BP Pulse Ox 08/27/18 07:10 65 16 91 08/27/18 07:08 65 16 91 08/27/18 01:50 68 14 94 08/27/18 00:00 70 08/26/18 23:16 95 H 28 H 50 L 08/26/18 23:00 77 22 88/46 L 96 Laboratory Results CBC 08/27/18 Range/Units 04:22 WBC 9.90 (4.8-10.8) K/uL RBC 3.04 L (4.7-6.1) M/uL Hgb 9.9 L (14.0-18.0) g/dL Hct 30.7 L (42-52) % Plt Count 198 (130-400) K/uL Comprehensive Metabolic Panel 08/27/18 Range/Units 04:22 Sodium 139 (136-145) mmol/L Potassium 4.9 (3.5-5.1) mmol/L Chloride 106 (98-107) mmol/L Carbon Dioxide 29 (21-32) mmol/L BUN 59 H (7-18) mg/dl Creatinine 3.43 H (0.6-1.4) mg/dl Glucose 100 H (70-99) mg/dl Calcium 8.1 L (8.5-10.1) mg/dl Intake and Output 08/26/18 08/27/18 08/27/18 22:59 06:59 14:59 Intake Total 200 / 920 Output Total 210 / 645 175 / 645 Balance - - Intake: Oral 200 / 920 Output: Urine Amount (Catheter) 210 / 645 175 / 645 Massey/Indwelling 210 / 645 175 / 645 # Bowel Movements 0 / 0 Other: Weight 63.9 kg Diagnostic Findings EKG 08/26/18, evolved anterior Q waves persistent ST elevation consistent with aneurysm. Medications Administered Current Inpatient Medications Amiodarone HCl (Cordarone) 200 mg PO BID [facility] Stop: 09/26/18 08:59 Last Admin: 08/27/18 08:45 Dose: 200 mg Documented by: Cefepime HCl 2,000 mg/ Syringe 20 mls @ 5.5 mls/min IV DAILY@1600 HENRIK; Protocol Stop: 08/31/18 15:59 Last Admin: 08/26/18 15:52 Dose: 5.5 mls/min Documented by: Acetaminophen (Ofirmev) 1,000 mg in 100 mls @ 400 mls/hr IV Q8H PRN PRN Reason: Pain or Fever Stop: 09/23/18 15:53 Levalbuterol HCl (Xopenex 0.63 Mg/3 Ml Neb) 0.63 mg NEB Q6R [facility] Stop: 09/25/18 01:59 Last Admin: 08/27/18 07:10 Dose: 0.63 mg Documented by: Levothyroxine Sodium (Synthroid) 75 mcg PO DAILYBB [facility] Stop: 09/26/18 06:29 Last Admin: 08/27/18 08:43 Dose: Not Given Documented by: Metoprolol Tartrate (Lopressor) 5 mg IV Q6 PRN PRN Reason: Tachycardia Stop: 09/24/18 17:59 Miscellaneous (Order Awaiting Action) 1 ea N/A QS [facility] Stop: 09/24/18 00:00 Last Admin: 08/27/18 08:43 Dose: Not Given Documented by: Nitroglycerin (Nitro-Bid 2%) 0.25 inch EXT Q6H [facility] Stop: 09/26/18 08:29 Last Admin: 08/27/18 08:45 Dose: Not Given Documented by: Pantoprazole Sodium (Protonix) 40 mg PO BID [facility] Stop: 09/25/18 20:59 Last Admin: 08/27/18 08:45 Dose: 40 mg Documented by: Polyethylene Glycol (Miralax Powder Packet) 17 gm PO DAILY [facility] Stop: 09/25/18 13:14 Last Admin: 08/27/18 08:46 Dose: 17 gm Documented by:
[2018-08-27] MEDS: CEFEPIME 2,000 MG in SYRINGE 7.5 ML IV SCH (16:45)
[2018-08-28] MEDS: LEVALBUTEROL HCL 0.63 MG/3 ML NEB NEB SCH ×4 (01:45→19:24)
[2018-08-28] MEDS: NITROGLYCERIN 2% OINTMENT 30GM TUBE EXT SCH ×4 (03:42→20:21)
[2018-08-28 06:19] LABS: Hematocrit (blood only) 31.5 % (42-52); Hemoglobin 10.3 g/dL (14.0-18.0); Mean Corpuscular Hgb Conc 32.7 g/dL (32-36); Mean Corpuscular Volume 99.1 fL (80-100); Mean Platelet Volume 10.3 fL (7.4-10.4); Platelet Count 207 K/uL (130-400); RDW Coefficient of Variation 14.3 % (11.5-14.5); RDW Standard Deviation 50.9 fL (36.4-46.3); Red Blood Count 3.18 M/uL (4.7-6.1); White Blood Count 9.84 K/uL (4.8-10.8)
[2018-08-28] MEDS: LEVOTHYROXINE SODIUM 75 MCG TABLET PO SCH (06:29)
[2018-08-28 06:57] LABS: BUN Creatinine Ratio 17.1 (10-20); Calcium 8.4 mg/dl (8.5-10.1); Creatinine Clr Calc Pharmacy 15.7 ml/min; Est GFR (African American) 19.2; Est GFR (Non-African American) 16.6
[2018-08-28] MEDS: PANTOprazole 40 MG TAB PO SCH ×2 (08:36→20:16)
[2018-08-28] MEDS: AMIODARONE 200 MG TAB PO SCH ×2 (08:37→20:44)
[2018-08-28] MEDS: POLYETHYLENE (MIRALAX) 17 GM PACK PO SCH (08:39)
[2018-08-28] MEDS ORDERED: FUROSEMIDE 80 MG in SYRINGE 0 ML IV ONE (08:45)
--- NOTE | 2018-08-28 15:35 | Hospitalist Progress Note ---
Date of Service August 28, 2018 Assessment & Plan (1) Acute respiratory failure with hypoxia: Presented with acute hypoxic respiratory failure requiring BiPAP for support. Chest x-ray demonstrated pulmonary edema and possible infiltrates. Respiratory failure may be secondary secondary to CHF and / or pneumonia as discussed below. Continue supplemental oxygen and BiPAP as necessary. (2) CHF (congestive heart failure): Underlying ischemic heart disease with recent STEMI. Chest x-ray showed pulmonary edema. Cardiology consulted. Echocardiogram 08/25 showed expanded septal, anterior, apical infarct with severely reduced LV systolic function with an EF of less than 15%. Acute on chronic left ventricular systolic heart failure. No MARYLIN or ARB due to renal disease. Chest x-ray 08/27 showed persistent pulmonary edema and pleural effusions. Furosemide 80 mg IV again this a.m. Continue to diurese as tolerated. (3) Coronary artery disease: Presented with STEMI 08/13/18. Not candidate for intervention due to presentation and comorbidities. Troponin still elevated, but continues to trend downward. Not receiving antiplatelet therapy due to recent upper GI bleed. Metoprolol held due to hypotension and acute CHF. Continue nitrates as hemodynamics allow. Further management per Cardiology. (4) Atrial fibrillation: AF during last hospital stay. Now in NSR with PVC's with short runs of PAF. Continue amiodarone. No anticoagulation because of recent UGI bleed. (5) Pneumonia: White count 12,340 at time of admission. Chest x-ray demonstrated pulmonary infiltrates, possible pneumonia. Blood cultures were obtained. Patient placed on empiric antibiotic therapy with vancomycin and cefepime for possible pneumonia. Nasal MRSA screen negative, so MRSA pneumonia very unlikely. Vancomycin discontinued. Afebrile. Continue cefepime. (6) COPD (chronic obstructive pulmonary disease): Bronchodilators as needed. (7) Hematemesis: Upper GI bleed last week in setting of acute STEMI. Endoscopy was not pursued. Continue PPI. May be able to start antiplatelet therapy. Check stool for occult blood and monitor H&H. (8) Acute kidney injury: History of CKD 3 with baseline creatinine of 1.71.9 in April 2018. Creatinine at time of admission 3.13 and tennille as high as 3.43. Worsening renal function in setting of large STEMI with CHF. Creatinine today = 3.28. Optimize volume status. Avoid nephrotoxic medications when able. (9) CKD (chronic kidney disease) stage 3, GFR 30-59 ml/min: As noted above. (10) Hypothyroidism: Continue levothyroxine. (11) Dementia: Monitor for delirium. (12) Do not resuscitate status: Per discussion by Palliative Care with patient and daughter. (13) DVT prophylaxis: No anticoagulants due to recent upper GI bleed. SCDs ordered. (14) Discharge planning issues: Critically ill with poor prognosis. Discharge disposition to be determined. Daughter Yoko given update by phone regarding current condition and prognosis. She hopes to visit tomorrow. Subjective Recheck for respiratory failure and other problems. Patient seen in their room around 10:40. Somnolent, but arousable. Hard of hearing. Uses glasses, but does not have them here. Able to read large font; responds that he feels a little better. Denies chest pain, cough, SOB, nausea, vomiting. Still requiring significant amounts of O2 to maintain oxygenation. Still has Massey cath. Physical Exam Constitutional: + ill appearing ENMT: Ears: + hearing impairment Respiratory: + tachypneic Auscultation: + rales and + wheezes (diffuse) Cardiovascular: Rate/Rhythm: regular rate and regular rhythm Heart Sounds: + gallop (apical S3) Vessels: + JVD Extremities: + edema (trace pretibial); no calf tenderness Gastrointestinal (Abdomen): normal bowel sounds, soft, nontender, no hepatosplenomegaly Musculoskeletal: SCD's applied Skin: no rashes, warm and dry Psychiatric: Orientation: + not alert (somnolent, but arousable) Genitourinary: + bladder abnormality (Massey cath) Results & Data Vital Signs (Past 12 Hours) Vital Signs Temp Pulse Resp BP Pulse Ox 08/28/18 14:00 72 18 93 08/28/18 11:35 36.5 C 69 24 108/69 93 08/28/18 07:42 36.8 C 68 26 H 90/51 L 90 08/28/18 06:43 66 18 91 08/28/18 03:50 36.5 C 66 17 96/56 L 91 Laboratory Results Laboratory Results - last 24 hr 08/28/18 08/28/18 08/28/18 06:02 06:02 07:01 WBC 9.84 RBC 3.18 L Hgb 10.3 L Hct 31.5 L MCV 99.1 MCH 32.4 MCHC 32.7 RDW Std Deviation 50.9 H RDW Coeff of [place] 14.3 Plt Count 207 MPV 10.3 Sodium 139 Potassium 4.3 Chloride 104 Carbon Dioxide 28 Anion Gap 7.0 BUN 56 H Creatinine 3.28 H Est Cr Clr Drug Dosing 15.7 Est GFR ( Amer) 19.2 Est GFR (Non-Af Amer) 16.6 BUN/Creatinine Ratio 17.1 Glucose 103 H POC Glucose Calcium 8.4 L 08/28/18 08/28/18 07:46 11:39 WBC RBC Hgb Hct MCV MCH MCHC RDW Std Deviation RDW Coeff of Valdez Plt Count MPV Sodium Potassium Chloride Carbon Dioxide Anion Gap BUN Creatinine Est Cr Clr Drug Dosing Est GFR ( Amer) Est GFR (Non-Af Amer) BUN/Creatinine Ratio Glucose POC Glucose 119 H 108 H Calcium
[2018-08-28] MEDS: CEFEPIME 2,000 MG in SYRINGE 7.5 ML IV SCH (16:55)
[2018-08-29] MEDS: LEVALBUTEROL HCL 0.63 MG/3 ML NEB NEB SCH ×4 (01:55→19:23)
[2018-08-29] MEDS: NITROGLYCERIN 2% OINTMENT 30GM TUBE EXT SCH ×4 (02:02→20:21)
[2018-08-29] MEDS: LEVOTHYROXINE SODIUM 75 MCG TABLET PO SCH (05:46)
--- NOTE | 2018-08-29 06:59 | XRay Report ---
XR chest 1V portable HISTORY: 82 years-old Male CHF acute shortness of breath with heart failure COMPARISON: Chest radiograph 08/27/2018 TECHNIQUE: Portable AP view of the chest FINDINGS: Cardiac silhouette is enlarged, unchanged. Pulmonary vascular congestion with interstitial coarsening has mildly improved. Small pleural effusions with bibasilar opacities. No pneumothorax. Healed remot e fracture of the proximal left humerus. Degenerative changes of the shoulders and spine. IMPRESSION: 1. Cardiomegaly with mildly improved pulmonary edema. 2. Small pleural effusions with persistent bibasilar opacities. The above report was generated using voice recognition software. It may contain grammatical, syntax o r spelling errors. Electronically signed by: Allan Borjas M.D. 08/29/2018 6:58 AM
[2018-08-29 07:18] LABS: BUN Creatinine Ratio 15.4 (10-20); Calcium 8.5 mg/dl (8.5-10.1); Creatinine Clr Calc Pharmacy 13.2 ml/min; Est GFR (African American) 16.9; Est GFR (Non-African American) 14.6; Potassium 4.4 mmol/L (3.5-5.1)
[2018-08-29] MEDS ORDERED: FUROSEMIDE 80 MG in SYRINGE 0 ML IV ONE (08:00)
[2018-08-29] MEDS: PANTOprazole 40 MG TAB PO SCH ×2 (08:12→20:21)
[2018-08-29] MEDS: AMIODARONE 200 MG TAB PO SCH ×2 (08:12→20:21)
[2018-08-29] MEDS: POLYETHYLENE (MIRALAX) 17 GM PACK PO SCH (08:13)
--- NOTE | 2018-08-29 16:27 | Palliative Care Progress Note ---
Date of Service August 29, 2018 Assessment & Plan (1) Goals of care, counseling/discussion: Pt is an 82 year old male patient with PMH COPD, hearing loss, CKD, and hypothyroidism, presented to the hospital from [facility] with respiratory failure. Patient had just been discharged on 08/22, after a hospital stay related to NSTEMI, hematemesis, and CHF. He was discharged to SNF, and reportedly had continued to have some blood in his bowel movements. In the ED, patient had EKG changes indicating infarction and elevated troponin at 2.190. Troponin was 27.9 on 08/17 prior to discharge from last stay, however. Patient was deemed not a candidate for intervention due to his kidney disease and other comorbidities. Troponin continues to trend downward. Echocardiogram on this admission shows EF <15%. Patient also found to have possible pneumonia, and was admitted to ICU for respiratory failure. He is now on O2 at 3L via oxymask. Speech therapy did see patient back in April 2018 and stated he is at risk for aspiration, but he did not have overt aspiration during their evaluation. He was previously living with his daughter, Yoko, but apparently he was removed from the home and placed into SNF for unsafe conditions. Yoko is still patient's medical decision making in the case patient is unable, per OOA. Palliative care consulted to discuss goals of care -patient feels he is getting better, is amenable to transfer back to [facility] or to [facility]. Patient stated he does not feel he is ready yet to consider hospice.. -Patient's CODE STATUS is DNR/DNI, but continue with full treatment. -Palliative care will continue to follow throughout hospitalization. (2) Acute respiratory failure with hypoxia:slowly improving (3) STEMI - no AC due to GI bleeding - Cardiology following (4) COPD - resp status slowly improving (5) CHF (congestive heart failure): stable on current meds (6) Acute kidney injury:creat rising - further treatment per Cardiology and attending team (2) Acute respiratory failure with hypoxia: (3) STEMI (ST elevation myocardial infarction): (4) COPD (chronic obstructive pulmonary disease): Subjective Patient awake and alert, no acute distress. Patient on O2 at 3 L via oxygen mask. Patient states he feels he is improving, appears fatigued. Review of Systems Review of Systems: Patient denies fever, chills, chest pain, increased shortness of breath, or abdominal pain Physical Exam Physical Exam: PE: Patient appears comfortable lying in bed on O2 via oxygen mask HEENT: EOMI, patient deaf-able to communicate by writing Respirations: Unlabored, diminished bilaterally CV: Regular rate, no edema Abdomen: Soft, nontender Extremities: Generalized weakness Neuro: Patient alert and oriented, deaf-able to communicate by writing Results & Data Vital Signs (Past 12 Hours) Vital Signs Temp Pulse Resp BP Pulse Ox 08/29/18 15:28 97.9 F 75 20 99/58 L 91 08/29/18 14:16 68 18 95 08/29/18 10:46 98.1 F 74 18 108/63 98 08/29/18 07:31 98.2 F 72 18 96/60 L 90 08/29/18 07:15 75 20 97 PG Care Time/CCT Total # of Minutes Spent Total Time Spent with Patient: Total time spent is greater than 50% in coordination of care (as documented) at patient's floor/unit and/or counseling patient: Time Spent Attending Total time spent 25 minutes with greater than 50% of the time at bedside discussing patient's current goals of care
[2018-08-29] MEDS: CEFEPIME 2,000 MG in SYRINGE 7.5 ML IV SCH (16:38)
--- NOTE | 2018-08-29 19:13 | Hospitalist Progress Note ---
Date of Service August 29, 2018 Assessment & Plan (1) Acute respiratory failure with hypoxia: Presented with acute hypoxic respiratory failure requiring BiPAP for support. Chest x-ray demonstrated pulmonary edema and possible infiltrates. Respiratory failure may be secondary secondary to CHF and / or pneumonia as discussed below. No longer requiring BiPAP. Continue supplemental oxygen and wean as tolerated. (2) CHF (congestive heart failure): Underlying ischemic heart disease with recent STEMI. Chest x-ray showed pulmonary edema. Cardiology consulted. Echocardiogram 08/25 showed expanded septal, anterior, apical infarct with severely reduced LV systolic function with an EF of less than 15%. Acute on chronic left ventricular systolic heart failure. No MARYLIN or ARB due to renal disease. Chest x-ray 08/27 showed persistent pulmonary edema and pleural effusions. Furosemide 80 mg IV again this a.m. Continue to diurese as tolerated based on daily reassessment. Creatinine rising with diuresis, but diuretics should be continued if they help with CHF and associated sympotms. (3) Coronary artery disease: Presented with STEMI 08/13/18. Not candidate for intervention due to presentation and comorbidities. Troponin still elevated, but continues to trend downward. Not receiving antiplatelet therapy due to recent upper GI bleed. Has not had any grossly blood stools during this hospital stay, so will start clopidogrel with caution. Metoprolol held due to hypotension and acute CHF. Continue nitrates as hemodynamics allow. Further management per Cardiology. (4) Atrial fibrillation: AF during last hospital stay. Now in NSR with PVC's with short runs of PAF. Continue amiodarone. No anticoagulation because of recent UGI bleed. (5) Pneumonia: White count 12,340 at time of admission. Chest x-ray demonstrated pulmonary infiltrates, possible pneumonia. Blood cultures were obtained. Patient placed on empiric antibiotic therapy with vancomycin and cefepime for possible pneumonia. Nasal MRSA screen negative, so MRSA pneumonia very unlikely. Vancomycin discontinued. Afebrile. Continue cefepime. (6) COPD (chronic obstructive pulmonary disease): Bronchodilators as needed. (7) Hematemesis: Upper GI bleed last week in setting of acute STEMI. Endoscopy was not pursued. Continue PPI. No gross GI bleeding during this hospital stay. Hgb yesterday 10.3. Start clopidogrel with caution. Monitor H/H. (8) Acute kidney injury: History of CKD 3 with baseline creatinine of 1.71.9 in April 2018. Creatinine at time of admission 3.13 and tennille as high as 3.43. Worsening renal function in setting of large STEMI with CHF. Creatinine today = 3.65. Patient is not a candidate for hemodialysis due to cardiomyopathy and low BP's. Continue diuretics as tolerated for relief of symptoms even if renal function continues to decline. Avoid nephrotoxic medications when able. (9) CKD (chronic kidney disease) stage 3, GFR 30-59 ml/min: As noted above. (10) Hypothyroidism: Continue levothyroxine. (11) Dementia: Monitor for delirium. (12) Do not resuscitate status: Per discussion by Palliative Care with patient and daughter. (13) DVT prophylaxis: No anticoagulants due to recent upper GI bleed. SCDs ordered. (14) Discharge planning issues: Critically ill with poor prognosis. Discharge disposition to be determined. Daughter Yoko given update by phone 08/28 regarding current condition and prognosis. Subjective Recheck for respiratory failure and other problems. Patient seen in their room around 13:00. More alert, less tachypneic. Hard of hearing, so communication is challenging. Denies chest pain, cough, SOB, nausea, vomiting. Feels urgency to void; still has Massey cath. Physical Exam Constitutional: no acute distress ENMT: Ears: + hearing impairment Respiratory: Auscultation: + rales Cardiovascular: Rate/Rhythm: regular rate and regular rhythm Heart Sounds: + gallop (apical S3) Vessels: + JVD Extremities: + edema (trace pretibial); no calf tenderness Gastrointestinal (Abdomen): normal bowel sounds, soft, nontender, no hepatosplenomegaly Skin: no rashes, warm and dry Psychiatric: Orientation: alert (somnolent, but arousable) Genitourinary: + bladder abnormality (Massey cath) Results & Data Vital Signs (Past 12 Hours) Vital Signs Temp Pulse Resp BP Pulse Ox 08/29/18 15:28 36.6 C 75 20 99/58 L 91 08/29/18 14:16 68 18 95 08/29/18 10:46 36.7 C 74 18 108/63 98 08/29/18 07:31 36.8 C 72 18 96/60 L 90 08/29/18 07:15 75 20 97 Laboratory Results Laboratory Results - last 24 hr 08/29/18 06:20 Sodium 140 Potassium 4.4 Chloride 103 Carbon Dioxide 29 Anion Gap 8.0 BUN 56 H Creatinine 3.65 H D Est Cr Clr Drug Dosing 13.2 Est GFR ( Amer) 16.9 Est GFR (Non-Af Amer) 14.6 BUN/Creatinine Ratio 15.4 Glucose 107 H Calcium 8.5 Diagnostic Findings PORT CHEST X-RAY IMPRESSION: 1. Cardiomegaly with mildly improved pulmonary edema. 2. Small pleural effusions with persistent bibasilar opacities. The above report was generated using voice recognition software. It may contain grammatical, syntax or spelling errors. Electronically signed by: Allan Borjas M.D. 08/29/2018 6:58 AM
[2018-08-29] MEDS: PROMETHAZINE HCL 12.5 MG in SODIUM CHLORIDE 0.9% 50 ML IV PRN (21:00)
[2018-08-29 21:41] LABS: Appearance Urine Clear (Clear); Bacteria Urine Automated Negative (Negative); Bilirubin Urine Negative (Negative); Blood Urine 2+ (Negative); Color Urine Yellow; Glucose Urine UA Negative (Negative); Ketones Urine Negative (Negative); Leukocyte Esterase Urine Negative (Negative); Nitrite Urine Negative (Negative); Protein Urine 1+ (Negative); Specific Gravity Urine 1.015 (1.000-1.030); Urobilinogen Urine Negative (Negative)
[2018-08-29 21:47] LABS: Albumin Level 2.8 gm/dl (3.4-5.0); BUN Creatinine Ratio 15.4 (10-20); Calcium 9.2 mg/dl (8.5-10.1); Est GFR (Non-African American) 12.9; Magnesium 2.6 mg/dl (1.8-2.4); Potassium 4.6 mmol/L (3.5-5.1)
[2018-08-29 21:50] LABS: Albumin Globulin Ratio 0.5 (0.9-2); Bilirubin,Total 0.8 mg/dl (0.2-1); Globulin 5.3 gm/dl (2.5-4.0); Total Protein 8.1 gm/dl (6.4-8.2)
--- NOTE | 2018-08-29 22:17 | CT Scan Report ---
CT OF THE ABDOMEN AND PELVIS WITHOUT CONTRAST CLINICAL HISTORY: Abdominal pain, nausea and vomiting. COMPARISON STUDY: CT of the abdomen and pelvis August 13, 2018. TECHNIQUE: Axial images of the abdomen and pelvis were obtained without IV contrast. Images were revi ewed in the axial, sagittal, and coronal planes. Automated exposure control was utilized for the ewa dy. A dose lowering technique was utilized adhering to the principles of ALARA. FINDINGS: Bilateral pleural effusions are partially visualized on this exam. Associated airspace opac ities favor atelectasis. No pneumatosis, free air or portal venous gas is present. Evaluation of the abdomen and pelvis is suboptimal on this unenhanced study. There is hyperdense material within the ga llbladder. Unenhanced images of the liver, spleen, adrenal glands and pancreas are unremarkable. Ther e is no peripancreatic infiltration. There is moderate bilateral renal atrophy without hydronephrosis . The appendix is normal. There is no evidence for a bowel obstruction. A right inguinal hernia conta ins a loop of small bowel. Fat-containing left inguinal hernia is present. There is sigmoid diverticu losis without evidence for acute diverticulitis. No suspicious osseous lesion is noted. Old T12 and L 3 compression fractures are unchanged. Gas and a Massey balloon are present within the bladder. IMPRESSION: 1. No acute process within the abdomen or pelvis on unenhanced exam. 2. Partially visualized small pleural effusions. 3. Colonic diverticulosis without evidence for acute diverticulitis. Normal appendix. 4. Loop of small bowel within a right inguinal hernia. No bowel obstruction. Electronically signed by: Austen Lake M.D. 08/29/2018 10:15 PM
[2018-08-30] MEDS: LEVALBUTEROL HCL 0.63 MG/3 ML NEB NEB SCH ×3 (01:53→14:14)
[2018-08-30] MEDS: NITROGLYCERIN 2% OINTMENT 30GM TUBE EXT SCH ×4 (02:41→21:36)
[2018-08-30] MEDS: LEVOTHYROXINE SODIUM 75 MCG TABLET PO SCH (05:44)
[2018-08-30 07:23] LABS: Hematocrit (blood only) 35.5 % (42-52); Hemoglobin 11.5 g/dL (14.0-18.0)
[2018-08-30 07:52] LABS: BUN Creatinine Ratio 14.7 (10-20); Calcium 9.1 mg/dl (8.5-10.1); Creatinine Clr Calc Pharmacy 11.3 ml/min; Est GFR (African American) 13.6; Est GFR (Non-African American) 11.7; Potassium 4.8 mmol/L (3.5-5.1)
[2018-08-30] MEDS: PANTOprazole 40 MG TAB PO SCH ×2 (07:59→21:29)
[2018-08-30] MEDS: CLOPIDOGREL BISULFATE 75 MG TAB PO SCH (07:59)
[2018-08-30] MEDS: AMIODARONE 200 MG TAB PO SCH ×2 (07:59→21:29)
[2018-08-30] MEDS: PROMETHAZINE HCL 12.5 MG in SODIUM CHLORIDE 0.9% 50 ML IV PRN ×2 (08:19→23:06)
[2018-08-30] MEDS: POLYETHYLENE (MIRALAX) 17 GM PACK PO SCH (08:19)
--- NOTE | 2018-08-30 12:26 | Hospitalist Progress Note ---
Date of Service August 30, 2018 Assessment & Plan (1) Acute respiratory failure with hypoxia: Presented with acute hypoxic respiratory failure requiring BiPAP for support. Chest x-ray demonstrated pulmonary edema and possible infiltrates. -Respiratory failure may be secondary secondary to CHF and / or pneumonia as discussed below. -No longer requiring BiPAP. -Continue supplemental oxygen and wean as tolerated. (2) CHF (congestive heart failure): Acute on chronic CHF systolic Underlying ischemic heart disease with recent STEMI. -Echocardiogram 08/25 showed expanded septal, anterior, apical infarct with severely reduced LV systolic function with an EF of less than 15%. -No MARYLIN or ARB due to renal disease. -Repeat Chest x-ray 08/27 showed persistent pulmonary edema and pleural effusions. -Furosemide 80 mg IV - doses- last one yesterday. Will hold off today -Continue to diurese as tolerated based on daily reassessment. -Creatinine rising with diuresis, but diuretics should be continued if they help with CHF and associated sympotms. (3) Pneumonia: -Chest x-ray demonstrated pulmonary infiltrates, possible pneumonia. -IV vancomycin and cefepime for possible pneumonia.. Nasal MRSA screen negative, so MRSA pneumonia very unlikely. Vancomycin discontinued. -On IV Cefepime -Blood culture x 2 negative (4) Acute kidney injury: History of CKD 3 with baseline creatinine of 1.71.9 in April 2018. Creatinine at time of admission 3.13 and tennille as high as 3.43. -Worsening renal function in setting of large STEMI with CHF. -Patient is not a candidate for hemodialysis due to cardiomyopathy and low BP's. -Avoid nephrotoxic medications when able. (5) CKD (chronic kidney disease) stage 3, GFR 30-59 ml/min: ALECIA ON CKD III Creatinine up to 4.38 -Monitor (6) Hematemesis: -Upper GI bleed last week in setting of acute STEMI. -Endoscopy was not pursued. -Continue PPI. -No gross GI bleeding during this hospital stay. Hgb stable -Continue with clopidogrel with caution. (7) Coronary artery disease: Presented with STEMI 08/13/18. -Not candidate for intervention due to presentation and comorbidities. -Troponin still elevated, but continues to trend downward. -Not receiving antiplatelet therapy due to recent upper GI bleed. -Has not had any grossly blood stools during this hospital stay, so will start clopidogrel with caution. -Metoprolol held due to hypotension and acute CHF. -Continue nitrates as hemodynamics allow. -Cardiology on board (8) Atrial fibrillation: -AF during last hospital stay. -Now in NSR with PVC's with short runs of PAF. -Continue amiodarone. -No anticoagulation because of recent UGI bleed. (9) COPD (chronic obstructive pulmonary disease): -Nebs as needed (10) Hypothyroidism: -Continue levothyroxine. (11) Dementia: Monitor for delirium. (12) Do not resuscitate status: -Per discussion by Palliative Care with patient and daughter. -Does not feel that he is ready for hospice yet -POLST to be filled up by palliative (13) DVT prophylaxis: No anticoagulants due to recent upper GI bleed. SCDs ordered. (14) Discharge planning issues: Critically ill with poor prognosis. Discharge disposition to be determined. Daughter Yoko was updated yesterday by Dr Piedra Subjective Patient is awake, hard of hearing so difficult to communicate. Oriented to place, disoriented to time. On 2-3 l of oxygen Physical Exam Physical Exam: GENERAL-Hard of Hearing + Oriented to place, not to time LUNGS- Air entry bilaterally equal. No rales, rhonchi, crackles, wheezes heard. HEART- Regular rate and rhythm. No murmurs ABDOMEN- Soft, non tender, non distended, Bowel sounds heard. EXTREMITIES- No edema - Foleys catheter + Results & Data Vital Signs (Past 12 Hours) Vital Signs Temp Pulse Resp BP BP Pulse Ox 08/30/18 11:23 36.9 C 77 20 107/61 92 08/30/18 07:57 79 112/63 08/30/18 07:05 76 18 93 08/30/18 06:40 36.9 C 74 20 100/61 92 08/30/18 02:35 36.5 C 74 18 103/65 91
[2018-08-30] MEDS ORDERED: ACETAMINOPHEN 325 MG TAB PO PRN (13:35)
[2018-08-30] MEDS: CEFEPIME 2,000 MG in SYRINGE 7.5 ML IV SCH (16:44)
[2018-08-30] MEDS ORDERED: LEVALBUTEROL HCL 0.63 MG/3 ML NEB NEB PRN (17:59)
[2018-08-30] MEDS ORDERED: ERTAPENEM CONSULT ACTIVE PRN (20:00)
--- NOTE | 2018-08-30 22:01 | Hospitalist Progress Note ---
Date of Service August 30, 2018 Subjective Aware by RN of patient expectorating sputum-like emesis Possible aspiration with crushed meds as per RN. AP Probable aspiration pneumonia Known aspiration risk as per swallow eval. Change IV Cefepime to Ertapenem. Will relay to AM provider. Results & Data Vital Signs (Past 12 Hours) Vital Signs Temp Pulse Resp BP Pulse Ox 08/30/18 19:35 36.9 C 83 21 103/61 92 08/30/18 15:49 36.6 C 87 19 104/62 98 08/30/18 14:14 75 18 94 08/30/18 11:23 36.9 C 77 20 107/61 92
[2018-08-30] MEDS ORDERED: ERTAPENEM SODIUM 1,000 MG in SODIUM CHLORIDE 0.9% 50 ML IV STA (22:02)
[2018-08-30] MEDS ORDERED: ERTAPENEM SODIUM 500 MG in SODIUM CHLORIDE 0.9% 50 ML IV SCH (22:15)
--- NOTE | 2018-08-30 22:32 | XRay Report ---
XR chest 1V portable HISTORY: 82 years-old Male cough, aspiration acute cough with aspiration COMPARISON: Chest radiograph and CT abdomen and pelvis 08/29/2018 TECHNIQUE: Portable AP view of the chest. FINDINGS: Cardiac silhouette is enlarged, unchanged. Pulmonary vascular congestion with mildly improved pulmona ry edema. No pneumothorax. Small pleural effusions with persistent bibasilar opacities. Degenerative changes of the shoulders and spine. Healed remote fracture about the proximal left humerus. IMPRESSION: 1. Cardiomegaly with mildly improved pulmonary edema. 2. Small pleural effusions with persistent mildly improved bibasilar opacities. The above report was generated using voice recognition software. It may contain grammatical, syntax o r spelling errors. Electronically signed by: Allan Borjas M.D. 08/30/2018 10:31 PM
[2018-08-31] MEDS: NITROGLYCERIN 2% OINTMENT 30GM TUBE EXT SCH ×2 (03:16→08:33)
[2018-08-31] MEDS: LEVOTHYROXINE SODIUM 75 MCG TABLET PO SCH (06:10)
[2018-08-31 07:45] LABS: BUN Creatinine Ratio 15.1 (10-20); Calcium 9.1 mg/dl (8.5-10.1); Creatinine Clr Calc Pharmacy 9.9 ml/min; Est GFR (Non-African American) 10.4; Potassium 4.7 mmol/L (3.5-5.1)
[2018-08-31 07:59] VITALS: PULSE 75
[2018-08-31] MEDS: CLOPIDOGREL BISULFATE 75 MG TAB PO SCH (08:32)
[2018-08-31] MEDS: PANTOprazole 40 MG TAB PO SCH (08:32)
[2018-08-31] MEDS: AMIODARONE 200 MG TAB PO SCH ×2 (08:32→20:53)
[2018-08-31] MEDS: POLYETHYLENE (MIRALAX) 17 GM PACK PO SCH (08:34)
[2018-08-31] MEDS ORDERED: MoRPHine SULFATE 2 MG/ML CARP IV STA (09:56)
[2018-08-31] MEDS ORDERED: MoRPHine SULFATE 2 MG/ML CARP ONE (10:07)
[2018-08-31] MEDS: PROMETHAZINE HCL 12.5 MG in SODIUM CHLORIDE 0.9% 50 ML IV PRN (10:13)
[2018-08-31 11:44] VITALS: TEMP 98.2; O2SAT 98
--- NOTE | 2018-08-31 12:36 | Hospitalist Progress Note ---
Date of Service August 31, 2018 Assessment & Plan (1) Encounter for hospice care: Patient is deteriorating clinically. Multiple complaints of chest pain, nausea, shortness of breath. Had a detailed discussion with palliative medicine, Ida about worsening clinical status, creatinine which is up to 4.84, multiple comorbidities with EF less than 15% per Opted for option of hospice care. Wants to take him home with hospice. -Appreciate palliative medicine inputs (2) Acute respiratory failure with hypoxia: Presented with acute hypoxic respiratory failure requiring BiPAP for support. Chest x-ray demonstrated pulmonary edema and possible infiltrates. -Respiratory failure may be secondary secondary to CHF and / or pneumonia as discussed below. -S/P BIPAP--> 2 L oxygen (3) CHF (congestive heart failure): Acute on chronic CHF systolic Underlying ischemic heart disease with recent STEMI. -Echocardiogram 08/25 showed expanded septal, anterior, apical infarct with severely reduced LV systolic function with an EF of less than 15%. -No MARYLIN or ARB due to renal disease. -Repeat Chest x-ray 08/27 showed persistent pulmonary edema and pleural effusions. -Furosemide 80 mg IV - doses- last one 08/29/18. Held since 08/30 due to rising creatinine (4) Pneumonia: -Chest x-ray demonstrated pulmonary infiltrates, possible pneumonia. -IV vancomycin and cefepime for possible pneumonia.. Nasal MRSA screen negative, so MRSA pneumonia very unlikely. Vancomycin discontinued. -S/P IV Cefepime--> Discontinue antibiotics as now under hospice care -Blood culture x 2 negative (5) Acute kidney injury: Progressively worsening History of CKD 3 with baseline creatinine of 1.71.9 in April 2018. Creatinine at time of admission 3.13 and tennille as high as 3.43. -Worsening renal function in setting of large STEMI with CHF. -Patient is not a candidate for hemodialysis due to cardiomyopathy and low BP's. -Avoid nephrotoxic medications when able. (6) CKD (chronic kidney disease) stage 3, GFR 30-59 ml/min: ALECIA ON CKD III Creatinine up to 4.84 today (7) Hematemesis: -Upper GI bleed last week in setting of acute STEMI. -Endoscopy was not pursued. -Continue PPI. -No gross GI bleeding during this hospital stay. Hgb stable -On Plavix- Will discontinue. (8) Coronary artery disease: Presented with STEMI 08/13/18. -Not candidate for intervention due to presentation and comorbidities. -Troponin still elevated, but continues to trend downward. Continues to c/o chest pain -Not receiving antiplatelet therapy due to recent upper GI bleed. -Has not had any grossly blood stools during this hospital stay, so will start clopidogrel with caution. -Metoprolol held due to hypotension and acute CHF. -Discontinued nitrates (9) Atrial fibrillation: -AF during last hospital stay. -Now in NSR with PVC's with short runs of PAF. -Continue amiodarone. -No anticoagulation because of recent UGI bleed. (10) COPD (chronic obstructive pulmonary disease): -Nebs as needed (11) Hypothyroidism: -Continue levothyroxine. (12) Dementia: Monitor for delirium. (13) Do not resuscitate status: -Per discussion by Palliative Care and me with patients daughter- DNR/DNI and hospice care (14) DVT prophylaxis: No anticoagulants due to recent upper GI bleed. Discontinue as now under hospice care (15) Discharge planning issues: Critically ill with poor prognosis. Daughter Yoko wants to take him home with hospice, but per office of aging they refused. So likely [facility] with hospice tomorrow Subjective Hard of hearing. Difficult to take history . Tried communicating by writing to him Patient is deteriorating clinically. C/o SOB but not in respiratory distress, Oxygen level continues to be at 2 L C/o chest pain, abdominal pain, nausea. Does have sputum production Per RN, had wheezing On 2 L oxygen Physical Exam Physical Exam: GENERAL-Hard of Hearing + Oriented to place, not to time LUNGS- Air entry bilaterally decreased. Crackles + , Wheezing + HEART- Regular rate and rhythm. No murmurs ABDOMEN- Soft, non tender, non distended, Bowel sounds heard. EXTREMITIES- No edema - Foleys catheter + Results & Data Vital Signs (Past 12 Hours) Vital Signs Temp Pulse Resp BP Pulse Ox 08/31/18 11:28 36.8 C 75 18 110/71 98 08/31/18 07:58 36.6 C 75 18 108/63 94 08/31/18 03:05 37.1 C 78 18 115/68 93
--- NOTE | 2018-08-31 12:50 | Palliative Care Progress Note ---
Date of Service August 31, 2018 Assessment & Plan (1) Goals of care, counseling/discussion: -Patient is very drowsy today. He was complaining of chest pain so he received 1 mg of morphine. -patient's creatinine is worsening despite Lasix being discontinued. His overall condition continues to deteriorate. -Spoke to Yoko, his daughter, about his condition and GOC. Yoko states that she does not want to do anything to the patient that would cause discomfort. Her main goal at this point is for comfort and to allow her father to pass away peacefully. -Yoko would really like to bring the patient home on hospice. Monique, rehab therapy manager, spoke with the office of aging who said the patient absolutely cannot go home, even under hospice care. -Patient will be transferred out of telemetry on comfort care per Dr. Cortés. He could return to the [facility] on comfort/hospice care. -Dr. Cortés has ordered Roxanol 5mg PO/SL Q4h PRN pain or SOB. -Palliative care will continue to follow. (2) Acute respiratory failure with hypoxia: (3) CHF (congestive heart failure): (4) Acute kidney injury: Subjective Saw patient this morning. He had just had a dose of morphine 1mg IV, so he was very drowsy. Per report, he was complaining of chest pain this morning, which is why he received the morphine. Review of Systems Review of Systems: Unobtainable due to cognitive status Physical Exam Constitutional: + ill appearing (chronically) and + frail appearing; no acute distress ENMT: Ears: + hearing impairment (extremely [place]) Neck: normal visual inspection Respiratory: Auscultation: + diminished lung sounds Cardiovascular: RRR, no murmur, no edema Gastrointestinal (Abdomen): Inspection/Auscultation: abdomen normal to inspection and normal bowel sounds; abdomen not distended Percussion/Palpation: abdomen soft; abdomen nontender Neurologic: + not awake (very drowsy) Results & Data Vital Signs (Past 12 Hours) Vital Signs Temp Pulse Resp BP Pulse Ox 08/31/18 11:28 36.8 C 75 18 110/71 98 08/31/18 07:58 36.6 C 75 18 108/63 94 08/31/18 03:05 37.1 C 78 18 115/68 93 PG Care Time/CCT Total # of Minutes Spent Total Time Spent with Patient: Total time spent is greater than 50% in coordination of care (as documented) at patient's floor/unit and/or counseling patient: Time Spent Midlevel 40 minutes with >50% of the time spent at bedside with patient and family, as well as IDT, discussing condition and GOC.
[2018-08-31] MEDS ORDERED: ONDANSETRON INJ 2 MG/ML 2 ML VIAL IV PRN (12:55)
[2018-08-31] MEDS ORDERED: MoRPHine SULFATE 5 MG/0.25 ML UDP PO PRN (12:57)
[2018-08-31] MEDS ORDERED: LEVALBUTEROL HCL 0.63 MG/3 ML NEB NEB PRN (12:57)
[2018-08-31] MEDS ORDERED: LEVALBUTEROL HCL 0.63 MG/3 ML NEB NEB SCH (14:00)
[2018-09-01] MEDS: LEVOTHYROXINE SODIUM 75 MCG TABLET PO SCH (05:40)
[2018-09-01] MEDS: AMIODARONE 200 MG TAB PO SCH (08:11)
--- NOTE | 2018-09-01 11:07 | Hospitalist Progress Note ---
Date of Service September 01, 2018 Assessment & Plan (1) Hospice care: (2) Encounter for hospice care: Patient is deteriorating clinically. Multiple complaints of chest pain, nausea, shortness of breath. Had a detailed discussion with palliative medicine, keyshaYoko about worsening clinical status, creatinine which is up to 4.84, multiple comorbidities with EF less than 15% per Opted for option of hospice care. Wants to take him home with hospice. OOA okay with it. -Roxanol 5 mg q 4 hours PRN -Appreciate palliative medicine inputs. (3) Acute respiratory failure with hypoxia: Presented with acute hypoxic respiratory failure requiring BiPAP for support. Chest x-ray demonstrated pulmonary edema and possible infiltrates. -Respiratory failure may be secondary secondary to CHF and / or pneumonia as discussed below. -S/P BIPAP--> 2 L oxygen (4) CHF (congestive heart failure): Acute on chronic CHF systolic Underlying ischemic heart disease with recent STEMI. -Echocardiogram 08/25 showed expanded septal, anterior, apical infarct with severely reduced LV systolic function with an EF of less than 15%. -No MARYLIN or ARB due to renal disease. -Repeat Chest x-ray 08/27 showed persistent pulmonary edema and pleural effusions. -Furosemide 80 mg IV - doses- last one 08/29/18. Held since 08/30 due to rising creatinine (5) Pneumonia: -Chest x-ray demonstrated pulmonary infiltrates, possible pneumonia. -IV vancomycin and cefepime for possible pneumonia.. Nasal MRSA screen negative, so MRSA pneumonia very unlikely. Vancomycin discontinued. -S/P IV Cefepime--> Discontinued antibiotics -Blood culture x 2 negative (6) Acute kidney injury: Progressively worsening History of CKD 3 with baseline creatinine of 1.71.9 in April 2018. Creatinine at time of admission 3.13 and tennille as high as 3.43. -Worsening renal function in setting of large STEMI with CHF. -Patient is not a candidate for hemodialysis due to cardiomyopathy and low BP's. -Avoid nephrotoxic medications when able. (7) CKD (chronic kidney disease) stage 3, GFR 30-59 ml/min: ALECIA ON CKD III Creatinine up to 4.84 today (8) Hematemesis: -Upper GI bleed last week in setting of acute STEMI. -Endoscopy was not pursued. -Continue PPI. -No gross GI bleeding during this hospital stay. Hgb stable -On Plavix- Will discontinue. (9) Coronary artery disease: Presented with STEMI 08/13/18. -Not candidate for intervention due to presentation and comorbidities. -Troponin still elevated, but continues to trend downward. Continues to c/o chest pain -Not receiving antiplatelet therapy due to recent upper GI bleed. -Has not had any grossly blood stools during this hospital stay, so will start clopidogrel with caution. -Metoprolol held due to hypotension and acute CHF. -Discontinued nitrates (10) Atrial fibrillation: -AF during last hospital stay. -Now in NSR with PVC's with short runs of PAF. -Continue amiodarone. -No anticoagulation because of recent UGI bleed. (11) COPD (chronic obstructive pulmonary disease): -Nebs as needed -On oxygen (12) Hypothyroidism: -Continue levothyroxine. (13) Dementia: (14) Do not resuscitate status: -Per discussion by Palliative Care and me with patients daughter- DNR/DNI and hospice care (15) DVT prophylaxis: No anticoagulants due to recent upper GI bleed. Discontinued SCDS as under hospice care (16) Discharge planning issues: Critically ill with poor prognosis. Daughter Yoko wants to take him home with hospice. OOA okay with this. Likely discharge home with hospice today after arrangements are made. Subjective Patient was seen and evaluated. Appears calm and comfortable. Denies any chest pain, shortness of breath. Physical Exam Physical Exam: GENERAL-Hard of Hearing + Oriented to place, not to time LUNGS- Air entry bilaterally decreased. Crackles + HEART- Regular rate and rhythm. No murmurs EXTREMITIES- No edema - Foleys catheter +
--- NOTE | 2018-09-01 13:04 | Discharge Summary ---
Date of Service September 01, 2018 Admission HPI Per Admitting Provider Patient is an 82 yr male with H/O CAD, COPD, hypothyroidism, dementia, Whalen's esophagus, peripheral vascular disease and other problems who was recently discharged from [facility] after being managed for NSTEMI, hematemesis, CHF presents from [facility] with worsening generalized weakness, shortness of breath, unwitnessed fall, poor appetite and abdominal pain. Patient's history is limited secondary to dementia, hard of hearing. As per the staff at [facility], patient has poor appetite since hospital discharge, has refused breakfast this morning secondary to abdominal pain. Was noted to be hypoxic with Sats in 80s this morning which prompted patient to be sent to ED for further evaluation. No history of aspiration. Chest x-ray suggestive slightly progressed to pulmonary edema, bilateral pleural effusions and bibasilar opacities, possible pneumonitis. Patient was noted to have fell this morning from his wheelchair while going to the bathroom which was unwitnessed. No known history of head trauma, loss of consciousness as per the staff. Patient also has been having 3-4 loose bowel movements with bright red blood since last hospital discharge. Is currently not on aspirin, NSAIDs at [facility]. Patient received neb treatments en route to the hospital and also in ED and was placed on BiPAP for respiratory support. Patient complains of epigastric pain which started this morning. Last CT scan done On 08/13/18 showed findings suggestive of sigmoid diverticulosis with possible mild acute diverticulitis and small right inguinal hernia without obstruction. KUB done today showed no signs of bowel obstruction. EKG suggestive of evaluating anterior infarct pattern, left anterior fascicular block. ED physician discussed with breakdown man on-call who suggested that patient not a candidate for intervention. Patient was not a candidate for anticoagulation given history of ongoing GI bleed. Patient received aspirin, IV Lasix while in ED. Discussed about the patient's condition in detail who prefers to continue medical management with Full Code Status. Principal Diagnosis 1 Acute hypoxic respiratory failure 2. Acute on chronic CHF exacerbation, systolic next line #3 possible pneumonia 4. Acute kidney injury 5. CKD stage III 6. Blood in vomitus 7. Hospice care Secondary diagnoses on discharge 1. History of CAD 2. Atrial fibrillation 3. COPD 4. Hypothyroidism 5. Dementia Discharge Exam GENERAL-Hard of Hearing + Oriented to place, not to time LUNGS- Air entry bilaterally decreased. Crackles + HEART- Regular rate and rhythm. No murmurs EXTREMITIES- No edema - Foleys catheter + Discharge Data Allergies Allergy/AdvReac Type Severity Reaction Status Date / Time amoxicillin Allergy Unknown Unknown Verified 08/24/18 11:44 diazepam Allergy Unknown Unknown Verified 08/24/18 11:44 Consultations 08/24/18 12:28 ED Decision to Admit Stat 08/24/18 15:54 Consult Cardiology Routine Consult Case Management - Discharge Planning Routine Consult Flask Fitter Routine Consult Palliative Care Routine Ordered Studies 08/29/18 20:44 CT abd pelvis wo con Urgent Hospital Course (1) Hospice care: Patient is deteriorating clinically. Multiple complaints of chest pain, nausea, shortness of breath. Had a detailed discussion with palliative medicine, Ida about worsening clinical status, creatinine which is up to 4.84, multiple comorbidit ies with EF less than 15% per Opted for option of hospice care. Wants to take him home with hospice. OOA okay with it. -Roxanol 5 mg q 4 hours PRN -Appreciate palliative medicine inputs. (2) Acute respiratory failure with hypoxia: Presented with acute hypoxic respiratory failure requiring BiPAP for support. Chest x-ray demonstrated pulmonary edema and possible infiltrates. -Respiratory failure may be secondary secondary to CHF and / or pneumonia as discussed below. -S/P BIPAP--> 2 L oxygen (3) CHF (congestive heart failure): Acute on chronic CHF systolic Underlying ischemic heart disease with recent STEMI. -Echocardiogram 08/25 showed expanded septal, anterior, apical infarct with severely reduced LV systolic function with an EF of less than 15%. -No MARYLIN or ARB due to renal disease. -Repeat Chest x-ray 08/27 showed persistent pulmonary edema and pleural effusions. -Furosemide 80 mg IV - doses- last one 08/29/18. Held since 08/30 due to rising creatinine (4) Pneumonia: -Chest x-ray demonstrated pulmonary infiltrates, possible pneumonia. -IV vancomycin and cefepime for possible pneumonia.. Nasal MRSA screen negative, so MRSA pneumonia very unlikely. Vancomycin discontinued. -S/P IV Cefepime--> Discontinued antibiotics -Blood culture x 2 negative (5) Acute kidney injury: Progressively worsening - creatinine up to 4.84 History of CKD 3 with baseline creatinine of 1.71.9 in April 2018. Creatinine at time of admission 3.13 and tennille as high as 3.43. -Worsening renal function in setting of large STEMI with CHF. -Patient is not a candidate for hemodialysis due to cardiomyopathy and low BP's. -Avoid nephrotoxic medications when able. (6) CKD (chronic kidney disease) stage 3, GFR 30-59 ml/min: (7) Hematemesis: -Upper GI bleed last week in setting of acute STEMI. -Endoscopy was not pursued. -Continue PPI. -No gross GI bleeding during this hospital stay. Hgb stable -On Plavix- Will discontinue. (8) Coronary artery disease: Presented with STEMI 08/13/18. -Not candidate for intervention due to presentation and comorbidities. -Troponin still elevated, but continues to trend downward. Continues to c/o chest pain -Not receiving antiplatelet therapy due to recent upper GI bleed. -Has not had any grossly blood stools during this hospital stay, so will start clopidogrel with caution. -Metoprolol held due to hypotension and acute CHF. -Discontinued nitrates (9) Atrial fibrillation: -AF during last hospital stay. -Now in NSR with PVC's with short runs of PAF. -Continue amiodarone. -No anticoagulation because of recent UGI bleed. (10) COPD (chronic obstructive pulmonary disease): -Nebs as needed -On oxygen (11) Hypothyroidism: -Continue levothyroxine. (12) Dementia: (13) Do not resuscitate status: -Per discussion by Palliative Care and me with patients daughter- DNR/DNI and hospice care (14) DVT prophylaxis: No anticoagulants due to recent upper GI bleed. Discontinued SCDS as under hospice care (15) Discharge planning issues: Critically ill with poor prognosis. Daughter Yoko wants to take him home with hospice. OOA okay with this. Discharge home with hospice Total Time Total Time Spent Total Time Spent (In Minutes): 35 minutes Discharge Plan Discharge Items Patient Disposition: Hospice - Home Reason For Visit: ACUTE RESPIRATORY FAILURE Discharge Diagnosis: 1. Hospice care 2. Acute respiratory failure with hypoxia 3. Acute on chronic CHF systolic 5. Acute kidney injury Discharge Goals: Decrease discomfort Specific Goals: HOSPICE CARE Activity: Resume your previous activity Activity Comment: TOLERATED Non-emergency contact: Primary Care Provider Call non-emergency contact if: your symptoms worsen Follow-up/Referrals: [facility] [Primary Care Provider] - Diet: Regular Diet Comment: Food as tolerated; Pleasure feeds Addtl Provider Instructions: MEDICATION CHANGES New medication- Roxanol 5 mg every 4-6 hours as needed for shortness of breath/pain New medication- Zofran 4 mg q 6-8 hours as needed for nausea/vomiting Continue with oxygen as instructed Prescriptions: New morphine concentrate 100 mg/5 mL (20 mg/mL) Solution 5 mg PO Q4 PRN (Reason: shortness of breath / pain) 20 Days Qty: 15 RF: 0 ondansetron HCl [Zofran] 4 mg tablet 4 mg PO Q8 PRN (Reason: nausea and vomiting) Qty: 30 RF: 0 Continued Incruse Ellipta 62.5 mcg/actuation Blister With Device 1 inh INHALATION QAM RF: 0 levothyroxine 75 mcg Tablet 75 mcg PO QAM RF: 0 cyanocobalamin (vitamin B-12) 1,000 mcg Tablet 1,000 mcg PO QAM RF: 0 docusate sodium [Colace] 100 mg Capsule 100 mg PO BID RF: 0 acetaminophen 325 mg Tablet 650 mg PO Q6H PRN (Reason: pain/fever) RF: 0 bisacodyl [Dulcolax (bisacodyl)] 10 mg Suppository 10 mg VT UD PRN (Reason: Constipation) RF: 0 polyethylene glycol 3350 17 gram Powder In Packet 17 g PO HS RF: 0 pantoprazole 40 mg Tablet,Delayed Release (Dr/Ec) 40 mg PO BID RF: 0 albuterol sulfate 2.5 mg /3 mL (0.083 %) Solution For Nebulization 2.5 mg INHALATION Q4 PRN (Reason: Wheezing/SOB) RF: 0 calcium carbonate [Tums] 200 mg calcium (500 mg) Tablet,Chewable 1,000 mg PO Q6 PRN (Reason: Indigestion/Heartburn) RF: 0 isosorbide dinitrate 10 mg Tablet 10 mg PO BID@0700,1200 30 Days Qty: 30 RF: 0 amiodarone 200 mg Tablet 200 mg PO TID 30 Days Qty: 90 RF: 0 tamsulosin 0.4 mg Capsule 0.4 mg PO QAM 30 Days Qty: 30 RF: 0 metoprolol succinate 25 mg Tablet Extended Release 24 Hr 12.5 mg PO BID 30 Days Qty: 30 RF: 0 Fleet Enema 19-7 gram/118 mL Enema 118 ml VT DAILY PRN (Reason: Constipation) RF: 0 Discontinued ferrous sulfate 325 mg (65 mg iron) Tablet 325 mg PO QAM RF: 0 Stand-Alone Forms: [facility] Discharge Orders: Discharge Order (Routine); Ordered 09/01/18 Ordered By: Mamie Cortés Admission Data Admit Date/Time: 08/24/18 14:38 Attending Provider: Mamie Cortés Admit Provider: Hansel Monsivais Primary Care Provider: [facility] Other Providers: Taj Piedra ; Hansel Monsivais ; Francesco Franco ; Paulino Montano ; Amaya Bergman Service: Medical
[2018-09-01 14:10] VITALS: BP 100/61
--- NOTE | 2018-09-01 15:52 | Palliative Care Progress Note ---
Date of Service September 01, 2018 Assessment & Plan (1) Goals of care, counseling/discussion: -Patient more awake today. He states he wants to go home. -Planning to discharge this afternoon home with hospice. -Denies any pain or discomfort -Please contact palliative care with any further needs. (2) Acute respiratory failure with hypoxia: (3) CHF (congestive heart failure): (4) Acute kidney injury: Review of Systems Review of Systems: Denies pain, CP, SOB, or N/V Physical Exam Constitutional: + ill appearing (chronically) and + frail appearing; no acute distress ENMT: Ears: + hearing impairment (extremely CROW) Neck: normal visual inspection Respiratory: Auscultation: + diminished lung sounds Cardiovascular: RRR, no murmur, no edema Gastrointestinal (Abdomen): Inspection/Auscultation: abdomen normal to inspection and normal bowel sounds; abdomen not distended Percussion/Palpation: abdomen soft; abdomen nontender Neurologic: moves all extremities; + not awake (very drowsy) Psychiatric: Orientation: alert, oriented to person, oriented to place and oriented to time Insight: + limited insight (forgetful) Results & Data Vital Signs (Past 12 Hours) Vital Signs Temp Pulse Resp BP BP Pulse Ox 09/01/18 14:06 36.8 C 75 18 110/71 100/61 98 PG Care Time/CCT Total # of Minutes Spent Total Time Spent with Patient: Total time spent is greater than 50% in coordination of care (as documented) at patient's floor/unit and/or counseling patient: Time Spent Midlevel 25 minutes with >50% of the time spent at bedside with patient discussing condition and GOC.
== END 2018-09-01 15:25 | disposition hospice, home (50) | DRG 280 ==
LOC: ED 11:04 → 1E 14:38 → SUATTDRO 14:38 → 1E 15:47 → 2S 08-27 14:56 → 4E 08-31 14:42